=== PATIENT | female | born 1930 | race African-American/Black ===

== ENCOUNTER 2017-04-12 17:27 | Inpatient (IN) | payer OTHER ==
[~2017-04-12] VITALS: Ht 170.2 cm; Wt 48.6 kg
[~2017-04-12 17:27] MED LIST: AMIT10TA PO; FERR-26 PO; GEMF600T3 PO; LISI-334 PO; METF500T4 PO
--- NOTE | 2017-04-12 17:34 | PHYS DOC ---
Past Medical History Past Medical History: Diabetes-Type II, High Cholesterol, Hypertension Past Surgical History: Appendectomy, Tonsillectomy, Other Additional Past Surgical Histo: Hemmoroidectomy, Left hip repair, Hernia repair Alcohol Use: None Drug Use: None Adult General Chief Complaint Chief Complaint: syncope HPI HPI Patient is a 86 year old -[place] female who presents with sick all episode. According patient she just got up started to walk and a few seconds later had a syncopal episode. She denies headache, neck pain back pain, or hip pain. She denies any abdominal discomfort. She states as long she is lying flat she feels perfectly normal this time. According EMS when she was sitting her blood pressure was 120 systolic and after she stood up and went down to 78. She states she hasn't had a bowel movement for 3 days but denies any black tarry stools or blood in her stools. She states she was just seen by her primary care physician who started her back on iron pills. She states she's also taken off her blood pressure medicines at the same time. According to family she's had multiple episodes of falling recently. Review of Systems Review of Systems Constitutional: Denies fever or chills [] Eyes: Denies change in visual acuity, redness, or eye pain [] HENT: Denies nasal congestion or sore throat [] Respiratory: Denies cough or shortness of breath [] Cardiovascular: No additional information not addressed in HPI [] GI: Denies abdominal pain, nausea, vomiting, bloody stools or diarrhea [] : Denies dysuria or hematuria [] Musculoskeletal: Denies back pain or joint pain [] Integument: Denies rash or skin lesions [] Neurologic: Denies headache, focal weakness or sensory changes [] Endocrine: Denies polyuria or polydipsia [] Allergies Allergies Allergies Coded Allergies Type Severity Reaction Last Updated Verified codeine Allergy Intermediate 06/01/14 Yes Physical Exam Physical Exam Constitutional: Well developed, well nourished, no acute distress, non-toxic appearance. [] HENT: Normocephalic, atraumatic, bilateral external ears normal, oropharynx moist, no oral exudates, nose normal. [] Eyes: PERRLA, EOMI, conjunctiva normal, no discharge. [] Neck: Normal range of motion, no tenderness, supple, no stridor. [] Cardiovascular:Heart rate regular rhythm, no murmur [] Lungs & Thorax: Bilateral breath sounds clear to auscultation [] Abdomen: Bowel sounds normal, soft, no tenderness, no masses, no pulsatile masses. [] Skin: Warm, dry, no erythema, no rash. [] Back: No tenderness, no CVA tenderness. [] Extremities: No tenderness, no cyanosis, no clubbing, ROM intact, no edema. [] Neurologic: Alert and oriented X 3, normal motor function, normal sensory function, no focal deficits noted. [] Psychologic: Affect normal, judgement normal, mood normal. [] Current Patient Data Vital Signs Vital Signs Date Time Temp Pulse Resp B/P (MAP) Pulse Ox O2 Delivery O2 Flow Rate FiO2 04/12/17 18:07 98 127/75 (92) 96 Room Air 04/12/17 17:27 98.1 20 98.1 Lab Values Laboratory Tests Test 04/12/17 18:07 White Blood Count 5.0 x10^3/uL (4.0-11.0) Red Blood Count 3.13 x10^6/uL (3.50-5.40) L Hemoglobin 8.8 g/dL (12.0-15.5) L Hematocrit 27.2 % (36.0-47.0) L Mean Corpuscular Volume 87 fL (79-100) Mean Corpuscular Hemoglobin 28 pg (25-35) Mean Corpuscular Hemoglobin Concent 32 g/dL (31-37) Red Cell Distribution Width 14.7 % (11.5-14.5) H Platelet Count 288 x10^3/uL (140-400) Neutrophils (%) (Auto) 54 % (31-73) Lymphocytes (%) (Auto) 30 % (24-48) Monocytes (%) (Auto) 13 % (0-9) H Eosinophils (%) (Auto) 3 % (0-3) Basophils (%) (Auto) 1 % (0-3) Neutrophils # (Auto) 2.7 x10^3uL (1.8-7.7) Lymphocytes # (Auto) 1.5 x10^3/uL (1.0-4.8) Monocytes # (Auto) 0.6 x10^3/uL (0.0-1.1) Eosinophils # (Auto) 0.1 x10^3/uL (0.0-0.7) Basophils # (Auto) 0.0 x10^3/uL (0.0-0.2) Laboratory Tests 04/12/17 18:07 EKG EKG EKG shows sinus tachycardia with rate of [address] elevations or concerning T-wave inversions, left axis deviation, QTC 431 ms, as interpreted by me. Radiology/Procedures Radiology/Procedures One view chest x-ray did not show any focal consolidations, bony abnormality's, pneumothorax, as interpreted by me. Impressions: Syncope Diabetes Anemia Orthostatic hypotension Acute on chronic renal failure Course & Med Decision Making Course & Med Decision Making Pertinent Labs and Imaging studies reviewed. (See chart for details) EKG is sinus tach, she does show a decrease in her hemoglobin from 11 to 8.8 that was performed 2 weeks ago. She's being admitted to Dr. Hernandez in stable condition at this time. Her creatinine is elevated. I've added on 500 mL of normal saline bolus. His in stable condition at this time being transferred to the floor. Dragon Disclaimer Dragon Disclaimer This electronic medical record was generated, in whole or in part, using a voice recognition dictation system. Departure Departure Impression: Primary Impression: Syncope Disposition: ADMITTED INPATIENT Admitting Physician: Annette Hernandez Condition: STABLE Referrals: EARL ROLLINS MD (PCP) Problem Qualifiers Primary Impression: Syncope Syncope type: unspecified Qualified Codes: R55 - Syncope and collapse LUISA WHALEY MD Apr 12, 2017 17:34
[2017-04-12 18:20] LABS: BASO % 1 % (0-3); EOS % 3 % (0-3); HEMATOCRIT 27.2 % (36.0-47.0); HEMOGLOBIN 8.8 g/dL (12.0-15.5); LYMPH # 1.5 x10^3/uL (1.0-4.8); LYMPH % 30 % (24-48); MEAN CORPUSCULAR HEMOGLOBIN 28 pg (25-35); MEAN CORPUSCULAR HGB CONC 32 g/dL (31-37); MEAN CORPUSCULAR VOLUME 87 fL (79-100); MONO % 13 % (0-9); NEUT % 54 % (31-73); PLATELET COUNT 288 x10^3/uL (140-400); RED BLOOD COUNT 3.13 x10^6/uL (3.50-5.40); RED CELL DISTRIBUTION WIDTH 14.7 % (11.5-14.5)
[2017-04-12 20:00] VITALS: BP 158/83
[2017-04-12] MEDS ORDERED: ONDANSETRON PF 4 MG/2 ML VIAL. IV PRN (20:00)
[2017-04-12 20:04] LABS: CALCIUM 10.1 mg/dL (8.5-10.1); CREATININE 2.2 mg/dL (0.6-1.0); GFR 25.7; POTASSIUM 4.9 mmol/L (3.5-5.1)
[2017-04-12 20:09] LABS: ALBUMIN 3.6 g/dL (3.4-5.0); DIRECT BILIRUBIN 0.1 mg/dL (0.0-0.2); MAGNESIUM 2.3 mg/dL (1.8-2.4); TOTAL BILIRUBIN 0.2 mg/dL (0.2-1.0); TOTAL PROTEIN 6.7 g/dL (6.4-8.2)
[2017-04-12] MEDS ORDERED: IV NORMAL SALINE 1000ML BAG 500 ML IV ONE (20:15)
--- NOTE | 2017-04-12 20:24 | HP ---
ADMIT DATE: 04/12/2017 CHIEF COMPLAINT: Syncope. HISTORY OF PRESENT ILLNESS: The patient is a pleasant 86-year-old female who had a syncopal episode. Her family states she has had a couple of them recently. They think she hit her head. Her hemoglobin is a little low, she is at 9. It apparently was a little higher at 11 few weeks ago. I have discussed the case with the ER physician. It appears she is probably orthostatic as well. We are going to admit and give her some fluids and have Neurology to care. PAST MEDICAL HISTORY: Diabetes, hypertension, hyperlipidemia, anemia. ALLERGIES: None. FAMILY HISTORY: Diabetes. SOCIAL HISTORY: She does not drink, smoke or take drugs. She is a retired RN. MEDICATIONS: Reviewed. REVIEW OF SYSTEMS: GENERAL: No history of weight change, weakness or fevers. SKIN: No bruising, hair changes or rashes. EYES: No blurred, double or loss of vision. NOSE AND THROAT: No history of nosebleeds, hoarseness or sore throat. HEART: No history of palpitations, chest pain or shortness of breath on exertion. LUNGS: Denies cough, hemoptysis, wheezing or shortness of breath. GASTROINTESTINAL: Denies changes in appetite, nausea, vomiting, diarrhea or constipation. GENITOURINARY: No history of frequency, urgency, hesitancy or nocturia. NEUROLOGIC: Denies history of numbness, tingling, tremor or weakness. PSYCHIATRIC: No history of panic, anxiety or depression. ENDOCRINE: No history of heat or cold intolerance, polyuria or polydipsia. EXTREMITIES: Denies muscle weakness, joint pain, pain on walking or stiffness. PHYSICAL EXAMINATION: VITAL SIGNS: Temperature afebrile, pulse 97, respirations 18, blood pressure 100/60. GENERAL: She is alert. Her family is present. HEART: Normal S1, S2. LUNGS: Clear. ABDOMEN: Soft. EXTREMITIES: No edema. SKIN: No rashes. PSYCHIATRIC: She is a little depressed. VASCULAR: Good capillary refill. ENDOCRINE: No thyromegaly. LYMPHATICS: No cervical nodes. HEMATOPOIETIC: No bruising. ASSESSMENT AND PLAN: Syncope, suspect orthostasis, perhaps a little dehydration. The patient has been admitted. We will give her IV fluids. Consult neurology, physical therapy, occupational therapy, resume home medicines. PROGNOSIS: Guarded. SHAWNAL Leann VELÁZQUEZ DO DR: Miley JOB#: [id number] / [id number]
[2017-04-12 20:52] LABS: CKMB MASS 0.8 ng/mL (0.0-3.6)
[2017-04-12] MEDS: IV NORMAL SALINE 1000ML BAG 1,000 ML IV SCH (21:04)
[2017-04-12 22:51] VITALS: BP 127/64
[2017-04-13] VITALS (8 sets, daily range): BP systolic 81–147; BP diastolic 48–76
[2017-04-13 04:53] LABS: BASO # 0.1 x10^3/uL (0.0-0.2); BASO % 1 % (0-3); EOS % 4 % (0-3); HEMATOCRIT 25.4 % (36.0-47.0); HEMOGLOBIN 8.4 g/dL (12.0-15.5); LYMPH # 1.8 x10^3/uL (1.0-4.8); LYMPH % 39 % (24-48); MEAN CORPUSCULAR HEMOGLOBIN 28 pg (25-35); MEAN CORPUSCULAR HGB CONC 33 g/dL (31-37); MEAN CORPUSCULAR VOLUME 85 fL (79-100); MONO % 11 % (0-9); NEUT % 45 % (31-73); PLATELET COUNT 275 x10^3/uL (140-400); RED BLOOD COUNT 2.99 x10^6/uL (3.50-5.40); RED CELL DISTRIBUTION WIDTH 15.1 % (11.5-14.5); WHITE BLOOD COUNT 4.7 x10^3/uL (4.0-11.0)
[2017-04-13 05:06] LABS: CALCIUM 9.4 mg/dL (8.5-10.1); CREATININE 1.8 mg/dL (0.6-1.0); GFR 32.4; POTASSIUM 4.6 mmol/L (3.5-5.1)
--- NOTE | 2017-04-13 08:37 | RAD ---
AP chest. History: Syncope AP view was taken of the chest. Lungs are clear. Heart is normal in size without heart failure. There is no pleural effusion. Impression: 1. No acute chest disease.
--- NOTE | 2017-04-13 10:08 | EKG ---
[facility] [address] [place] [address] Test Date: 2017-04-12 Test Time: 17:43:27 Pat Name: ABBEY BONNER Department: Room: 538 1 Gender: F Supervisor Webbing: : 1930 Requested By: LUISA WHALEY Order Number: [id number] Reading MD: Hang Lilly Measurements Intervals [place] Rate: 101 P: 148 GA: 160 QRS: -30 QRSD: 94 T: 62 QT: 332 QTc: 431 Interpretive Statements SINUS TACHYCARDIA ABNORMAL LEFT AXIS DEVIATION QRS(T) CONTOUR ABNORMALITY CONSIDER ANTEROSEPTAL MYOCARDIAL DAMAGE CONSIDER INFERIOR INFARCT T ABNORMALITY IN HIGH LATERAL LEADS RI6.01 Unconfirmed report Electronically Signed On 04-30-2017 13:23:20 CDT by Hang Lilly
[2017-04-13] MEDS ORDERED: traMADol 50 MG TABLET PO PRN (12:30)
--- NOTE | 2017-04-13 12:43 | PDOC ---
PROGRESS NOTES Chief Complaint Chief Complaint Syncope Orthostatic hypotension PMH: syncope DM HTN Hyperlipidemia Anemia History of Present Illness History of Present Illness Pt was in bed and conversant. Nurse was also in the room. Nurse mentioned pt complaining of right sided flank pain. Possible broken ribs after fall suspected. Ordered right rib films. Discussed plan of care with pt and nurse. Gave pt ultram for pain and consulted Dr. Rowe with nephro fro elevated creatinine. CXR - negative EKG - negative trop <.017 Vitals Vitals Vital Signs Date Time Temp Pulse Resp B/P (MAP) Pulse Ox O2 Delivery O2 Flow Rate FiO2 04/13/17 11:10 85 81/48 (59) 97 04/13/17 11:00 97.9 17 Room Air 97.9 Physical Exam General: Alert, Oriented X3, Cooperative, No acute distress Heart: Regular rate, Normal S1, Normal S2, No murmurs Lungs: Clear Abdomen: Normal bowel sounds, No tenderness, No masses Extremities: No clubbing, No cyanosis Skin: No rashes, No breakdown, No significant lesion Labs LABS Laboratory Tests Test 04/12/17 18:07 04/12/17 19:40 04/12/17 20:43 04/12/17 21:02 White Blood Count 5.0 x10^3/uL (4.0-11.0) Red Blood Count 3.13 x10^6/uL (3.50-5.40) Hemoglobin 8.8 g/dL (12.0-15.5) Hematocrit 27.2 % (36.0-47.0) Mean Corpuscular Volume 87 fL (79-100) Mean Corpuscular Hemoglobin 28 pg (25-35) Mean Corpuscular Hemoglobin Concent 32 g/dL (31-37) Red Cell Distribution Width 14.7 % (11.5-14.5) Platelet Count 288 x10^3/uL (140-400) Neutrophils (%) (Auto) 54 % (31-73) Lymphocytes (%) (Auto) 30 % (24-48) Monocytes (%) (Auto) 13 % (0-9) Eosinophils (%) (Auto) 3 % (0-3) Basophils (%) (Auto) 1 % (0-3) Neutrophils # (Auto) 2.7 x10^3uL (1.8-7.7) Lymphocytes # (Auto) 1.5 x10^3/uL (1.0-4.8) Monocytes # (Auto) 0.6 x10^3/uL (0.0-1.1) Eosinophils # (Auto) 0.1 x10^3/uL (0.0-0.7) Basophils # (Auto) 0.0 x10^3/uL (0.0-0.2) Sodium Level 142 mmol/L (136-145) Potassium Level 4.9 mmol/L (3.5-5.1) Chloride Level 106 mmol/L (98-107) Carbon Dioxide Level 23 mmol/L (21-32) Anion Gap 13 (6-14) Blood Urea Nitrogen 34 mg/dL (7-20) Creatinine 2.2 mg/dL (0.6-1.0) Estimated GFR (Cockcroft-Gault) 25.7 Glucose Level 87 mg/dL (70-99) Calcium Level 10.1 mg/dL (8.5-10.1) Magnesium Level 2.3 mg/dL (1.8-2.4) Total Bilirubin 0.2 mg/dL (0.2-1.0) Direct Bilirubin 0.1 mg/dL (0.0-0.2) Aspartate Amino Transf (AST/SGOT) 15 U/L (15-37) Alanine Aminotransferase (ALT/SGPT) 11 U/L (14-59) Alkaline Phosphatase 38 U/L (46-116) Creatine Kinase 49 U/L (26-192) Creatine Kinase MB (Mass) 0.8 ng/mL (0.0-3.6) Creatine Kinase MB Relative Index 1.6 % (0-4) Troponin I Quantitative < 0.017 ng/mL (0.000-0.055) MR-Eld-R-Type Natriuretic Peptide 275 pg/mL (0-449) Total Protein 6.7 g/dL (6.4-8.2) Albumin 3.6 g/dL (3.4-5.0) Thyroid Stimulating Hormone (TSH) 1.737 uIU/mL (0.358-3.74) Glucose (Fingerstick) 65 mg/dL (70-99) 82 mg/dL (70-99) Test 04/13/17 02:30 04/13/17 04:00 04/13/17 08:05 04/13/17 08:46 Troponin I Quantitative < 0.017 ng/mL (0.000-0.055) < 0.017 ng/mL (0.000-0.055) White Blood Count 4.7 x10^3/uL (4.0-11.0) Red Blood Count 2.99 x10^6/uL (3.50-5.40) Hemoglobin 8.4 g/dL (12.0-15.5) Hematocrit 25.4 % (36.0-47.0) Mean Corpuscular Volume 85 fL (79-100) Mean Corpuscular Hemoglobin 28 pg (25-35) Mean Corpuscular Hemoglobin Concent 33 g/dL (31-37) Red Cell Distribution Width 15.1 % (11.5-14.5) Platelet Count 275 x10^3/uL (140-400) Neutrophils (%) (Auto) 45 % (31-73) Lymphocytes (%) (Auto) 39 % (24-48) Monocytes (%) (Auto) 11 % (0-9) Eosinophils (%) (Auto) 4 % (0-3) Basophils (%) (Auto) 1 % (0-3) Neutrophils # (Auto) 2.1 x10^3uL (1.8-7.7) Lymphocytes # (Auto) 1.8 x10^3/uL (1.0-4.8) Monocytes # (Auto) 0.5 x10^3/uL (0.0-1.1) Eosinophils # (Auto) 0.2 x10^3/uL (0.0-0.7) Basophils # (Auto) 0.1 x10^3/uL (0.0-0.2) Sodium Level 142 mmol/L (136-145) Potassium Level 4.6 mmol/L (3.5-5.1) Chloride Level 110 mmol/L (98-107) Carbon Dioxide Level 25 mmol/L (21-32) Anion Gap 7 (6-14) Blood Urea Nitrogen 28 mg/dL (7-20) Creatinine 1.8 mg/dL (0.6-1.0) Estimated GFR (Cockcroft-Gault) 32.4 Glucose Level 75 mg/dL (70-99) Calcium Level 9.4 mg/dL (8.5-10.1) Glucose (Fingerstick) 135 mg/dL (70-99) Test 04/13/17 11:24 Glucose (Fingerstick) 91 mg/dL (70-99) Review of Systems Review of Systems Pt complains of pain in right flank Pt complains of fatigue Pt complains of hunger Assessment and Plan Assessmemt and Plan Syncope Orthostatic hypotension PMH: syncope DM HTN Hyperlipidemia Anemia Plan: Consult Dr. Rowe Ordered right rib films for possible broken ribs Ordered Ultram for pt pain control Recheck labs cont. IVF Appreciate subspecialty input Cont. meds PT/OT Problems: Comment Review of Relevant I have reviewed the following items nella (where applicable) has been applied. Labs Laboratory Tests Test 04/12/17 18:07 04/12/17 19:40 04/12/17 20:43 04/12/17 21:02 White Blood Count 5.0 x10^3/uL (4.0-11.0) Red Blood Count 3.13 x10^6/uL (3.50-5.40) Hemoglobin 8.8 g/dL (12.0-15.5) Hematocrit 27.2 % (36.0-47.0) Mean Corpuscular Volume 87 fL (79-100) Mean Corpuscular Hemoglobin 28 pg (25-35) Mean Corpuscular Hemoglobin Concent 32 g/dL (31-37) Red Cell Distribution Width 14.7 % (11.5-14.5) Platelet Count 288 x10^3/uL (140-400) Neutrophils (%) (Auto) 54 % (31-73) Lymphocytes (%) (Auto) 30 % (24-48) Monocytes (%) (Auto) 13 % (0-9) Eosinophils (%) (Auto) 3 % (0-3) Basophils (%) (Auto) 1 % (0-3) Neutrophils # (Auto) 2.7 x10^3uL (1.8-7.7) Lymphocytes # (Auto) 1.5 x10^3/uL (1.0-4.8) Monocytes # (Auto) 0.6 x10^3/uL (0.0-1.1) Eosinophils # (Auto) 0.1 x10^3/uL (0.0-0.7) Basophils # (Auto) 0.0 x10^3/uL (0.0-0.2) Sodium Level 142 mmol/L (136-145) Potassium Level 4.9 mmol/L (3.5-5.1) Chloride Level 106 mmol/L (98-107) Carbon Dioxide Level 23 mmol/L (21-32) Anion Gap 13 (6-14) Blood Urea Nitrogen 34 mg/dL (7-20) Creatinine 2.2 mg/dL (0.6-1.0) Estimated GFR (Cockcroft-Gault) 25.7 Glucose Level 87 mg/dL (70-99) Calcium Level 10.1 mg/dL (8.5-10.1) Magnesium Level 2.3 mg/dL (1.8-2.4) Total Bilirubin 0.2 mg/dL (0.2-1.0) Direct Bilirubin 0.1 mg/dL (0.0-0.2) Aspartate Amino Transf (AST/SGOT) 15 U/L (15-37) Alanine Aminotransferase (ALT/SGPT) 11 U/L (14-59) Alkaline Phosphatase 38 U/L (46-116) Creatine Kinase 49 U/L (26-192) Creatine Kinase MB (Mass) 0.8 ng/mL (0.0-3.6) Creatine Kinase MB Relative Index 1.6 % (0-4) Troponin I Quantitative < 0.017 ng/mL (0.000-0.055) CH-Koe-Q-Type Natriuretic Peptide 275 pg/mL (0-449) Total Protein 6.7 g/dL (6.4-8.2) Albumin 3.6 g/dL (3.4-5.0) Thyroid Stimulating Hormone (TSH) 1.737 uIU/mL (0.358-3.74) Glucose (Fingerstick) 65 mg/dL (70-99) 82 mg/dL (70-99) Test 04/13/17 02:30 04/13/17 04:00 04/13/17 08:05 04/13/17 08:46 Troponin I Quantitative < 0.017 ng/mL (0.000-0.055) < 0.017 ng/mL (0.000-0.055) White Blood Count 4.7 x10^3/uL (4.0-11.0) Red Blood Count 2.99 x10^6/uL (3.50-5.40) Hemoglobin 8.4 g/dL (12.0-15.5) Hematocrit 25.4 % (36.0-47.0) Mean Corpuscular Volume 85 fL (79-100) Mean Corpuscular Hemoglobin 28 pg (25-35) Mean Corpuscular Hemoglobin Concent 33 g/dL (31-37) Red Cell Distribution Width 15.1 % (11.5-14.5) Platelet Count 275 x10^3/uL (140-400) Neutrophils (%) (Auto) 45 % (31-73) Lymphocytes (%) (Auto) 39 % (24-48) Monocytes (%) (Auto) 11 % (0-9) Eosinophils (%) (Auto) 4 % (0-3) Basophils (%) (Auto) 1 % (0-3) Neutrophils # (Auto) 2.1 x10^3uL (1.8-7.7) Lymphocytes # (Auto) 1.8 x10^3/uL (1.0-4.8) Monocytes # (Auto) 0.5 x10^3/uL (0.0-1.1) Eosinophils # (Auto) 0.2 x10^3/uL (0.0-0.7) Basophils # (Auto) 0.1 x10^3/uL (0.0-0.2) Sodium Level 142 mmol/L (136-145) Potassium Level 4.6 mmol/L (3.5-5.1) Chloride Level 110 mmol/L (98-107) Carbon Dioxide Level 25 mmol/L (21-32) Anion Gap 7 (6-14) Blood Urea Nitrogen 28 mg/dL (7-20) Creatinine 1.8 mg/dL (0.6-1.0) Estimated GFR (Cockcroft-Gault) 32.4 Glucose Level 75 mg/dL (70-99) Calcium Level 9.4 mg/dL (8.5-10.1) Glucose (Fingerstick) 135 mg/dL (70-99) Test 04/13/17 11:24 Glucose (Fingerstick) 91 mg/dL (70-99) Laboratory Tests Test 04/12/17 18:07 04/12/17 19:40 04/12/17 20:43 04/12/17 21:02 White Blood Count 5.0 x10^3/uL (4.0-11.0) Red Blood Count 3.13 x10^6/uL (3.50-5.40) Hemoglobin 8.8 g/dL (12.0-15.5) Hematocrit 27.2 % (36.0-47.0) Mean Corpuscular Volume 87 fL (79-100) Mean Corpuscular Hemoglobin 28 pg (25-35) Mean Corpuscular Hemoglobin Concent 32 g/dL (31-37) Red Cell Distribution Width 14.7 % (11.5-14.5) Platelet Count 288 x10^3/uL (140-400) Neutrophils (%) (Auto) 54 % (31-73) Lymphocytes (%) (Auto) 30 % (24-48) Monocytes (%) (Auto) 13 % (0-9) Eosinophils (%) (Auto) 3 % (0-3) Basophils (%) (Auto) 1 % (0-3) Neutrophils # (Auto) 2.7 x10^3uL (1.8-7.7) Lymphocytes # (Auto) 1.5 x10^3/uL (1.0-4.8) Monocytes # (Auto) 0.6 x10^3/uL (0.0-1.1) Eosinophils # (Auto) 0.1 x10^3/uL (0.0-0.7) Basophils # (Auto) 0.0 x10^3/uL (0.0-0.2) Sodium Level 142 mmol/L (136-145) Potassium Level 4.9 mmol/L (3.5-5.1) Chloride Level 106 mmol/L (98-107) Carbon Dioxide Level 23 mmol/L (21-32) Anion Gap 13 (6-14) Blood Urea Nitrogen 34 mg/dL (7-20) Creatinine 2.2 mg/dL (0.6-1.0) Estimated GFR (Cockcroft-Gault) 25.7 Glucose Level 87 mg/dL (70-99) Calcium Level 10.1 mg/dL (8.5-10.1) Magnesium Level 2.3 mg/dL (1.8-2.4) Total Bilirubin 0.2 mg/dL (0.2-1.0) Direct Bilirubin 0.1 mg/dL (0.0-0.2) Aspartate Amino Transf (AST/SGOT) 15 U/L (15-37) Alanine Aminotransferase (ALT/SGPT) 11 U/L (14-59) Alkaline Phosphatase 38 U/L (46-116) Creatine Kinase 49 U/L (26-192) Creatine Kinase MB (Mass) 0.8 ng/mL (0.0-3.6) Creatine Kinase MB Relative Index 1.6 % (0-4) Troponin I Quantitative < 0.017 ng/mL (0.000-0.055) NO-Odc-O-Type Natriuretic Peptide 275 pg/mL (0-449) Total Protein 6.7 g/dL (6.4-8.2) Albumin 3.6 g/dL (3.4-5.0) Thyroid Stimulating Hormone (TSH) 1.737 uIU/mL (0.358-3.74) Glucose (Fingerstick) 65 mg/dL (70-99) 82 mg/dL (70-99) Test 04/13/17 02:30 04/13/17 04:00 04/13/17 08:05 04/13/17 08:46 Troponin I Quantitative < 0.017 ng/mL (0.000-0.055) < 0.017 ng/mL (0.000-0.055) White Blood Count 4.7 x10^3/uL (4.0-11.0) Red Blood Count 2.99 x10^6/uL (3.50-5.40) Hemoglobin 8.4 g/dL (12.0-15.5) Hematocrit 25.4 % (36.0-47.0) Mean Corpuscular Volume 85 fL (79-100) Mean Corpuscular Hemoglobin 28 pg (25-35) Mean Corpuscular Hemoglobin Concent 33 g/dL (31-37) Red Cell Distribution Width 15.1 % (11.5-14.5) Platelet Count 275 x10^3/uL (140-400) Neutrophils (%) (Auto) 45 % (31-73) Lymphocytes (%) (Auto) 39 % (24-48) Monocytes (%) (Auto) 11 % (0-9) Eosinophils (%) (Auto) 4 % (0-3) Basophils (%) (Auto) 1 % (0-3) Neutrophils # (Auto) 2.1 x10^3uL (1.8-7.7) Lymphocytes # (Auto) 1.8 x10^3/uL (1.0-4.8) Monocytes # (Auto) 0.5 x10^3/uL (0.0-1.1) Eosinophils # (Auto) 0.2 x10^3/uL (0.0-0.7) Basophils # (Auto) 0.1 x10^3/uL (0.0-0.2) Sodium Level 142 mmol/L (136-145) Potassium Level 4.6 mmol/L (3.5-5.1) Chloride Level 110 mmol/L (98-107) Carbon Dioxide Level 25 mmol/L (21-32) Anion Gap 7 (6-14) Blood Urea Nitrogen 28 mg/dL (7-20) Creatinine 1.8 mg/dL (0.6-1.0) Estimated GFR (Cockcroft-Gault) 32.4 Glucose Level 75 mg/dL (70-99) Calcium Level 9.4 mg/dL (8.5-10.1) Glucose (Fingerstick) 135 mg/dL (70-99) Test 04/13/17 11:24 Glucose (Fingerstick) 91 mg/dL (70-99) Medications Current Medications Ondansetron HCl (Zofran) 4 mg PRN Q8HRS PRN IV NAUSEA/VOMITING; Start 04/12/17 at 20:00; Stop 04/13/17 at 19:59 Sodium Chloride 500 ml @ 1,000 mls/hr 1X ONCE IV Last administered on 20:34; Start 04/12/17 at 20:15; Stop 04/12/17 at 20:44; Status DC Sodium Chloride 1,000 ml @ 75 mls/hr [id number] IV Last administered on 21:04; Start 04/12/17 at 21:00 Active Scripts Active Reported Metformin Hcl 500 Mg Tablet 500 Mg PO BIDWMEALS Gemfibrozil 600 Mg Tablet 600 Mg PO BID Ferrous Sulfate 325 Mg Tablet 325 Mg PO DAILY Amitriptyline Hcl 10 Mg Tablet 10 Mg PO TID Vitals/I & O Vital Sign - Last 24 Hours 04/12/17 04/12/17 04/12/17 04/12/17 17:27 17:37 18:07 19:12 Temp 98.1 98.1 Pulse 102 102 98 98 Resp 20 B/P (MAP) 133/74 (93) 153/74 (100) 127/75 (92) 137/78 (97) Pulse Ox 97 99 96 99 O2 Delivery Room Air Room Air Room Air Room Air 04/12/17 04/12/17 04/12/17 04/12/17 19:50 20:00 22:15 22:51 Temp 98.2 96.6 98.2 96.6 Pulse 94 95 101 Resp 20 18 B/P (MAP) 138/84 (102) 158/83 (108) 127/64 (85) Pulse Ox 99 96 98 O2 Delivery Room Air Room Air Room Air Room Air 04/13/17 04/13/17 04/13/17 04/13/17 03:00 07:00 08:03 11:00 Temp 97.7 97.5 97.9 97.7 97.5 97.9 Pulse 84 90 78 Resp 17 B/P (MAP) 147/76 (99) 108/54 (72) 122/62 (82) Pulse Ox 96 100 97 O2 Delivery Room Air Room Air Room Air Room Air 04/13/17 04/13/17 11:05 11:10 Pulse 84 85 B/P (MAP) 126/63 (84) 81/48 (59) Pulse Ox 96 97 MARISSA VELÁZQUEZ III DO Apr 13, 2017 12:42
--- NOTE | 2017-04-13 14:28 | RAD ---
AP and oblique right ribs. History: Right-sided rib pain after a fall AP and oblique views were taken of the right ribs. A rib fracture is not identified. The lower ribs are poorly evaluated. There is no right pneumothorax or pleural effusion. Impression: 1. Somewhat limited study. 2. No definite rib fracture.
[2017-04-13] MEDS: IV NORMAL SALINE 1000ML BAG 1,000 ML IV SCH (14:39)
--- NOTE | 2017-04-13 16:04 | PDOC2 ---
CONSULT Date of Consult Date of Consult DATE: 04/13/17 TIME: 16:02 Reason for Consult Reason for Consult: Syncope. History of Present Illness Reason for Visit: This patient is a 86-year-old overweight man who presented with complaint of syncope episode. She reports she will have lightheadedness when she is trying to get out of the bed too quickly patient denies any previous history of stroke or seizures. There are no new clinicals seizures or any history suggestive of seizures. Patient has hemoglobin the low side. Information obtained from patient and patient's family at bedside. Patient denies any complaint of tingling numbness weakness she denies any complaint of headaches. Patient denies any history of focal weakness of slurring of speech or difficulty speaking. Syncope Positional dizziness Check for orthostatic blood pressures Check MRI brain to rule out any acute process Reason for Visit: This patient is a 86-year-old overweight man who presented with compla Past Medical History Cardiovascular: HTN, Hyperlipidemia Pulmonary: No pertinent hx GI: No pertinent hx Heme/Onc: Anemia NOS Hepatobiliary: No pertinent hx Psych: Anxiety, Depression Musculoskeletal: Osteoarthritis Rheumatologic: No pertinent hx Infectious disease: No pertinent hx Renal/: No pertinent hx Endocrine: Diabetes Past Surgical History Past Surgical History: Appendectomy, Tonsillectomy, Other Family History Family History: Hypertension Social History ALCOHOL: none Drugs: None Lives: with Family Current Medications Current Medications Current Medications Ondansetron HCl (Zofran) 4 mg PRN Q8HRS PRN IV NAUSEA/VOMITING; Start 04/12/17 at 20:00; Stop 04/13/17 at 19:59 Sodium Chloride 500 ml @ 1,000 mls/hr 1X ONCE IV Last administered on 20:34; Start 04/12/17 at 20:15; Stop 04/12/17 at 20:44; Status DC Sodium Chloride 1,000 ml @ 75 mls/hr [id number] IV Last administered on 14:39; Start 04/12/17 at 21:00 Tramadol HCl (Ultram) 50 mg PRN Q6HRS PRN PO PAIN Last administered on 14:38; Start 04/13/17 at 12:30 Active Scripts Active Reported Metformin Hcl 500 Mg Tablet 500 Mg PO BIDWMEALS Gemfibrozil 600 Mg Tablet 600 Mg PO BID Ferrous Sulfate 325 Mg Tablet 325 Mg PO DAILY Amitriptyline Hcl 10 Mg Tablet 10 Mg PO TID Allergies Allergies: Coded Allergies: codeine (Verified Allergy, Intermediate, 06/01/14) Physical Exam Physical Exam REVIEW OF SYSTEMS: Otherwise, not [id number] review of systems. PHYSICAL EXAMINATION: General appearance is in acute distress. HEENT: Normocephalic and nontraumatic. Eyes, nose, ears, and throat are unremarkable. Neck is supple. No lymphadenopathy. No crepitus. Cardiovascular: S1, S2, regular rate and rhythm. Pulmonary: Clear to auscultation bilaterally. Abdomen: Bowel sounds are positive. Abdomen is soft, nontender, and nondistended. NEUROLOGICAL EXAMINATION: Alert Oriented to time, place and person. PERRL. EOMI. CN: no focal findings. Muscle tone: within normal. Muscle strength: 5 DTR: 1-2 Plantar reflex: Flexor response bilaterally Gait: not examined in bed. Sensory exam: no abnormal findings. No obvious cerebellar signs elicited. Vitals VITALS Vital Signs Date Time Temp Pulse Resp B/P (MAP) Pulse Ox O2 Delivery O2 Flow Rate FiO2 04/13/17 14:38 20 93 Room Air 04/13/17 11:10 85 81/48 (59) 04/13/17 11:00 97.9 97.9 Labs Labs Laboratory Tests Test 04/12/17 18:07 04/12/17 19:40 04/12/17 20:43 04/12/17 21:02 White Blood Count 5.0 x10^3/uL (4.0-11.0) Red Blood Count 3.13 x10^6/uL (3.50-5.40) Hemoglobin 8.8 g/dL (12.0-15.5) Hematocrit 27.2 % (36.0-47.0) Mean Corpuscular Volume 87 fL (79-100) Mean Corpuscular Hemoglobin 28 pg (25-35) Mean Corpuscular Hemoglobin Concent 32 g/dL (31-37) Red Cell Distribution Width 14.7 % (11.5-14.5) Platelet Count 288 x10^3/uL (140-400) Neutrophils (%) (Auto) 54 % (31-73) Lymphocytes (%) (Auto) 30 % (24-48) Monocytes (%) (Auto) 13 % (0-9) Eosinophils (%) (Auto) 3 % (0-3) Basophils (%) (Auto) 1 % (0-3) Neutrophils # (Auto) 2.7 x10^3uL (1.8-7.7) Lymphocytes # (Auto) 1.5 x10^3/uL (1.0-4.8) Monocytes # (Auto) 0.6 x10^3/uL (0.0-1.1) Eosinophils # (Auto) 0.1 x10^3/uL (0.0-0.7) Basophils # (Auto) 0.0 x10^3/uL (0.0-0.2) Sodium Level 142 mmol/L (136-145) Potassium Level 4.9 mmol/L (3.5-5.1) Chloride Level 106 mmol/L (98-107) Carbon Dioxide Level 23 mmol/L (21-32) Anion Gap 13 (6-14) Blood Urea Nitrogen 34 mg/dL (7-20) Creatinine 2.2 mg/dL (0.6-1.0) Estimated GFR (Cockcroft-Gault) 25.7 Glucose Level 87 mg/dL (70-99) Calcium Level 10.1 mg/dL (8.5-10.1) Magnesium Level 2.3 mg/dL (1.8-2.4) Total Bilirubin 0.2 mg/dL (0.2-1.0) Direct Bilirubin 0.1 mg/dL (0.0-0.2) Aspartate Amino Transf (AST/SGOT) 15 U/L (15-37) Alanine Aminotransferase (ALT/SGPT) 11 U/L (14-59) Alkaline Phosphatase 38 U/L (46-116) Creatine Kinase 49 U/L (26-192) Creatine Kinase MB (Mass) 0.8 ng/mL (0.0-3.6) Creatine Kinase MB Relative Index 1.6 % (0-4) Troponin I Quantitative < 0.017 ng/mL (0.000-0.055) NS-Bnn-Q-Type Natriuretic Peptide 275 pg/mL (0-449) Total Protein 6.7 g/dL (6.4-8.2) Albumin 3.6 g/dL (3.4-5.0) Thyroid Stimulating Hormone (TSH) 1.737 uIU/mL (0.358-3.74) Glucose (Fingerstick) 65 mg/dL (70-99) 82 mg/dL (70-99) Test 04/13/17 02:30 04/13/17 04:00 04/13/17 08:05 04/13/17 08:46 Troponin I Quantitative < 0.017 ng/mL (0.000-0.055) < 0.017 ng/mL (0.000-0.055) White Blood Count 4.7 x10^3/uL (4.0-11.0) Red Blood Count 2.99 x10^6/uL (3.50-5.40) Hemoglobin 8.4 g/dL (12.0-15.5) Hematocrit 25.4 % (36.0-47.0) Mean Corpuscular Volume 85 fL (79-100) Mean Corpuscular Hemoglobin 28 pg (25-35) Mean Corpuscular Hemoglobin Concent 33 g/dL (31-37) Red Cell Distribution Width 15.1 % (11.5-14.5) Platelet Count 275 x10^3/uL (140-400) Neutrophils (%) (Auto) 45 % (31-73) Lymphocytes (%) (Auto) 39 % (24-48) Monocytes (%) (Auto) 11 % (0-9) Eosinophils (%) (Auto) 4 % (0-3) Basophils (%) (Auto) 1 % (0-3) Neutrophils # (Auto) 2.1 x10^3uL (1.8-7.7) Lymphocytes # (Auto) 1.8 x10^3/uL (1.0-4.8) Monocytes # (Auto) 0.5 x10^3/uL (0.0-1.1) Eosinophils # (Auto) 0.2 x10^3/uL (0.0-0.7) Basophils # (Auto) 0.1 x10^3/uL (0.0-0.2) Sodium Level 142 mmol/L (136-145) Potassium Level 4.6 mmol/L (3.5-5.1) Chloride Level 110 mmol/L (98-107) Carbon Dioxide Level 25 mmol/L (21-32) Anion Gap 7 (6-14) Blood Urea Nitrogen 28 mg/dL (7-20) Creatinine 1.8 mg/dL (0.6-1.0) Estimated GFR (Cockcroft-Gault) 32.4 Glucose Level 75 mg/dL (70-99) Calcium Level 9.4 mg/dL (8.5-10.1) Glucose (Fingerstick) 135 mg/dL (70-99) Test 04/13/17 11:24 Glucose (Fingerstick) 91 mg/dL (70-99) Laboratory Tests Test 04/12/17 18:07 04/12/17 19:40 04/12/17 20:43 04/12/17 21:02 White Blood Count 5.0 x10^3/uL (4.0-11.0) Red Blood Count 3.13 x10^6/uL (3.50-5.40) Hemoglobin 8.8 g/dL (12.0-15.5) Hematocrit 27.2 % (36.0-47.0) Mean Corpuscular Volume 87 fL (79-100) Mean Corpuscular Hemoglobin 28 pg (25-35) Mean Corpuscular Hemoglobin Concent 32 g/dL (31-37) Red Cell Distribution Width 14.7 % (11.5-14.5) Platelet Count 288 x10^3/uL (140-400) Neutrophils (%) (Auto) 54 % (31-73) Lymphocytes (%) (Auto) 30 % (24-48) Monocytes (%) (Auto) 13 % (0-9) Eosinophils (%) (Auto) 3 % (0-3) Basophils (%) (Auto) 1 % (0-3) Neutrophils # (Auto) 2.7 x10^3uL (1.8-7.7) Lymphocytes # (Auto) 1.5 x10^3/uL (1.0-4.8) Monocytes # (Auto) 0.6 x10^3/uL (0.0-1.1) Eosinophils # (Auto) 0.1 x10^3/uL (0.0-0.7) Basophils # (Auto) 0.0 x10^3/uL (0.0-0.2) Sodium Level 142 mmol/L (136-145) Potassium Level 4.9 mmol/L (3.5-5.1) Chloride Level 106 mmol/L (98-107) Carbon Dioxide Level 23 mmol/L (21-32) Anion Gap 13 (6-14) Blood Urea Nitrogen 34 mg/dL (7-20) Creatinine 2.2 mg/dL (0.6-1.0) Estimated GFR (Cockcroft-Gault) 25.7 Glucose Level 87 mg/dL (70-99) Calcium Level 10.1 mg/dL (8.5-10.1) Magnesium Level 2.3 mg/dL (1.8-2.4) Total Bilirubin 0.2 mg/dL (0.2-1.0) Direct Bilirubin 0.1 mg/dL (0.0-0.2) Aspartate Amino Transf (AST/SGOT) 15 U/L (15-37) Alanine Aminotransferase (ALT/SGPT) 11 U/L (14-59) Alkaline Phosphatase 38 U/L (46-116) Creatine Kinase 49 U/L (26-192) Creatine Kinase MB (Mass) 0.8 ng/mL (0.0-3.6) Creatine Kinase MB Relative Index 1.6 % (0-4) Troponin I Quantitative < 0.017 ng/mL (0.000-0.055) OO-Cyw-X-Type Natriuretic Peptide 275 pg/mL (0-449) Total Protein 6.7 g/dL (6.4-8.2) Albumin 3.6 g/dL (3.4-5.0) Thyroid Stimulating Hormone (TSH) 1.737 uIU/mL (0.358-3.74) Glucose (Fingerstick) 65 mg/dL (70-99) 82 mg/dL (70-99) Test 04/13/17 02:30 04/13/17 04:00 04/13/17 08:05 04/13/17 08:46 Troponin I Quantitative < 0.017 ng/mL (0.000-0.055) < 0.017 ng/mL (0.000-0.055) White Blood Count 4.7 x10^3/uL (4.0-11.0) Red Blood Count 2.99 x10^6/uL (3.50-5.40) Hemoglobin 8.4 g/dL (12.0-15.5) Hematocrit 25.4 % (36.0-47.0) Mean Corpuscular Volume 85 fL (79-100) Mean Corpuscular Hemoglobin 28 pg (25-35) Mean Corpuscular Hemoglobin Concent 33 g/dL (31-37) Red Cell Distribution Width 15.1 % (11.5-14.5) Platelet Count 275 x10^3/uL (140-400) Neutrophils (%) (Auto) 45 % (31-73) Lymphocytes (%) (Auto) 39 % (24-48) Monocytes (%) (Auto) 11 % (0-9) Eosinophils (%) (Auto) 4 % (0-3) Basophils (%) (Auto) 1 % (0-3) Neutrophils # (Auto) 2.1 x10^3uL (1.8-7.7) Lymphocytes # (Auto) 1.8 x10^3/uL (1.0-4.8) Monocytes # (Auto) 0.5 x10^3/uL (0.0-1.1) Eosinophils # (Auto) 0.2 x10^3/uL (0.0-0.7) Basophils # (Auto) 0.1 x10^3/uL (0.0-0.2) Sodium Level 142 mmol/L (136-145) Potassium Level 4.6 mmol/L (3.5-5.1) Chloride Level 110 mmol/L (98-107) Carbon Dioxide Level 25 mmol/L (21-32) Anion Gap 7 (6-14) Blood Urea Nitrogen 28 mg/dL (7-20) Creatinine 1.8 mg/dL (0.6-1.0) Estimated GFR (Cockcroft-Gault) 32.4 Glucose Level 75 mg/dL (70-99) Calcium Level 9.4 mg/dL (8.5-10.1) Glucose (Fingerstick) 135 mg/dL (70-99) Test 04/13/17 11:24 Glucose (Fingerstick) 91 mg/dL (70-99) Assessment/Plan Assessment/Plan This patient is a 86-year-old overweight man who presented with complaint of syncope episode. She reports she will have lightheadedness when she is trying to get out of the bed too quickly patient denies any previous history of stroke or seizures. There are no new clinicals seizures or any history suggestive of seizures. Patient has hemoglobin the low side. Information obtained from patient and patient's family at bedside. Patient denies any complaint of tingling numbness weakness she denies any complaint of headaches. Patient denies any history of focal weakness of slurring of speech or difficulty speaking. Syncope Positional dizziness Check for orthostatic blood pressures Check MRI brain to rule out any acute process Carotid Doppler Cardiac workup Discussed with patient and patient's family in detail. DEBORAH BRAXTON MD Apr 13, 2017 16:04
[2017-04-13] MEDS ORDERED: DEXTROSE 50% 25 GM / 50ML DISP.SYRIN. IV PRN (20:00)
[2017-04-13] MEDS: AMITRIPTYLINE HCL 10 MG TABLET. PO SCH (21:23)
[2017-04-13] MEDS: GEMFIBROZIL 600 MG TABLET. PO SCH (21:23)
[2017-04-13] MEDS: FERROUS SULFATE 325 MG TABLET. PO SCH (21:23)
[2017-04-14] VITALS (8 sets, daily range): BP systolic 84–186; BP diastolic 45–112
[2017-04-14] MEDS: IV NORMAL SALINE 1000ML BAG 1,000 ML IV SCH ×2 (04:16→20:59)
[2017-04-14 04:55] LABS: BASO # 0.1 x10^3/uL (0.0-0.2); BASO % 2 % (0-3); EOS % 8 % (0-3); HEMATOCRIT 25.3 % (36.0-47.0); HEMOGLOBIN 8.4 g/dL (12.0-15.5); LYMPH # 2.5 x10^3/uL (1.0-4.8); LYMPH % 46 % (24-48); MEAN CORPUSCULAR HEMOGLOBIN 29 pg (25-35); MEAN CORPUSCULAR HGB CONC 33 g/dL (31-37); MEAN CORPUSCULAR VOLUME 87 fL (79-100); MONO % 11 % (0-9); NEUT % 34 % (31-73); PLATELET COUNT 264 x10^3/uL (140-400); RED BLOOD COUNT 2.93 x10^6/uL (3.50-5.40); WHITE BLOOD COUNT 5.4 x10^3/uL (4.0-11.0)
[2017-04-14 05:11] LABS: CREATININE 1.2 mg/dL (0.6-1.0); GFR 51.7; POTASSIUM 4.4 mmol/L (3.5-5.1)
--- NOTE | 2017-04-14 07:36 | RAD ---
Carotid ultrasound, 04/13/2017: History: Syncope Duplex evaluation of the carotid arteries in the neck was performed including grayscale, color-flow and spectral Doppler analysis. There is mild atherosclerotic plaquing at both carotid bifurcations with partial calcification. The Doppler data obtained from the bifurcations reveals no significant focal velocity elevation to suggest a hemodynamically significant carotid stenosis. The peak systolic velocity in the left internal carotid artery is 95 cm/s with an end-diastolic velocity of 19 cm/s. The peak systolic velocity in the right internal carotid artery is 84 cm/s with an end-diastolic velocity of 17 cm/s. Antegrade flow is present in both vertebral arteries in the neck. IMPRESSION: Mild atherosclerotic plaquing at both carotid bifurcations with underlying luminal narrowing in the 0-50% diameter range bilaterally. Note: Stenosis calculations for CTA, MRA and conventional angiography are based upon determination of the distal ICA diameter in accordance with the NASCET methodology. Stenosis calculations for Doppler studies are derived from validated velocity criteria which are known to correlate with NASCET methodology of determining stenosis.
[2017-04-14] MEDS: INSULIN ASPART 300 UNITS/3 ML INSULN.PEN SQ SCH ×3 (08:00→17:00)
[2017-04-14] MEDS: GEMFIBROZIL 600 MG TABLET. PO SCH ×2 (08:19→20:58)
[2017-04-14] MEDS: FERROUS SULFATE 325 MG TABLET. PO SCH (08:19)
[2017-04-14] MEDS: AMITRIPTYLINE HCL 10 MG TABLET. PO SCH ×3 (08:19→20:58)
[2017-04-14] MEDS ORDERED: FERROUS SULFATE 325 MG TABLET. PO SCH (09:00)
--- NOTE | 2017-04-14 10:50 | RAD ---
MRI brain without contrast 04/14/2017 INDICATION: Syncope episodes COMPARISON: None available TECHNIQUE: Multiplanar, multisequence MR imaging of the brain was performed without intravenous contrast. FINDINGS: Scalp and calvaria are normal in appearance. Sella and suprasellar cistern are normal. Corpus callosum is intact. There is T2/FLAIR signal hyperintensity in the periventricular and subcortical white matter with areas of confluence suggestive of moderate chronic small vessel ischemic changes. Mild prominence of the ventricles, sulci and basal cisterns is compatible with generalized cerebral volume loss. No evidence for hydrocephalus. Vascular flow voids are maintained. Superior sagittal sinus vascular flow void is maintained. There is no diffusion signal hyperintensity to suggest acute or subacute ischemia. There is no susceptibility artifact to suggest acute or chronic hemorrhage. Posterior fossa is normal in appearance. 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 Bilateral lens replacements are noted. Otherwise, the orbits are normal in appearance. Paranasal sinuses are well aerated. Mastoid air cells are well aerated. Visualized portions of the cervical spine are normal. IMPRESSION: 1. No evidence for acute or subacute ischemia. 2. Mild generalized cerebral volume loss with moderate chronic small vessel ischemic changes. 3. 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 Electronically signed by: Mikala Hsu MD (04/14/2017 10:47 AM) [id number]
--- NOTE | 2017-04-14 11:15 | PDOC ---
PROGRESS NOTES Chief Complaint Chief Complaint Syncope Orthostatic hypotension PMH: syncope DM HTN Hyperlipidemia Anemia History of Present Illness History of Present Illness Pt was originally not in the room and was getting an MRI. Returned later and pt was sitting in a chair bedside and conversant. Plan of care was discussed with the pt. Neurology had carotid doppler which revealed bilateral narrowing of the carotids less than 50%. MRI was performed today. Right rib films showed no evidence of fracture. Discussed the pt with the nurse including orthostatic hypotension, added proamantine. Vitals Vitals Vital Signs Date Time Temp Pulse Resp B/P (MAP) Pulse Ox O2 Delivery O2 Flow Rate FiO2 04/14/17 08:00 Room Air 04/14/17 03:06 98.2 78 20 139/80 (99) 95 98.2 Physical Exam General: Alert, Oriented X3, Cooperative, No acute distress Heart: Regular rate, Normal S1, Normal S2, No murmurs Lungs: Clear Abdomen: Normal bowel sounds, No tenderness, No masses Extremities: No clubbing, No cyanosis Skin: No rashes, No breakdown, No significant lesion Labs LABS Laboratory Tests Test 04/13/17 11:24 04/13/17 17:13 04/13/17 20:28 04/14/17 04:30 Glucose (Fingerstick) 91 mg/dL (70-99) 80 mg/dL (70-99) 105 mg/dL (70-99) White Blood Count 5.4 x10^3/uL (4.0-11.0) Red Blood Count 2.93 x10^6/uL (3.50-5.40) Hemoglobin 8.4 g/dL (12.0-15.5) Hematocrit 25.3 % (36.0-47.0) Mean Corpuscular Volume 87 fL (79-100) Mean Corpuscular Hemoglobin 29 pg (25-35) Mean Corpuscular Hemoglobin Concent 33 g/dL (31-37) Red Cell Distribution Width 15.0 % (11.5-14.5) Platelet Count 264 x10^3/uL (140-400) Neutrophils (%) (Auto) 34 % (31-73) Lymphocytes (%) (Auto) 46 % (24-48) Monocytes (%) (Auto) 11 % (0-9) Eosinophils (%) (Auto) 8 % (0-3) Basophils (%) (Auto) 2 % (0-3) Neutrophils # (Auto) 1.8 x10^3uL (1.8-7.7) Lymphocytes # (Auto) 2.5 x10^3/uL (1.0-4.8) Monocytes # (Auto) 0.6 x10^3/uL (0.0-1.1) Eosinophils # (Auto) 0.4 x10^3/uL (0.0-0.7) Basophils # (Auto) 0.1 x10^3/uL (0.0-0.2) Test 04/14/17 04:35 04/14/17 07:50 Sodium Level 144 mmol/L (136-145) Potassium Level 4.4 mmol/L (3.5-5.1) Chloride Level 112 mmol/L (98-107) Carbon Dioxide Level 22 mmol/L (21-32) Anion Gap 10 (6-14) Blood Urea Nitrogen 18 mg/dL (7-20) Creatinine 1.2 mg/dL (0.6-1.0) Estimated GFR (Cockcroft-Gault) 51.7 Glucose Level 87 mg/dL (70-99) Calcium Level 9.0 mg/dL (8.5-10.1) Glucose (Fingerstick) 78 mg/dL (70-99) Review of Systems Review of Systems Pt complains of constipation Pt complains of dizziness when walking Pt complains of fatigue Assessment and Plan Assessmemt and Plan Syncope Orthostatic hypotension PMH: syncope DM HTN Hyperlipidemia Anemia Plan: Recheck labs Awaiting MRI report [facility] Consult[facility] marriage and family social worker for SNU placement PT/OT Will D/C to SNU in a.m if stable and subspecialists agree Problems: Comment Review of Relevant I have reviewed the following items nella (where applicable) has been applied. Labs Laboratory Tests Test 04/12/17 18:07 04/12/17 19:40 04/12/17 20:43 04/12/17 21:02 White Blood Count 5.0 x10^3/uL (4.0-11.0) Red Blood Count 3.13 x10^6/uL (3.50-5.40) Hemoglobin 8.8 g/dL (12.0-15.5) Hematocrit 27.2 % (36.0-47.0) Mean Corpuscular Volume 87 fL (79-100) Mean Corpuscular Hemoglobin 28 pg (25-35) Mean Corpuscular Hemoglobin Concent 32 g/dL (31-37) Red Cell Distribution Width 14.7 % (11.5-14.5) Platelet Count 288 x10^3/uL (140-400) Neutrophils (%) (Auto) 54 % (31-73) Lymphocytes (%) (Auto) 30 % (24-48) Monocytes (%) (Auto) 13 % (0-9) Eosinophils (%) (Auto) 3 % (0-3) Basophils (%) (Auto) 1 % (0-3) Neutrophils # (Auto) 2.7 x10^3uL (1.8-7.7) Lymphocytes # (Auto) 1.5 x10^3/uL (1.0-4.8) Monocytes # (Auto) 0.6 x10^3/uL (0.0-1.1) Eosinophils # (Auto) 0.1 x10^3/uL (0.0-0.7) Basophils # (Auto) 0.0 x10^3/uL (0.0-0.2) Sodium Level 142 mmol/L (136-145) Potassium Level 4.9 mmol/L (3.5-5.1) Chloride Level 106 mmol/L (98-107) Carbon Dioxide Level 23 mmol/L (21-32) Anion Gap 13 (6-14) Blood Urea Nitrogen 34 mg/dL (7-20) Creatinine 2.2 mg/dL (0.6-1.0) Estimated GFR (Cockcroft-Gault) 25.7 Glucose Level 87 mg/dL (70-99) Calcium Level 10.1 mg/dL (8.5-10.1) Magnesium Level 2.3 mg/dL (1.8-2.4) Total Bilirubin 0.2 mg/dL (0.2-1.0) Direct Bilirubin 0.1 mg/dL (0.0-0.2) Aspartate Amino Transf (AST/SGOT) 15 U/L (15-37) Alanine Aminotransferase (ALT/SGPT) 11 U/L (14-59) Alkaline Phosphatase 38 U/L (46-116) Creatine Kinase 49 U/L (26-192) Creatine Kinase MB (Mass) 0.8 ng/mL (0.0-3.6) Creatine Kinase MB Relative Index 1.6 % (0-4) Troponin I Quantitative < 0.017 ng/mL (0.000-0.055) KE-Dag-W-Type Natriuretic Peptide 275 pg/mL (0-449) Total Protein 6.7 g/dL (6.4-8.2) Albumin 3.6 g/dL (3.4-5.0) Thyroid Stimulating Hormone (TSH) 1.737 uIU/mL (0.358-3.74) Glucose (Fingerstick) 65 mg/dL (70-99) 82 mg/dL (70-99) Test 04/13/17 02:30 04/13/17 04:00 04/13/17 08:05 04/13/17 08:46 Troponin I Quantitative < 0.017 ng/mL (0.000-0.055) < 0.017 ng/mL (0.000-0.055) White Blood Count 4.7 x10^3/uL (4.0-11.0) Red Blood Count 2.99 x10^6/uL (3.50-5.40) Hemoglobin 8.4 g/dL (12.0-15.5) Hematocrit 25.4 % (36.0-47.0) Mean Corpuscular Volume 85 fL (79-100) Mean Corpuscular Hemoglobin 28 pg (25-35) Mean Corpuscular Hemoglobin Concent 33 g/dL (31-37) Red Cell Distribution Width 15.1 % (11.5-14.5) Platelet Count 275 x10^3/uL (140-400) Neutrophils (%) (Auto) 45 % (31-73) Lymphocytes (%) (Auto) 39 % (24-48) Monocytes (%) (Auto) 11 % (0-9) Eosinophils (%) (Auto) 4 % (0-3) Basophils (%) (Auto) 1 % (0-3) Neutrophils # (Auto) 2.1 x10^3uL (1.8-7.7) Lymphocytes # (Auto) 1.8 x10^3/uL (1.0-4.8) Monocytes # (Auto) 0.5 x10^3/uL (0.0-1.1) Eosinophils # (Auto) 0.2 x10^3/uL (0.0-0.7) Basophils # (Auto) 0.1 x10^3/uL (0.0-0.2) Sodium Level 142 mmol/L (136-145) Potassium Level 4.6 mmol/L (3.5-5.1) Chloride Level 110 mmol/L (98-107) Carbon Dioxide Level 25 mmol/L (21-32) Anion Gap 7 (6-14) Blood Urea Nitrogen 28 mg/dL (7-20) Creatinine 1.8 mg/dL (0.6-1.0) Estimated GFR (Cockcroft-Gault) 32.4 Glucose Level 75 mg/dL (70-99) Calcium Level 9.4 mg/dL (8.5-10.1) Glucose (Fingerstick) 135 mg/dL (70-99) Test 04/13/17 11:24 04/13/17 17:13 04/13/17 20:28 04/14/17 04:30 Glucose (Fingerstick) 91 mg/dL (70-99) 80 mg/dL (70-99) 105 mg/dL (70-99) White Blood Count 5.4 x10^3/uL (4.0-11.0) Red Blood Count 2.93 x10^6/uL (3.50-5.40) Hemoglobin 8.4 g/dL (12.0-15.5) Hematocrit 25.3 % (36.0-47.0) Mean Corpuscular Volume 87 fL (79-100) Mean Corpuscular Hemoglobin 29 pg (25-35) Mean Corpuscular Hemoglobin Concent 33 g/dL (31-37) Red Cell Distribution Width 15.0 % (11.5-14.5) Platelet Count 264 x10^3/uL (140-400) Neutrophils (%) (Auto) 34 % (31-73) Lymphocytes (%) (Auto) 46 % (24-48) Monocytes (%) (Auto) 11 % (0-9) Eosinophils (%) (Auto) 8 % (0-3) Basophils (%) (Auto) 2 % (0-3) Neutrophils # (Auto) 1.8 x10^3uL (1.8-7.7) Lymphocytes # (Auto) 2.5 x10^3/uL (1.0-4.8) Monocytes # (Auto) 0.6 x10^3/uL (0.0-1.1) Eosinophils # (Auto) 0.4 x10^3/uL (0.0-0.7) Basophils # (Auto) 0.1 x10^3/uL (0.0-0.2) Test 04/14/17 04:35 04/14/17 07:50 Sodium Level 144 mmol/L (136-145) Potassium Level 4.4 mmol/L (3.5-5.1) Chloride Level 112 mmol/L (98-107) Carbon Dioxide Level 22 mmol/L (21-32) Anion Gap 10 (6-14) Blood Urea Nitrogen 18 mg/dL (7-20) Creatinine 1.2 mg/dL (0.6-1.0) Estimated GFR (Cockcroft-Gault) 51.7 Glucose Level 87 mg/dL (70-99) Calcium Level 9.0 mg/dL (8.5-10.1) Glucose (Fingerstick) 78 mg/dL (70-99) Laboratory Tests Test 04/13/17 11:24 04/13/17 17:13 04/13/17 20:28 04/14/17 04:30 Glucose (Fingerstick) 91 mg/dL (70-99) 80 mg/dL (70-99) 105 mg/dL (70-99) White Blood Count 5.4 x10^3/uL (4.0-11.0) Red Blood Count 2.93 x10^6/uL (3.50-5.40) Hemoglobin 8.4 g/dL (12.0-15.5) Hematocrit 25.3 % (36.0-47.0) Mean Corpuscular Volume 87 fL (79-100) Mean Corpuscular Hemoglobin 29 pg (25-35) Mean Corpuscular Hemoglobin Concent 33 g/dL (31-37) Red Cell Distribution Width 15.0 % (11.5-14.5) Platelet Count 264 x10^3/uL (140-400) Neutrophils (%) (Auto) 34 % (31-73) Lymphocytes (%) (Auto) 46 % (24-48) Monocytes (%) (Auto) 11 % (0-9) Eosinophils (%) (Auto) 8 % (0-3) Basophils (%) (Auto) 2 % (0-3) Neutrophils # (Auto) 1.8 x10^3uL (1.8-7.7) Lymphocytes # (Auto) 2.5 x10^3/uL (1.0-4.8) Monocytes # (Auto) 0.6 x10^3/uL (0.0-1.1) Eosinophils # (Auto) 0.4 x10^3/uL (0.0-0.7) Basophils # (Auto) 0.1 x10^3/uL (0.0-0.2) Test 04/14/17 04:35 04/14/17 07:50 Sodium Level 144 mmol/L (136-145) Potassium Level 4.4 mmol/L (3.5-5.1) Chloride Level 112 mmol/L (98-107) Carbon Dioxide Level 22 mmol/L (21-32) Anion Gap 10 (6-14) Blood Urea Nitrogen 18 mg/dL (7-20) Creatinine 1.2 mg/dL (0.6-1.0) Estimated GFR (Cockcroft-Gault) 51.7 Glucose Level 87 mg/dL (70-99) Calcium Level 9.0 mg/dL (8.5-10.1) Glucose (Fingerstick) 78 mg/dL (70-99) Medications Current Medications Ondansetron HCl (Zofran) 4 mg PRN Q8HRS PRN IV NAUSEA/VOMITING; Start 04/12/17 at 20:00; Stop 04/13/17 at 19:59; Status DC Sodium Chloride 500 ml @ 1,000 mls/hr 1X ONCE IV Last administered on 20:34; Start 04/12/17 at 20:15; Stop 04/12/17 at 20:44; Status DC Sodium Chloride 1,000 ml @ 75 mls/hr [id number] IV Last administered on 04:16; Start 04/12/17 at 21:00 Tramadol HCl (Ultram) 50 mg PRN Q6HRS PRN PO PAIN Last administered on 14:38; Start 04/13/17 at 12:30 Amitriptyline HCl (Elavil) 10 mg TID PO Last administered on 04/14/17 08:19; Start 04/13/17 at 21:00 Ferrous Sulfate (Feosol) 325 mg DAILY PO ; Start 04/14/17 at 09:00; Stop at 09:00; Status DC Gemfibrozil (Lopid) 600 mg BID PO Last administered on 04/14/17 08:19; Start 04/13/17 at 21:00 Insulin Aspart (NovoLOG) 0-7 UNITS TIDWMEALS SQ ; Start 04/14/17 at 08:00 Dextrose (Dextrose 50%-Water Syringe) 12.5 gm PRN Q15MIN PRN IV SEE COMMENTS; Start 04/13/17 at 20:00 Ferrous Sulfate (Feosol) 325 mg DAILY08 PO Last administered on 04/14/17 08:19 ; Start 04/13/17 at 21:00 Active Scripts Active Reported Metformin Hcl 500 Mg Tablet 500 Mg PO BIDWMEALS Gemfibrozil 600 Mg Tablet 600 Mg PO BID Ferrous Sulfate 325 Mg Tablet 325 Mg PO DAILY Amitriptyline Hcl 10 Mg Tablet 10 Mg PO TID Vitals/I & O Vital Sign - Last 24 Hours 04/13/17 04/13/17 04/13/17 04/13/17 11:10 14:38 15:00 15:40 Temp 98.4 98.4 Pulse 85 86 Resp 20 18 20 B/P (MAP) 81/48 (59) 137/72 (93) Pulse Ox 97 93 100 93 O2 Delivery Room Air Room Air Room Air 04/13/17 04/13/17 04/13/17 04/14/17 19:00 23:00 23:41 03:06 Temp 98.1 97.7 98.2 98.1 97.7 98.2 Pulse 77 76 78 Resp 20 20 20 B/P (MAP) 139/66 (90) 137/66 (89) 139/80 (99) Pulse Ox 94 96 95 O2 Delivery Room Air Room Air Room Air Room Air 04/14/17 08:00 O2 Delivery Room Air MARISSA VELÁZQUEZ III DO Apr 14, 2017 11:15
--- NOTE | 2017-04-14 11:25 | PDOC2 ---
CONSULT Date of Consult Date of Consult DATE: 04/14/17 TIME: 11:21 Reason for Consult Reason for Consult: ENMANUEL Referring Physician Referring Physician: EBER Identification/Chief Complaint Chief Complaint DIZZY Problems: Source Source: Chart review, Patient History of Present Illness Reason for Visit: THIS IS AN 86 YR OLD WITH A SYNCOPAL EPISODE. FELT DIZZY AND FELL AND HIT HER HEAD. SHE IS NOTED TO HAVE ORTHOSTASIS. NO CKD NOTED. APPETITE HAS BEEN OK. HER CR IS 2.2 ON ADMIT. NO HX OF ANY KIDNEY OR BLADDER SURGERIES HEMATURIA DYSURIA OR FREQUENCY NOTED. NO NEPHROTOXINS NOTED Past Medical History Cardiovascular: HTN, Hyperlipidemia Pulmonary: No pertinent hx GI: No pertinent hx Heme/Onc: Anemia NOS Hepatobiliary: No pertinent hx Psych: Anxiety, Depression Musculoskeletal: Osteoarthritis Rheumatologic: No pertinent hx Infectious disease: No pertinent hx Renal/: No pertinent hx Endocrine: Diabetes Past Surgical History Past Surgical History: Appendectomy, Tonsillectomy, Other Family History Family History: Hypertension Social History ALCOHOL: none Drugs: None Lives: with Family Current Medications Current Medications Current Medications Ondansetron HCl (Zofran) 4 mg PRN Q8HRS PRN IV NAUSEA/VOMITING; Start 04/12/17 at 20:00; Stop 04/13/17 at 19:59; Status DC Sodium Chloride 500 ml @ 1,000 mls/hr 1X ONCE IV Last administered on 20:34; Start 04/12/17 at 20:15; Stop 04/12/17 at 20:44; Status DC Sodium Chloride 1,000 ml @ 75 mls/hr [id number] IV Last administered on 04:16; Start 04/12/17 at 21:00 Tramadol HCl (Ultram) 50 mg PRN Q6HRS PRN PO PAIN Last administered on 14:38; Start 04/13/17 at 12:30 Amitriptyline HCl (Elavil) 10 mg TID PO Last administered on 04/14/17 08:19; Start 04/13/17 at 21:00 Ferrous Sulfate (Feosol) 325 mg DAILY PO ; Start 04/14/17 at 09:00; Stop at 09:00; Status DC Gemfibrozil (Lopid) 600 mg BID PO Last administered on 04/14/17 08:19; Start 04/13/17 at 21:00 Insulin Aspart (NovoLOG) 0-7 UNITS TIDWMEALS SQ ; Start 04/14/17 at 08:00 Dextrose (Dextrose 50%-Water Syringe) 12.5 gm PRN Q15MIN PRN IV SEE COMMENTS; Start 04/13/17 at 20:00 Ferrous Sulfate (Feosol) 325 mg DAILY08 PO Last administered on 04/14/17 08:19 ; Start 04/13/17 at 21:00 Docusate Sodium (Colace) 100 mg BID PO ; Start 04/14/17 at 12:00 Midodrine (Proamatine) 10 mg [id number] PO ; Start 04/14/17 at 13:00 Active Scripts Active Reported Metformin Hcl 500 Mg Tablet 500 Mg PO BIDWMEALS Gemfibrozil 600 Mg Tablet 600 Mg PO BID Ferrous Sulfate 325 Mg Tablet 325 Mg PO DAILY Amitriptyline Hcl 10 Mg Tablet 10 Mg PO TID Allergies Allergies: Coded Allergies: codeine (Verified Allergy, Intermediate, 06/01/14) ROS Review of System UNRELIABLE, ATTEMPTED Physical Exam General: Alert, Cooperative, mild distress HEENT: Atraumatic, PERRLA Lungs: Clear to auscultation Heart: Regular rate Abdomen: Soft, No tenderness Extremities: No clubbing Skin: No rashes, No breakdown Neuro: Normal speech Psych/Mental Status: Mental status NL, Mood NL MUSCULOSKELETAL: No deformity, No swelling Vitals VITALS Vital Signs Date Time Temp Pulse Resp B/P (MAP) Pulse Ox O2 Delivery O2 Flow Rate FiO2 04/14/17 08:00 Room Air 04/14/17 03:06 98.2 78 20 139/80 (99) 95 98.2 Labs Labs Laboratory Tests Test 04/12/17 18:07 04/12/17 19:40 04/12/17 20:43 04/12/17 21:02 White Blood Count 5.0 x10^3/uL (4.0-11.0) Red Blood Count 3.13 x10^6/uL (3.50-5.40) Hemoglobin 8.8 g/dL (12.0-15.5) Hematocrit 27.2 % (36.0-47.0) Mean Corpuscular Volume 87 fL (79-100) Mean Corpuscular Hemoglobin 28 pg (25-35) Mean Corpuscular Hemoglobin Concent 32 g/dL (31-37) Red Cell Distribution Width 14.7 % (11.5-14.5) Platelet Count 288 x10^3/uL (140-400) Neutrophils (%) (Auto) 54 % (31-73) Lymphocytes (%) (Auto) 30 % (24-48) Monocytes (%) (Auto) 13 % (0-9) Eosinophils (%) (Auto) 3 % (0-3) Basophils (%) (Auto) 1 % (0-3) Neutrophils # (Auto) 2.7 x10^3uL (1.8-7.7) Lymphocytes # (Auto) 1.5 x10^3/uL (1.0-4.8) Monocytes # (Auto) 0.6 x10^3/uL (0.0-1.1) Eosinophils # (Auto) 0.1 x10^3/uL (0.0-0.7) Basophils # (Auto) 0.0 x10^3/uL (0.0-0.2) Sodium Level 142 mmol/L (136-145) Potassium Level 4.9 mmol/L (3.5-5.1) Chloride Level 106 mmol/L (98-107) Carbon Dioxide Level 23 mmol/L (21-32) Anion Gap 13 (6-14) Blood Urea Nitrogen 34 mg/dL (7-20) Creatinine 2.2 mg/dL (0.6-1.0) Estimated GFR (Cockcroft-Gault) 25.7 Glucose Level 87 mg/dL (70-99) Calcium Level 10.1 mg/dL (8.5-10.1) Magnesium Level 2.3 mg/dL (1.8-2.4) Total Bilirubin 0.2 mg/dL (0.2-1.0) Direct Bilirubin 0.1 mg/dL (0.0-0.2) Aspartate Amino Transf (AST/SGOT) 15 U/L (15-37) Alanine Aminotransferase (ALT/SGPT) 11 U/L (14-59) Alkaline Phosphatase 38 U/L (46-116) Creatine Kinase 49 U/L (26-192) Creatine Kinase MB (Mass) 0.8 ng/mL (0.0-3.6) Creatine Kinase MB Relative Index 1.6 % (0-4) Troponin I Quantitative < 0.017 ng/mL (0.000-0.055) DJ-Bqc-J-Type Natriuretic Peptide 275 pg/mL (0-449) Total Protein 6.7 g/dL (6.4-8.2) Albumin 3.6 g/dL (3.4-5.0) Thyroid Stimulating Hormone (TSH) 1.737 uIU/mL (0.358-3.74) Glucose (Fingerstick) 65 mg/dL (70-99) 82 mg/dL (70-99) Test 04/13/17 02:30 04/13/17 04:00 04/13/17 08:05 04/13/17 08:46 Troponin I Quantitative < 0.017 ng/mL (0.000-0.055) < 0.017 ng/mL (0.000-0.055) White Blood Count 4.7 x10^3/uL (4.0-11.0) Red Blood Count 2.99 x10^6/uL (3.50-5.40) Hemoglobin 8.4 g/dL (12.0-15.5) Hematocrit 25.4 % (36.0-47.0) Mean Corpuscular Volume 85 fL (79-100) Mean Corpuscular Hemoglobin 28 pg (25-35) Mean Corpuscular Hemoglobin Concent 33 g/dL (31-37) Red Cell Distribution Width 15.1 % (11.5-14.5) Platelet Count 275 x10^3/uL (140-400) Neutrophils (%) (Auto) 45 % (31-73) Lymphocytes (%) (Auto) 39 % (24-48) Monocytes (%) (Auto) 11 % (0-9) Eosinophils (%) (Auto) 4 % (0-3) Basophils (%) (Auto) 1 % (0-3) Neutrophils # (Auto) 2.1 x10^3uL (1.8-7.7) Lymphocytes # (Auto) 1.8 x10^3/uL (1.0-4.8) Monocytes # (Auto) 0.5 x10^3/uL (0.0-1.1) Eosinophils # (Auto) 0.2 x10^3/uL (0.0-0.7) Basophils # (Auto) 0.1 x10^3/uL (0.0-0.2) Sodium Level 142 mmol/L (136-145) Potassium Level 4.6 mmol/L (3.5-5.1) Chloride Level 110 mmol/L (98-107) Carbon Dioxide Level 25 mmol/L (21-32) Anion Gap 7 (6-14) Blood Urea Nitrogen 28 mg/dL (7-20) Creatinine 1.8 mg/dL (0.6-1.0) Estimated GFR (Cockcroft-Gault) 32.4 Glucose Level 75 mg/dL (70-99) Calcium Level 9.4 mg/dL (8.5-10.1) Glucose (Fingerstick) 135 mg/dL (70-99) Test 04/13/17 11:24 04/13/17 17:13 04/13/17 20:28 04/14/17 04:30 Glucose (Fingerstick) 91 mg/dL (70-99) 80 mg/dL (70-99) 105 mg/dL (70-99) White Blood Count 5.4 x10^3/uL (4.0-11.0) Red Blood Count 2.93 x10^6/uL (3.50-5.40) Hemoglobin 8.4 g/dL (12.0-15.5) Hematocrit 25.3 % (36.0-47.0) Mean Corpuscular Volume 87 fL (79-100) Mean Corpuscular Hemoglobin 29 pg (25-35) Mean Corpuscular Hemoglobin Concent 33 g/dL (31-37) Red Cell Distribution Width 15.0 % (11.5-14.5) Platelet Count 264 x10^3/uL (140-400) Neutrophils (%) (Auto) 34 % (31-73) Lymphocytes (%) (Auto) 46 % (24-48) Monocytes (%) (Auto) 11 % (0-9) Eosinophils (%) (Auto) 8 % (0-3) Basophils (%) (Auto) 2 % (0-3) Neutrophils # (Auto) 1.8 x10^3uL (1.8-7.7) Lymphocytes # (Auto) 2.5 x10^3/uL (1.0-4.8) Monocytes # (Auto) 0.6 x10^3/uL (0.0-1.1) Eosinophils # (Auto) 0.4 x10^3/uL (0.0-0.7) Basophils # (Auto) 0.1 x10^3/uL (0.0-0.2) Test 04/14/17 04:35 04/14/17 07:50 Sodium Level 144 mmol/L (136-145) Potassium Level 4.4 mmol/L (3.5-5.1) Chloride Level 112 mmol/L (98-107) Carbon Dioxide Level 22 mmol/L (21-32) Anion Gap 10 (6-14) Blood Urea Nitrogen 18 mg/dL (7-20) Creatinine 1.2 mg/dL (0.6-1.0) Estimated GFR (Cockcroft-Gault) 51.7 Glucose Level 87 mg/dL (70-99) Calcium Level 9.0 mg/dL (8.5-10.1) Glucose (Fingerstick) 78 mg/dL (70-99) Laboratory Tests Test 04/13/17 11:24 04/13/17 17:13 04/13/17 20:28 04/14/17 04:30 Glucose (Fingerstick) 91 mg/dL (70-99) 80 mg/dL (70-99) 105 mg/dL (70-99) White Blood Count 5.4 x10^3/uL (4.0-11.0) Red Blood Count 2.93 x10^6/uL (3.50-5.40) Hemoglobin 8.4 g/dL (12.0-15.5) Hematocrit 25.3 % (36.0-47.0) Mean Corpuscular Volume 87 fL (79-100) Mean Corpuscular Hemoglobin 29 pg (25-35) Mean Corpuscular Hemoglobin Concent 33 g/dL (31-37) Red Cell Distribution Width 15.0 % (11.5-14.5) Platelet Count 264 x10^3/uL (140-400) Neutrophils (%) (Auto) 34 % (31-73) Lymphocytes (%) (Auto) 46 % (24-48) Monocytes (%) (Auto) 11 % (0-9) Eosinophils (%) (Auto) 8 % (0-3) Basophils (%) (Auto) 2 % (0-3) Neutrophils # (Auto) 1.8 x10^3uL (1.8-7.7) Lymphocytes # (Auto) 2.5 x10^3/uL (1.0-4.8) Monocytes # (Auto) 0.6 x10^3/uL (0.0-1.1) Eosinophils # (Auto) 0.4 x10^3/uL (0.0-0.7) Basophils # (Auto) 0.1 x10^3/uL (0.0-0.2) Test 04/14/17 04:35 04/14/17 07:50 Sodium Level 144 mmol/L (136-145) Potassium Level 4.4 mmol/L (3.5-5.1) Chloride Level 112 mmol/L (98-107) Carbon Dioxide Level 22 mmol/L (21-32) Anion Gap 10 (6-14) Blood Urea Nitrogen 18 mg/dL (7-20) Creatinine 1.2 mg/dL (0.6-1.0) Estimated GFR (Cockcroft-Gault) 51.7 Glucose Level 87 mg/dL (70-99) Calcium Level 9.0 mg/dL (8.5-10.1) Glucose (Fingerstick) 78 mg/dL (70-99) Assessment/Plan Assessment/Plan IMP SYNCOPE ORTHOSTASIS [id number] CKD DEHYDRATION PLAN IVF'S MIDODRINE HOLD METFORMIN TILL ENMANUEL IS BETTER TO RITCHIE MD Apr 14, 2017 11:25
[2017-04-14] MEDS: DOCUSATE SODIUM 100 MG CAPSULE. PO SCH ×2 (12:06→20:58)
[2017-04-14] MEDS ORDERED: MIDODRINE 5 MG TABLET PO SCH (13:00)
--- NOTE | 2017-04-14 13:09 | PDOC ---
PROGRESS NOTES Assessment Syncope Orthostatic hypotension, patient is on midodrine Renal insufficiency No acute neurological process Plan No additional neurological studies needed Continue current medical management. She is on a very high dose of midodrine, was she on this before? Subjective No complaints Objective Vital Signs Date Time Temp Pulse Resp B/P (MAP) Pulse Ox O2 Delivery O2 Flow Rate FiO2 04/14/17 12:07 87 134/80 04/14/17 11:00 97.9 20 97 Room Air 97.9 PHYSICAL EXAM Alert. Oriented to time, place and person. PERRL. EOMI. CN: no focal findings. Muscle tone: normal. Muscle strength: 5/5 DTR: 1+ Plantar reflex: flexor Gait: not examined in bed. Sensory exam: no abnormal findings. No cerebellar signs elicited. Review of Relevant I have reviewed the following items nella (where applicable) has been applied. Labs Laboratory Tests Test 04/12/17 18:07 04/12/17 19:40 04/12/17 20:43 04/12/17 21:02 White Blood Count 5.0 x10^3/uL (4.0-11.0) Red Blood Count 3.13 x10^6/uL (3.50-5.40) Hemoglobin 8.8 g/dL (12.0-15.5) Hematocrit 27.2 % (36.0-47.0) Mean Corpuscular Volume 87 fL (79-100) Mean Corpuscular Hemoglobin 28 pg (25-35) Mean Corpuscular Hemoglobin Concent 32 g/dL (31-37) Red Cell Distribution Width 14.7 % (11.5-14.5) Platelet Count 288 x10^3/uL (140-400) Neutrophils (%) (Auto) 54 % (31-73) Lymphocytes (%) (Auto) 30 % (24-48) Monocytes (%) (Auto) 13 % (0-9) Eosinophils (%) (Auto) 3 % (0-3) Basophils (%) (Auto) 1 % (0-3) Neutrophils # (Auto) 2.7 x10^3uL (1.8-7.7) Lymphocytes # (Auto) 1.5 x10^3/uL (1.0-4.8) Monocytes # (Auto) 0.6 x10^3/uL (0.0-1.1) Eosinophils # (Auto) 0.1 x10^3/uL (0.0-0.7) Basophils # (Auto) 0.0 x10^3/uL (0.0-0.2) Sodium Level 142 mmol/L (136-145) Potassium Level 4.9 mmol/L (3.5-5.1) Chloride Level 106 mmol/L (98-107) Carbon Dioxide Level 23 mmol/L (21-32) Anion Gap 13 (6-14) Blood Urea Nitrogen 34 mg/dL (7-20) Creatinine 2.2 mg/dL (0.6-1.0) Estimated GFR (Cockcroft-Gault) 25.7 Glucose Level 87 mg/dL (70-99) Calcium Level 10.1 mg/dL (8.5-10.1) Magnesium Level 2.3 mg/dL (1.8-2.4) Total Bilirubin 0.2 mg/dL (0.2-1.0) Direct Bilirubin 0.1 mg/dL (0.0-0.2) Aspartate Amino Transf (AST/SGOT) 15 U/L (15-37) Alanine Aminotransferase (ALT/SGPT) 11 U/L (14-59) Alkaline Phosphatase 38 U/L (46-116) Creatine Kinase 49 U/L (26-192) Creatine Kinase MB (Mass) 0.8 ng/mL (0.0-3.6) Creatine Kinase MB Relative Index 1.6 % (0-4) Troponin I Quantitative < 0.017 ng/mL (0.000-0.055) GI-Hjk-D-Type Natriuretic Peptide 275 pg/mL (0-449) Total Protein 6.7 g/dL (6.4-8.2) Albumin 3.6 g/dL (3.4-5.0) Thyroid Stimulating Hormone (TSH) 1.737 uIU/mL (0.358-3.74) Glucose (Fingerstick) 65 mg/dL (70-99) 82 mg/dL (70-99) Test 04/13/17 02:30 04/13/17 04:00 04/13/17 08:05 04/13/17 08:46 Troponin I Quantitative < 0.017 ng/mL (0.000-0.055) < 0.017 ng/mL (0.000-0.055) White Blood Count 4.7 x10^3/uL (4.0-11.0) Red Blood Count 2.99 x10^6/uL (3.50-5.40) Hemoglobin 8.4 g/dL (12.0-15.5) Hematocrit 25.4 % (36.0-47.0) Mean Corpuscular Volume 85 fL (79-100) Mean Corpuscular Hemoglobin 28 pg (25-35) Mean Corpuscular Hemoglobin Concent 33 g/dL (31-37) Red Cell Distribution Width 15.1 % (11.5-14.5) Platelet Count 275 x10^3/uL (140-400) Neutrophils (%) (Auto) 45 % (31-73) Lymphocytes (%) (Auto) 39 % (24-48) Monocytes (%) (Auto) 11 % (0-9) Eosinophils (%) (Auto) 4 % (0-3) Basophils (%) (Auto) 1 % (0-3) Neutrophils # (Auto) 2.1 x10^3uL (1.8-7.7) Lymphocytes # (Auto) 1.8 x10^3/uL (1.0-4.8) Monocytes # (Auto) 0.5 x10^3/uL (0.0-1.1) Eosinophils # (Auto) 0.2 x10^3/uL (0.0-0.7) Basophils # (Auto) 0.1 x10^3/uL (0.0-0.2) Sodium Level 142 mmol/L (136-145) Potassium Level 4.6 mmol/L (3.5-5.1) Chloride Level 110 mmol/L (98-107) Carbon Dioxide Level 25 mmol/L (21-32) Anion Gap 7 (6-14) Blood Urea Nitrogen 28 mg/dL (7-20) Creatinine 1.8 mg/dL (0.6-1.0) Estimated GFR (Cockcroft-Gault) 32.4 Glucose Level 75 mg/dL (70-99) Calcium Level 9.4 mg/dL (8.5-10.1) Glucose (Fingerstick) 135 mg/dL (70-99) Test 04/13/17 11:24 04/13/17 17:13 04/13/17 20:28 04/14/17 04:30 Glucose (Fingerstick) 91 mg/dL (70-99) 80 mg/dL (70-99) 105 mg/dL (70-99) White Blood Count 5.4 x10^3/uL (4.0-11.0) Red Blood Count 2.93 x10^6/uL (3.50-5.40) Hemoglobin 8.4 g/dL (12.0-15.5) Hematocrit 25.3 % (36.0-47.0) Mean Corpuscular Volume 87 fL (79-100) Mean Corpuscular Hemoglobin 29 pg (25-35) Mean Corpuscular Hemoglobin Concent 33 g/dL (31-37) Red Cell Distribution Width 15.0 % (11.5-14.5) Platelet Count 264 x10^3/uL (140-400) Neutrophils (%) (Auto) 34 % (31-73) Lymphocytes (%) (Auto) 46 % (24-48) Monocytes (%) (Auto) 11 % (0-9) Eosinophils (%) (Auto) 8 % (0-3) Basophils (%) (Auto) 2 % (0-3) Neutrophils # (Auto) 1.8 x10^3uL (1.8-7.7) Lymphocytes # (Auto) 2.5 x10^3/uL (1.0-4.8) Monocytes # (Auto) 0.6 x10^3/uL (0.0-1.1) Eosinophils # (Auto) 0.4 x10^3/uL (0.0-0.7) Basophils # (Auto) 0.1 x10^3/uL (0.0-0.2) Test 04/14/17 04:35 04/14/17 07:50 04/14/17 11:11 Sodium Level 144 mmol/L (136-145) Potassium Level 4.4 mmol/L (3.5-5.1) Chloride Level 112 mmol/L (98-107) Carbon Dioxide Level 22 mmol/L (21-32) Anion Gap 10 (6-14) Blood Urea Nitrogen 18 mg/dL (7-20) Creatinine 1.2 mg/dL (0.6-1.0) Estimated GFR (Cockcroft-Gault) 51.7 Glucose Level 87 mg/dL (70-99) Calcium Level 9.0 mg/dL (8.5-10.1) Glucose (Fingerstick) 78 mg/dL (70-99) 101 mg/dL (70-99) Laboratory Tests Test 04/13/17 17:13 04/13/17 20:28 04/14/17 04:30 04/14/17 04:35 Glucose (Fingerstick) 80 mg/dL (70-99) 105 mg/dL (70-99) White Blood Count 5.4 x10^3/uL (4.0-11.0) Red Blood Count 2.93 x10^6/uL (3.50-5.40) Hemoglobin 8.4 g/dL (12.0-15.5) Hematocrit 25.3 % (36.0-47.0) Mean Corpuscular Volume 87 fL (79-100) Mean Corpuscular Hemoglobin 29 pg (25-35) Mean Corpuscular Hemoglobin Concent 33 g/dL (31-37) Red Cell Distribution Width 15.0 % (11.5-14.5) Platelet Count 264 x10^3/uL (140-400) Neutrophils (%) (Auto) 34 % (31-73) Lymphocytes (%) (Auto) 46 % (24-48) Monocytes (%) (Auto) 11 % (0-9) Eosinophils (%) (Auto) 8 % (0-3) Basophils (%) (Auto) 2 % (0-3) Neutrophils # (Auto) 1.8 x10^3uL (1.8-7.7) Lymphocytes # (Auto) 2.5 x10^3/uL (1.0-4.8) Monocytes # (Auto) 0.6 x10^3/uL (0.0-1.1) Eosinophils # (Auto) 0.4 x10^3/uL (0.0-0.7) Basophils # (Auto) 0.1 x10^3/uL (0.0-0.2) Sodium Level 144 mmol/L (136-145) Potassium Level 4.4 mmol/L (3.5-5.1) Chloride Level 112 mmol/L (98-107) Carbon Dioxide Level 22 mmol/L (21-32) Anion Gap 10 (6-14) Blood Urea Nitrogen 18 mg/dL (7-20) Creatinine 1.2 mg/dL (0.6-1.0) Estimated GFR (Cockcroft-Gault) 51.7 Glucose Level 87 mg/dL (70-99) Calcium Level 9.0 mg/dL (8.5-10.1) Test 04/14/17 07:50 04/14/17 11:11 Glucose (Fingerstick) 78 mg/dL (70-99) 101 mg/dL (70-99) Medications Current Medications Ondansetron HCl (Zofran) 4 mg PRN Q8HRS PRN IV NAUSEA/VOMITING; Start 04/12/17 at 20:00; Stop 04/13/17 at 19:59; Status DC Sodium Chloride 500 ml @ 1,000 mls/hr 1X ONCE IV Last administered on 20:34; Start 04/12/17 at 20:15; Stop 04/12/17 at 20:44; Status DC Sodium Chloride 1,000 ml @ 75 mls/hr [id number] IV Last administered on 04:16; Start 04/12/17 at 21:00 Tramadol HCl (Ultram) 50 mg PRN Q6HRS PRN PO PAIN Last administered on 14:38; Start 04/13/17 at 12:30 Amitriptyline HCl (Elavil) 10 mg TID PO Last administered on 04/14/17 08:19; Start 04/13/17 at 21:00 Ferrous Sulfate (Feosol) 325 mg DAILY PO ; Start 04/14/17 at 09:00; Stop at 09:00; Status DC Gemfibrozil (Lopid) 600 mg BID PO Last administered on 04/14/17 08:19; Start 04/13/17 at 21:00 Insulin Aspart (NovoLOG) 0-7 UNITS TIDWMEALS SQ ; Start 04/14/17 at 08:00 Dextrose (Dextrose 50%-Water Syringe) 12.5 gm PRN Q15MIN PRN IV SEE COMMENTS; Start 04/13/17 at 20:00 Ferrous Sulfate (Feosol) 325 mg DAILY08 PO Last administered on 04/14/17 08:19 ; Start 04/13/17 at 21:00 Docusate Sodium (Colace) 100 mg BID PO Last administered on 04/14/17 12:06; Start 04/14/17 at 12:00 Midodrine (Proamatine) 10 mg [id number] PO Last administered on 04/14/17 12:07; Start 04/14/17 at 13:00 Active Scripts Active Reported Metformin Hcl 500 Mg Tablet 500 Mg PO BIDWMEALS Gemfibrozil 600 Mg Tablet 600 Mg PO BID Ferrous Sulfate 325 Mg Tablet 325 Mg PO DAILY Amitriptyline Hcl 10 Mg Tablet 10 Mg PO TID Vitals/I & O Vital Sign - Last 24 Hours 04/13/17 04/13/17 04/13/17 04/13/17 14:38 15:00 15:40 19:00 Temp 98.4 98.1 98.4 98.1 Pulse 86 77 Resp 20 18 20 20 B/P (MAP) 137/72 (93) 139/66 (90) Pulse Ox 93 100 93 94 O2 Delivery Room Air Room Air Room Air Room Air 04/13/17 04/13/17 04/14/17 04/14/17 23:00 23:41 03:06 07:00 Temp 97.7 98.2 97.9 97.7 98.2 97.9 Pulse 76 78 87 Resp 20 20 20 B/P (MAP) 137/66 (89) 139/80 (99) 134/80 (98) Pulse Ox 96 95 97 O2 Delivery Room Air Room Air Room Air Room Air 04/14/17 04/14/17 04/14/17 04/14/17 07:01 07:02 08:00 11:00 Temp 97.9 97.9 Pulse 90 94 87 Resp 20 B/P (MAP) 159/54 (89) 84/45 (58) 134/80 (98) Pulse Ox 97 O2 Delivery Room Air Room Air 04/14/17 12:07 Pulse 87 B/P (MAP) 134/80 Images MRI brain: Scalp and calvaria are normal in appearance. Sella and suprasellar cistern are normal. Corpus callosum is intact. There is T2/FLAIR signal hyperintensity in the periventricular and subcortical white matter with areas of confluence suggestive of moderate chronic small vessel ischemic changes. Mild prominence of the ventricles, sulci and basal cisterns is compatible with generalized cerebral volume loss. No evidence for hydrocephalus. Vascular flow voids are maintained. Superior sagittal sinus vascular flow void is maintained. There is no diffusion signal hyperintensity to suggest acute or subacute ischemia. There is no susceptibility artifact to suggest acute or chronic hemorrhage. Posterior fossa is normal in appearance. 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 Bilateral lens replacements are noted. Otherwise, the orbits are normal in appearance. Paranasal sinuses are well aerated. Mastoid air cells are well aerated. Visualized portions of the cervical spine are normal. IMPRESSION: 1. No evidence for acute or subacute ischemia. 2. Mild generalized cerebral volume loss with moderate chronic small vessel ischemic changes. 3. 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 Carotids: Mild atherosclerotic plaquing at both carotid bifurcations with underlying luminal narrowing in the 0-50% diameter range bilaterally. JESSICA ABBOTT MD Apr 14, 2017 13:08
[2017-04-14] MEDS: MIDODRINE 5 MG TABLET PO SCH (17:35)
[2017-04-15] VITALS (9 sets, daily range): BP systolic 83–200; BP diastolic 46–112
[2017-04-15] MEDS: MIDODRINE 5 MG TABLET PO SCH ×3 (05:06→17:48)
[2017-04-15 06:11] LABS: BASO # 0.1 x10^3/uL (0.0-0.2); BASO % 3 % (0-3); EOS % 7 % (0-3); HEMATOCRIT 25.8 % (36.0-47.0); HEMOGLOBIN 8.7 g/dL (12.0-15.5); LYMPH # 1.2 x10^3/uL (1.0-4.8); LYMPH % 27 % (24-48); MEAN CORPUSCULAR HEMOGLOBIN 29 pg (25-35); MEAN CORPUSCULAR HGB CONC 34 g/dL (31-37); MEAN CORPUSCULAR VOLUME 86 fL (79-100); MONO % 11 % (0-9); NEUT % 52 % (31-73); PLATELET COUNT 271 x10^3/uL (140-400); RED BLOOD COUNT 3.01 x10^6/uL (3.50-5.40); RED CELL DISTRIBUTION WIDTH 15.2 % (11.5-14.5); WHITE BLOOD COUNT 4.5 x10^3/uL (4.0-11.0)
[2017-04-15 06:35] LABS: CALCIUM 8.9 mg/dL (8.5-10.1); GFR 63.8; POTASSIUM 4.1 mmol/L (3.5-5.1)
[2017-04-15] MEDS: INSULIN ASPART 300 UNITS/3 ML INSULN.PEN SQ SCH ×3 (08:00→16:27)
[2017-04-15] MEDS: DOCUSATE SODIUM 100 MG CAPSULE. PO SCH ×2 (08:26→20:49)
[2017-04-15] MEDS: GEMFIBROZIL 600 MG TABLET. PO SCH ×2 (08:26→20:49)
[2017-04-15] MEDS: AMITRIPTYLINE HCL 10 MG TABLET. PO SCH ×3 (08:27→20:49)
[2017-04-15] MEDS: FERROUS SULFATE 325 MG TABLET. PO SCH (08:27)
--- NOTE | 2017-04-15 11:03 | PDOC ---
PROGRESS NOTES Chief Complaint Chief Complaint Syncope Orthostatic hypotension PMH: syncope DM HTN Hyperlipidemia Anemia History of Present Illness History of Present Illness Pt was laying in bed and comfortable. She was conversant, in NAD, and has no new complaints at this time. She would like to know when she can leave. She has fluids running in her IV. She says she has less dizziness when attempting to sit up. RN discussed holding Proamantine except for 1 dose due to elevated BP. RN also mentioned supine SBP of 160 and standing SBP of 85. Plan of care was discussed with the pt and RN and includes possible D/C to SNU once her BP and orthostatic hypotension improve. Neurology saw her MRI and said she has no acute or subacute ischemic changes. 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 Her Proamantine dose was reduced from 10 mg TID to 2.5 mg TID per neuro. Dr. Rowe with nephrology will hold her metformin until the ENMANUEL is resolved. Vitals Vitals Vital Signs Date Time Temp Pulse Resp B/P (MAP) Pulse Ox O2 Delivery O2 Flow Rate FiO2 04/15/17 07:00 84 129/71 (90) 98 04/15/17 07:00 97.9 20 Room Air 97.9 Physical Exam General: Alert, Oriented X3, Cooperative, No acute distress Heart: Regular rate, Normal S1, Normal S2 Lungs: Clear Abdomen: Soft, No tenderness Extremities: No clubbing Skin: No rashes, No breakdown Labs LABS Laboratory Tests Test 04/14/17 11:11 04/14/17 16:11 04/14/17 21:08 04/15/17 05:55 Glucose (Fingerstick) 101 mg/dL (70-99) 124 mg/dL (70-99) 115 mg/dL (70-99) White Blood Count 4.5 x10^3/uL (4.0-11.0) Red Blood Count 3.01 x10^6/uL (3.50-5.40) Hemoglobin 8.7 g/dL (12.0-15.5) Hematocrit 25.8 % (36.0-47.0) Mean Corpuscular Volume 86 fL (79-100) Mean Corpuscular Hemoglobin 29 pg (25-35) Mean Corpuscular Hemoglobin Concent 34 g/dL (31-37) Red Cell Distribution Width 15.2 % (11.5-14.5) Platelet Count 271 x10^3/uL (140-400) Neutrophils (%) (Auto) 52 % (31-73) Lymphocytes (%) (Auto) 27 % (24-48) Monocytes (%) (Auto) 11 % (0-9) Eosinophils (%) (Auto) 7 % (0-3) Basophils (%) (Auto) 3 % (0-3) Neutrophils # (Auto) 2.4 x10^3uL (1.8-7.7) Lymphocytes # (Auto) 1.2 x10^3/uL (1.0-4.8) Monocytes # (Auto) 0.5 x10^3/uL (0.0-1.1) Eosinophils # (Auto) 0.3 x10^3/uL (0.0-0.7) Basophils # (Auto) 0.1 x10^3/uL (0.0-0.2) Sodium Level 142 mmol/L (136-145) Potassium Level 4.1 mmol/L (3.5-5.1) Chloride Level 111 mmol/L (98-107) Carbon Dioxide Level 23 mmol/L (21-32) Anion Gap 8 (6-14) Blood Urea Nitrogen 18 mg/dL (7-20) Creatinine 1.0 mg/dL (0.6-1.0) Estimated GFR (Cockcroft-Gault) 63.8 Glucose Level 94 mg/dL (70-99) Calcium Level 8.9 mg/dL (8.5-10.1) Test 04/15/17 07:16 Glucose (Fingerstick) 79 mg/dL (70-99) Review of Systems Review of Systems PT complains of mild dizziness upon standing Pt complains of fatigue Pt complains of hunger Assessment and Plan Assessmemt and Plan Syncope Orthostatic hypotension PMH: syncope DM HTN Hyperlipidemia Anemia Plan: Recheck labs cont to monitor her BP Evaluate for continued orthostatic hypotension IVF PT/OT Home meds Hold metformin Decreased Proamantine Appreciate subspecialist input Problems: Comment Review of Relevant I have reviewed the following items nella (where applicable) has been applied. Labs Laboratory Tests Test 04/13/17 11:24 04/13/17 17:13 04/13/17 20:28 04/14/17 04:30 Glucose (Fingerstick) 91 mg/dL (70-99) 80 mg/dL (70-99) 105 mg/dL (70-99) White Blood Count 5.4 x10^3/uL (4.0-11.0) Red Blood Count 2.93 x10^6/uL (3.50-5.40) Hemoglobin 8.4 g/dL (12.0-15.5) Hematocrit 25.3 % (36.0-47.0) Mean Corpuscular Volume 87 fL (79-100) Mean Corpuscular Hemoglobin 29 pg (25-35) Mean Corpuscular Hemoglobin Concent 33 g/dL (31-37) Red Cell Distribution Width 15.0 % (11.5-14.5) Platelet Count 264 x10^3/uL (140-400) Neutrophils (%) (Auto) 34 % (31-73) Lymphocytes (%) (Auto) 46 % (24-48) Monocytes (%) (Auto) 11 % (0-9) Eosinophils (%) (Auto) 8 % (0-3) Basophils (%) (Auto) 2 % (0-3) Neutrophils # (Auto) 1.8 x10^3uL (1.8-7.7) Lymphocytes # (Auto) 2.5 x10^3/uL (1.0-4.8) Monocytes # (Auto) 0.6 x10^3/uL (0.0-1.1) Eosinophils # (Auto) 0.4 x10^3/uL (0.0-0.7) Basophils # (Auto) 0.1 x10^3/uL (0.0-0.2) Test 04/14/17 04:35 04/14/17 07:50 04/14/17 11:11 04/14/17 16:11 Sodium Level 144 mmol/L (136-145) Potassium Level 4.4 mmol/L (3.5-5.1) Chloride Level 112 mmol/L (98-107) Carbon Dioxide Level 22 mmol/L (21-32) Anion Gap 10 (6-14) Blood Urea Nitrogen 18 mg/dL (7-20) Creatinine 1.2 mg/dL (0.6-1.0) Estimated GFR (Cockcroft-Gault) 51.7 Glucose Level 87 mg/dL (70-99) Calcium Level 9.0 mg/dL (8.5-10.1) Glucose (Fingerstick) 78 mg/dL (70-99) 101 mg/dL (70-99) 124 mg/dL (70-99) Test 04/14/17 21:08 04/15/17 05:55 04/15/17 07:16 Glucose (Fingerstick) 115 mg/dL (70-99) 79 mg/dL (70-99) White Blood Count 4.5 x10^3/uL (4.0-11.0) Red Blood Count 3.01 x10^6/uL (3.50-5.40) Hemoglobin 8.7 g/dL (12.0-15.5) Hematocrit 25.8 % (36.0-47.0) Mean Corpuscular Volume 86 fL (79-100) Mean Corpuscular Hemoglobin 29 pg (25-35) Mean Corpuscular Hemoglobin Concent 34 g/dL (31-37) Red Cell Distribution Width 15.2 % (11.5-14.5) Platelet Count 271 x10^3/uL (140-400) Neutrophils (%) (Auto) 52 % (31-73) Lymphocytes (%) (Auto) 27 % (24-48) Monocytes (%) (Auto) 11 % (0-9) Eosinophils (%) (Auto) 7 % (0-3) Basophils (%) (Auto) 3 % (0-3) Neutrophils # (Auto) 2.4 x10^3uL (1.8-7.7) Lymphocytes # (Auto) 1.2 x10^3/uL (1.0-4.8) Monocytes # (Auto) 0.5 x10^3/uL (0.0-1.1) Eosinophils # (Auto) 0.3 x10^3/uL (0.0-0.7) Basophils # (Auto) 0.1 x10^3/uL (0.0-0.2) Sodium Level 142 mmol/L (136-145) Potassium Level 4.1 mmol/L (3.5-5.1) Chloride Level 111 mmol/L (98-107) Carbon Dioxide Level 23 mmol/L (21-32) Anion Gap 8 (6-14) Blood Urea Nitrogen 18 mg/dL (7-20) Creatinine 1.0 mg/dL (0.6-1.0) Estimated GFR (Cockcroft-Gault) 63.8 Glucose Level 94 mg/dL (70-99) Calcium Level 8.9 mg/dL (8.5-10.1) Laboratory Tests Test 04/14/17 11:11 04/14/17 16:11 04/14/17 21:08 04/15/17 05:55 Glucose (Fingerstick) 101 mg/dL (70-99) 124 mg/dL (70-99) 115 mg/dL (70-99) White Blood Count 4.5 x10^3/uL (4.0-11.0) Red Blood Count 3.01 x10^6/uL (3.50-5.40) Hemoglobin 8.7 g/dL (12.0-15.5) Hematocrit 25.8 % (36.0-47.0) Mean Corpuscular Volume 86 fL (79-100) Mean Corpuscular Hemoglobin 29 pg (25-35) Mean Corpuscular Hemoglobin Concent 34 g/dL (31-37) Red Cell Distribution Width 15.2 % (11.5-14.5) Platelet Count 271 x10^3/uL (140-400) Neutrophils (%) (Auto) 52 % (31-73) Lymphocytes (%) (Auto) 27 % (24-48) Monocytes (%) (Auto) 11 % (0-9) Eosinophils (%) (Auto) 7 % (0-3) Basophils (%) (Auto) 3 % (0-3) Neutrophils # (Auto) 2.4 x10^3uL (1.8-7.7) Lymphocytes # (Auto) 1.2 x10^3/uL (1.0-4.8) Monocytes # (Auto) 0.5 x10^3/uL (0.0-1.1) Eosinophils # (Auto) 0.3 x10^3/uL (0.0-0.7) Basophils # (Auto) 0.1 x10^3/uL (0.0-0.2) Sodium Level 142 mmol/L (136-145) Potassium Level 4.1 mmol/L (3.5-5.1) Chloride Level 111 mmol/L (98-107) Carbon Dioxide Level 23 mmol/L (21-32) Anion Gap 8 (6-14) Blood Urea Nitrogen 18 mg/dL (7-20) Creatinine 1.0 mg/dL (0.6-1.0) Estimated GFR (Cockcroft-Gault) 63.8 Glucose Level 94 mg/dL (70-99) Calcium Level 8.9 mg/dL (8.5-10.1) Test 04/15/17 07:16 Glucose (Fingerstick) 79 mg/dL (70-99) Medications Current Medications Ondansetron HCl (Zofran) 4 mg PRN Q8HRS PRN IV NAUSEA/VOMITING; Start 04/12/17 at 20:00; Stop 04/13/17 at 19:59; Status DC Sodium Chloride 500 ml @ 1,000 mls/hr 1X ONCE IV Last administered on 20:34; Start 04/12/17 at 20:15; Stop 04/12/17 at 20:44; Status DC Sodium Chloride 1,000 ml @ 75 mls/hr [id number] IV Last administered on 20:59; Start 04/12/17 at 21:00 Tramadol HCl (Ultram) 50 mg PRN Q6HRS PRN PO PAIN Last administered on 14:38; Start 04/13/17 at 12:30 Amitriptyline HCl (Elavil) 10 mg TID PO Last administered on 04/15/17 08:27; Start 04/13/17 at 21:00 Ferrous Sulfate (Feosol) 325 mg DAILY PO ; Start 04/14/17 at 09:00; Stop at 09:00; Status DC Gemfibrozil (Lopid) 600 mg BID PO Last administered on 04/15/17 08:26; Start 04/13/17 at 21:00 Insulin Aspart (NovoLOG) 0-7 UNITS TIDWMEALS SQ ; Start 04/14/17 at 08:00 Dextrose (Dextrose 50%-Water Syringe) 12.5 gm PRN Q15MIN PRN IV SEE COMMENTS; Start 04/13/17 at 20:00 Ferrous Sulfate (Feosol) 325 mg [id number] PO Last administered on 04/15/17 08:27 ; Start 04/13/17 at 21:00 Docusate Sodium (Colace) 100 mg BID PO Last administered on 04/15/17 08:26; Start 04/14/17 at 12:00 Midodrine (Proamatine) 10 mg [id number] PO Last administered on 04/14/17 12:07; Start 04/14/17 at 13:00; Stop 04/14/17 at 17:13; Status DC Midodrine (Proamatine) 2.5 mg [id number] PO Last administered on 04/15/17 05:06; Start 04/14/17 at 18:00 Active Scripts Active Reported Metformin Hcl 500 Mg Tablet 500 Mg PO BIDWMEALS Gemfibrozil 600 Mg Tablet 600 Mg PO BID Ferrous Sulfate 325 Mg Tablet 325 Mg PO DAILY Amitriptyline Hcl 10 Mg Tablet 10 Mg PO TID Vitals/I & O Vital Sign - Last 24 Hours 04/14/17 04/14/17 04/14/17 04/14/17 11:00 11:00 12:07 15:00 Temp 97.5 97.9 97.6 97.5 97.9 97.6 Pulse 82 87 87 82 Resp 20 20 20 B/P (MAP) 164/77 (106) 134/80 (98) 134/80 186/96 (126) Pulse Ox 97 97 97 O2 Delivery Room Air Room Air Room Air 04/14/17 04/14/17 04/14/17 04/14/17 17:35 19:00 19:40 23:00 Temp 98.0 98.4 98.0 98.4 Pulse 82 79 66 Resp 20 20 B/P (MAP) 186/96 172/91 (118) 186/112 (136) Pulse Ox 100 95 O2 Delivery Room Air Room Air Room Air 04/15/17 04/15/17 04/15/17 04/15/17 03:00 05:06 07:00 07:00 Temp 97.9 97.9 97.9 97.9 Pulse 77 80 90 78 Resp 20 20 B/P (MAP) 175/92 (119) 169/89 83/50 (61) 167/86 (113) Pulse Ox 98 98 O2 Delivery Room Air Room Air 04/15/17 07:00 Pulse 84 B/P (MAP) 129/71 (90) Pulse Ox 98 Intake and Output 04/15/17 04/15/17 04/16/17 15:00 23:00 07:00 Intake Total 350 ml Output Total 500 ml Balance -150 ml Nutrition Consultation Dietary Evaluation: Recommendations by RD: Increase Calorie Intake, Protein supplementation Comments: boost glucose control tid Expected Outcomes/Goals: to meet > 75% est nutr needs Interpretation of weight loss: >5% in 1 month Malnutrition Findings: Weight Status: Underweight MARISSA VELÁZQUEZ III DO Apr 15, 2017 11:03
--- NOTE | 2017-04-15 11:22 | PDOC ---
Renal-Progress Notes Subjective Notes Notes NONE History of Present Illness Hx of present illness STABLE Vitals Vitals Vital Signs Date Time Temp Pulse Resp B/P (MAP) Pulse Ox O2 Delivery O2 Flow Rate FiO2 04/15/17 07:00 84 129/71 (90) 98 04/15/17 07:00 97.9 20 Room Air 97.9 Weight Weight [ ] I.O. Intake and Output Intake and Output 04/16/17 07:00 Intake Total 350 ml Output Total 500 ml Balance -150 ml Intake Oral 350 ml Output Urine Total 500 ml Labs Labs Laboratory Tests Test 04/14/17 16:11 04/14/17 21:08 04/15/17 05:55 04/15/17 07:16 Glucose (Fingerstick) 124 mg/dL (70-99) 115 mg/dL (70-99) 79 mg/dL (70-99) White Blood Count 4.5 x10^3/uL (4.0-11.0) Red Blood Count 3.01 x10^6/uL (3.50-5.40) Hemoglobin 8.7 g/dL (12.0-15.5) Hematocrit 25.8 % (36.0-47.0) Mean Corpuscular Volume 86 fL (79-100) Mean Corpuscular Hemoglobin 29 pg (25-35) Mean Corpuscular Hemoglobin Concent 34 g/dL (31-37) Red Cell Distribution Width 15.2 % (11.5-14.5) Platelet Count 271 x10^3/uL (140-400) Neutrophils (%) (Auto) 52 % (31-73) Lymphocytes (%) (Auto) 27 % (24-48) Monocytes (%) (Auto) 11 % (0-9) Eosinophils (%) (Auto) 7 % (0-3) Basophils (%) (Auto) 3 % (0-3) Neutrophils # (Auto) 2.4 x10^3uL (1.8-7.7) Lymphocytes # (Auto) 1.2 x10^3/uL (1.0-4.8) Monocytes # (Auto) 0.5 x10^3/uL (0.0-1.1) Eosinophils # (Auto) 0.3 x10^3/uL (0.0-0.7) Basophils # (Auto) 0.1 x10^3/uL (0.0-0.2) Sodium Level 142 mmol/L (136-145) Potassium Level 4.1 mmol/L (3.5-5.1) Chloride Level 111 mmol/L (98-107) Carbon Dioxide Level 23 mmol/L (21-32) Anion Gap 8 (6-14) Blood Urea Nitrogen 18 mg/dL (7-20) Creatinine 1.0 mg/dL (0.6-1.0) Estimated GFR (Cockcroft-Gault) 63.8 Glucose Level 94 mg/dL (70-99) Calcium Level 8.9 mg/dL (8.5-10.1) Review of Systems Constitutional: yes: weakness, alert Ears/Nose/Throat: Yes: no symptom reported Pulmonary: Yes no symptom reported Cardiovascular: Yes no symptom reported, Yes near syncope Gastrointestional: Yes: no symptom reported Genitourinary: Yes: no symptom reported Musculoskeletal: Yes: no symptom reported Physical Exam General Appearance: no apparent distress Skin: warm Respiratory: bilateral CTA Heart: S1S2, RRR Abdomen: soft, bowel sounds present Extremities: pulses present Neurology: alert Musculoskeletal: Osteoarthritis Assessment Assessment IMP ENMANUEL-RESOLVED PLAN WILL SIGN OFF PLEASE CALL IF NEEDED TO RITCHIE MD Apr 15, 2017 11:22
[2017-04-15] MEDS: IV NORMAL SALINE 1000ML BAG 1,000 ML IV SCH ×2 (11:26→15:40)
--- NOTE | 2017-04-15 12:43 | PDOC ---
PROGRESS NOTES Assessment Syncope Orthostatic hypotension, patient is on midodrine Renal insufficiency No acute neurological process, No evidence of pandysautonomia Plan No additional neurological studies needed Continue current medical management. Can increase midodrine to 5 mg TID after a week and then increase each individual dose by 2.5 mg-5 mg, e.g., 7.5 mg TID for a week, 10 mg TID for a week, etc. SNU Follow-up with neurology as needed Subjective No complaints Objective Vital Signs Date Time Temp Pulse Resp B/P (MAP) Pulse Ox O2 Delivery O2 Flow Rate FiO2 04/15/17 11:00 97.7 94 18 112/58 (76) 97 Room Air 97.7 Intake and Output 04/16/17 07:00 Intake Total 350 ml Output Total 500 ml Balance -150 ml Intake Oral 350 ml Output Urine Total 500 ml PHYSICAL EXAM Alert. Oriented to time, place and person. PERRL. EOMI. CN: no focal findings. Muscle tone: normal. Muscle strength: 5/5 DTR: 1+ Plantar reflex: flexor Gait: not examined in bed. Sensory exam: no abnormal findings. No cerebellar signs elicited. Review of Relevant I have reviewed the following items nella (where applicable) has been applied. Labs Laboratory Tests Test 04/13/17 17:13 04/13/17 20:28 04/14/17 04:30 04/14/17 04:35 Glucose (Fingerstick) 80 mg/dL (70-99) 105 mg/dL (70-99) White Blood Count 5.4 x10^3/uL (4.0-11.0) Red Blood Count 2.93 x10^6/uL (3.50-5.40) Hemoglobin 8.4 g/dL (12.0-15.5) Hematocrit 25.3 % (36.0-47.0) Mean Corpuscular Volume 87 fL (79-100) Mean Corpuscular Hemoglobin 29 pg (25-35) Mean Corpuscular Hemoglobin Concent 33 g/dL (31-37) Red Cell Distribution Width 15.0 % (11.5-14.5) Platelet Count 264 x10^3/uL (140-400) Neutrophils (%) (Auto) 34 % (31-73) Lymphocytes (%) (Auto) 46 % (24-48) Monocytes (%) (Auto) 11 % (0-9) Eosinophils (%) (Auto) 8 % (0-3) Basophils (%) (Auto) 2 % (0-3) Neutrophils # (Auto) 1.8 x10^3uL (1.8-7.7) Lymphocytes # (Auto) 2.5 x10^3/uL (1.0-4.8) Monocytes # (Auto) 0.6 x10^3/uL (0.0-1.1) Eosinophils # (Auto) 0.4 x10^3/uL (0.0-0.7) Basophils # (Auto) 0.1 x10^3/uL (0.0-0.2) Sodium Level 144 mmol/L (136-145) Potassium Level 4.4 mmol/L (3.5-5.1) Chloride Level 112 mmol/L (98-107) Carbon Dioxide Level 22 mmol/L (21-32) Anion Gap 10 (6-14) Blood Urea Nitrogen 18 mg/dL (7-20) Creatinine 1.2 mg/dL (0.6-1.0) Estimated GFR (Cockcroft-Gault) 51.7 Glucose Level 87 mg/dL (70-99) Calcium Level 9.0 mg/dL (8.5-10.1) Test 04/14/17 07:50 04/14/17 11:11 04/14/17 16:11 04/14/17 21:08 Glucose (Fingerstick) 78 mg/dL (70-99) 101 mg/dL (70-99) 124 mg/dL (70-99) 115 mg/dL (70-99) Test 04/15/17 05:55 04/15/17 07:16 White Blood Count 4.5 x10^3/uL (4.0-11.0) Red Blood Count 3.01 x10^6/uL (3.50-5.40) Hemoglobin 8.7 g/dL (12.0-15.5) Hematocrit 25.8 % (36.0-47.0) Mean Corpuscular Volume 86 fL (79-100) Mean Corpuscular Hemoglobin 29 pg (25-35) Mean Corpuscular Hemoglobin Concent 34 g/dL (31-37) Red Cell Distribution Width 15.2 % (11.5-14.5) Platelet Count 271 x10^3/uL (140-400) Neutrophils (%) (Auto) 52 % (31-73) Lymphocytes (%) (Auto) 27 % (24-48) Monocytes (%) (Auto) 11 % (0-9) Eosinophils (%) (Auto) 7 % (0-3) Basophils (%) (Auto) 3 % (0-3) Neutrophils # (Auto) 2.4 x10^3uL (1.8-7.7) Lymphocytes # (Auto) 1.2 x10^3/uL (1.0-4.8) Monocytes # (Auto) 0.5 x10^3/uL (0.0-1.1) Eosinophils # (Auto) 0.3 x10^3/uL (0.0-0.7) Basophils # (Auto) 0.1 x10^3/uL (0.0-0.2) Sodium Level 142 mmol/L (136-145) Potassium Level 4.1 mmol/L (3.5-5.1) Chloride Level 111 mmol/L (98-107) Carbon Dioxide Level 23 mmol/L (21-32) Anion Gap 8 (6-14) Blood Urea Nitrogen 18 mg/dL (7-20) Creatinine 1.0 mg/dL (0.6-1.0) Estimated GFR (Cockcroft-Gault) 63.8 Glucose Level 94 mg/dL (70-99) Calcium Level 8.9 mg/dL (8.5-10.1) Glucose (Fingerstick) 79 mg/dL (70-99) Laboratory Tests Test 04/14/17 16:11 04/14/17 21:08 04/15/17 05:55 04/15/17 07:16 Glucose (Fingerstick) 124 mg/dL (70-99) 115 mg/dL (70-99) 79 mg/dL (70-99) White Blood Count 4.5 x10^3/uL (4.0-11.0) Red Blood Count 3.01 x10^6/uL (3.50-5.40) Hemoglobin 8.7 g/dL (12.0-15.5) Hematocrit 25.8 % (36.0-47.0) Mean Corpuscular Volume 86 fL (79-100) Mean Corpuscular Hemoglobin 29 pg (25-35) Mean Corpuscular Hemoglobin Concent 34 g/dL (31-37) Red Cell Distribution Width 15.2 % (11.5-14.5) Platelet Count 271 x10^3/uL (140-400) Neutrophils (%) (Auto) 52 % (31-73) Lymphocytes (%) (Auto) 27 % (24-48) Monocytes (%) (Auto) 11 % (0-9) Eosinophils (%) (Auto) 7 % (0-3) Basophils (%) (Auto) 3 % (0-3) Neutrophils # (Auto) 2.4 x10^3uL (1.8-7.7) Lymphocytes # (Auto) 1.2 x10^3/uL (1.0-4.8) Monocytes # (Auto) 0.5 x10^3/uL (0.0-1.1) Eosinophils # (Auto) 0.3 x10^3/uL (0.0-0.7) Basophils # (Auto) 0.1 x10^3/uL (0.0-0.2) Sodium Level 142 mmol/L (136-145) Potassium Level 4.1 mmol/L (3.5-5.1) Chloride Level 111 mmol/L (98-107) Carbon Dioxide Level 23 mmol/L (21-32) Anion Gap 8 (6-14) Blood Urea Nitrogen 18 mg/dL (7-20) Creatinine 1.0 mg/dL (0.6-1.0) Estimated GFR (Cockcroft-Gault) 63.8 Glucose Level 94 mg/dL (70-99) Calcium Level 8.9 mg/dL (8.5-10.1) Medications Current Medications Ondansetron HCl (Zofran) 4 mg PRN Q8HRS PRN IV NAUSEA/VOMITING; Start 04/12/17 at 20:00; Stop 04/13/17 at 19:59; Status DC Sodium Chloride 500 ml @ 1,000 mls/hr 1X ONCE IV Last administered on 20:34; Start 04/12/17 at 20:15; Stop 04/12/17 at 20:44; Status DC Sodium Chloride 1,000 ml @ 75 mls/hr [id number] IV Last administered on 11:26; Start 04/12/17 at 21:00 Tramadol HCl (Ultram) 50 mg PRN Q6HRS PRN PO PAIN Last administered on 14:38; Start 04/13/17 at 12:30 Amitriptyline HCl (Elavil) 10 mg TID PO Last administered on 04/15/17 08:27; Start 04/13/17 at 21:00 Ferrous Sulfate (Feosol) 325 mg DAILY PO ; Start 04/14/17 at 09:00; Stop at 09:00; Status DC Gemfibrozil (Lopid) 600 mg BID PO Last administered on 04/15/17 08:26; Start 04/13/17 at 21:00 Insulin Aspart (NovoLOG) 0-7 UNITS TIDWMEALS SQ ; Start 04/14/17 at 08:00 Dextrose (Dextrose 50%-Water Syringe) 12.5 gm PRN Q15MIN PRN IV SEE COMMENTS; Start 04/13/17 at 20:00 Ferrous Sulfate (Feosol) 325 mg [id number] PO Last administered on 04/15/17 08:27 ; Start 04/13/17 at 21:00 Docusate Sodium (Colace) 100 mg BID PO Last administered on 04/15/17 08:26; Start 04/14/17 at 12:00 Midodrine (Proamatine) 10 mg [id number] PO Last administered on 04/14/17 12:07; Start 04/14/17 at 13:00; Stop 04/14/17 at 17:13; Status DC Midodrine (Proamatine) 2.5 mg [id number] PO Last administered on 04/15/17 05:06; Start 04/14/17 at 18:00 Active Scripts Active Reported Metformin Hcl 500 Mg Tablet 500 Mg PO BIDWMEALS Gemfibrozil 600 Mg Tablet 600 Mg PO BID Ferrous Sulfate 325 Mg Tablet 325 Mg PO DAILY Amitriptyline Hcl 10 Mg Tablet 10 Mg PO TID Vitals/I & O Vital Sign - Last 24 Hours 04/14/17 04/14/17 04/14/17 04/14/17 15:00 17:35 19:00 19:40 Temp 97.6 98.0 97.6 98.0 Pulse 82 82 79 Resp 20 20 B/P (MAP) 186/96 (126) 186/96 172/91 (118) Pulse Ox 97 100 O2 Delivery Room Air Room Air Room Air 04/14/17 04/15/17 04/15/17 04/15/17 23:00 03:00 05:06 07:00 Temp 98.4 97.9 98.4 97.9 Pulse 66 77 80 90 Resp 20 20 B/P (MAP) 186/112 (136) 175/92 (119) 169/89 83/50 (61) Pulse Ox 95 98 O2 Delivery Room Air Room Air 04/15/17 04/15/17 04/15/17 07:00 07:00 11:00 Temp 97.9 97.7 97.9 97.7 Pulse 78 84 94 Resp 20 18 B/P (MAP) 167/86 (113) 129/71 (90) 112/58 (76) Pulse Ox 98 98 97 O2 Delivery Room Air Room Air Intake and Output 04/15/17 04/15/17 04/16/17 15:00 23:00 07:00 Intake Total 350 ml Output Total 500 ml Balance -150 ml JESSICA ABBOTT MD Apr 15, 2017 12:43
[2017-04-16] MEDS: IV NORMAL SALINE 1000ML BAG 1,000 ML IV SCH (00:09)
[2017-04-16 03:27] VITALS: BP 163/97
[2017-04-16] MEDS: MIDODRINE 5 MG TABLET PO SCH ×2 (05:16→13:50)
[2017-04-16 05:53] LABS: BASO # 0.1 x10^3/uL (0.0-0.2); BASO % 2 % (0-3); EOS % 7 % (0-3); HEMATOCRIT 24.2 % (36.0-47.0); HEMOGLOBIN 8.3 g/dL (12.0-15.5); LYMPH # 1.6 x10^3/uL (1.0-4.8); LYMPH % 37 % (24-48); MEAN CORPUSCULAR HEMOGLOBIN 29 pg (25-35); MEAN CORPUSCULAR HGB CONC 34 g/dL (31-37); MEAN CORPUSCULAR VOLUME 85 fL (79-100); MONO % 13 % (0-9); NEUT % 42 % (31-73); PLATELET COUNT 270 x10^3/uL (140-400); RED BLOOD COUNT 2.86 x10^6/uL (3.50-5.40); RED CELL DISTRIBUTION WIDTH 15.2 % (11.5-14.5); WHITE BLOOD COUNT 4.2 x10^3/uL (4.0-11.0)
[2017-04-16 06:23] LABS: CALCIUM 8.6 mg/dL (8.5-10.1); CREATININE 0.9 mg/dL (0.6-1.0); POTASSIUM 3.7 mmol/L (3.5-5.1)
[2017-04-16 07:00] VITALS: BP_SYST 134; BP_SYST 165; BP_SYST 95; BP_DIAS 62; BP_DIAS 64; BP_DIAS 88
[2017-04-16] MEDS: INSULIN ASPART 300 UNITS/3 ML INSULN.PEN SQ SCH ×2 (07:49→12:00)
[2017-04-16] MEDS: GEMFIBROZIL 600 MG TABLET. PO SCH (08:50)
[2017-04-16] MEDS: DOCUSATE SODIUM 100 MG CAPSULE. PO SCH (08:50)
[2017-04-16] MEDS: AMITRIPTYLINE HCL 10 MG TABLET. PO SCH ×2 (08:50→13:50)
[2017-04-16] MEDS: FERROUS SULFATE 325 MG TABLET. PO SCH (08:51)
--- NOTE | 2017-04-16 10:49 | PDOC ---
PROGRESS NOTES Chief Complaint Chief Complaint Syncope Orthostatic hypotension PMH: syncope DM HTN Hyperlipidemia Anemia History of Present Illness History of Present Illness Pt was laying in bed and conversant. RN was also in the room. Discussed plan of care with them including the dosing of her Proamantine and her orthostatic hypotension. Pt has no new complaints at this time and would like to go home. Pt has a probable DC to SNU today. Dr. Rowe - resolution of her ENMANUEL Dr. Kraft - would like her dose of Proamantine to be increased by 2.5 mg per week until 10 mg TID is reached. Vitals Vitals Vital Signs Date Time Temp Pulse Resp B/P (MAP) Pulse Ox O2 Delivery O2 Flow Rate FiO2 04/16/17 08:23 Room Air 04/16/17 07:00 98.5 94 20 95/62 (73) 97 98.5 Physical Exam General: Alert, Oriented X3, Cooperative, No acute distress Heart: Regular rate, Normal S1, Normal S2 Lungs: Clear Abdomen: Soft, No tenderness Extremities: No clubbing, No cyanosis Skin: No rashes, No breakdown Labs LABS Laboratory Tests Test 04/15/17 16:13 04/15/17 20:38 04/16/17 05:30 04/16/17 07:09 Glucose (Fingerstick) 108 mg/dL (70-99) 232 mg/dL (70-99) 69 mg/dL (70-99) White Blood Count 4.2 x10^3/uL (4.0-11.0) Red Blood Count 2.86 x10^6/uL (3.50-5.40) Hemoglobin 8.3 g/dL (12.0-15.5) Hematocrit 24.2 % (36.0-47.0) Mean Corpuscular Volume 85 fL (79-100) Mean Corpuscular Hemoglobin 29 pg (25-35) Mean Corpuscular Hemoglobin Concent 34 g/dL (31-37) Red Cell Distribution Width 15.2 % (11.5-14.5) Platelet Count 270 x10^3/uL (140-400) Neutrophils (%) (Auto) 42 % (31-73) Lymphocytes (%) (Auto) 37 % (24-48) Monocytes (%) (Auto) 13 % (0-9) Eosinophils (%) (Auto) 7 % (0-3) Basophils (%) (Auto) 2 % (0-3) Neutrophils # (Auto) 1.7 x10^3uL (1.8-7.7) Lymphocytes # (Auto) 1.6 x10^3/uL (1.0-4.8) Monocytes # (Auto) 0.5 x10^3/uL (0.0-1.1) Eosinophils # (Auto) 0.3 x10^3/uL (0.0-0.7) Basophils # (Auto) 0.1 x10^3/uL (0.0-0.2) Sodium Level 144 mmol/L (136-145) Potassium Level 3.7 mmol/L (3.5-5.1) Chloride Level 112 mmol/L (98-107) Carbon Dioxide Level 23 mmol/L (21-32) Anion Gap 9 (6-14) Blood Urea Nitrogen 17 mg/dL (7-20) Creatinine 0.9 mg/dL (0.6-1.0) Estimated GFR (Cockcroft-Gault) 72.0 Glucose Level 84 mg/dL (70-99) Calcium Level 8.6 mg/dL (8.5-10.1) Test 04/16/17 08:50 Glucose (Fingerstick) 106 mg/dL (70-99) Review of Systems Review of Systems Pt fatigued Pt has mild dizziness upon standing Pt complains of hunger Assessment and Plan Assessmemt and Plan Syncope Orthostatic hypotension PMH: syncope DM HTN Hyperlipidemia Anemia Plan: Home meds Monitor BP Possible D/C to SNU today Notify subspecialists Appreciate subspecialists input Recheck labs if necessary Problems: Comment Review of Relevant I have reviewed the following items nella (where applicable) has been applied. Labs Laboratory Tests Test 04/14/17 11:11 04/14/17 16:11 04/14/17 21:08 04/15/17 05:55 Glucose (Fingerstick) 101 mg/dL (70-99) 124 mg/dL (70-99) 115 mg/dL (70-99) White Blood Count 4.5 x10^3/uL (4.0-11.0) Red Blood Count 3.01 x10^6/uL (3.50-5.40) Hemoglobin 8.7 g/dL (12.0-15.5) Hematocrit 25.8 % (36.0-47.0) Mean Corpuscular Volume 86 fL (79-100) Mean Corpuscular Hemoglobin 29 pg (25-35) Mean Corpuscular Hemoglobin Concent 34 g/dL (31-37) Red Cell Distribution Width 15.2 % (11.5-14.5) Platelet Count 271 x10^3/uL (140-400) Neutrophils (%) (Auto) 52 % (31-73) Lymphocytes (%) (Auto) 27 % (24-48) Monocytes (%) (Auto) 11 % (0-9) Eosinophils (%) (Auto) 7 % (0-3) Basophils (%) (Auto) 3 % (0-3) Neutrophils # (Auto) 2.4 x10^3uL (1.8-7.7) Lymphocytes # (Auto) 1.2 x10^3/uL (1.0-4.8) Monocytes # (Auto) 0.5 x10^3/uL (0.0-1.1) Eosinophils # (Auto) 0.3 x10^3/uL (0.0-0.7) Basophils # (Auto) 0.1 x10^3/uL (0.0-0.2) Sodium Level 142 mmol/L (136-145) Potassium Level 4.1 mmol/L (3.5-5.1) Chloride Level 111 mmol/L (98-107) Carbon Dioxide Level 23 mmol/L (21-32) Anion Gap 8 (6-14) Blood Urea Nitrogen 18 mg/dL (7-20) Creatinine 1.0 mg/dL (0.6-1.0) Estimated GFR (Cockcroft-Gault) 63.8 Glucose Level 94 mg/dL (70-99) Calcium Level 8.9 mg/dL (8.5-10.1) Test 04/15/17 07:16 04/15/17 16:13 04/15/17 20:38 04/16/17 05:30 Glucose (Fingerstick) 79 mg/dL (70-99) 108 mg/dL (70-99) 232 mg/dL (70-99) White Blood Count 4.2 x10^3/uL (4.0-11.0) Red Blood Count 2.86 x10^6/uL (3.50-5.40) Hemoglobin 8.3 g/dL (12.0-15.5) Hematocrit 24.2 % (36.0-47.0) Mean Corpuscular Volume 85 fL (79-100) Mean Corpuscular Hemoglobin 29 pg (25-35) Mean Corpuscular Hemoglobin Concent 34 g/dL (31-37) Red Cell Distribution Width 15.2 % (11.5-14.5) Platelet Count 270 x10^3/uL (140-400) Neutrophils (%) (Auto) 42 % (31-73) Lymphocytes (%) (Auto) 37 % (24-48) Monocytes (%) (Auto) 13 % (0-9) Eosinophils (%) (Auto) 7 % (0-3) Basophils (%) (Auto) 2 % (0-3) Neutrophils # (Auto) 1.7 x10^3uL (1.8-7.7) Lymphocytes # (Auto) 1.6 x10^3/uL (1.0-4.8) Monocytes # (Auto) 0.5 x10^3/uL (0.0-1.1) Eosinophils # (Auto) 0.3 x10^3/uL (0.0-0.7) Basophils # (Auto) 0.1 x10^3/uL (0.0-0.2) Sodium Level 144 mmol/L (136-145) Potassium Level 3.7 mmol/L (3.5-5.1) Chloride Level 112 mmol/L (98-107) Carbon Dioxide Level 23 mmol/L (21-32) Anion Gap 9 (6-14) Blood Urea Nitrogen 17 mg/dL (7-20) Creatinine 0.9 mg/dL (0.6-1.0) Estimated GFR (Cockcroft-Gault) 72.0 Glucose Level 84 mg/dL (70-99) Calcium Level 8.6 mg/dL (8.5-10.1) Test 04/16/17 07:09 04/16/17 08:50 Glucose (Fingerstick) 69 mg/dL (70-99) 106 mg/dL (70-99) Laboratory Tests Test 04/15/17 16:13 04/15/17 20:38 04/16/17 05:30 04/16/17 07:09 Glucose (Fingerstick) 108 mg/dL (70-99) 232 mg/dL (70-99) 69 mg/dL (70-99) White Blood Count 4.2 x10^3/uL (4.0-11.0) Red Blood Count 2.86 x10^6/uL (3.50-5.40) Hemoglobin 8.3 g/dL (12.0-15.5) Hematocrit 24.2 % (36.0-47.0) Mean Corpuscular Volume 85 fL (79-100) Mean Corpuscular Hemoglobin 29 pg (25-35) Mean Corpuscular Hemoglobin Concent 34 g/dL (31-37) Red Cell Distribution Width 15.2 % (11.5-14.5) Platelet Count 270 x10^3/uL (140-400) Neutrophils (%) (Auto) 42 % (31-73) Lymphocytes (%) (Auto) 37 % (24-48) Monocytes (%) (Auto) 13 % (0-9) Eosinophils (%) (Auto) 7 % (0-3) Basophils (%) (Auto) 2 % (0-3) Neutrophils # (Auto) 1.7 x10^3uL (1.8-7.7) Lymphocytes # (Auto) 1.6 x10^3/uL (1.0-4.8) Monocytes # (Auto) 0.5 x10^3/uL (0.0-1.1) Eosinophils # (Auto) 0.3 x10^3/uL (0.0-0.7) Basophils # (Auto) 0.1 x10^3/uL (0.0-0.2) Sodium Level 144 mmol/L (136-145) Potassium Level 3.7 mmol/L (3.5-5.1) Chloride Level 112 mmol/L (98-107) Carbon Dioxide Level 23 mmol/L (21-32) Anion Gap 9 (6-14) Blood Urea Nitrogen 17 mg/dL (7-20) Creatinine 0.9 mg/dL (0.6-1.0) Estimated GFR (Cockcroft-Gault) 72.0 Glucose Level 84 mg/dL (70-99) Calcium Level 8.6 mg/dL (8.5-10.1) Test 04/16/17 08:50 Glucose (Fingerstick) 106 mg/dL (70-99) Medications Current Medications Ondansetron HCl (Zofran) 4 mg PRN Q8HRS PRN IV NAUSEA/VOMITING; Start 04/12/17 at 20:00; Stop 04/13/17 at 19:59; Status DC Sodium Chloride 500 ml @ 1,000 mls/hr 1X ONCE IV Last administered on 20:34; Start 04/12/17 at 20:15; Stop 04/12/17 at 20:44; Status DC Sodium Chloride 1,000 ml @ 75 mls/hr [id number] IV Last administered on 00:09; Start 04/12/17 at 21:00 Tramadol HCl (Ultram) 50 mg PRN Q6HRS PRN PO PAIN Last administered on 14:38; Start 04/13/17 at 12:30 Amitriptyline HCl (Elavil) 10 mg TID PO Last administered on 04/16/17 08:50; Start 04/13/17 at 21:00 Ferrous Sulfate (Feosol) 325 mg DAILY PO ; Start 04/14/17 at 09:00; Stop at 09:00; Status DC Gemfibrozil (Lopid) 600 mg BID PO Last administered on 04/16/17 08:50; Start 04/13/17 at 21:00 Insulin Aspart (NovoLOG) 0-7 UNITS TIDWMEALS SQ ; Start 04/14/17 at 08:00 Dextrose (Dextrose 50%-Water Syringe) 12.5 gm PRN Q15MIN PRN IV SEE COMMENTS; Start 04/13/17 at 20:00 Ferrous Sulfate (Feosol) 325 mg [id number] PO Last administered on 04/16/17 08:51 ; Start 04/13/17 at 21:00 Docusate Sodium (Colace) 100 mg BID PO Last administered on 04/16/17 08:50; Start 04/14/17 at 12:00 Midodrine (Proamatine) 10 mg [id number] PO Last administered on 04/14/17 12:07; Start 04/14/17 at 13:00; Stop 04/14/17 at 17:13; Status DC Midodrine (Proamatine) 2.5 mg [id number] PO Last administered on 04/16/17t 05:16; Start 04/14/17 at 18:00 Active Scripts Active Reported Metformin Hcl 500 Mg Tablet 500 Mg PO BIDWMEALS Gemfibrozil 600 Mg Tablet 600 Mg PO BID Ferrous Sulfate 325 Mg Tablet 325 Mg PO DAILY Amitriptyline Hcl 10 Mg Tablet 10 Mg PO TID Vitals/I & O Vital Sign - Last 24 Hours 04/15/17 04/15/17 04/15/17 04/15/17 11:00 13:59 15:00 15:00 Temp 97.7 97.7 97.7 97.7 Pulse 94 94 80 84 Resp 18 20 B/P (MAP) 112/58 (76) 112/58 168/87 (114) 166/94 (118) Pulse Ox 97 98 O2 Delivery Room Air Room Air 04/15/17 04/15/17 04/15/17 04/15/17 15:05 15:10 17:48 19:00 Pulse 84 87 81 90 B/P (MAP) 132/79 (96) 106/56 (73) 140/71 89/46 (60) 04/15/17 04/15/17 04/15/17 04/15/17 19:00 19:00 20:04 23:00 Temp 97.5 96.9 97.5 96.9 Pulse 88 88 78 Resp 20 20 B/P (MAP) 99/51 (67) 139/68 (91) 200/94 (129) Pulse Ox 97 99 O2 Delivery Room Air Room Air Room Air 04/16/17 04/16/17 04/16/17 04/16/17 03:27 05:16 07:00 07:00 Temp 98.0 98.2 98.6 98.0 98.2 98.6 Pulse 81 73 77 82 Resp 20 20 20 B/P (MAP) 163/97 (119) 149/80 165/88 (113) 134/64 (87) Pulse Ox 96 100 98 O2 Delivery Room Air Room Air Room Air 04/16/17 04/16/17 07:00 08:23 Temp 98.5 98.5 Pulse 94 Resp 20 B/P (MAP) 95/62 (73) Pulse Ox 97 O2 Delivery Room Air Room Air Nutrition Consultation Dietary Evaluation: Recommendations by RD: Increase Calorie Intake, Protein supplementation Comments: boost glucose control tid Expected Outcomes/Goals: to meet > 75% est nutr needs Interpretation of weight loss: >5% in 1 month Malnutrition Findings: Weight Status: Underweight MARISSA VELÁZQUEZ III DO Apr 16, 2017 10:49
[2017-04-16 11:00] VITALS: BP 125/59
[2017-04-16 13:50] VITALS: BP 133/75
--- NOTE | 2017-05-01 12:29 | DS ---
DATE OF DISCHARGE: 04/16/2017 DATE OF ADMISSION: 04/12/2017 DATE OF DISCHARGE: 04/16/2017 ADMISSION DIAGNOSIS: Syncope. DISCHARGE DIAGNOSIS: Resolving syncope. HOSPITAL COURSE: The patient is a pleasant 86-year-old female who presented with syncope. We suspect she probably had an arrhythmia. She was admitted. We did give her fluids, monitor her heart. She did well. She will be discharged home with close outpatient followup. DISPOSITION: Home. ACTIVITY: As tolerated. DIET: Low sodium. MEDICATIONS: Please see the MRAD. TOTAL TIME ON DISCHARGE: 33 minutes. SHAWNAL Leann VELÁZQUEZ DO DR: LAURENT/marce JOB#: [id number] / [id number]
[2017-05-12] MEDS ORDERED: MIDO5TAB PO (11:01)
== END 2017-04-16 14:00 | DRG 683 ==
LOC: ER 17:27 → 5 NORTH 19:10
PROVIDERS: ADMIT Internal Medicine; ATTEND Internal Medicine
DX: N17.0 Acute kidney failure with tubular necrosis (principal); Z68.1 Body mass index [BMI] 19.9 or less, adult; E86.0 Dehydration; E11.9 Type 2 diabetes mellitus without complications; I10 Essential (primary) hypertension; F32.9 Major depressive disorder, single episode, unspecified; D63.8 Anemia in other chronic diseases classified elsewhere; W18.39XA Other fall on same level, initial encounter; I95.1 Orthostatic hypotension; E66.3 Overweight; E78.00 Pure hypercholesterolemia, unspecified; E78.5 Hyperlipidemia, unspecified; F41.9 Anxiety disorder, unspecified; M19.90 Unspecified osteoarthritis, unspecified site; R29.6 Repeated falls; R79.89 Other specified abnormal findings of blood chemistry; Z82.49 Family history of ischemic heart disease and other diseases of the circulatory system; Z83.3 Family history of diabetes mellitus; Z86.73 Personal history of transient ischemic attack (TIA), and cerebral infarction without residual deficits; Z90.49 Acquired absence of other specified parts of digestive tract; Y93.89 Activity, other specified; Y92.89 Other specified places as the place of occurrence of the external cause; Y99.8 Other external cause status; R63.6 Underweight
CPT/HCPCS: 36415; 70551; 71010; 71100; 80048; 80076; 82553; 82962; 83735; 83880; 84443; 84484; 85025; 93005; 93880; J1815; J7030; 97116; 97530; 99285-25

== ENCOUNTER 2017-06-06 15:35 | Emergency (ER) | payer OTHER ==
[~2017-06-06 15:35] MED LIST changes: +MIDO5TAB PO
[2017-06-06 16:13] LABS: BILIRUBIN,URINE NEGATIVE (NEG); GLUCOSE,URINE NEGATIVE (NEG); NITRITE,URINE NEGATIVE (NEG); PROTEIN,URINE NEGATIVE (NEG-TRACE); UROBILINOGEN,URINE 0.2 mg/dL (0.2 mg/dL)
[2017-06-06 16:23] LABS: BACTERIA,URINE FEW /HPF (0-FEW); SQUAMOUS EPITHELIAL CELL,UR OCC /LPF; WBC,URINE TNTC /HPF (0-4)
[2017-06-06 16:42] LABS: BASO # 0.1 x10^3/uL (0.0-0.2); BASO % 1 % (0-3); EOS % 2 % (0-3); HEMATOCRIT 33.2 % (36.0-47.0); HEMOGLOBIN 10.6 g/dL (12.0-15.5); LYMPH # 1.5 x10^3/uL (1.0-4.8); LYMPH % 18 % (24-48); MEAN CORPUSCULAR HEMOGLOBIN 29 pg (25-35); MEAN CORPUSCULAR HGB CONC 32 g/dL (31-37); MEAN CORPUSCULAR VOLUME 89 fL (79-100); MONO % 10 % (0-9); NEUT % 69 % (31-73); PLATELET COUNT 322 x10^3/uL (140-400); RED BLOOD COUNT 3.72 x10^6/uL (3.50-5.40); RED CELL DISTRIBUTION WIDTH 15.6 % (11.5-14.5); WHITE BLOOD COUNT 8.2 x10^3/uL (4.0-11.0)
[2017-06-06 17:06] LABS: CALCIUM 10.5 mg/dL (8.5-10.1); CREATININE 1.7 mg/dL (0.6-1.0); GFR 34.6; POTASSIUM 4.7 mmol/L (3.5-5.1)
[2017-06-06 17:09] LABS: ALBUMIN 4.2 g/dL (3.4-5.0); ALBUMIN/GLOBULIN RATIO 1.2 (1.0-1.7); TOTAL BILIRUBIN 0.3 mg/dL (0.2-1.0); TOTAL PROTEIN 7.7 g/dL (6.4-8.2)
[2017-06-06] MEDS ORDERED: CEPH-264 PO (17:26)
[2017-06-06] MEDS ORDERED: ONDA4TAB10 SL (17:26)
--- NOTE | 2017-06-06 17:26 | PHYS DOC ---
Past Medical History Past Medical History: Arrhythmia, CAD, Diabetes-Type II, High Cholesterol, Hypertension, Renal Failure Past Surgical History: Appendectomy, Tonsillectomy, Other Additional Past Surgical Histo: Hemmoroidectomy, Left hip repair, Hernia repair Alcohol Use: None Drug Use: None Adult General Chief Complaint Chief Complaint: PAIN ON URINATION HPI HPI Patient is a 86 year old female with a history for diabetes high cholesterol and hypertension presents here today secondary to dysuria frequency and urgency consistent with her prior tract infections. Patient is also complaining of some suprapubic discomfort. Patient has any fevers shakes chills. Patient has a nausea vomiting or diarrhea. Patient denies any hematuria. Patient has any flank pain. Family reports that she appears to be in her usual state of health. They report that she is alert awake oriented 3 and at her baseline mental status. Son reports that she is active and still bossing everyone around like she normally would. Review of systems: Constitutional: Denies fever or chills Eyes: Denies change in visual acuity, redness, or eye pain HENT: Denies nasal congestion or sore throat Respiratory: Denies cough or shortness of breath All other systems were reviewed and found to be within normal limits, except as documented in this note. Physical exam: Constitutional: Well developed, well nourished, no acute distress, non-toxic appearance. HENT: Normocephalic, atraumatic, bilateral external ears normal, nose normal. Eyes: PERRLA, EOMI, conjunctiva normal, no discharge. Neck: Normal range of motion, no tenderness, supple, no stridor. Cardiovascular: Heart rate regular rhythm, Lungs & Thorax: Bilateral breath sounds clear to auscultation Abdomen: No abdominal distention. Mild suprapubic tenderness to palpation. No rebound or guarding. No tenderness at McBurney's point. No Abel sign. Normal active bowel sounds. Patient does not present with any signs or symptoms that' ll be consistent with an acute surgical abdomen. Skin: Warm, dry, no erythema, no rash. Back: Normal spinal curvature Extremities: No tenderness, no cyanosis, no clubbing, ROM intact, no edema. Neurologic: Alert and oriented X 3, normal motor function, normal sensory function, no focal deficits noted. Psychologic: Affect normal, judgement normal, mood normal. Assessment and plan: 1. Urinary tract infection: Patient presents to the ER today with sinus symptoms consistent with urinary tract infection. Patient's ER workup is consistent with urinary tract infection with made wBCs per high-power field in her urine. Patient's labs were all unremarkable except for slightly elevated creatinine BUNs consistent with some mild dehydration. Patient reports that she' s been eating and drinking well without any problems. Patient reports that yesterday she spent thinks he was with her daughter and family and she ate a normal amount of food and has been drinking normal mental liquid for her. Given the patient's abnormal UA and her age I have discussed with the patient and the family the different options of admitting to the hospital for IV antibiotics versus outpatient trial. The family and the patient is extremely resistant to being admitted to the hospital without a trial of outpatient therapy first. Patient is very reluctant to be admitted to the hospital at this time and after discussing with the family and with the patient and utilizing shared decision making the decision has been made. The patient her first dose of IV antibiotics in the ED, IV fluids given her elevated BUN/creatinine, discharged home with Keflex and close outpatient follow-up with the family will reassure. The family reports that they will be able to bring her back to the ER immediately if she starts developing any fevers, but she is unable to keep down her antibiotics, if she starts developing worsening abdominal pain, where she starts acting abnormal in any way. I feel that this course of therapy isn't adequate course given the patient's vital signs being normal normal white count and her overall appearance. Patient is 86 years old and she stated multiple times that her preference would be not to be admitted to the hospital. Current Medications Current Medications Current Medications Medications (Trade) Dose Ordered Sig/Ok Start Time Stop Time Status Last Admin Dose Admin Ceftriaxone Sodium 50 ml @ 100 mls/hr 1X ONCE 06/06/17 17:00 06/06/17 17:29 06/06/17 16:41 100 MLS/HR Allergies Allergies Allergies Coded Allergies Type Severity Reaction Last Updated Verified codeine Allergy Intermediate 06/01/14 Yes Current Patient Data Vital Signs Vital Signs Date Time Temp Pulse Resp B/P (MAP) Pulse Ox O2 Delivery O2 Flow Rate FiO2 06/06/17 17:16 96 16 207/93 (131) 99 Room Air 06/06/17 15:53 97.7 97.7 Lab Values Laboratory Tests Test 06/06/17 15:44 06/06/17 15:58 Urine Color Yellow Urine Clarity Clear Urine pH 6.0 Urine Specific [place] 1.015 Urine Protein Negative mg/dL (NEG-TRACE) Urine Glucose (UA) Negative mg/dL (NEG) Urine Ketones (Stick) Negative mg/dL (NEG) Urine Blood Large (NEG) Urine Nitrite Negative (NEG) Urine Bilirubin Negative (NEG) Urine Urobilinogen Dipstick 0.2 mg/dL (0.2 mg/dL) Urine Leukocyte Esterase Large (NEG) Urine RBC 3-5 /HPF (0-2) Urine WBC Tntc /HPF (0-4) Urine Squamous Epithelial Cells Occ /LPF Urine Bacteria Few /HPF (0-FEW) White Blood Count 8.2 x10^3/uL (4.0-11.0) Red Blood Count 3.72 x10^6/uL (3.50-5.40) Hemoglobin 10.6 g/dL (12.0-15.5) L Hematocrit 33.2 % (36.0-47.0) L Mean Corpuscular Volume 89 fL (79-100) Mean Corpuscular Hemoglobin 29 pg (25-35) Mean Corpuscular Hemoglobin Concent 32 g/dL (31-37) Red Cell Distribution Width 15.6 % (11.5-14.5) H Platelet Count 322 x10^3/uL (140-400) Neutrophils (%) (Auto) 69 % (31-73) Lymphocytes (%) (Auto) 18 % (24-48) L Monocytes (%) (Auto) 10 % (0-9) H Eosinophils (%) (Auto) 2 % (0-3) Basophils (%) (Auto) 1 % (0-3) Neutrophils # (Auto) 5.7 x10^3uL (1.8-7.7) Lymphocytes # (Auto) 1.5 x10^3/uL (1.0-4.8) Monocytes # (Auto) 0.8 x10^3/uL (0.0-1.1) Eosinophils # (Auto) 0.2 x10^3/uL (0.0-0.7) Basophils # (Auto) 0.1 x10^3/uL (0.0-0.2) Sodium Level 140 mmol/L (136-145) Potassium Level 4.7 mmol/L (3.5-5.1) Chloride Level 102 mmol/L (98-107) Carbon Dioxide Level 21 mmol/L (21-32) Anion Gap 17 (6-14) H Blood Urea Nitrogen 34 mg/dL (7-20) H Creatinine 1.7 mg/dL (0.6-1.0) H Estimated GFR (Cockcroft-Gault) 34.6 BUN/Creatinine Ratio 20 (6-20) Glucose Level 96 mg/dL (70-99) Calcium Level 10.5 mg/dL (8.5-10.1) H Total Bilirubin 0.3 mg/dL (0.2-1.0) Aspartate Amino Transferase (AST) 18 U/L (15-37) Alanine Aminotransferase (ALT) 7 U/L (14-59) L Alkaline Phosphatase 51 U/L (46-116) Total Protein 7.7 g/dL (6.4-8.2) Albumin 4.2 g/dL (3.4-5.0) Albumin/Globulin Ratio 1.2 (1.0-1.7) Laboratory Tests 06/06/17 15:58 Laboratory Tests 06/06/17 15:58 EKG EKG [] Radiology/Procedures Radiology/Procedures [] Course & Med Decision Making Course & Med Decision Making Pertinent Labs and Imaging studies reviewed. (See chart for details) [] Dragon Disclaimer Dragon Disclaimer This electronic medical record was generated, in whole or in part, using a voice recognition dictation system. Departure Departure Impression: Primary Impression: Urinary tract infection Disposition: 01 HOME, SELF-CARE Condition: IMPROVED Referrals: EARL ROLLINS MD (PCP) Patient Instructions: Dehydration, Elderly, Urinary Tract Infection Scripts Ondansetron (ZOFRAN ODT) 4 Mg Tab.rapdis 1 TAB SL Q6HRS Y for NAUSEA, #12 TAB Prov: JACOBY TRISTAN MD 06/06/17 Cephalexin (KEFLEX) 500 Mg Capsule 500 MG PO QID for 10 Days, CAP Prov: JACOBY TRISTAN MD 06/06/17 JACOBY TRISTAN MD Jun 06, 2017 17:26
[2017-06-06] MEDS ORDERED: IV NORMAL SALINE 1000ML BAG 1,000 ML IV ONE (17:30)
[2017-06-06 18:37] VITALS: BP 193/86
== END 2017-06-06 18:41 | disposition home or self-care (01) ==
LOC: ER 15:35
DX: N39.0 Urinary tract infection, site not specified (principal); I12.9 Hypertensive chronic kidney disease with stage 1 through stage 4 chronic kidney disease, or unspecified chronic kidney disease; E11.22 Type 2 diabetes mellitus with diabetic chronic kidney disease; N18.9 Chronic kidney disease, unspecified; E78.00 Pure hypercholesterolemia, unspecified; I25.10 Atherosclerotic heart disease of native coronary artery without angina pectoris; Z90.49 Acquired absence of other specified parts of digestive tract; Z98.890 Other specified postprocedural states; Z88.5 Allergy status to narcotic agent
CPT/HCPCS: 36415; 80053; 81001; 85025; 87086; 87186; 96361; 96365; 99284; J0690; J7030

== ENCOUNTER 2020-03-17 18:13 | Inpatient (IN) | payer MEDICARE, MEDICAID ==
[~2020-03-17] VITALS: Ht 167.6 cm; Wt 52.1 kg
[~2020-03-17 18:13] MED LIST changes: +ACET325T9 PO; +CEPH-264 PO; +CLON0.1T12 PO; -FERR-26 PO; +FERR325T14 PO; -GEMF600T3 PO; +GEMF600T8 PO; +HYDR-2761 PO; +INSU100I11 SQ; +METF500T16 PO; -METF500T4 PO; -MIDO5TAB PO; +MIDO5TAB4 PO; +ONDA4TAB10 SL; +SENN-22 PO
--- NOTE | 2020-03-17 18:50 | PHYS DOC ---
Past Medical History Past Medical History: Arrhythmia, CAD, Diabetes-Type II, High Cholesterol, Hypertension, Renal Failure Past Surgical History: Appendectomy, Tonsillectomy, Other Additional Past Surgical Histo: Hemmoroidectomy, Left hip repair, Hernia repair Smoking Status: Former Smoker Alcohol Use: None Drug Use: None General Adult EDM: Chief Complaint: HIP PAIN HPI: HPI: Patient is a 89 year old Female who presents with here from [facility]. On Friday patient fell and ever since then she has had right hip pain and is unable to ambulate on the right hip. [facility] states that they did x-rays of the hip and found no acute findings. [facility] states that they had ordered a CT as an outpatient but family did not want to wait. Upon examination patient had right lateral hip tenderness with palpation and cannot lift leg or move at the hip joint due to pain. Patient also has e xternal rotation of the leg and slight shortening. No swelling of the extremity. Skin pink warm and dry. Pedal pulse is present. I asked the patient what her pain level was and she said it is okay as long as she does not move. Patient denies any other pain. She has a history of diabetes, high cholesterol, renal failure, CAD, hypertension, arrhythmia, appendectomy, hernia repair. Review of Systems: Review of Systems: Constitutional: Denies fever or chills. [] Eyes: Denies change in visual acuity. [] HENT: Denies nasal congestion or sore throat. [] Respiratory: Denies cough or shortness of breath. [] Cardiovascular: Denies chest pain or edema. [] GI: Denies abdominal pain, nausea, vomiting, bloody stools or diarrhea. [] : Denies dysuria. [] Musculoskeletal: Denies back pain. Right hip joint pain. [] Integument: Denies rash. [] Neurologic: Denies headache, focal weakness or sensory changes. [] Endocrine: Denies polyuria or polydipsia. [] Lymphatic: Denies swollen glands. [] Psychiatric: Denies depression or anxiety. [] Heart Score: Risk Factors: Risk Factors: DM, Current or recent (<one month) smoker, HTN, HLP, family history of CAD, obesity. Risk Scores: Score 0 - 3: 2.5% MACE over next 6 weeks - Discharge Home Score 4 - 6: 20.3% MACE over next 6 weeks - Admit for Clinical Observation Score 7 - 10: 72.7% MACE over next 6 weeks - Early Invasive Strategies Allergies: Allergies: Allergies Coded Allergies Type Severity Reaction Last Updated Verified codeine Allergy Intermediate 06/01/14 Yes Physical Exam: PE: Constitutional: Well developed, well nourished, no acute distress, non-toxic appearance. [] HENT: Normocephalic, atraumatic, bilateral external ears normal, oropharynx moist, no oral exudates, nose normal. [] Eyes: PERRLA, EOMI, conjunctiva normal, no discharge. [] Neck: Normal range of motion, no tenderness, supple, no stridor. [] Cardiovascular:Heart rate regular rhythm, no murmur [] Lungs & Thorax: Bilateral breath sounds clear to auscultation [] Abdomen: Bowel sounds normal, soft, no tenderness, no masses, no pulsatile masses. [] Skin: Warm, dry, no erythema, no rash. [] Back: No tenderness, no CVA tenderness. [] Extremities: Right lateral hip tenderness, no cyanosis, no clubbing, right hip ROM not intact, no edema. Externally rotated and slightly shortened [] Neurologic: Alert and oriented X 3, normal motor function, normal sensory function, no focal deficits noted. [] Psychologic: Affect normal, judgement normal, mood normal. [] Current Patient Data: Vital Signs: Vital Signs Date Time Temp Pulse Resp B/P (MAP) Pulse Ox O2 Delivery O2 Flow Rate FiO2 03/17/20 18:22 98.7 102 20 164/101 (122) 93 Room Air 98.7 EKG: EKG: [] Radiology/Procedures: Radiology/Procedures: [] Impression: [facility] [address] [place] [address] IMAGING REPORT Signed PATIENT: ABBEY BONNER ACCOUNT: [id number] : 1930 LOCATION: ER AGE: 89 SEX: F EXAM STATUS: REG ER ORD. PHYSICIAN: YOLANDA VIDALES CONCIERGE MANAGER REASON: FALL, PAIN PROCEDURE: HIP RIGHT 2V WITH PELVIS Exam: Pelvis with right hip 2 views. Right femur 2 views INDICATION: Fall, pain TECHNIQUE: Frontal and lateral views of the right femur. Frontal view of pelvis with frontal and frog-leg lateral views of the right hip Comparisons: None FINDINGS: Pelvis: Diffuse osteopenia. Bone mineralization is normal. Joint spaces are well-maintained. Soft tissues are unremarkable. Femur: Bone mineralization is normal. No acute or healed fractures. Soft tissues are unremarkable. Joint spaces are well-maintained. IMPRESSION: 1. No acute osseous abnormality of the pelvis. If the patient is acutely unable to bear weight recommend MRI to rule out occult hip fracture. 2. No acute osseous abnormality of the right femur. Electronically signed by: Ned Cheatham MD (03/17/2020 7:38 PM) [id number] DICTATED and SIGNED BY: NED CHEATHAM MD DATE: 03/17/201937 [facility] [address] [place] [address] IMAGING REPORT Signed PATIENT: ABBEY BONNER ACCOUNT: [id number] : 1930 LOCATION: ER AGE: 89 SEX: F EXAM STATUS: REG ER ORD. PHYSICIAN: YOLANDA VIDALES APRN REASON: PAIN PROCEDURE: CT LOWER EXTREMITY WO RIGHT STUDY: CT of the right lower extremity without contrast INDICATION: Fall. Pain. COMPARISON: Same day radiographs. TECHNIQUE: Axial CT imaging of the right lower extremity performed without contrast. Coronal and sagittal reformats were obtained. One or more of the following individualized dose reduction techniques were utilized for this examination: 1. Automated exposure control 2. Adjustment of the mA and/or kV according to patient size 3. Use of iterative reconstruction technique. FINDINGS: Subtle, acute impaction fracture involving the right femur or at the subcapital femoral neck. Associated hip joint effusion. No intertrochanteric or subtrochanteric fracture extension is identified noting diffuse osteopenia. No fracture seen throughout the visualized pelvis or more distal right femur. Scattered degenerative changes with right hip arthrosis considered moderate in severity. Vascular calcifications. Small focus of mineralization at the medial femoral epicondyle, image 191 series 2, consistent with a chronic finding. Senescent changes of the uterus. Mild constipation involving the visualized colon. IMPRESSION: Acute impaction fracture across the right femur subcapital femoral neck. Taking into consideration diffuse osteopenia, no acute fracture seen elsewhere. Electronically signed by: FRANCIA FRITZ MD (03/17/2020 8:31 PM) [id number] DICTATED and SIGNED BY: FRANCIA FRITZ MD DATE: 03/17/202030 Course & Med Decision Making: Course & Med Decision Making Pertinent Labs and Imaging studies reviewed. (See chart for details) See HPI. Alert and oriented x4. Speaks in full clear sentences. Denies any numbness or tingling or coolness of the extremity. Patient unable to bear weight on the extremity. Patient does have a history of Renal failure but the last labs I have are from 2018. Patient does currently still make urine and is not on dialysis. X-ray showed no acute findings. CT of the lower extremity showed: IMPRESSION: Acute impaction fracture across the right femur subcapital femoral neck. Taking into consideration diffuse osteopenia, no acute fracture seen elsewhere. [] I called Dr Stockton who states he will come see the patient and surgery can be done tomorrow. He states to keep her NPO. Patient admitted to Dr Diego. Mary Ann Disclaimer: Mary Ann Disclaimer: This electronic medical record was generated, in whole or in part, using a voice recognition dictation system. Departure Departure Impression: Primary Impression: Femur fracture, right Qualified Codes: S72.8X1A - Other fracture of right femur, initial encounter for closed fracture Disposition: ADMITTED INPATIENT Admitting Physician: MICKY (ramona) Condition: STABLE Referrals: EARL ROLLINS MD (PCP) Justicifation of Admission Dx: Justifications for Admission: Justification of Admission Dx: Yes Comments: FEMUR IMPACTION FRACTURE YOLANDA VIDALES CONCIERGE MANAGER Mar 17, 2020 18:50
[2020-03-17 19:21] LABS: BASO # 0.1 x10^3/uL (0.0-0.2); BASO % 1 % (0-3); EOS # 0.5 x10^3/uL (0.0-0.7); EOS % 6 % (0-3); HEMATOCRIT 36.7 % (36.0-47.0); HEMOGLOBIN 12.5 g/dL (12.0-15.5); LYMPH # 1.3 x10^3/uL (1.0-4.8); LYMPH % 16 % (24-48); MEAN CORPUSCULAR HEMOGLOBIN 29 pg (25-35); MEAN CORPUSCULAR HGB CONC 34 g/dL (31-37); MEAN CORPUSCULAR VOLUME 85 fL (79-100); MONO # 0.8 x10^3/uL (0.0-1.1); MONO % 10 % (0-9); NEUT # 5.5 x10^3/uL (1.8-7.7); NEUT % 68 % (31-73); PLATELET COUNT 184 x10^3/uL (140-400); RED BLOOD COUNT 4.34 x10^6/uL (3.50-5.40); RED CELL DISTRIBUTION WIDTH 15.2 % (11.5-14.5); WHITE BLOOD COUNT 8.1 x10^3/uL (4.0-11.0)
[2020-03-17 19:34] LABS: PROTHROMBIN TIME PATIENT 12.7 SEC (11.7-14.0)
--- NOTE | 2020-03-17 19:40 | RAD ---
Exam: Pelvis with right hip 2 views. Right femur 2 views INDICATION: Fall, pain TECHNIQUE: Frontal and lateral views of the right femur. Frontal view of pelvis with frontal and frog-leg lateral views of the right hip Comparisons: None FINDINGS: Pelvis: Diffuse osteopenia. Bone mineralization is normal. Joint spaces are well-maintained. Soft tissues are unremarkable. Femur: Bone mineralization is normal. No acute or healed fractures. Soft tissues are unremarkable. Joint spaces are well-maintained. IMPRESSION: 1. No acute osseous abnormality of the pelvis. If the patient is acutely unable to bear weight recommend MRI to rule out occult hip fracture. 2. No acute osseous abnormality of the right femur. Electronically signed by: Ned Zeng MD (03/17/2020 7:38 PM) [id number]
[2020-03-17 19:44] LABS: CALCIUM 9.5 mg/dL (8.5-10.1); CREATININE 1.6 mg/dL (0.6-1.0); GFR 36.8; POTASSIUM 3.8 mmol/L (3.5-5.1)
[2020-03-17 19:50] LABS: ALBUMIN 3.7 g/dL (3.4-5.0); ALBUMIN/GLOBULIN RATIO 0.8 (1.0-1.7); TOTAL BILIRUBIN 0.7 mg/dL (0.2-1.0); TOTAL PROTEIN 8.6 g/dL (6.4-8.2)
--- NOTE | 2020-03-17 20:34 | RAD ---
STUDY: CT of the right lower extremity without contrast INDICATION: Fall. Pain. COMPARISON: Same day radiographs. TECHNIQUE: Axial CT imaging of the right lower extremity performed without contrast. Coronal and sagittal reformats were obtained. One or more of the following individualized dose reduction techniques were utilized for this examination: 1. Automated exposure control 2. Adjustment of the mA and/or kV according to patient size 3. Use of iterative reconstruction technique. FINDINGS: Subtle, acute impaction fracture involving the right femur or at the subcapital femoral neck. Associated hip joint effusion. No intertrochanteric or subtrochanteric fracture extension is identified noting diffuse osteopenia. No fracture seen throughout the visualized pelvis or more distal right femur. Scattered degenerative changes with right hip arthrosis considered moderate in severity. Vascular calcifications. Small focus of mineralization at the medial femoral epicondyle, image 191 series 2, consistent with a chronic finding. Senescent changes of the uterus. Mild constipation involving the visualized colon. IMPRESSION: Acute impaction fracture across the right femur subcapital femoral neck. Taking into consideration diffuse osteopenia, no acute fracture seen elsewhere. Electronically signed by: FRANCIA FRITZ MD (03/17/2020 8:31 PM) [id number]
[2020-03-17] MEDS ORDERED: fentaNYL PF VIAL 100 MCG/2 ML VIAL IVP ONE (21:00)
[2020-03-17 21:04] LABS: BILIRUBIN,URINE NEGATIVE (NEG); CLARITY,URINE CLEAR; COLOR,URINE YELLOW; NITRITE,URINE NEGATIVE (NEG); PROTEIN,URINE NEGATIVE (NEG-TRACE)
[2020-03-17 21:11] LABS: SQUAMOUS EPITHELIAL CELL,UR FEW /LPF
[2020-03-17 21:12] LABS: BACTERIA,URINE 0 /HPF (0-FEW); RBC,URINE OCC /HPF (0-2)
[2020-03-17 21:13] LABS: WBC,URINE RARE /HPF (0-4)
[2020-03-17] MEDS ORDERED: DOCUSATE SODIUM 100 MG CAPSULE. PO PRN (21:15)
[2020-03-17] MEDS ORDERED: ACETAMINOPHEN 325 MG TABLET. PO PRN (21:15)
[2020-03-17] MEDS ORDERED: traMADol 50 MG TABLET PO PRN (21:15)
[2020-03-17] MEDS ORDERED: MORPHINE SULFATE 2 MG/ML VIAL. IV PRN (21:15)
[2020-03-17] MEDS ORDERED: ONDANSETRON PF 4 MG/2 ML VIAL. IV PRN (21:15)
[2020-03-17] MEDS ORDERED: guaiFENesin ORAL 200 MG/10 ML LIQUID. PO PRN (21:15)
[2020-03-17] MEDS ORDERED: ALBUTEROL SULFATE 2.5 MG/3 ML NEBU. NEB PRN (21:30)
[2020-03-17 22:30] VITALS: BP 191/116
--- NOTE | 2020-03-17 22:30 | RAD ---
Exam: Chest one view INDICATION: Fall TECHNIQUE: Frontal view of the chest Comparisons: None FINDINGS: The cardiomediastinal silhouette and pulmonary vessels are within normal limits. Mild increased interstitial opacities the lungs diffusely. No pleural effusion. IMPRESSION: Mild increased interstitial opacities may relate to mild pulmonary edema or atypical infectious process. Electronically signed by: Ned Zeng MD (03/17/2020 10:27 PM) [id number]
[2020-03-17] MEDS: IV NORMAL SALINE 1000ML BAG 1,000 ML IV SCH (22:44)
--- NOTE | 2020-03-17 23:15 | NUR ---
ADMIT NOTE The patient, ABBEY BONNER, 89 y/o, F admitted by ONOFRE THAO MD, was given written information regarding hospital policies, unit procedures and contact persons. Patient afebrile, A&O x3 and forgetful/confused at times. Patient's BP elevated and bump to right forehead noted; MD notified. Patient plan of care discussed, admit packet reviewed, and allergies verified. Patient given bed bath and Goff catheter placed per protocol for surgery prep. Patient refusing Mark, MRSA swab, and NOZIN/CHG at this time. All personal belongings checked and left with patient in room. Patient in bed, call light within reach and no other needs voiced at this time.
[2020-03-18] VITALS (14 sets, daily range): BP systolic 125–188; BP diastolic 45–93
[2020-03-18 05:11] LABS: BASO # 0.1 x10^3/uL (0.0-0.2); BASO % 1 % (0-3); EOS # 0.5 x10^3/uL (0.0-0.7); EOS % 6 % (0-3); HEMATOCRIT 33.4 % (36.0-47.0); HEMOGLOBIN 10.9 g/dL (12.0-15.5); LYMPH # 1.6 x10^3/uL (1.0-4.8); LYMPH % 20 % (24-48); MEAN CORPUSCULAR HEMOGLOBIN 28 pg (25-35); MEAN CORPUSCULAR HGB CONC 33 g/dL (31-37); MEAN CORPUSCULAR VOLUME 85 fL (79-100); MONO # 1.1 x10^3/uL (0.0-1.1); MONO % 14 % (0-9); NEUT # 4.7 x10^3/uL (1.8-7.7); NEUT % 60 % (31-73); PLATELET COUNT 170 x10^3/uL (140-400); RED BLOOD COUNT 3.91 x10^6/uL (3.50-5.40); RED CELL DISTRIBUTION WIDTH 14.7 % (11.5-14.5); WHITE BLOOD COUNT 7.9 x10^3/uL (4.0-11.0)
[2020-03-18 06:01] LABS: PROTHROMBIN TIME PATIENT 12.6 SEC (11.7-14.0)
[2020-03-18] MEDS ORDERED: DEXTROSE 50% 25 GM / 50ML DISP.SYRIN. IV PRN ×2 (06:45→11:00)
[2020-03-18 07:34] LABS: CALCIUM 8.9 mg/dL (8.5-10.1); CREATININE 1.3 mg/dL (0.6-1.0); GFR 46.8; POTASSIUM 3.6 mmol/L (3.5-5.1)
[2020-03-18] MEDS: IV NORMAL SALINE 1000ML BAG 1,000 ML IV SCH ×2 (07:42→17:19)
[2020-03-18] MEDS ORDERED: IV RINGERS,LACTATED 1000ML 1,000 ML IV SCH (07:56)
[2020-03-18] MEDS ORDERED: PROCHLORPERAZINE 10 MG/2 ML VIAL. IV PRN ×2 (08:00→10:30)
[2020-03-18] MEDS: INSULIN LISPRO 300 UNITS/3 ML VIAL. SQ SCH ×3 (08:00→17:05)
[2020-03-18] MEDS ORDERED: LIDOCAINE 1% PF 2 ML VIAL. ID PRN (08:00)
[2020-03-18] MEDS ORDERED: SEVOFLURANE 31 TO 60 MINUTES. IH ONE (09:18)
[2020-03-18] MEDS ORDERED: PHENYLEPHRINE 10 MG/ML VIAL. ONE (09:18)
[2020-03-18] MEDS ORDERED: PROPOFOL 10 MG/ML (20ML) VIAL. IV ONE (09:18)
[2020-03-18] MEDS ORDERED: LIDOCAINE 2% PF 5 ML VIAL. ONE (09:18)
[2020-03-18] MEDS ORDERED: ONDANSETRON PF 4 MG/2 ML VIAL. ONE (09:22)
[2020-03-18] MEDS ORDERED: DEXAMETHASONE SOD PHOS 4 MG/ML VIAL ONE (09:22)
[2020-03-18] MEDS ORDERED: ceFAZolin SODIUM IV Push 1 GM VIAL. IVP ONE (09:22)
[2020-03-18] MEDS ORDERED: cloNIDine HCL 0.1 MG TABLET PO PRN (09:30)
[2020-03-18] MEDS ORDERED: ACETAMINOPHEN 325 MG TABLET. PO PRN (09:30)
[2020-03-18] MEDS ORDERED: HYDROcodone/APAP 5/325MG 1 TAB TABLET PO PRN (09:30)
--- NOTE | 2020-03-18 09:40 | PDOC1 ---
History and Physical Date of Admission Date of Admission DATE: 03/18/20 TIME: 09:16 Identification/Chief Complaint Chief Complaint Right hip pain Source Source: Chart review, Patient History of Present Illness History of Present Illness Patient is 89-year-old female consult history of coronary artery disease, type 2 diabetes, hypertension, and chronic renal disease who presents from [facility] for a fall that she had 4 days prior. Since that time she has had right hip pain with inability to ambulate on right hip. She was evaluated with an x-ray at her nursing facility that did not show acute fracture, but was taken to the emergency room for further evaluation at the insistence of her family. Upon arrival in the ER, CT right hip showed acute impaction fracture right femur subcapital femoral neck. Consultation was placed orthopedic surgery, and she was taken to surgery this morning. Past Medical History Cardiovascular: AFIB, CAD, CHF, HTN, Hyperlipidemia Pulmonary: No pertinent hx GI: No pertinent hx Heme/Onc: Anemia NOS Hepatobiliary: No pertinent hx Psych: Anxiety, Depression Musculoskeletal: Osteoarthritis Rheumatologic: No pertinent hx Infectious disease: No pertinent hx Renal/: Chronic renal insuff Endocrine: Diabetes Past Surgical History Past Surgical History: Appendectomy, Tonsillectomy, Other Family History Family History: Hypertension Social History ALCOHOL: none Drugs: None Current Problem List Problem List Problems Medical Problems: (1) Femur fracture, right Status: Acute Current Medications Current Medications Current Medications Fentanyl Citrate (Fentanyl 2ml Vial) 25 mcg 1X ONCE IVP Last administered on 03/17/20at 21:17; Start 03/17/20 at 21:00; Stop 03/17/20 at 21:01; Status DC Sodium Chloride 1,000 ml @ 100 mls/hr Q10H IV Last administered on 03/18/20at 07:42; Start 03/17/20 at 21:30 Ondansetron HCl (Zofran) 4 mg PRN Q4HRS PRN IV NAUSEA/VOMITING; Start 03/17/20 at 21:15 Acetaminophen (Tylenol) 650 mg PRN Q4HRS PRN PO TEMP OVER 100.4F OR MILD PAIN; Start 03/17/20 at 21:15 Docusate Sodium (Colace) 100 mg PRN BID PRN PO HARD STOOLS; Start 03/17/20 at 21:15 Albuterol Sulfate (Ventolin Neb Soln) 2.5 mg PRN Q4HRS PRN NEB SHORTNESS OF BREATH; Start 03/17/20 at 21:30 Guaifenesin (Robitussin) 200 mg PRN Q4HRS PRN PO COUGH; Start 03/17/20 at 21:15 Morphine Sulfate (Morphine Sulfate) 2 mg PRN Q4HRS PRN IV SEVERE PAIN 7-10 Last administered on 03/17/20at 22:42; Start 03/17/20 at 21:15 Tramadol HCl (Ultram) 50 mg PRN Q6HRS PRN PO PAIN; Start 03/17/20 at 21:15 Insulin Human Lispro (HumaLOG) 0-9 UNITS TIDWMEALS SQ ; Start 03/18/20 at 08:00 Dextrose (Dextrose 50%-Water Syringe) 12.5 gm PRN Q15MIN PRN IV SEE COMMENTS; Start 03/18/20 at 06:45 Hydralazine HCl (Apresoline Inj) 10 mg PRN Q4HRS PRN IVP ELEVATED BP, SEE COMMENTS; Start 03/18/20 at 06:45 Psyllium Hydrophilic Mucilloid (Metamucil Fiber Packet) 1 pkt AFTRNOON PO ; Start 03/18/20 at 13:00 Polyethylene Glycol (miraLAX PACKET) 17 gm AFTRNOON PO ; Start 03/18/20 at 13:00 Ringer's Solution 1,000 ml @ 30 mls/hr Q24H IV ; Start 03/18/20 at 07:56; Stop 03/18/20 at 19:55 Lidocaine HCl (Xylocaine-Mpf 1% 2ml Vial) 2 ml PRN 1X PRN ID PRIOR TO IV START; Start 03/18/20 at 08:00; Stop 03/18/20 at 20:00 Prochlorperazine Edisylate (Compazine) 5 mg PACU PRN PRN IV NAUSEA, MRX1; S tart 03/18/20 at 08:00; Stop 03/18/20 at 20:00 Active Scripts Active Humalog (Insulin Lispro) 100 Unit/1 Ml Insuln.pen 0 Units SQ TIDWMEALS 30 Days BG - 151 - 200 2u BG - 201 - 250 3u BG - 251 - 300 4u BG - 301 - 350 5u Senna-Time S Tablet (Sennosides/Docusate Sodium) 1 Each Tablet 1 Tab PO BID 30 Days Hydrocodone-Apap 5-325 (Hydrocodone Bit/Acetaminophen) 1 Tab Tablet 1 Tab PO PRN Q4HRS PRN 6 Days Tylenol (Acetaminophen) 325 Mg Tablet 650 Mg PO PRN Q6HRS PRN 30 Days Catapres (Clonidine Hcl) 0.1 Mg Tablet 0.1 Mg PO PRN Q8HRS PRN 30 Days Reported Metformin Hcl 500 Mg Tablet 500 Mg PO BIDWMEALS Gemfibrozil 600 Mg Tablet 600 Mg PO BID Ferrous Sulfate 325 Mg Tablet 325 Mg PO DAILY Amitriptyline Hcl 10 Mg Tablet 10 Mg PO TID Allergies Allergies: Coded Allergies: codeine (Verified Allergy, Intermediate, 06/01/14) ROS Review of System Patient admits some pain in her right hip. Further review of systems cannot be obtained due to post operative confusion. Musculoskeletal: Yes Joint Pain, Yes Muscle Pain Physical Exam General: Alert, No acute distress HEENT: Atraumatic, EOMI Lungs: Clear to auscultation, Normal air movement Heart: RRR Cardiovascular: S1, S2 Abdomen: Soft, No tenderness Extremities: No clubbing, No cyanosis, No edema, Other (Right hip bandaged with dressings clean, dry, and intact) Skin: No rashes Neuro: Normal tone, Sensation intact Psych/Mental Status: Mood NL Vitals Vitals Vital Signs Date Time Temp Pulse Resp B/P (MAP) Pulse Ox O2 Delivery O2 Flow Rate FiO2 03/18/20 07:00 99.1 86 16 171/93 (119) 98 Room Air 99.1 Labs Labs Laboratory Tests Test 03/17/20 19:10 03/17/20 20:55 03/17/20 21:20 03/17/20 23:15 White Blood Count 8.1 x10^3/uL (4.0-11.0) Red Blood Count 4.34 x10^6/uL (3.50-5.40) Hemoglobin 12.5 g/dL (12.0-15.5) Hematocrit 36.7 % (36.0-47.0) Mean Corpuscular Volume 85 fL (79-100) Mean Corpuscular Hemoglobin 29 pg (25-35) Mean Corpuscular Hemoglobin Concent 34 g/dL (31-37) Red Cell Distribution Width 15.2 % (11.5-14.5) Platelet Count 184 x10^3/uL (140-400) Neutrophils (%) (Auto) 68 % (31-73) Lymphocytes (%) (Auto) 16 % (24-48) Monocytes (%) (Auto) 10 % (0-9) Eosinophils (%) (Auto) 6 % (0-3) Basophils (%) (Auto) 1 % (0-3) Neutrophils # (Auto) 5.5 x10^3/uL (1.8-7.7) Lymphocytes # (Auto) 1.3 x10^3/uL (1.0-4.8) Monocytes # (Auto) 0.8 x10^3/uL (0.0-1.1) Eosinophils # (Auto) 0.5 x10^3/uL (0.0-0.7) Basophils # (Auto) 0.1 x10^3/uL (0.0-0.2) Prothrombin Time 12.7 SEC (11.7-14.0) Prothromb Time International Ratio 1.0 (0.8-1.1) Sodium Level 136 mmol/L (136-145) Potassium Level 3.8 mmol/L (3.5-5.1) Chloride Level 99 mmol/L (98-107) Carbon Dioxide Level 26 mmol/L (21-32) Anion Gap 11 (6-14) Blood Urea Nitrogen 39 mg/dL (7-20) Creatinine 1.6 mg/dL (0.6-1.0) Estimated GFR (Cockcroft-Gault) 36.8 BUN/Creatinine Ratio 24 (6-20) Glucose Level 247 mg/dL (70-99) Calcium Level 9.5 mg/dL (8.5-10.1) Total Bilirubin 0.7 mg/dL (0.2-1.0) Aspartate Amino Transf (AST/SGOT) 15 U/L (15-37) Alanine Aminotransferase (ALT/SGPT) 10 U/L (14-59) Alkaline Phosphatase 79 U/L (46-116) Total Protein 8.6 g/dL (6.4-8.2) Albumin 3.7 g/dL (3.4-5.0) Albumin/Globulin Ratio 0.8 (1.0-1.7) Urine Collection Type U cath Urine Color Yellow Urine Clarity Clear Urine pH 6.0 (<5.0-8.0) Urine Specific [place] 1.015 (1.000-1.030) Urine Protein Negative mg/dL (NEG-TRACE) Urine Glucose (UA) Negative mg/dL (NEG) Urine Ketones (Stick) Negative mg/dL (NEG) Urine Blood Negative (NEG) Urine Nitrite Negative (NEG) Urine Bilirubin Negative (NEG) Urine Urobilinogen Dipstick 1.0 mg/dL (0.2 mg/dL) Urine Leukocyte Esterase Negative (NEG) Urine RBC Occ /HPF (0-2) Urine WBC Rare /HPF (0-4) Urine Squamous Epithelial Cells Few /LPF Urine Bacteria 0 /HPF (0-FEW) Urine Mucus Slight /LPF SARS-CoV-2 Antigen (Rapid) Negative (NEGATIVE) Glucose (Fingerstick) 200 mg/dL (70-99) Test 03/18/20 02:00 03/18/20 06:55 03/18/20 08:22 White Blood Count 7.9 x10^3/uL (4.0-11.0) Red Blood Count 3.91 x10^6/uL (3.50-5.40) Hemoglobin 10.9 g/dL (12.0-15.5) Hematocrit 33.4 % (36.0-47.0) Mean Corpuscular Volume 85 fL (79-100) Mean Corpuscular Hemoglobin 28 pg (25-35) Mean Corpuscular Hemoglobin Concent 33 g/dL (31-37) Red Cell Distribution Width 14.7 % (11.5-14.5) Platelet Count 170 x10^3/uL (140-400) Neutrophils (%) (Auto) 60 % (31-73) Lymphocytes (%) (Auto) 20 % (24-48) Monocytes (%) (Auto) 14 % (0-9) Eosinophils (%) (Auto) 6 % (0-3) Basophils (%) (Auto) 1 % (0-3) Neutrophils # (Auto) 4.7 x10^3/uL (1.8-7.7) Lymphocytes # (Auto) 1.6 x10^3/uL (1.0-4.8) Monocytes # (Auto) 1.1 x10^3/uL (0.0-1.1) Eosinophils # (Auto) 0.5 x10^3/uL (0.0-0.7) Basophils # (Auto) 0.1 x10^3/uL (0.0-0.2) Prothrombin Time 12.6 SEC (11.7-14.0) Prothromb Time International Ratio 1.0 (0.8-1.1) Sodium Level 138 mmol/L (136-145) Potassium Level 3.6 mmol/L (3.5-5.1) Chloride Level 103 mmol/L (98-107) Carbon Dioxide Level 27 mmol/L (21-32) Anion Gap 8 (6-14) Blood Urea Nitrogen 30 mg/dL (7-20) Creatinine 1.3 mg/dL (0.6-1.0) Estimated GFR (Cockcroft-Gault) 46.8 Glucose Level 154 mg/dL (70-99) Calcium Level 8.9 mg/dL (8.5-10.1) Glucose (Fingerstick) 139 mg/dL (70-99) Laboratory Tests Test 03/17/20 19:10 03/17/20 20:55 03/17/20 21:20 03/17/20 23:15 White Blood Count 8.1 x10^3/uL (4.0-11.0) Red Blood Count 4.34 x10^6/uL (3.50-5.40) Hemoglobin 12.5 g/dL (12.0-15.5) Hematocrit 36.7 % (36.0-47.0) Mean Corpuscular Volume 85 fL (79-100) Mean Corpuscular Hemoglobin 29 pg (25-35) Mean Corpuscular Hemoglobin Concent 34 g/dL (31-37) Red Cell Distribution Width 15.2 % (11.5-14.5) Platelet Count 184 x10^3/uL (140-400) Neutrophils (%) (Auto) 68 % (31-73) Lymphocytes (%) (Auto) 16 % (24-48) Monocytes (%) (Auto) 10 % (0-9) Eosinophils (%) (Auto) 6 % (0-3) Basophils (%) (Auto) 1 % (0-3) Neutrophils # (Auto) 5.5 x10^3/uL (1.8-7.7) Lymphocytes # (Auto) 1.3 x10^3/uL (1.0-4.8) Monocytes # (Auto) 0.8 x10^3/uL (0.0-1.1) Eosinophils # (Auto) 0.5 x10^3/uL (0.0-0.7) Basophils # (Auto) 0.1 x10^3/uL (0.0-0.2) Prothrombin Time 12.7 SEC (11.7-14.0) Prothromb Time International Ratio 1.0 (0.8-1.1) Sodium Level 136 mmol/L (136-145) Potassium Level 3.8 mmol/L (3.5-5.1) Chloride Level 99 mmol/L (98-107) Carbon Dioxide Level 26 mmol/L (21-32) Anion Gap 11 (6-14) Blood Urea Nitrogen 39 mg/dL (7-20) Creatinine 1.6 mg/dL (0.6-1.0) Estimated GFR (Cockcroft-Gault) 36.8 BUN/Creatinine Ratio 24 (6-20) Glucose Level 247 mg/dL (70-99) Calcium Level 9.5 mg/dL (8.5-10.1) Total Bilirubin 0.7 mg/dL (0.2-1.0) Aspartate Amino Transf (AST/SGOT) 15 U/L (15-37) Alanine Aminotransferase (ALT/SGPT) 10 U/L (14-59) Alkaline Phosphatase 79 U/L (46-116) Total Protein 8.6 g/dL (6.4-8.2) Albumin 3.7 g/dL (3.4-5.0) Albumin/Globulin Ratio 0.8 (1.0-1.7) Urine Collection Type U cath Urine Color Yellow Urine Clarity Clear Urine pH 6.0 (<5.0-8.0) Urine Specific [place] 1.015 (1.000-1.030) Urine Protein Negative mg/dL (NEG-TRACE) Urine Glucose (UA) Negative mg/dL (NEG) Urine Ketones (Stick) Negative mg/dL (NEG) Urine Blood Negative (NEG) Urine Nitrite Negative (NEG) Urine Bilirubin Negative (NEG) Urine Urobilinogen Dipstick 1.0 mg/dL (0.2 mg/dL) Urine Leukocyte Esterase Negative (NEG) Urine RBC Occ /HPF (0-2) Urine WBC Rare /HPF (0-4) Urine Squamous Epithelial Cells Few /LPF Urine Bacteria 0 /HPF (0-FEW) Urine Mucus Slight /LPF SARS-CoV-2 Antigen (Rapid) Negative (NEGATIVE) Glucose (Fingerstick) 200 mg/dL (70-99) Test 03/18/20 02:00 03/18/20 06:55 03/18/20 08:22 White Blood Count 7.9 x10^3/uL (4.0-11.0) Red Blood Count 3.91 x10^6/uL (3.50-5.40) Hemoglobin 10.9 g/dL (12.0-15.5) Hematocrit 33.4 % (36.0-47.0) Mean Corpuscular Volume 85 fL (79-100) Mean Corpuscular Hemoglobin 28 pg (25-35) Mean Corpuscular Hemoglobin Concent 33 g/dL (31-37) Red Cell Distribution Width 14.7 % (11.5-14.5) Platelet Count 170 x10^3/uL (140-400) Neutrophils (%) (Auto) 60 % (31-73) Lymphocytes (%) (Auto) 20 % (24-48) Monocytes (%) (Auto) 14 % (0-9) Eosinophils (%) (Auto) 6 % (0-3) Basophils (%) (Auto) 1 % (0-3) Neutrophils # (Auto) 4.7 x10^3/uL (1.8-7.7) Lymphocytes # (Auto) 1.6 x10^3/uL (1.0-4.8) Monocytes # (Auto) 1.1 x10^3/uL (0.0-1.1) Eosinophils # (Auto) 0.5 x10^3/uL (0.0-0.7) Basophils # (Auto) 0.1 x10^3/uL (0.0-0.2) Prothrombin Time 12.6 SEC (11.7-14.0) Prothromb Time International Ratio 1.0 (0.8-1.1) Sodium Level 138 mmol/L (136-145) Potassium Level 3.6 mmol/L (3.5-5.1) Chloride Level 103 mmol/L (98-107) Carbon Dioxide Level 27 mmol/L (21-32) Anion Gap 8 (6-14) Blood Urea Nitrogen 30 mg/dL (7-20) Creatinine 1.3 mg/dL (0.6-1.0) Estimated GFR (Cockcroft-Gault) 46.8 Glucose Level 154 mg/dL (70-99) Calcium Level 8.9 mg/dL (8.5-10.1) Glucose (Fingerstick) 139 mg/dL (70-99) Images Images STUDY: CT of the right lower extremity without contrast INDICATION: Fall. Pain. COMPARISON: Same day radiographs. TECHNIQUE: Axial CT imaging of the right lower extremity performed without contrast. Coronal and sagittal reformats were obtained. One or more of the following individualized dose reduction techniques were utilized for this examination: 1. Automated exposure control 2. Adjustment of the mA and/or kV according to patient size 3. Use of iterative reconstruction technique. FINDINGS: Subtle, acute impaction fracture involving the right femur or at the subcapital femoral neck. Associated hip joint effusion. No intertrochanteric or subtrochanteric fracture extension is identified noting diffuse osteopenia. No fracture seen throughout the visualized pelvis or more distal right femur. Scattered degenerative changes with right hip arthrosis considered moderate in severity. Vascular calcifications. Small focus of mineralization at the medial femoral epicondyle, image 191 series 2, consistent with a chronic finding. Senescent changes of the uterus. Mild constipation involving the visualized colon. IMPRESSION: Acute impaction fracture across the right femur subcapital femoral neck. Taking into consideration diffuse osteopenia, no acute fracture seen elsewhere. VTE Prophylaxis Ordered VTE Prophylaxis Devices: No VTE Pharmacological Prophylaxi: Yes Assessment/Plan Assessment/Plan Closed impacted fracture of right hip, Fall from standing Consult to orthopedic surgery. Patient taken to the OR this morning, s/p open reduction internal fixation right femoral neck. Pain management. VTE prophylaxis. PT OT ordered. Type 2 diabetes sliding scale insulin Hypertension resume home medication, will continue to monitor FEN - diabetic diet PPX - Warfarin FULL CODE Dispo - inpatient for 2 midnights Justifications for Admission Other Justification BUD VANEGAS MD Mar 18, 2020 09:40
[2020-03-18] MEDS: FERROUS SULFATE 325 MG TABLET. PO SCH (10:00)
[2020-03-18] MEDS: GEMFIBROZIL 600 MG TABLET. PO SCH ×2 (10:00→21:03)
[2020-03-18] MEDS: SENNOSIDES/DOCUSATE 8.6/50MG TABLET. PO SCH ×2 (10:00→21:03)
--- NOTE | 2020-03-18 10:09 | CONS ---
DATE OF CONSULTATION: 03/18/2020 ORTHOPEDIC CONSULTATION REQUESTING PHYSICIAN: Jorge Diego MD REASON FOR CONSULTATION: Right hip fracture. HISTORY OF PRESENT ILLNESS: The patient is an 89-year-old female who is a resident of [facility]. Reportedly, had a fall on Friday and has had right hip pain since that time and she unable to put weight on her right hip. Apparently, x-rays were done at that time, but no fracture was noted and due to her continuing pain, presented to the [facility] where a CT scan found an impacted right femoral neck fracture. I note in her history that she had had a left hip fracture of the same orientation that underwent cannulated screw fixation and she remembers that process somewhat. She is very painful with any range of motion or attempted to put weight on the right hip. PAST MEDICAL HISTORY: Significant for renal failure, hypertension, type 2 diabetes, coronary artery disease, arrhythmia, hypercholesterolemia. PAST SURGICAL HISTORY: Left hip repair, hernia repair, hemorrhoidectomy, appendectomy, tonsillectomy. SOCIAL HISTORY: She is a former smoker, but quit years ago. Denies alcohol or drug use and is a resident of the [facility]. Previously ambulated independently prior to the current injury. ALLERGIES: SHE LISTS AN ALLERGY TO CODEINE. MEDICINE: List is reviewed. REVIEW OF SYSTEMS: Significant for the right hip pain. She denies any loss of consciousness, any other joint pain. No focal weakness, numbness, tingling, chest pain, shortness of breath, or abdominal pain. PHYSICAL EXAMINATION: GENERAL: A pleasant, cooperative 89-year-old female, alert and oriented, no acute distress, especially if she is immobile in bed as on her examination today, no tenderness on palpation over the neck or back. EXTREMITIES: She has full range of motion, normal stability of bilateral shoulders, elbows and wrists. Right hip is very painful on any palpation or attempted motion. Left hip has well-healed incision from previous percutaneous fixation and has overall good range of motion. Normal alignment and stability in bilateral knees and ankles with overall intact motor function, distal pulses, sensation, reflexes, skin in both upper and lower extremities throughout. IMAGING STUDIES: Including x-rays show probably just a little bit of irregularity at the base of the femoral neck. CT scan confirmed an impacted femoral neck fracture on the right and she has 3 cannulated screws previously placed for fixation of a femoral neck fracture on the left that is now healed. IMPRESSION: Right impacted femoral neck fracture, status post fall. TREATMENT PLAN: I had gone over with her the risks of trying to put weight on the current fracture that it could fall out of place and if the blood supply is compromised, we would really need a half a hip replacement or hemiarthroplasty as it is. Especially since she cannot really bear weight or mobilize, there are a lot of immobility risks with keeping her down in bed while this heals, although that is a possibility and the recommended option of fixation of her hip fracture with 3 cannulated screws just like she has on the other side to hold it in place hopefully while it heals, but allow her to get up and around as much as possible, avoiding the immobility related complications. Of course, there would be possibility of complications associated with the surgery as well, medical or other anesthetic complications, possibility of infection, nonhealing, continued pain among others. She agrees to proceed with surgical evaluation and treatment, which will proceed today. CATALINA FLETCHER MD DR: NEVIN/marce JOB#: [id number] / [id number]
[2020-03-18] MEDS ORDERED: MORPHINE SULFATE 2 MG/ML VIAL. IV PRN (10:30)
[2020-03-18] MEDS ORDERED: HYDROmorphone 2 MG/ML VIAL IV PRN (10:30)
[2020-03-18] MEDS ORDERED: fentaNYL PF VIAL 100 MCG/2 ML VIAL IV PRN (10:30)
[2020-03-18] MEDS ORDERED: INSULIN LISPRO 100 UNIT/ML 3ML VIAL for OP,RR ONLY. SQ PRN (10:30)
[2020-03-18] MEDS ORDERED: BUPIVACAINE-EPI 0.5%-1:200000 MPF 30 ML VIAL. ONE (10:34)
[2020-03-18] MEDS ORDERED: HYDROcodone/APAP 7.5/325MG 1 TAB TABLET PO PRN (11:00)
[2020-03-18] MEDS ORDERED: fentaNYL PF VIAL 100 MCG/2 ML VIAL IVP PRN (11:00)
[2020-03-18] MEDS ORDERED: POLYETHYLENE GLYCOL 3350 17 GM PACKET. PO PRN (11:00)
[2020-03-18] MEDS ORDERED: ONDANSETRON PF 4 MG/2 ML VIAL. IVP PRN (11:00)
[2020-03-18] MEDS ORDERED: MORPHINE SULFATE 2 MG/ML VIAL. IVP PRN (11:00)
[2020-03-18] MEDS ORDERED: fentaNYL PF VIAL 100 MCG/2 ML VIAL ONE (11:05)
[2020-03-18] MEDS: fentaNYL PF VIAL 100 MCG/2 ML VIAL IV PRN ×2 (11:08→11:17)
[2020-03-18] MEDS ORDERED: NON FORMULARY ITEM (Insulin Lispro (Humalog) 0 UNITS) SQ SCH (12:00)
[2020-03-18] MEDS ORDERED: hydrALAZINE 20 MG/ML VIAL. IVP PRN (12:30)
[2020-03-18] MEDS: POLYETHYLENE GLYCOL 3350 17 GM PACKET. PO SCH (13:00)
[2020-03-18] MEDS: PSYLLIUM HUSK (SUGAR FREE) 1 PKT PACKET PO SCH (13:22)
[2020-03-18] MEDS ORDERED: MIRT7.5T8 PO (13:36)
[2020-03-18] MEDS ORDERED: HYDR12.58 PO (13:36)
[2020-03-18] MEDS ORDERED: LATA2.5D3 EACHEYE (13:36)
[2020-03-18] MEDS: AMITRIPTYLINE HCL 10 MG TABLET. PO SCH ×2 (14:08→21:03)
[2020-03-18] MEDS: ceFAZolin SODIUM IV Push 1 GM VIAL. IVP SCH ×2 (14:51→21:03)
--- NOTE | 2020-03-18 15:48 | PDOC4 ---
Operative Note Operative Note Date of surgery: 03/18/2020 Preoperative diagnosis: Impacted right femoral neck fracture Postoperative diagnosis: Same Operative procedure: Closed reduction and cannulated screw fixation x3 of impacted femoral neck fracture Surgeon: Mahin Anesthesia: General Estimated blood loss: 20 cc Complications: None Operative indications: Please see my dictated orthopedic consultation for detailed operative indications Operative text: Patient was identified procedure verified and after adequate amounts of general anesthesia were administered she was placed on the Essential Testing ure table right leg was placed in traction left leg placed in the well-leg holland all bony prominences were well-padded and after timeout was performed patient procedure identified and verified reduction was carried out under fluoroscopic guidance the right hip was prepped and draped in standard sterile fashion and a 3 cm incision was made over the lateral thigh fascia was incised subperiosteal dissection carried out and a single guidewire was placed low in centrally in the femoral head verified by fluoroscopic guidance. The aiming guide was then used to place parallel screws anteriorly and posteriorly superiorly to achieve good spread in the femoral head. Appropriate sized 8.0 mm partially-threaded screws were placed achieving excellent compression and al ignment. The anterior superior screw was changed out to ensure no penetration occurred excellent bite was obtained throughout and positioning the fracture reduction and hardware placement checked under multiple fluoroscopic views to ensure no joint penetration. There irrigation carried out normal saline solution closure accomplished in the fascia with #1 Vicryl subcutaneous closure with buried 2-0 Vicryl skin closure with subcuticular Monocryl Steri-Strips Mastisol and a sterile dressing. Patient was returned to recovery room in stable condition having tolerated procedure well CATALINA FLETCHER MD Mar 18, 2020 15:48
[2020-03-18] MEDS ORDERED: WARFARIN 5 MG TABLET. PO ONE (16:00)
[2020-03-18] MEDS: oxyCODONE IR 5 MG TABLET PO PRN (21:03)
[2020-03-19 03:00] VITALS: BP 191/92
[2020-03-19] MEDS: ceFAZolin SODIUM IV Push 1 GM VIAL. IVP SCH (03:28)
[2020-03-19] MEDS: IV NORMAL SALINE 1000ML BAG 1,000 ML IV SCH ×3 (03:30→23:30)
[2020-03-19 04:58] LABS: BASO % 1 % (0-3); EOS % 0 % (0-3); HEMATOCRIT 29.3 % (36.0-47.0); HEMOGLOBIN 9.5 g/dL (12.0-15.5); LYMPH # 1.3 x10^3/uL (1.0-4.8); LYMPH % 14 % (24-48); MEAN CORPUSCULAR HEMOGLOBIN 28 pg (25-35); MEAN CORPUSCULAR HGB CONC 33 g/dL (31-37); MEAN CORPUSCULAR VOLUME 85 fL (79-100); MONO # 1.3 x10^3/uL (0.0-1.1); MONO % 14 % (0-9); NEUT # 6.6 x10^3/uL (1.8-7.7); NEUT % 72 % (31-73); PLATELET COUNT 160 x10^3/uL (140-400); RED BLOOD COUNT 3.45 x10^6/uL (3.50-5.40); RED CELL DISTRIBUTION WIDTH 14.5 % (11.5-14.5); WHITE BLOOD COUNT 9.2 x10^3/uL (4.0-11.0)
[2020-03-19 05:05] LABS: CALCIUM 7.8 mg/dL (8.5-10.1); CREATININE 1.4 mg/dL (0.6-1.0); GFR 42.9; POTASSIUM 3.9 mmol/L (3.5-5.1)
[2020-03-19] MEDS ORDERED: MAGNESIUM HYDROXIDE 2,400 MG/30 ML ORAL.SUSP. PO PRN (06:00)
[2020-03-19 07:00] VITALS: BP 164/74
[2020-03-19] MEDS: INSULIN LISPRO 300 UNITS/3 ML VIAL. SQ SCH ×3 (07:42→16:53)
[2020-03-19] MEDS: AMITRIPTYLINE HCL 10 MG TABLET. PO SCH ×3 (08:42→20:28)
[2020-03-19] MEDS: FERROUS SULFATE 325 MG TABLET. PO SCH (08:42)
[2020-03-19] MEDS: SENNOSIDES/DOCUSATE 8.6/50MG TABLET. PO SCH ×2 (08:42→20:28)
[2020-03-19] MEDS ORDERED: HEPARIN for SUB-Q USE 5,000 UNIT/ML VIAL. SQ SCH (09:00)
[2020-03-19] MEDS ORDERED: SENNOSIDES/DOCUSATE 8.6/50MG TABLET. PO SCH (09:00)
[2020-03-19] MEDS: GEMFIBROZIL 600 MG TABLET. PO SCH ×2 (09:59→20:28)
[2020-03-19 11:00] VITALS: BP 158/72
[2020-03-19 11:12] LABS: HEMATOCRIT 32.6 % (36.0-47.0); HEMOGLOBIN 10.5 g/dL (12.0-15.5)
[2020-03-19] MEDS: oxyCODONE IR 5 MG TABLET PO PRN (11:43)
--- NOTE | 2020-03-19 13:03 | PDOC ---
[employer] PROGRESS NOTE Date of Service DOS: DATE: 03/19/20 TIME: 13:02 Chief Complaint Chief Complaint Right hip fracture History of Present Illness History of Present Illness Patient denies significant pain. Discussed with RN, there is been no blood to her dressings. Repeat him in hemoglobin stable. Continue PT, with plan for inpatient rehab. Vitals/I&O Vitals/I&O: Vital Signs Date Time Temp Pulse Resp B/P (MAP) Pulse Ox O2 Delivery O2 Flow Rate FiO2 03/19/20 11:43 16 Room Air 03/19/20 11:00 97.7 98 158/72 (100) 93 97.7 03/18/20 11:08 10.0 I & O 03/18/20 03/18/20 03/19/20 15:00 23:00 07:00 Intake Total 800 ml 120 ml 0 ml Output Total 460 ml 650 ml Balance 340 ml 120 ml -650 ml Physical Exam General: Alert, No acute distress Lungs: Clear Abdomen: Soft, No tenderness Extremities: No clubbing, No cyanosis, No edema, Other (Right hip bandaged with dressings clean, dry, and intact) Skin: No rashes Labs Labs: Laboratory Tests Test 03/18/20 16:55 03/18/20 21:18 03/19/20 04:30 03/19/20 07:33 Glucose (Fingerstick) 271 mg/dL (70-99) 151 mg/dL (70-99) 143 mg/dL (70-99) White Blood Count 9.2 x10^3/uL (4.0-11.0) Red Blood Count 3.45 x10^6/uL (3.50-5.40) Hemoglobin 9.5 g/dL (12.0-15.5) Hematocrit 29.3 % (36.0-47.0) Mean Corpuscular Volume 85 fL (79-100) Mean Corpuscular Hemoglobin 28 pg (25-35) Mean Corpuscular Hemoglobin Concent 33 g/dL (31-37) Red Cell Distribution Width 14.5 % (11.5-14.5) Platelet Count 160 x10^3/uL (140-400) Neutrophils (%) (Auto) 72 % (31-73) Lymphocytes (%) (Auto) 14 % (24-48) Monocytes (%) (Auto) 14 % (0-9) Eosinophils (%) (Auto) 0 % (0-3) Basophils (%) (Auto) 1 % (0-3) Neutrophils # (Auto) 6.6 x10^3/uL (1.8-7.7) Lymphocytes # (Auto) 1.3 x10^3/uL (1.0-4.8) Monocytes # (Auto) 1.3 x10^3/uL (0.0-1.1) Eosinophils # (Auto) 0.0 x10^3/uL (0.0-0.7) Basophils # (Auto) 0.0 x10^3/uL (0.0-0.2) Sodium Level 139 mmol/L (136-145) Potassium Level 3.9 mmol/L (3.5-5.1) Chloride Level 105 mmol/L (98-107) Carbon Dioxide Level 25 mmol/L (21-32) Anion Gap 9 (6-14) Blood Urea Nitrogen 26 mg/dL (7-20) Creatinine 1.4 mg/dL (0.6-1.0) Estimated GFR (Cockcroft-Gault) 42.9 Glucose Level 149 mg/dL (70-99) Calcium Level 7.8 mg/dL (8.5-10.1) Test 03/19/20 10:50 03/19/20 11:50 Hemoglobin 10.5 g/dL (12.0-15.5) Hematocrit 32.6 % (36.0-47.0) Mean Corpuscular Hemoglobin Concent 32 g/dL (31-37) Glucose (Fingerstick) 236 mg/dL (70-99) Assessment and Plan Assessmemt and Plan Problems Medical Problems: (1) Fall from standing Status: Acute Comment Review of Relevant I have reviewed the following items nella (where applicable) has been applied. Medications: Current Medications Medications (Trade) Dose Ordered Sig/Ok Route PRN Reason Start Time Stop Time Status Last Admin Dose Admin Amitriptyline HCl (Elavil) 10 mg TID PO 03/18/20 14:00 03/19/20 08:42 Warfarin Sodium (Coumadin) 5 mg 1X WARF ONCE PO 03/18/20 16:00 03/18/20 16:01 DC 03/18/20 15:57 Cefazolin Sodium (Ancef) 1 gm Q6H IVP 03/18/20 15:00 03/19/20 03:01 DC 03/19/20 03:28 Heparin Sodium (Porcine) (Heparin Sodium) 5,000 unit Q12HR SQ 03/19/20 09:00 03/19/20 12:18 DC 03/19/20 09:45 Justifications for Admission Other Justification BUD VANEGAS MD Mar 19, 2020 13:03
[2020-03-19] MEDS: POLYETHYLENE GLYCOL 3350 17 GM PACKET. PO SCH (13:08)
[2020-03-19] MEDS: PSYLLIUM HUSK (SUGAR FREE) 1 PKT PACKET PO SCH (13:08)
[2020-03-19 13:59] LABS: PROTHROMBIN TIME PATIENT 16.5 SEC (11.7-14.0)
[2020-03-19 15:00] VITALS: BP 142/68
[2020-03-19] MEDS ORDERED: WARFARIN 2 MG TABLET. PO ONE (16:00)
[2020-03-19] MEDS ORDERED: BISACODYL 10 MG SUPP.RECT. PR PRN (16:00)
[2020-03-19 19:00] VITALS: BP 179/84
[2020-03-19 23:00] VITALS: BP 172/86
[2020-03-20] VITALS (7 sets, daily range): BP systolic 131–171; BP diastolic 61–82
[2020-03-20 04:29] LABS: CALCIUM 8.8 mg/dL (8.5-10.1); CREATININE 1.2 mg/dL (0.6-1.0); GFR 51.3; POTASSIUM 3.7 mmol/L (3.5-5.1)
[2020-03-20 04:31] LABS: BASO # 0.1 x10^3/uL (0.0-0.2); BASO % 1 % (0-3); EOS # 0.2 x10^3/uL (0.0-0.7); EOS % 3 % (0-3); HEMATOCRIT 30.1 % (36.0-47.0); HEMOGLOBIN 9.8 g/dL (12.0-15.5); LYMPH # 1.4 x10^3/uL (1.0-4.8); LYMPH % 17 % (24-48); MEAN CORPUSCULAR HEMOGLOBIN 27 pg (25-35); MEAN CORPUSCULAR HGB CONC 33 g/dL (31-37); MEAN CORPUSCULAR VOLUME 84 fL (79-100); MONO # 1.2 x10^3/uL (0.0-1.1); MONO % 14 % (0-9); NEUT # 5.4 x10^3/uL (1.8-7.7); NEUT % 65 % (31-73); PLATELET COUNT 167 x10^3/uL (140-400); RED BLOOD COUNT 3.59 x10^6/uL (3.50-5.40); RED CELL DISTRIBUTION WIDTH 14.7 % (11.5-14.5); WHITE BLOOD COUNT 8.3 x10^3/uL (4.0-11.0)
[2020-03-20] MEDS: oxyCODONE IR 5 MG TABLET PO PRN ×2 (04:31→19:59)
[2020-03-20 04:54] LABS: PROTHROMBIN TIME PATIENT 19.7 SEC (11.7-14.0)
[2020-03-20] MEDS: INSULIN LISPRO 300 UNITS/3 ML VIAL. SQ SCH ×3 (08:00→17:00)
[2020-03-20] MEDS: AMITRIPTYLINE HCL 10 MG TABLET. PO SCH ×3 (08:36→19:59)
[2020-03-20] MEDS: GEMFIBROZIL 600 MG TABLET. PO SCH ×2 (08:36→19:59)
[2020-03-20] MEDS: FERROUS SULFATE 325 MG TABLET. PO SCH (08:36)
[2020-03-20] MEDS: SENNOSIDES/DOCUSATE 8.6/50MG TABLET. PO SCH ×2 (08:36→19:59)
[2020-03-20] MEDS: IV NORMAL SALINE 1000ML BAG 1,000 ML IV SCH ×2 (08:43→20:00)
[2020-03-20] MEDS: hydrALAZINE 20 MG/ML VIAL. IVP PRN (11:53)
[2020-03-20] MEDS: POLYETHYLENE GLYCOL 3350 17 GM PACKET. PO SCH (11:58)
[2020-03-20] MEDS: PSYLLIUM HUSK (SUGAR FREE) 1 PKT PACKET PO SCH (12:00)
--- NOTE | 2020-03-20 12:38 | PDOC ---
[facility] PROGRESS NOTE Date of Service DOS: DATE: 03/20/20 TIME: 12:34 Chief Complaint Chief Complaint Closed impacted fracture of right hip, Fall from standing status post ORIF 03/18/2020 Acute kidney injury due to vasomotor nephropathyimproved Type 2 diabetes sliding scale insulin Hypertension resume home medication, will continue to monitor FEN - diabetic diet PPX - Warfarin FULL CODE Dispo - inpatient for 2 midnights History of Present Illness History of Present Illness 03/20/2020 No acute events overnight. Patient seen and examined bedside. Pain is well controlled. Patient's chart, labs, images were reviewed and discussed with RN Vitals/I&O Vitals/I&O: Vital Signs Date Time Temp Pulse Resp B/P (MAP) Pulse Ox O2 Delivery O2 Flow Rate FiO2 03/20/20 11:53 91 171/82 03/20/20 11:00 98.8 16 93 Room Air 98.8 03/19/20 20:00 10.0 I & O 03/19/20 03/19/20 03/20/20 14:59 22:59 06:59 Intake Total 120 ml 570 ml 0 ml Output Total 1300 ml 950 ml Balance 120 ml -730 ml -950 ml Physical Exam Physical Exam: GEN: No apparent distress. Alert and oriented HEENT: Normal cephalic, atraumatic, external auditory canals are patent NECK: Supple, no JVD, no thyromegaly was noted LUNGS: Bilateral crackles HEART: RRR, S1, S2 present. Peripheral pulses intact, no obvious murmurs noted ABDOMEN: Soft, nontender. Positive bowel sounds, no organomegaly, normal bowel sounds EXTREMITIES: Right hip bandaged with dressings clean, dry, and intact General: Alert, No acute distress Lungs: Clear Abdomen: Soft, No tenderness Extremities: No clubbing, No cyanosis, No edema, Other (Right hip bandaged with dressings clean, dry, and intact) Skin: No rashes Labs Labs: Laboratory Tests Test 03/19/20 13:00 03/19/20 16:39 03/19/20 20:38 03/20/20 03:45 Prothrombin Time 16.5 SEC (11.7-14.0) 19.7 SEC (11.7-14.0) Prothromb Time International Ratio 1.4 (0.8-1.1) 1.7 (0.8-1.1) Glucose (Fingerstick) 85 mg/dL (70-99) 148 mg/dL (70-99) White Blood Count 8.3 x10^3/uL (4.0-11.0) Red Blood Count 3.59 x10^6/uL (3.50-5.40) Hemoglobin 9.8 g/dL (12.0-15.5) Hematocrit 30.1 % (36.0-47.0) Mean Corpuscular Volume 84 fL (79-100) Mean Corpuscular Hemoglobin 27 pg (25-35) Mean Corpuscular Hemoglobin Concent 33 g/dL (31-37) Red Cell Distribution Width 14.7 % (11.5-14.5) Platelet Count 167 x10^3/uL (140-400) Neutrophils (%) (Auto) 65 % (31-73) Lymphocytes (%) (Auto) 17 % (24-48) Monocytes (%) (Auto) 14 % (0-9) Eosinophils (%) (Auto) 3 % (0-3) Basophils (%) (Auto) 1 % (0-3) Neutrophils # (Auto) 5.4 x10^3/uL (1.8-7.7) Lymphocytes # (Auto) 1.4 x10^3/uL (1.0-4.8) Monocytes # (Auto) 1.2 x10^3/uL (0.0-1.1) Eosinophils # (Auto) 0.2 x10^3/uL (0.0-0.7) Basophils # (Auto) 0.1 x10^3/uL (0.0-0.2) Sodium Level 138 mmol/L (136-145) Potassium Level 3.7 mmol/L (3.5-5.1) Chloride Level 102 mmol/L (98-107) Carbon Dioxide Level 25 mmol/L (21-32) Anion Gap 11 (6-14) Blood Urea Nitrogen 21 mg/dL (7-20) Creatinine 1.2 mg/dL (0.6-1.0) Estimated GFR (Cockcroft-Gault) 51.3 Glucose Level 137 mg/dL (70-99) Calcium Level 8.8 mg/dL (8.5-10.1) Test 03/20/20 07:48 03/20/20 11:14 Glucose (Fingerstick) 130 mg/dL (70-99) 115 mg/dL (70-99) Assessment and Plan Assessmemt and Plan Problems Medical Problems: (1) Fall from standing Status: Acute Comment Review of Relevant I have reviewed the following items nella (where applicable) has been applied. Medications: Current Medications Medications (Trade) Dose Ordered Sig/Ok Route PRN Reason Start Time Stop Time Status Last Admin Dose Admin Warfarin Sodium (Coumadin) 2 mg 1X WARF ONCE PO 03/19/20 16:00 03/19/20 16:01 DC 03/19/20 15:35 Justifications for Admission Other Justification KAM DICKEY MD Mar 20, 2020 12:38
--- NOTE | 2020-03-20 13:20 | NUR ---
Pharmacy Warfarin Dosing Note S:Pharmacy consulted to assist with anticoagulation therapy started 03/18/20 with target INR: 1.6 - 2.5 O:ABBEY BONNER is a 89 year old F with Hip Fracture LABS: Last INR: 1.7 Last HGB: 9.8 Last HCT: 30.1 Last PLT: 167 Last dose of 2 mg given on 03/19/20 at 1535 Previous Regimen: Vitamin K given: Drug Interaction Changes: Ongoing Drug Interactions: A:INR of 1.7 is within desired range. Target range for this patient is: 1.6 - 2.5 P: Warfarin dose: 2 mg Today at 1600 Bridge Therapy: Next INR due IN AM Pharmacy anticoagulation service will continue to follow. ADI JEAN [facility], 03/20/20 [id number]
[2020-03-20] MEDS ORDERED: WARFARIN 2 MG TABLET. PO ONE (16:00)
[2020-03-21 03:00] VITALS: BP 138/73
[2020-03-21] MEDS: IV NORMAL SALINE 1000ML BAG 1,000 ML IV SCH ×3 (05:50→22:33)
[2020-03-21 07:00] VITALS: BP 165/63
[2020-03-21 07:25] LABS: PROTHROMBIN TIME PATIENT 28.1 SEC (11.7-14.0)
[2020-03-21] MEDS: INSULIN LISPRO 300 UNITS/3 ML VIAL. SQ SCH ×3 (08:00→16:04)
[2020-03-21] MEDS: AMITRIPTYLINE HCL 10 MG TABLET. PO SCH ×3 (08:26→20:09)
[2020-03-21] MEDS: GEMFIBROZIL 600 MG TABLET. PO SCH ×2 (08:26→20:09)
[2020-03-21] MEDS: SENNOSIDES/DOCUSATE 8.6/50MG TABLET. PO SCH ×2 (08:26→20:09)
[2020-03-21] MEDS: oxyCODONE IR 5 MG TABLET PO PRN ×2 (08:27→20:10)
[2020-03-21] MEDS: FERROUS SULFATE 325 MG TABLET. PO SCH (08:27)
[2020-03-21 10:00] VITALS: BP 189/84
--- NOTE | 2020-03-21 10:50 | EKG ---
[facility] [address] [place] [address] Test Date: 2020-03-17 Test Time: 21:44:27 Pat Name: ABBEY BONNER Department: Room: Gender: F Renal Technician: : 1930 Requested By: ONOFRE THAO Order Number: [id number] Reading MD: Measurements Intervals [place] Rate: 90 P: 30 SC: 154 QRS: -45 QRSD: 92 T: 55 QT: 384 QTc: 474 Interpretive Statements SINUS RHYTHM ABNORMAL LEFT AXIS DEVIATION R-S TRANSITION ZONE IN V LEADS DISPLACED TO THE LEFT LEFT ANTERIOR FASCICULAR BLOCK QRS(T) CONTOUR ABNORMALITY CONSIDER INFERIOR INFARCT T ABNORMALITY IN HIGH LATERAL LEADS ABNORMAL ECG RI6.02 No previous ECG available for comparison
[2020-03-21] MEDS: POLYETHYLENE GLYCOL 3350 17 GM PACKET. PO SCH (11:09)
[2020-03-21] MEDS: PSYLLIUM HUSK (SUGAR FREE) 1 PKT PACKET PO SCH (11:09)
[2020-03-21] MEDS: hydrALAZINE 20 MG/ML VIAL. IVP PRN ×2 (11:26→20:13)
--- NOTE | 2020-03-21 13:10 | NUR ---
Pharmacy Warfarin Dosing Note S:Pharmacy consulted to assist with anticoagulation therapy started 03/18/20 with target INR: 1.6 - 2.5 O:ABBEY BONNER is a 89 year old F with Hip Fracture LABS: Last INR: 2.6 Last HGB: 9.8 Last HCT: 30.1 Last PLT: 167 Last dose of 2 mg given on 03/20/20 at 1631 Previous Regimen: Vitamin K given: Drug Interaction Changes: Ongoing Drug Interactions: A:INR of 2.6 is above desired range. Target range for this patient is: 1.6 - 2.5 P: Warfarin dose: Hold Today at 1600 Bridge Therapy: Next INR due IN AM Pharmacy anticoagulation service will continue to follow. ADI JEAN [facility], 03/21/20 1311
--- NOTE | 2020-03-21 14:48 | PDOC ---
[facility] PROGRESS NOTE Date of Service DOS: DATE: 03/21/20 TIME: 14:47 Chief Complaint Chief Complaint Closed impacted fracture of right hip, Fall from standing status post ORIF 03/18/2020-pending Ortho postop evaluation before discharge Acute kidney injury due to vasomotor nephropathyimproved Type 2 diabetes sliding scale insulin Hypertension resume home medication, will continue to monitor FEN - diabetic diet PPX - Warfarin FULL CODE Dispo - inpatient for 2 midnights History of Present Illness History of Present Illness 03/20/2020 No acute events overnight. Patient seen and examined bedside. Pain is well controlled. Patient's chart, labs, images were reviewed and discussed with RN 03/21/2020 No acute events overnight. Patient feels fatigue after working with physical therapy. Her pain is well controlled. Patient's chart, labs, images were reviewed and discussed with RN Vitals/I&O Vitals/I&O: Vital Signs Date Time Temp Pulse Resp B/P (MAP) Pulse Ox O2 Delivery O2 Flow Rate FiO2 03/21/20 11:26 88 189/84 03/21/20 10:00 98.3 18 95 Room Air 98.3 I & O 03/20/20 03/20/20 03/21/20 15:00 23:00 07:00 Intake Total 200 ml Balance 200 ml Physical Exam Physical Exam: GEN: No apparent distress. Alert and oriented HEENT: Normal cephalic, atraumatic, external auditory canals are patent NECK: Supple, no JVD, no thyromegaly was noted LUNGS: Bilateral crackles HEART: RRR, S1, S2 present. Peripheral pulses intact, no obvious murmurs noted ABDOMEN: Soft, nontender. Positive bowel sounds, no organomegaly, normal bowel sounds EXTREMITIES: Right hip bandaged with dressings clean, dry, and intact General: Alert, No acute distress Lungs: Clear Abdomen: Soft, No tenderness Extremities: No clubbing, No cyanosis, No edema, Other (Right hip bandaged with dressings clean, dry, and intact) Skin: No rashes Labs Labs: Laboratory Tests Test 03/20/20 17:12 03/20/20 21:28 03/21/20 06:17 03/21/20 07:37 Glucose (Fingerstick) 146 mg/dL (70-99) 209 mg/dL (70-99) 137 mg/dL (70-99) Prothrombin Time 28.1 SEC (11.7-14.0) Prothromb Time International Ratio 2.6 (0.8-1.1) Test 03/21/20 11:57 Glucose (Fingerstick) 168 mg/dL (70-99) Assessment and Plan Assessmemt and Plan Problems Medical Problems: (1) Fall from standing Status: Acute Comment Review of Relevant I have reviewed the following items nella (where applicable) has been applied. Medications: Current Medications Medications (Trade) Dose Ordered Sig/Ok Route PRN Reason Start Time Stop Time Status Last Admin Dose Admin Warfarin Sodium (Coumadin) 2 mg 1X WARF ONCE PO 03/20/20 16:00 03/20/20 16:01 DC 03/20/20 16:31 Warfarin Sodium (Coumadin - No Dose Today) 1 each 1X WARF ONCE MC 03/21/20 16:00 03/21/20 16:01 03/21/20 13:22 Justifications for Admission Other Justification KAM DICKEY MD Mar 21, 2020 14:48
[2020-03-21 15:00] VITALS: BP 109/56
--- NOTE | 2020-03-21 15:39 | NUR ---
Therapy was getting ready to work with patient when patient had c/o dizziness, chest pain. Orientation And Mobility Specialist assessed patient, HR 124, SpO2 98% RA, BP 141/62, blood sugar 65. Administered dextrose to patient. Notified Dr. Benito of findings. He stated if upon reassessment patient is still complaining of chest pain then order EKG and troponin. Reassessed patient in 5 minutes, she denied any dizziness or chest pain, and new blood sugar was 188. Will continue to monitor patient.
--- NOTE | 2020-03-21 16:22 | PDOC ---
ORTHO PROGRESS NOTES DATE: 03/21/20 TIME: 16:19 Subjective Patient states that pain is tolerable today. Post-op Day: 3 Procedure Close reduction and with cannulated screws x3 related to right femoral neck fracture Vitals Vital Signs Date Time Temp Pulse Resp B/P (MAP) Pulse Ox O2 Delivery O2 Flow Rate FiO2 03/21/20 15:00 98.3 108 16 109/56 (73) 94 Room Air 98.3 Labs Laboratory Tests Test 03/19/20 16:39 03/19/20 20:38 03/20/20 03:45 03/20/20 07:48 Glucose (Fingerstick) 85 mg/dL (70-99) 148 mg/dL (70-99) 130 mg/dL (70-99) White Blood Count 8.3 x10^3/uL (4.0-11.0) Red Blood Count 3.59 x10^6/uL (3.50-5.40) Hemoglobin 9.8 g/dL (12.0-15.5) Hematocrit 30.1 % (36.0-47.0) Mean Corpuscular Volume 84 fL (79-100) Mean Corpuscular Hemoglobin 27 pg (25-35) Mean Corpuscular Hemoglobin Concent 33 g/dL (31-37) Red Cell Distribution Width 14.7 % (11.5-14.5) Platelet Count 167 x10^3/uL (140-400) Neutrophils (%) (Auto) 65 % (31-73) Lymphocytes (%) (Auto) 17 % (24-48) Monocytes (%) (Auto) 14 % (0-9) Eosinophils (%) (Auto) 3 % (0-3) Basophils (%) (Auto) 1 % (0-3) Neutrophils # (Auto) 5.4 x10^3/uL (1.8-7.7) Lymphocytes # (Auto) 1.4 x10^3/uL (1.0-4.8) Monocytes # (Auto) 1.2 x10^3/uL (0.0-1.1) Eosinophils # (Auto) 0.2 x10^3/uL (0.0-0.7) Basophils # (Auto) 0.1 x10^3/uL (0.0-0.2) Prothrombin Time 19.7 SEC (11.7-14.0) Prothromb Time International Ratio 1.7 (0.8-1.1) Sodium Level 138 mmol/L (136-145) Potassium Level 3.7 mmol/L (3.5-5.1) Chloride Level 102 mmol/L (98-107) Carbon Dioxide Level 25 mmol/L (21-32) Anion Gap 11 (6-14) Blood Urea Nitrogen 21 mg/dL (7-20) Creatinine 1.2 mg/dL (0.6-1.0) Estimated GFR (Cockcroft-Gault) 51.3 Glucose Level 137 mg/dL (70-99) Calcium Level 8.8 mg/dL (8.5-10.1) Test 03/20/20 11:14 03/20/20 17:12 03/20/20 21:28 03/21/20 06:17 Glucose (Fingerstick) 115 mg/dL (70-99) 146 mg/dL (70-99) 209 mg/dL (70-99) Prothrombin Time 28.1 SEC (11.7-14.0) Prothromb Time International Ratio 2.6 (0.8-1.1) Test 03/21/20 07:37 03/21/20 11:57 03/21/20 15:26 03/21/20 15:37 Glucose (Fingerstick) 137 mg/dL (70-99) 168 mg/dL (70-99) 65 mg/dL (70-99) 188 mg/dL (70-99) Laboratory Tests Test 03/20/20 17:12 03/20/20 21:28 03/21/20 06:17 03/21/20 07:37 Glucose (Fingerstick) 146 mg/dL (70-99) 209 mg/dL (70-99) 137 mg/dL (70-99) Prothrombin Time 28.1 SEC (11.7-14.0) Prothromb Time International Ratio 2.6 (0.8-1.1) Test 03/21/20 11:57 03/21/20 15:26 03/21/20 15:37 Glucose (Fingerstick) 168 mg/dL (70-99) 65 mg/dL (70-99) 188 mg/dL (70-99) Notes Awake and alert sitting in bedside in chair Assessment and Plan Postop day #3 status post close reduction and fixation with cannulated screws Motor and sensation intact distally at the right lower extremity. Calf is soft and nontender. Dressing dry and intact. Blood sugar was decreased today and well stay overnight and may be discharged per Ortho standpoint if medically stable tomorrow after physical therapy. DANNY MERINO APRN Mar 21, 2020 16:22
[2020-03-21 19:00] VITALS: BP 182/84
[2020-03-21 23:00] VITALS: BP 177/74
[2020-03-22 03:00] VITALS: BP 178/85
[2020-03-22] MEDS: hydrALAZINE 20 MG/ML VIAL. IVP PRN (03:26)
[2020-03-22 07:00] VITALS: BP 159/75
[2020-03-22] MEDS: INSULIN LISPRO 300 UNITS/3 ML VIAL. SQ SCH ×2 (07:45→11:56)
[2020-03-22] MEDS: SENNOSIDES/DOCUSATE 8.6/50MG TABLET. PO SCH (08:42)
[2020-03-22] MEDS: GEMFIBROZIL 600 MG TABLET. PO SCH (08:42)
[2020-03-22] MEDS: AMITRIPTYLINE HCL 10 MG TABLET. PO SCH ×2 (08:42→12:46)
[2020-03-22] MEDS: FERROUS SULFATE 325 MG TABLET. PO SCH (08:42)
[2020-03-22] MEDS: IV NORMAL SALINE 1000ML BAG 1,000 ML IV SCH (08:43)
[2020-03-22 09:49] LABS: PROTHROMBIN TIME PATIENT 25.4 SEC (11.7-14.0)
--- NOTE | 2020-03-22 10:55 | NUR ---
Pharmacy Warfarin Dosing Note S:Pharmacy consulted to assist with anticoagulation therapy started 03/18/20 with target INR: 1.6 - 2.5 O:ABBEY BONNER is a 89 year old F with Hip Fracture LABS: Last INR: 2.3 Last HGB: 9.8 Last HCT: 30.1 Last PLT: 167 Last dose was held on 03/21/20 Drug Interaction Changes: Same Interacting Drug Ongoing Drug Interactions: gemfibrozil A:INR of 2.3 is within desired range. Target range for this patient is: 1.6 - 2.5 P: Warfarin dose: 1 mg Today at 1600 Bridge Therapy: None Next INR due 03/23/20 Pharmacy anticoagulation service will continue to follow. YEMI NUÑEZ RPH, 03/22/20 [id number]
[2020-03-22 11:00] VITALS: BP 182/88
[2020-03-22] MEDS: oxyCODONE IR 5 MG TABLET PO PRN ×2 (11:16→14:10)
[2020-03-22] MEDS: PSYLLIUM HUSK (SUGAR FREE) 1 PKT PACKET PO SCH (11:56)
[2020-03-22] MEDS: POLYETHYLENE GLYCOL 3350 17 GM PACKET. PO SCH (11:56)
--- NOTE | 2020-03-22 12:01 | SNU/HH DC ---
DISCHARGE ORDERS DISCHARGE INFORMATION: DISCHARGE DATE: Mar 22, 2020 FINAL DIAGNOSIS Problems Medical Problems: (1) Fall from standing Status: Acute CONDITION ON DISCHARGE: Stable CODE STATUS: Code Status: Full NURSING HOME: SNF STAY <30 DAYS: Yes POST DISCHARGE ORDERS: ACTIVITY ORDERS: Activity as tolerated WEIGHT BEARING STATUS: Non weight bearing BATHING ORDERS: Shower-keep dressing dry DIET AFTER DISCHARGE: ADA WOUND/INCISION CARE: Ice to area for comfort FOLLOW-UP: PHYSICIAN FOLLOW-UP: Within PCP within 1 week of discharge ADDITIONAL FOLLOW-UP: Orthopedic surgery LAB ORDERS FOR FOLLOW-UP: CBC and CMP within 2 weeks TREATMENT/EQUIPMENT ORDERS: ADAPTIVE EQUIPMENT NEEDED: Brace/splint RESPIRATORY EQUIPMENT NEEDED: BiPAP Physical Therapy For: Evalulation/Treatment Occupational Therapy For: Evaluation/Treatment DISCHARGE MEDICATIONS: Home Meds Active Scripts Insulin Lispro (HUMALOG) 100 Unit/1 Ml Insuln.pen, 0 UNITS SQ TIDWMEALS for dm2 for 30 Days, #1 EACH BG - 151 - 200 2u BG - 201 - 250 3u BG - 251 - 300 4u BG - 301 - 350 5u Prov:ONOFRE THAO MD 06/26/18 Sennosides/Docusate Sodium (SENNA-TIME S TABLET) 1 Each Tablet, 1 TAB PO BID for constipation for 30 Days, #60 TAB Prov:ONOFRE THAO MD 06/26/18 Hydrocodone Bit/Acetaminophen (HYDROCODONE-APAP 5-325 ) 1 Tab Tablet, 1 TAB PO PRN Q4HRS PRN for MILD PAIN for 6 Days, #18 TAB Prov:ONOFRE THAO MD 06/26/18 Acetaminophen (TYLENOL) 325 Mg Tablet, 650 MG PO PRN Q6HRS PRN for Headaches, Temp > 101.5F for 30 Days, #60 TAB Prov:ONOFRE THAO MD 06/26/18 Clonidine Hcl (CATAPRES) 0.1 Mg Tablet, 0.1 MG PO PRN Q8HRS PRN for HYPERTENSION, SEE COMMENTS for 30 Days, #60 TAB Prov:ONOFRE THAO MD 06/26/18 Reported Medications Hydrochlorothiazide (HYDROCHLOROTHIAZIDE TABLET) 12.5 Mg Tablet, 12.5 MG PO DAILY for DIURETIC, TAB 0 Refills 03/18/20 Mirtazapine (MIRTAZAPINE) 7.5 Mg Tablet, 7.5 MG PO DAILY for n, TAB 03/18/20 Latanoprost (LATANOPROST) 2.5 Ml Drops, 1 DROP EACHEYE QHS for eye, #7.5 ML 3 Refills 03/18/20 Metformin Hcl (METFORMIN HCL) 500 Mg Tablet, 500 MG PO BIDWMEALS for ANTI- DIABETIC, TAB 0 Refills 03/27/17 Gemfibrozil (GEMFIBROZIL) 600 Mg Tablet, 600 MG PO BID, TAB 03/27/17 Ferrous Sulfate (FERROUS SULFATE) 325 Mg Tablet, 325 MG PO DAILY, TAB 03/27/17 Amitriptyline Hcl (AMITRIPTYLINE HCL) 10 Mg Tablet, 10 MG PO TID, TAB 03/27/17 KAM DICKEY MD Mar 22, 2020 12:01
[2020-03-22 15:00] VITALS: BP 162/70
--- NOTE | 2020-03-22 15:35 | NUR ---
Discharge Note: ABBEY BONNER HENDERSON Discharge instructions and discharge home medications reviewed with Other facility and a copy given. All questions have been answered and understanding verbalized. Report given to POLLY Beebe at [facility]. The following instructions and handouts were given: information about plan of care, follow up appointments, surgical incision care, labs, medications, activity, etc. Notified nurse when development writer last administered pain medication and PRN blood pressure medication. Lead Software Qa Engineer also notified nurse of current INR and that coumadin was already administered today. Discontinued lines and drains: IV in left wrist removed, catheter tip intact. Patient discharged to [facility] with furniture delivery driver, wheelchair used for mobility to discharge vehicle.
[2020-03-22] MEDS ORDERED: WARFARIN 1 MG TABLET. PO ONE (16:00)
--- NOTE | 2020-03-22 18:24 | PDOC3 ---
[facility]-Discharge Summary Date of Admission: Date of Admission: Mar 18, 2020 Date of Discharge: Date of Discharge: Mar 22, 2020 Admission Diagnosis: Admitting Diagnosis: Closed impacted fracture of right hip, Fall from standing Discharge Diagnosis: Discharge Diagnosis: Closed impacted fracture of right hip, Fall from standing status post ORIF 03/18/2020 Acute kidney injury due to vasomotor nephropathyimproved Type 2 diabetes Hypertension Consults: Consults: orthopedic surgery Procedures: Procedures: ORIF of the RIght hip 03/18/20 Hospital Course: Hospital Course: 89-year-old female consult history of coronary artery disease, type 2 diabetes, hypertension, and chronic renal disease who presents from [facility] for a fall that she had 4 days prior. Since that time she has had right hip pain with inability to ambulate on right hip. She was evaluated with an x-ray at her nursing facility that did not show acute fracture, but was taken to the emergency room for further evaluation at the insistence of her family. Upon arrival in the ER, CT right hip showed acute impaction fracture right femur subcapital femoral neck. Consultation was placed orthopedic surgery, and she was taken to surgery this morning. Admitted for further management and surgery for hip fx. Patient underwent ORIF with orthopedic surgery and tolerated proceudure well without any postoperative complications. Patient worked well with PT/OT and they recommended continued rehab at SNF. Pain was well controlled and patient was tolerating diet. The rest of the hospital course was uneventful. Physical exam at discharge: General: Alert, No acute distress Lungs: Clear Abdomen: Soft, No tenderness Extremities: No clubbing, No cyanosis, No edema, Other (Right hip bandaged with dressings clean, dry, and intact) Skin: No rashes Disposition: Disposition/Orders: D/C to Another Facility Activity: Activity: Resume previous activity Diet: Diet: Consistent Carbohydrate Medications: Home Meds Active Scripts Insulin Lispro (HUMALOG) 100 Unit/1 Ml Insuln.pen, 0 UNITS SQ TIDWMEALS for dm2 for 30 Days, #1 EACH BG - 151 - 200 2u BG - 201 - 250 3u BG - 251 - 300 4u BG - 301 - 350 5u Prov:ONOFRE THAO MD 06/26/18 Sennosides/Docusate Sodium (SENNA-TIME S TABLET) 1 Each Tablet, 1 TAB PO BID for constipation for 30 Days, #60 TAB Prov:ONOFRE THAO MD 06/26/18 Hydrocodone Bit/Acetaminophen (HYDROCODONE-APAP 5-325 ) 1 Tab Tablet, 1 TAB PO PRN Q4HRS PRN for MILD PAIN for 6 Days, #18 TAB Prov:ONOFRE THAO MD 18 Acetaminophen (TYLENOL) 325 Mg Tablet, 650 MG PO PRN Q6HRS PRN for Headaches, Temp > 101.5F for 30 Days, #60 TAB Prov:ONOFRE THAO MD 06/26/18 Clonidine Hcl (CATAPRES) 0.1 Mg Tablet, 0.1 MG PO PRN Q8HRS PRN for HYPERTENSION, SEE COMMENTS for 30 Days, #60 TAB Prov:ONOFRE THAO MD 06/26/18 Reported Medications Hydrochlorothiazide (HYDROCHLOROTHIAZIDE TABLET) 12.5 Mg Tablet, 12.5 MG PO DAILY for DIURETIC, TAB 0 Refills 03/18/20 Mirtazapine (MIRTAZAPINE) 7.5 Mg Tablet, 7.5 MG PO DAILY for n, TAB 03/18/20 Latanoprost (LATANOPROST) 2.5 Ml Drops, 1 DROP EACHEYE QHS for eye, #7.5 ML 3 Refills 03/18/20 Metformin Hcl (METFORMIN HCL) 500 Mg Tablet, 500 MG PO BIDWMEALS for ANTI- DIABETIC, TAB 0 Refills 03/27/17 Gemfibrozil (GEMFIBROZIL) 600 Mg Tablet, 600 MG PO BID, TAB 03/27/17 Ferrous Sulfate (FERROUS SULFATE) 325 Mg Tablet, 325 MG PO DAILY, TAB 03/27/17 Amitriptyline Hcl (AMITRIPTYLINE HCL) 10 Mg Tablet, 10 MG PO TID, TAB 03/27/17 Scheduled Amitriptyline Hcl (Amitriptyline Hcl), 10 MG PO TID, (Reported) Ferrous Sulfate (Ferrous Sulfate), 325 MG PO DAILY, (Reported) Gemfibrozil (Gemfibrozil), 600 MG PO BID, (Reported) Hydrochlorothiazide (Hydrochlorothiazide Tablet), 12.5 MG PO DAILY, (Reported) Insulin Lispro (Humalog), 0 UNITS SQ TIDWMEALS Latanoprost (Latanoprost), 1 DROP EACHEYE QHS, (Reported) Metformin Hcl (Metformin Hcl), 500 MG PO BIDWMEALS, (Reported) Mirtazapine (Mirtazapine), 7.5 MG PO DAILY, (Reported) Sennosides/Docusate Sodium (Senna-Time S Tablet), 1 TAB PO BID Scheduled PRN Acetaminophen (Tylenol), 650 MG PO PRN Q6HRS PRN for Headaches, Temp > 101.5F Clonidine Hcl (Catapres), 0.1 MG PO PRN Q8HRS PRN for HYPERTENSION, SEE COMMENTS Hydrocodone Bit/Acetaminophen (Hydrocodone-Apap 5-325 ), 1 TAB PO PRN Q4HRS PRN for MILD PAIN Total Time: Total Time: Total time spent was 32 minutes in preparing scripts, discharge planning with SW and RN, and preparing this discharge summary. Justicifation of Admission Dx: Justifications for Admission: Justification of Admission Dx: Yes KAM DICKEY MD Mar 22, 2020 18:24
== END 2020-03-22 15:35 | DRG 480 ==
LOC: ER 18:13 → 4 NORTH 21:30
PROVIDERS: ADMIT Internal Medicine; ATTEND Internal Medicine
PROC: 0QS804Z Reposition Right Femoral Shaft with Internal Fixation Device, Open Approach (ICD-10-PCS; principal; 2020-03-18 10:00)
DX: S72.011A Unspecified intracapsular fracture of right femur, initial encounter for closed fracture (principal); N17.0 Acute kidney failure with tubular necrosis; I13.0 Hypertensive heart and chronic kidney disease with heart failure and stage 1 through stage 4 chronic kidney disease, or unspecified chronic kidney disease; E11.22 Type 2 diabetes mellitus with diabetic chronic kidney disease; Z20.828 Contact with and (suspected) exposure to other viral communicable diseases; Z88.8 Allergy status to other drugs, medicaments and biological substances; E78.00 Pure hypercholesterolemia, unspecified; E78.5 Hyperlipidemia, unspecified; I25.10 Atherosclerotic heart disease of native coronary artery without angina pectoris; I48.91 Unspecified atrial fibrillation; I50.9 Heart failure, unspecified; M85.80 Other specified disorders of bone density and structure, unspecified site; N18.9 Chronic kidney disease, unspecified; Z82.49 Family history of ischemic heart disease and other diseases of the circulatory system; Z87.891 Personal history of nicotine dependence; Z90.49 Acquired absence of other specified parts of digestive tract; F32.9 Major depressive disorder, single episode, unspecified; F41.9 Anxiety disorder, unspecified; M19.90 Unspecified osteoarthritis, unspecified site; W18.39XA Other fall on same level, initial encounter; Y93.89 Activity, other specified; Y92.89 Other specified places as the place of occurrence of the external cause; Y99.8 Other external cause status; Z79.899 Other long term (current) drug therapy
CPT/HCPCS: 36415; 71045; 73502; 73552; 73700; 76000; 80048; 80053; 81001; 82306; 82962; 85014; 85018; 85025; 85610; 86850; 86900; 86901; 87426; 93005; 94760; 96374; 99285; A7015; C1713; C1887; J0360; J0690; J1100; J1644; J1815; J2270; J2370; J2405; J2704; J3010; J7030; 97110-GP; 97116-GP; 97530-GO; 97530-GP; 97535-GO; G0378; U0003-CS

== ENCOUNTER 2020-03-24 12:34 | Emergency (ER) | payer MEDICARE, MEDICAID ==
[~2020-03-24] VITALS: Ht 165.1 cm; Wt 54.5 kg
[~2020-03-24 12:34] MED LIST changes: +HYDR12.58 PO; +LATA2.5D3 EACHEYE; +MIRT7.5T8 PO
[2020-03-24 13:58] LABS: BILIRUBIN,URINE NEGATIVE (NEG); CLARITY,URINE CLEAR; COLOR,URINE YELLOW; NITRITE,URINE NEGATIVE (NEG); PH,URINE 5.5 (<5.0-8.0); PROTEIN,URINE 30 mg/dL (NEG-TRACE); UROBILINOGEN,URINE 0.2 mg/dL (0.2 mg/dL)
[2020-03-24 14:06] LABS: AMORPHOUS SEDIMENT,UR PRESENT /HPF; BACTERIA,URINE 0 /HPF (0-FEW); HYALINE CASTS, URINE OCCASIONAL /HPF; RBC,URINE 0 /HPF (0-2); SQUAMOUS EPITHELIAL CELL,UR FEW /LPF; WBC,URINE 0 /HPF (0-4)
[2020-03-24 14:09] LABS: BARBITURATES NEG (NEG); BENZODIAZEPINES NEG (NEG); CANNABINOIDS NEG (NEG); COCAINE NEG (NEG); METHADONE NEG (NEG); OPIATES NEG (NEG); PHENCYCLIDINE NEG (NEG)
[2020-03-24 14:10] LABS: AMPHETAMINE/METHAMPHETAMINE NEG (NEG)
[2020-03-24 15:45] LABS: BASO # 0.1 x10^3/uL (0.0-0.2); BASO % 1 % (0-3); EOS # 0.1 x10^3/uL (0.0-0.7); EOS % 1 % (0-3); HEMATOCRIT 34.4 % (36.0-47.0); HEMOGLOBIN 11.2 g/dL (12.0-15.5); LYMPH # 1.1 x10^3/uL (1.0-4.8); LYMPH % 13 % (24-48); MEAN CORPUSCULAR HEMOGLOBIN 27 pg (25-35); MEAN CORPUSCULAR HGB CONC 32 g/dL (31-37); MEAN CORPUSCULAR VOLUME 84 fL (79-100); MONO # 0.9 x10^3/uL (0.0-1.1); MONO % 12 % (0-9); NEUT # 5.9 x10^3/uL (1.8-7.7); NEUT % 73 % (31-73); PLATELET COUNT 305 x10^3/uL (140-400); RED BLOOD COUNT 4.09 x10^6/uL (3.50-5.40); RED CELL DISTRIBUTION WIDTH 15.3 % (11.5-14.5); WHITE BLOOD COUNT 8.1 x10^3/uL (4.0-11.0)
[2020-03-24 16:16] LABS: CALCIUM 10.4 mg/dL (8.5-10.1); CREATININE 1.2 mg/dL (0.6-1.0); GFR 51.3; POTASSIUM 4.5 mmol/L (3.5-5.1)
[2020-03-24 16:22] LABS: ALBUMIN 3.3 g/dL (3.4-5.0); ALBUMIN/GLOBULIN RATIO 0.8 (1.0-1.7); MAGNESIUM 2.1 mg/dL (1.8-2.4); TOTAL BILIRUBIN 0.6 mg/dL (0.2-1.0); TOTAL PROTEIN 7.3 g/dL (6.4-8.2)
--- NOTE | 2020-03-24 16:28 | RAD ---
EXAM: Head CT without contrast. HISTORY: Altered mental status. TECHNIQUE: Computed tomographic images of the head were obtained without contrast. *One or more of the following individualized dose reduction techniques were utilized for this examination: 1. Automated exposure control. 2. Adjustment of the mA and/or kV according to patient size. 3. Use of iterative reconstruction technique. COMPARISON: 06/22/2018. FINDINGS: There is no acute or subacute extra-axial or intraparenchymal hemorrhage. There is no mass effect or midline shift. There is no hydrocephalus. There are areas of decreased attenuation within the cerebral white matter, nonspecific and likely related to chronic small vessel disease. There is cerebral volume loss with compensatory enlargement of the ventricles. There is a suspected small chronic infarct within the anterior left putamen. There is evidence of lens surgery. The visualized paranasal sinuses and mastoid air cells are unremarkable. There is no calvarial lesion. There is a 1.9 cm soft tissue nodule or hematoma along the inferior lateral right frontal scalp. IMPRESSION: 1. No acute intracranial finding. Note is made that MRI is more sensitive for acute infarction. 2. Bilateral cerebral white matter changes, likely due to chronic small vessel disease in patients of this age. 3. Cerebral volume loss. 4. 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 5. 1.6 cm soft tissue nodule or hematoma along the inferior lateral right frontal scalp. Electronically signed by: Jeanette Foley MD (03/24/2020 4:25 PM) [id number]
--- NOTE | 2020-03-24 16:43 | PHYS DOC ---
Past Medical History Past Medical History: Arrhythmia, CAD, Diabetes-Type II, High Cholesterol, Hypertension, Renal Failure Past Surgical History: Appendectomy, Tonsillectomy, Other Additional Past Surgical Histo: Hemmoroidectomy, Left hip repair, Hernia repair Smoking Status: Former Smoker Alcohol Use: None Drug Use: None General Adult EDM: Chief Complaint: ALTERED MENTAL STATUS HPI: HPI: Patient is a 89 year old female who was sent here from the senior living due to altered mental status. Patient was a resident at the [facility], she fell and broke her hip 1 week ago, she had ORIF done, and she was discharged back to [facility] 2 days ago from here. Patient is on Percocet 11/13/2024 every 4 hours as needed for pain control. group home reported that patient acting more confused today so her nurse practitioner sent her here for evaluation. There is no injury at this time. Patient denies any chest pain, no trouble breathing, no headache, no neck pain. Patient denies any abdominal pain, no nausea vomiting. Review of Systems: Review of Systems: Constitutional: Denies fever or chills. [] Eyes: Denies change in visual acuity. [] HENT: Denies nasal congestion or sore throat. [] Respiratory: Denies cough or shortness of breath. [] Cardiovascular: Denies chest pain or edema. [] GI: Denies abdominal pain, nausea, vomiting, bloody stools or diarrhea. [] : Denies dysuria. [] Musculoskeletal: Denies back pain or joint pain. [] Integument: Denies rash. [] Neurologic: Denies headache, focal weakness or sensory changes. Positive for decreased responsiveness. Endocrine: Denies polyuria or polydipsia. [] Lymphatic: Denies swollen glands. [] Psychiatric: Denies depression or anxiety. [] Heart Score: Risk Factors: Risk Factors: DM, Current or recent (<one month) smoker, HTN, HLP, family history of CAD, obesity. Risk Scores: Score 0 - 3: 2.5% MACE over next 6 weeks - Discharge Home Score 4 - 6: 20.3% MACE over next 6 weeks - Admit for Clinical Observation Score 7 - 10: 72.7% MACE over next 6 weeks - Early Invasive Strategies Allergies: Allergies: Allergies Coded Allergies Type Severity Reaction Last Updated Verified codeine Allergy Intermediate 06/01/14 Yes Physical Exam: PE: Constitutional: Well developed, well nourished, no acute distress, non-toxic appearance. [] HENT: Normocephalic, atraumatic, bilateral external ears normal, oropharynx moist, no oral exudates, nose normal. [] Eyes: PERRLA, EOMI, conjunctiva normal, no discharge. [] Neck: Normal range of motion, no tenderness, supple, no stridor. [] Cardiovascular:Heart rate regular rhythm, no murmur [] Lungs & Thorax: Bilateral breath sounds clear to auscultation [] Abdomen: Bowel sounds normal, soft, no tenderness, no masses, no pulsatile masses. [] Skin: Warm, dry, no erythema, no rash. [] Back: No tenderness, no CVA tenderness. [] Extremities: No tenderness, no cyanosis, no clubbing, ROM intact, no edema. [] Neurologic: Alert and oriented X 3, normal motor function, normal sensory function, no focal deficits noted. [] Psychologic: Affect normal, judgement normal, mood normal. [] Current Patient Data: Labs: Laboratory Tests Test 03/24/20 13:50 03/24/20 15:39 03/24/20 16:00 Urine Collection Type U cath Urine Color Yellow Urine Clarity Clear Urine pH 5.5 (<5.0-8.0) Urine Specific [place] 1.010 (1.000-1.030) Urine Protein 30 mg/dL (NEG-TRACE) Urine Glucose (UA) Negative mg/dL (NEG) Urine Ketones (Stick) 40 mg/dL (NEG) Urine Blood Negative (NEG) Urine Nitrite Negative (NEG) Urine Bilirubin Negative (NEG) Urine Urobilinogen Dipstick 0.2 mg/dL (0.2 mg/dL) Urine Leukocyte Esterase Negative (NEG) Urine RBC 0 /HPF (0-2) Urine WBC 0 /HPF (0-4) Urine Squamous Epithelial Cells Few /LPF Urine Amorphous Sediment Present /HPF Urine Bacteria 0 /HPF (0-FEW) Urine Hyaline Casts Occasional /HPF Urine Mucus Slight /LPF Urine Opiates Screen Neg (NEG) Urine Methadone Screen Neg (NEG) Urine Barbiturates Neg (NEG) Urine Phencyclidine Screen Neg (NEG) Urine Amphetamine/Methamphetamine Neg (NEG) Urine Benzodiazepines Screen Neg (NEG) Urine Cocaine Screen Neg (NEG) Urine Cannabinoids Screen Neg (NEG) Urine Ethyl Alcohol Neg (NEG) White Blood Count 8.1 x10^3/uL (4.0-11.0) Red Blood Count 4.09 x10^6/uL (3.50-5.40) Hemoglobin 11.2 g/dL (12.0-15.5) L Hematocrit 34.4 % (36.0-47.0) L Mean Corpuscular Volume 84 fL (79-100) Mean Corpuscular Hemoglobin 27 pg (25-35) Mean Corpuscular Hemoglobin Concent 32 g/dL (31-37) Red Cell Distribution Width 15.3 % (11.5-14.5) H Platelet Count 305 x10^3/uL (140-400) Neutrophils (%) (Auto) 73 % (31-73) Lymphocytes (%) (Auto) 13 % (24-48) L Monocytes (%) (Auto) 12 % (0-9) H Eosinophils (%) (Auto) 1 % (0-3) Basophils (%) (Auto) 1 % (0-3) Neutrophils # (Auto) 5.9 x10^3/uL (1.8-7.7) Lymphocytes # (Auto) 1.1 x10^3/uL (1.0-4.8) Monocytes # (Auto) 0.9 x10^3/uL (0.0-1.1) Eosinophils # (Auto) 0.1 x10^3/uL (0.0-0.7) Basophils # (Auto) 0.1 x10^3/uL (0.0-0.2) Sodium Level 139 mmol/L (136-145) Potassium Level 4.5 mmol/L (3.5-5.1) Chloride Level 102 mmol/L (98-107) Carbon Dioxide Level 26 mmol/L (21-32) Anion Gap 11 (6-14) Blood Urea Nitrogen 13 mg/dL (7-20) Creatinine 1.2 mg/dL (0.6-1.0) H Estimated GFR (Cockcroft-Gault) 51.3 BUN/Creatinine Ratio 11 (6-20) Glucose Level 174 mg/dL (70-99) H Calcium Level 10.4 mg/dL (8.5-10.1) H Magnesium Level 2.1 mg/dL (1.8-2.4) Total Bilirubin 0.6 mg/dL (0.2-1.0) Aspartate Amino Transferase (AST) 19 U/L (15-37) Alanine Aminotransferase (ALT) 10 U/L (14-59) L Alkaline Phosphatase 73 U/L (46-116) Total Protein 7.3 g/dL (6.4-8.2) Albumin 3.3 g/dL (3.4-5.0) L Albumin/Globulin Ratio 0.8 (1.0-1.7) L Laboratory Tests 03/24/20 15:39 Laboratory Tests 03/24/20 16:00 Vital Signs: Vital Signs Date Time Temp Pulse Resp B/P (MAP) Pulse Ox O2 Delivery O2 Flow Rate FiO2 03/24/20 12:34 98.6 91 17 178/83 (114) 98 Room Air 98.6 EKG: EKG: [] Radiology/Procedures: Radiology/Procedures: [][facility] [address] [place] [address] IMAGING REPORT Signed PATIENT: ABBEY BONNER ACCOUNT: [id number] : 1930 LOCATION: ER AGE: 89 SEX: F EXAM STATUS: REG ER ORD. PHYSICIAN: MELY PERSTON DO REASON: AMS-ON PEROCET RECENT ORIF PROCEDURE: CT HEAD WO CONTRAST EXAM: Head CT without contrast. HISTORY: Altered mental status. TECHNIQUE: Computed tomographic images of the head were obtained without contrast. *One or more of the following individualized dose reduction techniques were utilized for this examination: 1. Automated exposure control. 2. Adjustment of the mA and/or kV according to patient size. 3. Use of iterative reconstruction technique. COMPARISON: 06/22/2018. FINDINGS: There is no acute or subacute extra-axial or intraparenchymal hemorrhage. There is no mass effect or midline shift. There is no hydrocephalus. There are areas of decreased attenuation within the cerebral white matter, nonspecific and likely related to chronic small vessel disease. There is cerebral volume loss with compensatory enlargement of the ventricles. There is a suspected small chronic infarct within the anterior left putamen. There is evidence of lens surgery. The visualized paranasal sinuses and mastoid air cells are unremarkable. There is no calvarial lesion. There is a 1.9 cm soft tissue nodule or hematoma along the inferior lateral right frontal scalp. IMPRESSION: 1. No acute intracranial finding. Note is made that MRI is more sensitive for acute infarction. 2. Bilateral cerebral white matter changes, likely due to chronic small vessel disease in patients of this age. 3. Cerebral volume loss. 4. 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 5. 1.6 cm soft tissue nodule or hematoma along the inferior lateral right frontal scalp. Electronically signed by: Jeanette Abdi MD (03/24/2020 4:25 PM) [id number] DICTATED and SIGNED BY: JEANETTE ABDI MD DATE: 03/24/201624 Course & Med Decision Making: Course & Med Decision Making Pertinent Labs and Imaging studies reviewed. (See chart for details) Patient is an 89-year-old female who was evaluated in the ER due to altered mental status, at this time patient is awake alert, responding to verbal command. Patient is here with her son, she is responsive to her son. CT scan her head did not show any acute problem. Her mental status change is most likely due to the narcotic that she is on for her hip pain. Patient will be discharged back to the senior living. Mary Ann Disclaimer: Mary Ann Disclaimer: This electronic medical record was generated, in whole or in part, using a voice recognition dictation system. Departure Departure Impression: Primary Impression: Adverse effect of narcotic Additional Impression: AMS (altered mental status) Disposition: 01 HOME, SELF-CARE Condition: IMPROVED Referrals: EARL ROLLINS MD (PCP) Patient Instructions: Altered Mental Status Additional Instructions: Thank you for visiting our Emergency Department. We appreciate you trusting us with your care. If any additional problems come up don't hesitate to return to visit us. Please follow up with your primary care provider so they can plan additional care if needed and know about the problem that you had. If symptoms worsen come back to the Emergency Department. Any concerning symptoms that start such as chest pain, shortness of air, weakness or numbness on one side of the body, running high fevers or any other concerning symptoms return to the ER. Justicifation of Admission Dx: Justifications for Admission: Justification of Admission Dx: Yes MELY PRESTON DO Mar 24, 2020 16:43
[2020-03-24 17:42] VITALS: BP 190/91
== END 2020-03-24 18:25 | disposition home or self-care (01) ==
LOC: ER 12:34
DX: R41.82 Altered mental status, unspecified (principal); T40.695A Adverse effect of other narcotics, initial encounter; E78.00 Pure hypercholesterolemia, unspecified; E11.22 Type 2 diabetes mellitus with diabetic chronic kidney disease; I12.9 Hypertensive chronic kidney disease with stage 1 through stage 4 chronic kidney disease, or unspecified chronic kidney disease; N18.9 Chronic kidney disease, unspecified; I25.10 Atherosclerotic heart disease of native coronary artery without angina pectoris; Z87.891 Personal history of nicotine dependence; Z88.5 Allergy status to narcotic agent; Y92.89 Other specified places as the place of occurrence of the external cause
CPT/HCPCS: 36415; 70450; 80053; 80307; 81001; 83735; 85025; 99285; P9612

== ENCOUNTER 2020-07-24 19:00 | Inpatient (IN) | payer MEDICARE, MEDICAID ==
[~2020-07-24] VITALS: Ht 170.2 cm; Wt 50.5 kg
[~2020-07-24 19:00] MED LIST changes: +ASPI-630 PO; +CHOL10004 PO; +ERGO500089 PO; +GEMF600T20 PO; -GEMF600T8 PO; -LISI-334 PO; +LISI20TA18 PO
[2020-07-24] MEDS ORDERED: IV NORMAL SALINE 500ML BAG 500 ML IV ONE (19:15)
--- NOTE | 2020-07-24 20:19 | ED.ADGEN ---
Past Medical History Past Medical History: Arrhythmia, CAD, Diabetes-Type II, High Cholesterol, Hypertension, Renal Failure Past Surgical History: Appendectomy, Tonsillectomy, Other Additional Past Surgical Histo: Hemmoroidectomy, Left hip repair, Hernia repair, RIGHT FEMUR REPAIR Smoking Status: Former Smoker Alcohol Use: None Drug Use: None General Adult EDM: Chief Complaint: DEHYDRATION HPI: HPI: Patient is a 89 year old female brought in from nursing facility for deh ydration. Patient was diagnosed with COVID-July 06. Over the past week she has been declining. Report per nursing facility staff is that she has had very little p.o. intake over the past 5 days. He states she has started having failure to thrive. Concern for dehydration and acute kidney injury. They state the patient's orientation has decreased that she is only alert oriented x1. Review of Systems: Review of Systems: All other systems within normal limits except for as noted in the HPI Current Medications: Current Medications Medications (Trade) Dose Ordered Sig/Ok Start Time Stop Time Status Last Admin Dose Admin Acetaminophen (Tylenol) 650 mg PRN Q4HRS PRN 07/24/20 23:15 07/25/20 23:14 UNV Ceftriaxone Sodium (Rocephin) 1 gm 1X ONCE 07/24/20 23:00 07/24/20 23:05 DC Ondansetron HCl (Zofran) 4 mg PRN Q8HRS PRN 07/24/20 23:15 07/25/20 23:14 UNV Sodium Chloride 1,000 ml @ 75 mls/hr [id number] 07/24/20 23:15 07/25/20 23:14 UNV Allergies: Allergies: Allergies Coded Allergies Type Severity Reaction Last Updated Verified codeine Allergy Intermediate 06/01/14 Yes Physical Exam: PE: Constitutional: Well developed, well nourished, no acute distress, non-toxic appearance, thin. [] HENT: Normocephalic, atraumatic, bilateral external ears normal, nose normal. [] Eyes: PERRLA, conjunctiva normal, no discharge. [] Neck: No rigidity, supple, no stridor. [] Cardiovascular: Regular rate and rhythm, brisk cap refill [] Lungs & Thorax: Non labored symmetric respirations, no tachypnea or respiratory distress, clear to auscultation [] Abdomen: Soft, nondistended no guarding or rebound. Skin: Warm, dry, no erythema, no rash, cap refill 1 second, mild skin tenting. [] Back: No tenderness, no CVA tenderness. [] Extremities: No deformities, range of motion grossly intact, no lower extremity edema [] Neurologic: Alert and oriented X 3, no focal deficits noted. [] Psychologic: Affect normal, judgement normal, mood normal. [] Current Patient Data: Labs: Laboratory Tests Test 07/24/20 21:15 07/24/20 21:33 White Blood Count 13.1 x10^3/uL (4.0-11.0) H Red Blood Count 3.71 x10^6/uL (3.50-5.40) Hemoglobin 10.3 g/dL (12.0-15.5) L Hematocrit 32.0 % (36.0-47.0) L Mean Corpuscular Volume 86 fL (79-100) Mean Corpuscular Hemoglobin 28 pg (25-35) Mean Corpuscular Hemoglobin Concent 32 g/dL (31-37) Red Cell Distribution Width 17.3 % (11.5-14.5) H Platelet Count 560 x10^3/uL (140-400) H Neutrophils (%) (Auto) 85 % (31-73) H Lymphocytes (%) (Auto) 7 % (24-48) L Monocytes (%) (Auto) 8 % (0-9) Eosinophils (%) (Auto) 0 % (0-3) Basophils (%) (Auto) 0 % (0-3) Neutrophils # (Auto) 11.1 x10^3/uL (1.8-7.7) H Lymphocytes # (Auto) 1.0 x10^3/uL (1.0-4.8) Monocytes # (Auto) 1.1 x10^3/uL (0.0-1.1) Eosinophils # (Auto) 0.0 x10^3/uL (0.0-0.7) Basophils # (Auto) 0.0 x10^3/uL (0.0-0.2) Segmented Neutrophils % 74 % (35-66) H Band Neutrophils % 4 % (0-9) Lymphocytes % 16 % (24-48) L Monocytes % 3 % (0-10) Metamyelocytes % 2 % (0-0) H Myelocytes % 1 % (0-0) H Platelet Estimate Increased (ADEQUATE) Polychromasia Slight Hypochromasia Slight Poikilocytosis Mod Anisocytosis Slight Tear Drop Cells Occ Helmet Cells Occ Crenated Cell Present Schistocytes Occ RBC Morphology Bizarre Forms Few Sodium Level 148 mmol/L (136-145) H Potassium Level 5.0 mmol/L (3.5-5.1) Chloride Level 112 mmol/L (98-107) H Carbon Dioxide Level 13 mmol/L (21-32) L Anion Gap 23 (6-14) H Blood Urea Nitrogen 67 mg/dL (7-20) H Creatinine 2.6 mg/dL (0.6-1.0) H Estimated GFR (Cockcroft-Gault) 21.0 BUN/Creatinine Ratio 26 (6-20) H Glucose Level 176 mg/dL (70-99) H Lactic Acid Level 3.2 mmol/L (0.4-2.0) H Calcium Level 9.6 mg/dL (8.5-10.1) Phosphorus Level 4.8 mg/dL (2.6-4.7) H Magnesium Level 2.8 mg/dL (1.8-2.4) H Total Bilirubin 1.1 mg/dL (0.2-1.0) H Aspartate Amino Transferase (AST) 20 U/L (15-37) Alanine Aminotransferase (ALT) 7 U/L (14-59) L Alkaline Phosphatase 84 U/L (46-116) Troponin I Quantitative 0.060 ng/mL (0.000-0.055) AP-Oyj-Q-Type Natriuretic Peptide 99455 pg/mL (0-449) H Total Protein 7.6 g/dL (6.4-8.2) Albumin 2.9 g/dL (3.4-5.0) L Albumin/Globulin Ratio 0.6 (1.0-1.7) L Urine Collection Type U cath Urine Color Yellow Urine Clarity Cloudy Urine pH 5.5 (<5.0-8.0) Urine Specific [place] 1.020 (1.000-1.030) Urine Protein 100 mg/dL (NEG-TRACE) Urine Glucose (UA) Negative mg/dL (NEG) Urine Ketones (Stick) 15 mg/dL (NEG) Urine Blood Moderate (NEG) Urine Nitrite Negative (NEG) Urine Bilirubin Small (NEG) Urine Urobilinogen Dipstick 1.0 mg/dL (0.2 mg/dL) Urine Leukocyte Esterase Moderate (NEG) Urine RBC Occ /HPF (0-2) Urine WBC 11-20 /HPF (0-4) Urine Squamous Epithelial Cells Few /LPF Urine Bacteria Many /HPF (0-FEW) Laboratory Tests 07/24/20 21:15 Laboratory Tests 07/24/20 21:15 Vital Signs: Vital Signs Date Time Temp Pulse Resp B/P (MAP) Pulse Ox O2 Delivery O2 Flow Rate FiO2 07/24/20 19:00 97.6 99 20 178/106 (130) 97 Room Air 97.6 EKG: EKG: Sinus rhythm, left axis deviation, heart rate [address] elevation or depression, T wave inversions in lateral leads. [] Heart Score: Risk Factors: Risk Factors: DM, Current or recent (<one month) smoker, HTN, HLP, family history of CAD, obesity. Risk Scores: Score 0 - 3: 2.5% MACE over next 6 weeks - Discharge Home Score 4 - 6: 20.3% MACE over next 6 weeks - Admit for Clinical Observation Score 7 - 10: 72.7% MACE over next 6 weeks - Early Invasive Strategies Radiology/Procedures: Radiology/Procedures: XR ABDOMEN 1V History: Reason: abd pain / Spl. Instructions: / History: Technique: Supine view the abdomen. Comparison: None. Findings: Minimal small bowel gas. Air scattered throughout the proximal and distal colon. Moderate stool within the mildly distended rectum. Postop changes bilateral proximal femurs. Multilevel lumbar spondylosis. Vascular calcifications. Impression: 1. Nonobstructed bowel gas pattern. 2. Moderate stool within the distended rectum. XR CHEST 1V History: Reason: abd pain / Spl. Instructions: / History: Comparison: March 17, 2020 Findings: Patchy left basilar opacity. No pleural effusion. No pneumothorax. Normal heart size. Impression: 1. Patchy left basilar opacity, likely atelectasis.[] Course & Med Decision Making: Course & Med Decision Making Pertinent Labs and Imaging studies reviewed. (See chart for details) Patient with marked dehydration, baseline creatinine 1.5, today is 2.6. Lactate 3.2. Mild elevation in troponin at 0.06 also UA consistent with urinary tract infection. [] Dragon Disclaimer: Dragon Disclaimer: This electronic medical record was generated, in whole or in part, using a voice recognition dictation system. Departure Departure Impression: Primary Impression: ENMANUEL (acute kidney injury) Additional Impressions: UTI (urinary tract infection) Dehydration Disposition: ADMITTED INPT THIS HOSP Admitting Physician: MICKY Condition: STABLE Referrals: EARL ROLLINS MD (PCP) Problem Qualifiers ALTHEA GALVAN MD Jul 24, 2020 20:19
--- NOTE | 2020-07-24 20:44 | RAD ---
XR CHEST 1V History: Reason: abd pain / Spl. Instructions: / History: Comparison: March 17, 2020 Findings: Patchy left basilar opacity. No pleural effusion. No pneumothorax. Normal heart size. Impression: 1. Patchy left basilar opacity, likely atelectasis. Electronically signed by: Lance Lemus DO (07/24/2020 8:42 PM) [facility]
--- NOTE | 2020-07-24 20:46 | RAD ---
XR ABDOMEN 1V History: Reason: abd pain / Spl. Instructions: / History: Technique: Supine view the abdomen. Comparison: None. Findings: Minimal small bowel gas. Air scattered throughout the proximal and distal colon. Moderate stool withi n the mildly distended rectum. Postop changes bilateral proximal femurs. Multilevel lumbar spondylosi s. Vascular calcifications. Impression: 1. Nonobstructed bowel gas pattern. 2. Moderate stool within the distended rectum. Electronically signed by: Lance Lemus DO (07/24/2020 8:43 PM) [facility]
[2020-07-24 21:26] LABS: BASO % 0 % (0-3); EOS % 0 % (0-3); HEMOGLOBIN 10.3 g/dL (12.0-15.5); LYMPH % 7 % (24-48); MEAN CORPUSCULAR HEMOGLOBIN 28 pg (25-35); MEAN CORPUSCULAR HGB CONC 32 g/dL (31-37); MEAN CORPUSCULAR VOLUME 86 fL (79-100); MONO # 1.1 x10^3/uL (0.0-1.1); MONO % 8 % (0-9); NEUT # 11.1 x10^3/uL (1.8-7.7); NEUT % 85 % (31-73); PLATELET COUNT 560 x10^3/uL (140-400); RED BLOOD COUNT 3.71 x10^6/uL (3.50-5.40); RED CELL DISTRIBUTION WIDTH 17.3 % (11.5-14.5); WHITE BLOOD COUNT 13.1 x10^3/uL (4.0-11.0)
[2020-07-24 21:38] LABS: CALCIUM 9.6 mg/dL (8.5-10.1); CREATININE 2.6 mg/dL (0.6-1.0)
[2020-07-24 21:43] LABS: ALBUMIN 2.9 g/dL (3.4-5.0); ALBUMIN/GLOBULIN RATIO 0.6 (1.0-1.7); MAGNESIUM 2.8 mg/dL (1.8-2.4); PHOSPHORUS 4.8 mg/dL (2.6-4.7); TOTAL BILIRUBIN 1.1 mg/dL (0.2-1.0); TOTAL PROTEIN 7.6 g/dL (6.4-8.2)
[2020-07-24 21:54] LABS: BILIRUBIN,URINE SMALL (NEG); CLARITY,URINE CLOUDY; COLOR,URINE YELLOW; NITRITE,URINE NEGATIVE (NEG); PH,URINE 5.5 (<5.0-8.0); PROTEIN,URINE 100 mg/dL (NEG-TRACE)
[2020-07-24 21:58] LABS: % BANDS 4 % (0-9); % LYMPHS 16 % (24-48); % METAS 2 % (0-0); % MONOS 3 % (0-10); % MYELOS 1 % (0-0); % SEGS 74 % (35-66); ANISOCYTOSIS SLIGHT; BIZZARE CELLS FEW; HYPOCHROMIA SLIGHT; PLT ESTIMATE INCREASED (ADEQUATE); POIKILOCYTOSIS MOD; POLYCHROMASIA SLIGHT; TEAR DROP CELLS OCC
[2020-07-24 21:59] LABS: HELMET CELLS OCC; SCHISTOCYTES OCC
[2020-07-24 22:02] LABS: BACTERIA,URINE MANY /HPF (0-FEW); RBC,URINE OCC /HPF (0-2)
[2020-07-24] MEDS ORDERED: cefTRIAXone IV Push 1 GM VIAL. IVP ONE (23:00)
[2020-07-24] MEDS ORDERED: ACETAMINOPHEN 325 MG TABLET. PO PRN (23:15)
[2020-07-24] MEDS ORDERED: ONDANSETRON PF 4 MG/2 ML VIAL. IV PRN (23:15)
[2020-07-24] MEDS: IV NORMAL SALINE 1000ML BAG 1,000 ML IV SCH (23:25)
[2020-07-25] VITALS (7 sets, daily range): BP systolic 17–202; BP diastolic 77–89
[2020-07-25] MEDS ORDERED: ONDA4TAB7 PO (01:39)
[2020-07-25] MEDS ORDERED: ACET500T68 PO (01:39)
[2020-07-25] MEDS ORDERED: MIDO5TAB4 PO (01:39)
[2020-07-25] MEDS ORDERED: MAGN24003 PO (01:39)
[2020-07-25] MEDS ORDERED: ERGO2500 PO (01:39)
[2020-07-25] MEDS ORDERED: MEGE400O4 PO (01:40)
--- NOTE | 2020-07-25 02:11 | EKG ---
[facility] [address] [place] [address] Test Date: 2020-07-24 Test Time: 19:43:44 Pat Name: ABBEY BONNER Department: Room: Gender: F Cover Operator: : 1930 Requested By: ALTHEA GALVAN Order Number: [id number] Reading MD: Measurements Intervals [place] Rate: 92 P: 42 WI: 138 QRS: -45 QRSD: 80 T: 36 QT: 408 QTc: 510 Interpretive Statements SINUS RHYTHM ABNORMAL LEFT AXIS DEVIATION LEFT ANTERIOR FASCICULAR BLOCK CONSIDER LEFT VENTRICULAR HYPERTROPHY QRS(T) CONTOUR ABNORMALITY CONSIDER ANTEROSEPTAL MYOCARDIAL DAMAGE CONSIDER INFERIOR INFARCT T ABNORMALITY IN ANTERIOR LEADS ABNORMAL ECG RI6.02 No previous ECG available for comparison
[2020-07-25] MEDS ORDERED: INFLUENZA VAX SCREEN BY RX. MC ONE (02:30)
[2020-07-25] MEDS ORDERED: FLU VACC QS 2020-21(6MOS+)/PF 0.5 ML SYRINGE. VAX IM ONE (09:00)
[2020-07-25 09:47] LABS: BASO % 0 % (0-3); EOS % 0 % (0-3); HEMATOCRIT 29.5 % (36.0-47.0); HEMOGLOBIN 9.2 g/dL (12.0-15.5); LYMPH # 0.9 x10^3/uL (1.0-4.8); LYMPH % 6 % (24-48); MEAN CORPUSCULAR HEMOGLOBIN 27 pg (25-35); MEAN CORPUSCULAR HGB CONC 31 g/dL (31-37); MEAN CORPUSCULAR VOLUME 86 fL (79-100); MONO # 1.3 x10^3/uL (0.0-1.1); MONO % 10 % (0-9); NEUT # 11.6 x10^3/uL (1.8-7.7); NEUT % 84 % (31-73); PLATELET COUNT 577 x10^3/uL (140-400); RED BLOOD COUNT 3.43 x10^6/uL (3.50-5.40); RED CELL DISTRIBUTION WIDTH 17.5 % (11.5-14.5); WHITE BLOOD COUNT 13.8 x10^3/uL (4.0-11.0)
[2020-07-25 09:57] LABS: CALCIUM 9.1 mg/dL (8.5-10.1); CREATININE 2.3 mg/dL (0.6-1.0); GFR 24.2; POTASSIUM 4.6 mmol/L (3.5-5.1)
--- NOTE | 2020-07-25 11:32 | PDOC1 ---
History and Physical Date of Admission Date of Admission DATE: 07/25/20 TIME: 11:29 Identification/Chief Complaint Chief Complaint seen in er with severe dehydration, ENMANUEL 89 year old female brought in from nursing facility for dehydration. CR 2.3 IN ER // was diagnosed with COVID-July 06. Over the past week she has been declining. POOR INTAKE NOTED per nursing facility staff is that she has had very little p.o. intake over the past 5 days. STAFF states she has started having failure to thrive. Concern for dehydration and acute kidney injury. They state the patient's orientation has decreased that she is only alert oriented x1. Past Medical History Past Medical History Past Medical History Past Medical History Past Medical History: Arrhythmia, CAD, Diabetes-Type II, High Cholesterol, Hypertension, Renal Failure Past Surgical History: Appendectomy, Tonsillectomy, Other Additional Past Surgical Histo: Hemmoroidectomy, Left hip repair, Hernia repair, RIGHT FEMUR REPAIR Smoking Status: Former Smoker Alcohol Use: None Drug Use: None fhx htn, copd Cardiovascular: AFIB, CAD, CHF, HTN, Hyperlipidemia Pulmonary: No pertinent hx GI: No pertinent hx Heme/Onc: Anemia NOS Hepatobiliary: No pertinent hx Psych: Anxiety, Depression Musculoskeletal: Osteoarthritis Rheumatologic: No pertinent hx Infectious disease: No pertinent hx Renal/: Chronic renal insuff Endocrine: Diabetes Past Surgical History Past Surgical History: Appendectomy, Tonsillectomy, Other Family History Family History: Hypertension Social History Smoke: No ALCOHOL: none Drugs: None Current Problem List Problem List Problems Medical Problems: (1) ENMANUEL (acute kidney injury) Status: Acute (2) Dehydration Status: Acute (3) UTI (urinary tract infection) Status: Acute Current Medications Current Medications Current Medications Sodium Chloride 500 ml @ 500 mls/hr 1X ONCE IV Last administered on 07/24/20at 19:15; Start 07/24/20 at 19:15; Stop 07/24/20 at 20:14; Status DC Ceftriaxone Sodium (Rocephin) 1 gm 1X ONCE IVP Last administered on 07/24/20at 23:25; Start 07/24/20 at 23:00; Stop 07/24/20 at 23:05; Status DC Ondansetron HCl (Zofran) 4 mg PRN Q8HRS PRN IV NAUSEA/VOMITING; Start 07/24/20 at 23:15; Stop 07/25/20 at 23:14 Sodium Chloride 1,000 ml @ 75 mls/hr [id number] IV Last administered on 07/24/20at 23:25; Start 07/24/20 at 23:15; Stop 07/25/20 at 23:14 Acetaminophen (Tylenol) 650 mg PRN Q4HRS PRN PO FEVER > 100.3'F; Start 07/24/20 at 23:15; Stop 07/25/20 at 23:14 Info (FLU VACCINE SCREEN per RX) 1 each 1X ONCE MC ; Start 07/25/20 at 02:30; Stop 07/25/20 at 02:31; Status UNV Influenza Virus Vaccine Quadrival (Fluzone Quad Syringe) 0.5 ml ONCE ONCE VAX IM Last administered on 07/25/20at 10:07; Start 07/25/20 at 09:00; Stop 07/25/20 at 09:01; Status DC Lactobacillus Rhamnosus (Culturelle) 1 cap BID PO ; Start 07/25/20 at 21:00 Active Scripts Active Aspirin 81 Mg Tab.chew 1 Tab PO DAILY Vitamin D3 (Cholecalciferol (Vitamin D3)) 25 Mcg Tablet 1,000 Unit PO DAILY 30 Days Hydrocodone-Apap 5-325 (Hydrocodone Bit/Acetaminophen) 1 Tab Tablet 1 Tab PO PRN Q4HRS PRN 6 Days Reported Megestrol Acetate 400 Mg/10 Ml Oral.susp 400 Mg PO DAILY Ergocal (Ergocalciferol (Vitamin D2)) 62.5 Mcg Capsule 5,000 Unit PO QWE Acetaminophen 500 Mg Tablet 500 Mg PO TID Zofran (Ondansetron Hcl) 4 Mg Tablet 4 Mg PO PRN Q6HRS PRN Milk Of Magnesia (Magnesium Hydroxide) 2,400 Mg/10 Ml Oral.susp 2,400 Mg PO PRN DAILY PRN Midodrine Hcl 5 Mg Tablet 5 Mg PO TID Mirtazapine 7.5 Mg Tablet 7.5 Mg PO QHS Latanoprost 2.5 Ml Drops 1 Drop EACHEYE QHS Gemfibrozil 600 Mg Tablet 600 Mg PO BID Allergies Allergies: Coded Allergies: codeine (Verified Allergy, Intermediate, 06/01/14) ROS Review of System 14 PT ROS OTHERWISE NEG General: YES: Fatigue, Malaise PSYCHOLOGICAL ROS: YES: Memory difficulties Eyes: No Blurry vision, No Decreased vision, No Double vision, No Dry eyes, No Excessive tearing, No Eye Pain, No Itchy Eyes, No Loss of vision, No Photophobia, No Scotomata, No Uses contacts, No Uses glasses, No Other HEENT: No: Heacaches, Visual Changes, Hearing change, Nasal congestion, Nasal discharge, Oral lesions, Sinus pain, Sore Throat, Epistaxis, Sneezing, Snoring, Tinnitus, Vertigo, Vocal changes, Other ALLERGY AND IMMUNOLOGY: No: Hives, Insect Bite Sensitivity, Itchy/Watery Eyes, Nasal Congestion, Post Nasal Drip, Seasonal Allergies, Other Hematological and Lymphatic: No: Bleeding Problems, Blood Clots, Blood Transfusions, Brusing, Night Sweats, Pallor, Swollen Lymph Nodes, Other Respiratory: YES: Cough, Shortness of breath; No: Hemoptysis, Orthopnea, Pleuritic Pain, SOB with excertion, Sputum Changes, Stridor, Tachypnea, Wheezing, Other Cardiovascular: No Chest Pain, No Palpitations, No Orthopnea, No Paroxysmal Noc. Dyspnea, No Edema, No Lt Headedness, No Other Gastrointestinal: Yes Nausea, Yes Vomiting, Yes Diarrhea Neurological: Yes Confusion Skin: Yes Dry Skin; No Eczema, No Hair Changes, No Lumps, No Mole Changes, No Mottling, No Nail Changes, No Pruritus, No Rash, No Skin Lesion Changes, No Other, No Acne Physical Exam Physical Exam E: Constitutional: Well developed, well nourished, no acute distress, non-toxic appearance, thin. [] HENT: Normocephalic, atraumatic, bilateral external ears normal, nose normal. [] Eyes: PERRLA, conjunctiva normal, no discharge. [] Neck: No rigidity, supple, no stridor. [] Cardiovascular: Regular rate and rhythm, brisk cap refill [] Lungs & Thorax: Non labored symmetric respirations, no tachypnea or respiratory distress, clear to auscultation [] Abdomen: Soft, nondistended no guarding or rebound. Skin: Warm, dry, no erythema, no rash, cap refill 1 second, mild skin tenting. [] Back: No tenderness, no CVA tenderness. [] Extremities: No deformities, range of motion grossly intact, no lower extremity edema [] Neurologic: Alert and oriented TO NAME ONLY , no focal deficits noted. [] Psychologic: Affect normal, mood normal. [] General: Cooperative, No acute distress HEENT: Mucous membr. moist/pink Breasts: Not examined Rectal Exam: not examined PELVIC: Examination not indicated Extremities: No cyanosis Neuro: Sensation intact, Other (CONFUSED TO DETAILS) Psych/Mental Status: Mood NL Vitals Vitals Vital Signs Date Time Temp Pulse Resp B/P (MAP) Pulse Ox O2 Delivery O2 Flow Rate FiO2 07/25/20 07:19 98.0 71 18 17/89 (65) 99 Room Air 98.0 Labs Labs Laboratory Tests Test 07/24/20 21:15 07/24/20 21:33 07/25/20 01:05 07/25/20 09:15 White Blood Count 13.1 x10^3/uL (4.0-11.0) 13.8 x10^3/uL (4.0-11.0) Red Blood Count 3.71 x10^6/uL (3.50-5.40) 3.43 x10^6/uL (3.50-5.40) Hemoglobin 10.3 g/dL (12.0-15.5) 9.2 g/dL (12.0-15.5) Hematocrit 32.0 % (36.0-47.0) 29.5 % (36.0-47.0) Mean Corpuscular Volume 86 fL (79-100) 86 fL (79-100) Mean Corpuscular Hemoglobin 28 pg (25-35) 27 pg (25-35) Mean Corpuscular Hemoglobin Concent 32 g/dL (31-37) 31 g/dL (31-37) Red Cell Distribution Width 17.3 % (11.5-14.5) 17.5 % (11.5-14.5) Platelet Count 560 x10^3/uL (140-400) 577 x10^3/uL (140-400) Neutrophils (%) (Auto) 85 % (31-73) 84 % (31-73) Lymphocytes (%) (Auto) 7 % (24-48) 6 % (24-48) Monocytes (%) (Auto) 8 % (0-9) 10 % (0-9) Eosinophils (%) (Auto) 0 % (0-3) 0 % (0-3) Basophils (%) (Auto) 0 % (0-3) 0 % (0-3) Neutrophils # (Auto) 11.1 x10^3/uL (1.8-7.7) 11.6 x10^3/uL (1.8-7.7) Lymphocytes # (Auto) 1.0 x10^3/uL (1.0-4.8) 0.9 x10^3/uL (1.0-4.8) Monocytes # (Auto) 1.1 x10^3/uL (0.0-1.1) 1.3 x10^3/uL (0.0-1.1) Eosinophils # (Auto) 0.0 x10^3/uL (0.0-0.7) 0.0 x10^3/uL (0.0-0.7) Basophils # (Auto) 0.0 x10^3/uL (0.0-0.2) 0.0 x10^3/uL (0.0-0.2) Segmented Neutrophils % 74 % (35-66) Band Neutrophils % 4 % (0-9) Lymphocytes % 16 % (24-48) Monocytes % 3 % (0-10) Metamyelocytes % 2 % (0-0) Myelocytes % 1 % (0-0) Platelet Estimate Increased (ADEQUATE) Polychromasia Slight Hypochromasia Slight Poikilocytosis Mod Anisocytosis Slight Tear Drop Cells Occ Helmet Cells Occ Crenated Cell Present Schistocytes Occ RBC Morphology Bizarre Forms Few Sodium Level 148 mmol/L (136-145) 154 mmol/L (136-145) Potassium Level 5.0 mmol/L (3.5-5.1) 4.6 mmol/L (3.5-5.1) Chloride Level 112 mmol/L (98-107) 118 mmol/L (98-107) Carbon Dioxide Level 13 mmol/L (21-32) 15 mmol/L (21-32) Anion Gap 23 (6-14) 21 (6-14) Blood Urea Nitrogen 67 mg/dL (7-20) 63 mg/dL (7-20) Creatinine 2.6 mg/dL (0.6-1.0) 2.3 mg/dL (0.6-1.0) Estimated GFR (Cockcroft-Gault) 21.0 24.2 BUN/Creatinine Ratio 26 (6-20) Glucose Level 176 mg/dL (70-99) 145 mg/dL (70-99) Lactic Acid Level 3.2 mmol/L (0.4-2.0) 2.5 mmol/L (0.4-2.0) Calcium Level 9.6 mg/dL (8.5-10.1) 9.1 mg/dL (8.5-10.1) Phosphorus Level 4.8 mg/dL (2.6-4.7) Magnesium Level 2.8 mg/dL (1.8-2.4) Total Bilirubin 1.1 mg/dL (0.2-1.0) Aspartate Amino Transf (AST/SGOT) 20 U/L (15-37) Alanine Aminotransferase (ALT/SGPT) 7 U/L (14-59) Alkaline Phosphatase 84 U/L (46-116) Troponin I Quantitative 0.060 ng/mL (0.000-0.055) 0.069 ng/mL (0.000-0.055) SZ-Dwg-L-Type Natriuretic Peptide 82328 pg/mL (0-449) Total Protein 7.6 g/dL (6.4-8.2) Albumin 2.9 g/dL (3.4-5.0) Albumin/Globulin Ratio 0.6 (1.0-1.7) Urine Collection Type U cath Urine Color Yellow Urine Clarity Cloudy Urine pH 5.5 (<5.0-8.0) Urine Specific Carlton 1.020 (1.000-1.030) Urine Protein 100 mg/dL (NEG-TRACE) Urine Glucose (UA) Negative mg/dL (NEG) Urine Ketones (Stick) 15 mg/dL (NEG) Urine Blood Moderate (NEG) Urine Nitrite Negative (NEG) Urine Bilirubin Small (NEG) Urine Urobilinogen Dipstick 1.0 mg/dL (0.2 mg/dL) Urine Leukocyte Esterase Moderate (NEG) Urine RBC Occ /HPF (0-2) Urine WBC 11-20 /HPF (0-4) Urine Squamous Epithelial Cells Few /LPF Urine Bacteria Many /HPF (0-FEW) Laboratory Tests Test 07/24/20 21:15 07/24/20 21:33 07/25/20 01:05 07/25/20 09:15 White Blood Count 13.1 x10^3/uL (4.0-11.0) 13.8 x10^3/uL (4.0-11.0) Red Blood Count 3.71 x10^6/uL (3.50-5.40) 3.43 x10^6/uL (3.50-5.40) Hemoglobin 10.3 g/dL (12.0-15.5) 9.2 g/dL (12.0-15.5) Hematocrit 32.0 % (36.0-47.0) 29.5 % (36.0-47.0) Mean Corpuscular Volume 86 fL (79-100) 86 fL (79-100) Mean Corpuscular Hemoglobin 28 pg (25-35) 27 pg (25-35) Mean Corpuscular Hemoglobin Concent 32 g/dL (31-37) 31 g/dL (31-37) Red Cell Distribution Width 17.3 % (11.5-14.5) 17.5 % (11.5-14.5) Platelet Count 560 x10^3/uL (140-400) 577 x10^3/uL (140-400) Neutrophils (%) (Auto) 85 % (31-73) 84 % (31-73) Lymphocytes (%) (Auto) 7 % (24-48) 6 % (24-48) Monocytes (%) (Auto) 8 % (0-9) 10 % (0-9) Eosinophils (%) (Auto) 0 % (0-3) 0 % (0-3) Basophils (%) (Auto) 0 % (0-3) 0 % (0-3) Neutrophils # (Auto) 11.1 x10^3/uL (1.8-7.7) 11.6 x10^3/uL (1.8-7.7) Lymphocytes # (Auto) 1.0 x10^3/uL (1.0-4.8) 0.9 x10^3/uL (1.0-4.8) Monocytes # (Auto) 1.1 x10^3/uL (0.0-1.1) 1.3 x10^3/uL (0.0-1.1) Eosinophils # (Auto) 0.0 x10^3/uL (0.0-0.7) 0.0 x10^3/uL (0.0-0.7) Basophils # (Auto) 0.0 x10^3/uL (0.0-0.2) 0.0 x10^3/uL (0.0-0.2) Segmented Neutrophils % 74 % (35-66) Band Neutrophils % 4 % (0-9) Lymphocytes % 16 % (24-48) Monocytes % 3 % (0-10) Metamyelocytes % 2 % (0-0) Myelocytes % 1 % (0-0) Platelet Estimate Increased (ADEQUATE) Polychromasia Slight Hypochromasia Slight Poikilocytosis Mod Anisocytosis Slight Tear Drop Cells Occ Helmet Cells Occ Crenated Cell Present Schistocytes Occ RBC Morphology Bizarre Forms Few Sodium Level 148 mmol/L (136-145) 154 mmol/L (136-145) Potassium Level 5.0 mmol/L (3.5-5.1) 4.6 mmol/L (3.5-5.1) Chloride Level 112 mmol/L (98-107) 118 mmol/L (98-107) Carbon Dioxide Level 13 mmol/L (21-32) 15 mmol/L (21-32) Anion Gap 23 (6-14) 21 (6-14) Blood Urea Nitrogen 67 mg/dL (7-20) 63 mg/dL (7-20) Creatinine 2.6 mg/dL (0.6-1.0) 2.3 mg/dL (0.6-1.0) Estimated GFR (Cockcroft-Gault) 21.0 24.2 BUN/Creatinine Ratio 26 (6-20) Glucose Level 176 mg/dL (70-99) 145 mg/dL (70-99) Lactic Acid Level 3.2 mmol/L (0.4-2.0) 2.5 mmol/L (0.4-2.0) Calcium Level 9.6 mg/dL (8.5-10.1) 9.1 mg/dL (8.5-10.1) Phosphorus Level 4.8 mg/dL (2.6-4.7) Magnesium Level 2.8 mg/dL (1.8-2.4) Total Bilirubin 1.1 mg/dL (0.2-1.0) Aspartate Amino Transf (AST/SGOT) 20 U/L (15-37) Alanine Aminotransferase (ALT/SGPT) 7 U/L (14-59) Alkaline Phosphatase 84 U/L (46-116) Troponin I Quantitative 0.060 ng/mL (0.000-0.055) 0.069 ng/mL (0.000-0.055) LL-Uyg-V-Type Natriuretic Peptide 98677 pg/mL (0-449) Total Protein 7.6 g/dL (6.4-8.2) Albumin 2.9 g/dL (3.4-5.0) Albumin/Globulin Ratio 0.6 (1.0-1.7) Urine Collection Type U cath Urine Color Yellow Urine Clarity Cloudy Urine pH 5.5 (<5.0-8.0) Urine Specific Carlton 1.020 (1.000-1.030) Urine Protein 100 mg/dL (NEG-TRACE) Urine Glucose (UA) Negative mg/dL (NEG) Urine Ketones (Stick) 15 mg/dL (NEG) Urine Blood Moderate (NEG) Urine Nitrite Negative (NEG) Urine Bilirubin Small (NEG) Urine Urobilinogen Dipstick 1.0 mg/dL (0.2 mg/dL) Urine Leukocyte Esterase Moderate (NEG) Urine RBC Occ /HPF (0-2) Urine WBC 11-20 /HPF (0-4) Urine Squamous Epithelial Cells Few /LPF Urine Bacteria Many /HPF (0-FEW) Images Images PATIENT: ABBEY BONNER ACCOUNT: [id number] : 1930 LOCATION: ER AGE: 89 SEX: F EXAM STATUS: REG ER ORD. PHYSICIAN: ALTHEA GALVAN MD REASON: abd pain PROCEDURE: KUB XR ABDOMEN 1V History: Reason: abd pain / Spl. Instructions: / History: Technique: Supine view the abdomen. Comparison: None. Findings: Minimal small bowel gas. Air scattered throughout the proximal and distal colon. Moderate stool within the mildly distended rectum. Postop changes bilateral proximal femurs. Multilevel lumbar spondylosis. Vascular calcifications. Impression: 1. Nonobstructed bowel gas pattern. 2. Moderate stool within the distended rectum. Electronically signed by: Lance Aiken DO (07/24/2020 8:43 PM) [facility] DICTATED and SIGNED BY: LANCE AIKEN DO DATE: 07/24/200 0 PATIENT: ABBEY BONNER ACCOUNT: [id number] : 1930 LOCATION: ER AGE: 89 SEX: F EXAM STATUS: REG ER ORD. PHYSICIAN: ALTHEA GALVAN MD REASON: abd pain PROCEDURE: CHEST AP ONLY XR CHEST 1V History: Reason: abd pain / Spl. Instructions: / History: Comparison: March 17, 2020 Findings: Patchy left basilar opacity. No pleural effusion. No pneumothorax. Normal heart size. Impression: 1. Patchy left basilar opacity, likely atelectasis. Electronically signed by: Lance Aiken DO (07/24/2020 8:42 PM) [facility] DICTATED and SIGNED BY: LANCE AIKEN DO DATE: 07/24/200 0 VTE Prophylaxis Ordered VTE Prophylaxis Devices: No VTE Pharmacological Prophylaxi: Yes Assessment/Plan Assessment/Plan Impression: ACUTE RESPIRATORY FAILURE due to covid 19 pneumonia Patchy left basilar opacity, likely atelectasis. Nonobstructed bowel gas pattern. Moderate stool within the distended rectum. Progressively healing right subcapital femoral neck fracture FROM 04/02 ACUTE RENAL INJURY Malnutrition, severe sepsis METABOLIC ACIDOSIS PLAN ADMIT IV FLUID SUPPORT, HYPOTONIC EMPERIC IV ROCEPHIN BOWEL REGIMEN NEPHROLOGY CONSULT blood cultures NEPHROLOGY CONSULT DAILY LABS Justifications for Admission Other Justification JOHN GILMORE MD Jul 25, 2020 11:32
[2020-07-25] MEDS: IV NORMAL SALINE 1000ML BAG 1,000 ML IV SCH (12:35)
[2020-07-25] MEDS ORDERED: ONDANSETRON ODT 4 MG TAB.RAPDIS. PO PRN (15:15)
--- NOTE | 2020-07-25 15:35 | NUR ---
SW following for discharge planning. Spoke with RN and reviewed chart. Pt currently on room air, IV Rocephin. Pt tested COVID positive at [facility] last week per daughter. SW spoke with daughter/POA Ida ([phone]). PINEDA discussed hospice with Ida. Ida would like pt to be a DNR. Pt stated she will talk further with her family about hospice care and get back to on 07/26. SW following.
--- NOTE | 2020-07-25 16:05 | PDOC2 ---
CONSULT Date of Consult Date of Consult DATE: 07/25/20 TIME: 15:57 Reason for Consult Reason for Consult: ENMANUEL Referring Physician Referring Physician: MANDO Identification/Chief Complaint Chief Complaint CONFUSION Source Source: Chart review History of Present Illness Reason for Visit: THIS IS AN 89 YR OLD FROM [place]. FAILURE TO THRIVE AND NOT EATING. DEHYDRATED AND NOW HAS ENMANUEL WITH HYPERNATREMIA, HYPERKALEMIA, MET ACIDOSIS. CR OF 2.6. HAS HAS ENMANUEL IN THE PAST BUT RECOVERED WITH HYDRATION. HAS CKD STAGE 3 WITH BASELINE CR OF 1.0 TO 1.3. NO OTHER HX REPORTED. NO HEMODYNAMIC INSTABILITY OR NEPHROTOXINS NOTED. Past Medical History Cardiovascular: AFIB, CAD, CHF, HTN, Hyperlipidemia Pulmonary: No pertinent hx GI: No pertinent hx Heme/Onc: Anemia NOS Hepatobiliary: No pertinent hx Psych: Anxiety, Depression Musculoskeletal: Osteoarthritis Rheumatologic: No pertinent hx Infectious disease: No pertinent hx Renal/: Chronic renal insuff Endocrine: Diabetes Past Surgical History Past Surgical History: Appendectomy, Tonsillectomy, Other Family History Family History: Hypertension Social History No ALCOHOL: none Drugs: None Lives: with Family Current Problem List Problem List Problems Medical Problems: (1) ENMANUEL (acute kidney injury) Status: Acute (2) Dehydration Status: Acute (3) UTI (urinary tract infection) Status: Acute Current Medications Current Medications Current Medications Sodium Chloride 500 ml @ 500 mls/hr 1X ONCE IV Last administered on 07/24/20at 19:15; Start 07/24/20 at 19:15; Stop 07/24/20 at 20:14; Status DC Ceftriaxone Sodium (Rocephin) 1 gm 1X ONCE IVP Last administered on 07/24/20at 23:25; Start 07/24/20 at 23:00; Stop 07/24/20 at 23:05; Status DC Ondansetron HCl (Zofran) 4 mg PRN Q8HRS PRN IV NAUSEA/VOMITING; Start 07/24/20 at 23:15; Stop 07/25/20 at 23:14 Sodium Chloride 1,000 ml @ 75 mls/hr [id number] IV Last administered on 07/25/20at 12:35; Start 07/24/20 at 23:15; Stop 07/25/20 at 23:14 Acetaminophen (Tylenol) 650 mg PRN Q4HRS PRN PO FEVER > 100.3'F; Start 07/24/20 at 23:15; Stop 07/25/20 at 23:14 Info (FLU VACCINE SCREEN per RX) 1 each 1X ONCE MC ; Start 07/25/20 at 02:30; Stop 07/25/20 at 02:31; Status UNV Influenza Virus Vaccine Quadrival (Fluzone Quad Syringe) 0.5 ml ONCE ONCE VAX IM Last administered on 07/25/20at 10:07; Start 07/25/20 at 09:00; Stop 07/25/20 at 09:01; Status DC Lactobacillus Rhamnosus (Culturelle) 1 cap BID PO ; Start 07/25/20 at 21:00 Ceftriaxone Sodium (Rocephin) 1 gm Q24H IVP ; Start 07/25/20 at 21:00 Dextrose/Sodium Chloride 1,000 ml @ 75 mls/hr [id number] IV ; Start 07/25/20 at 15:15 Aspirin (Aspirin Chewable) 81 mg DAILY PO ; Start 07/26/20 at 09:00 Vitamin D (Vitamin D3) 1,000 unit DAILY PO ; Start 07/26/20 at 09:00 Gemfibrozil (Lopid) 600 mg BID PO ; Start 07/25/20 at 21:00 Latanoprost (Xalatan) 1 drop QHS OU ; Start 07/25/20 at 21:00 Megestrol Acetate (Megace) 400 mg DAILY PO ; Start 07/26/20 at 09:00 Ergocalciferol (Vitamin D2) 50,000 unit We PO ; Start 07/26/20 at 09:00 Ondansetron HCl (Zofran Odt) 4 mg PRN Q6HRS PRN PO NAUSEA/VOMITING; Start 07/25/20 at 15:15 Labetalol HCl (Normodyne Iv Push) 20 mg PRN Q3HRS PRN IVP HYPERTENSION; Start 07/25/20 at 16:00 Active Scripts Active Aspirin 81 Mg Tab.chew 1 Tab PO DAILY Vitamin D3 (Cholecalciferol (Vitamin D3)) 25 Mcg Tablet 1,000 Unit PO DAILY 30 Days Hydrocodone-Apap 5-325 (Hydrocodone Bit/Acetaminophen) 1 Tab Tablet 1 Tab PO PRN Q4HRS PRN 6 Days Reported Megestrol Acetate 400 Mg/10 Ml Oral.susp 400 Mg PO DAILY Ergocal (Ergocalciferol (Vitamin D2)) 62.5 Mcg Capsule 5,000 Unit PO QWE Acetaminophen 500 Mg Tablet 500 Mg PO TID Zofran (Ondansetron Hcl) 4 Mg Tablet 4 Mg PO PRN Q6HRS PRN Milk Of Magnesia (Magnesium Hydroxide) 2,400 Mg/10 Ml Oral.susp 2,400 Mg PO PRN DAILY PRN Midodrine Hcl 5 Mg Tablet 5 Mg PO TID Mirtazapine 7.5 Mg Tablet 7.5 Mg PO QHS Latanoprost 2.5 Ml Drops 1 Drop EACHEYE QHS Gemfibrozil 600 Mg Tablet 600 Mg PO BID Allergies Allergies: Coded Allergies: codeine (Verified Allergy, Intermediate, 06/01/14) ROS Review of System UNABLE TO OBTAIN Physical Exam General: Cooperative, No acute distress HEENT: Atraumatic, Other (DRY MUCOSA) Lungs: Clear to auscultation Heart: Regular rate Abdomen: Normal bowel sounds, Soft, No hepatosplenomegaly Extremities: No clubbing Skin: No breakdown Neuro: Other (CONFUSED, NO ASYMMETRY) Psych/Mental Status: Other (NO ASYMMETERY) MUSCULOSKELETAL: No joint tenderness, Other (DIFFUSE ATROPHY) Vitals VITALS Vital Signs Date Time Temp Pulse Resp B/P (MAP) Pulse Ox O2 Delivery O2 Flow Rate FiO2 07/25/20 15:14 98.7 89 18 202/89 (126) 99 Room Air 98.7 Labs Labs Laboratory Tests Test 07/24/20 21:15 07/24/20 21:33 07/25/20 01:05 07/25/20 09:15 White Blood Count 13.1 x10^3/uL (4.0-11.0) 13.8 x10^3/uL (4.0-11.0) Red Blood Count 3.71 x10^6/uL (3.50-5.40) 3.43 x10^6/uL (3.50-5.40) Hemoglobin 10.3 g/dL (12.0-15.5) 9.2 g/dL (12.0-15.5) Hematocrit 32.0 % (36.0-47.0) 29.5 % (36.0-47.0) Mean Corpuscular Volume 86 fL (79-100) 86 fL (79-100) Mean Corpuscular Hemoglobin 28 pg (25-35) 27 pg (25-35) Mean Corpuscular Hemoglobin Concent 32 g/dL (31-37) 31 g/dL (31-37) Red Cell Distribution Width 17.3 % (11.5-14.5) 17.5 % (11.5-14.5) Platelet Count 560 x10^3/uL (140-400) 577 x10^3/uL (140-400) Neutrophils (%) (Auto) 85 % (31-73) 84 % (31-73) Lymphocytes (%) (Auto) 7 % (24-48) 6 % (24-48) Monocytes (%) (Auto) 8 % (0-9) 10 % (0-9) Eosinophils (%) (Auto) 0 % (0-3) 0 % (0-3) Basophils (%) (Auto) 0 % (0-3) 0 % (0-3) Neutrophils # (Auto) 11.1 x10^3/uL (1.8-7.7) 11.6 x10^3/uL (1.8-7.7) Lymphocytes # (Auto) 1.0 x10^3/uL (1.0-4.8) 0.9 x10^3/uL (1.0-4.8) Monocytes # (Auto) 1.1 x10^3/uL (0.0-1.1) 1.3 x10^3/uL (0.0-1.1) Eosinophils # (Auto) 0.0 x10^3/uL (0.0-0.7) 0.0 x10^3/uL (0.0-0.7) Basophils # (Auto) 0.0 x10^3/uL (0.0-0.2) 0.0 x10^3/uL (0.0-0.2) Segmented Neutrophils % 74 % (35-66) Band Neutrophils % 4 % (0-9) Lymphocytes % 16 % (24-48) Monocytes % 3 % (0-10) Metamyelocytes % 2 % (0-0) Myelocytes % 1 % (0-0) Platelet Estimate Increased (ADEQUATE) Polychromasia Slight Hypochromasia Slight Poikilocytosis Mod Anisocytosis Slight Tear Drop Cells Occ Helmet Cells Occ Crenated Cell Present Schistocytes Occ RBC Morphology Bizarre Forms Few Sodium Level 148 mmol/L (136-145) 154 mmol/L (136-145) Potassium Level 5.0 mmol/L (3.5-5.1) 4.6 mmol/L (3.5-5.1) Chloride Level 112 mmol/L (98-107) 118 mmol/L (98-107) Carbon Dioxide Level 13 mmol/L (21-32) 15 mmol/L (21-32) Anion Gap 23 (6-14) 21 (6-14) Blood Urea Nitrogen 67 mg/dL (7-20) 63 mg/dL (7-20) Creatinine 2.6 mg/dL (0.6-1.0) 2.3 mg/dL (0.6-1.0) Estimated GFR (Cockcroft-Gault) 21.0 24.2 BUN/Creatinine Ratio 26 (6-20) Glucose Level 176 mg/dL (70-99) 145 mg/dL (70-99) Lactic Acid Level 3.2 mmol/L (0.4-2.0) 2.5 mmol/L (0.4-2.0) Calcium Level 9.6 mg/dL (8.5-10.1) 9.1 mg/dL (8.5-10.1) Phosphorus Level 4.8 mg/dL (2.6-4.7) Magnesium Level 2.8 mg/dL (1.8-2.4) Total Bilirubin 1.1 mg/dL (0.2-1.0) Aspartate Amino Transf (AST/SGOT) 20 U/L (15-37) Alanine Aminotransferase (ALT/SGPT) 7 U/L (14-59) Alkaline Phosphatase 84 U/L (46-116) Troponin I Quantitative 0.060 ng/mL (0.000-0.055) 0.069 ng/mL (0.000-0.055) BW-Odd-V-Type Natriuretic Peptide 25181 pg/mL (0-449) Total Protein 7.6 g/dL (6.4-8.2) Albumin 2.9 g/dL (3.4-5.0) Albumin/Globulin Ratio 0.6 (1.0-1.7) Urine Collection Type U cath Urine Color Yellow Urine Clarity Cloudy Urine pH 5.5 (<5.0-8.0) Urine Specific [place] 1.020 (1.000-1.030) Urine Protein 100 mg/dL (NEG-TRACE) Urine Glucose (UA) Negative mg/dL (NEG) Urine Ketones (Stick) 15 mg/dL (NEG) Urine Blood Moderate (NEG) Urine Nitrite Negative (NEG) Urine Bilirubin Small (NEG) Urine Urobilinogen Dipstick 1.0 mg/dL (0.2 mg/dL) Urine Leukocyte Esterase Moderate (NEG) Urine RBC Occ /HPF (0-2) Urine WBC 11-20 /HPF (0-4) Urine Squamous Epithelial Cells Few /LPF Urine Bacteria Many /HPF (0-FEW) Laboratory Tests Test 07/24/20 21:15 07/24/20 21:33 07/25/20 01:05 07/25/20 09:15 White Blood Count 13.1 x10^3/uL (4.0-11.0) 13.8 x10^3/uL (4.0-11.0) Red Blood Count 3.71 x10^6/uL (3.50-5.40) 3.43 x10^6/uL (3.50-5.40) Hemoglobin 10.3 g/dL (12.0-15.5) 9.2 g/dL (12.0-15.5) Hematocrit 32.0 % (36.0-47.0) 29.5 % (36.0-47.0) Mean Corpuscular Volume 86 fL (79-100) 86 fL (79-100) Mean Corpuscular Hemoglobin 28 pg (25-35) 27 pg (25-35) Mean Corpuscular Hemoglobin Concent 32 g/dL (31-37) 31 g/dL (31-37) Red Cell Distribution Width 17.3 % (11.5-14.5) 17.5 % (11.5-14.5) Platelet Count 560 x10^3/uL (140-400) 577 x10^3/uL (140-400) Neutrophils (%) (Auto) 85 % (31-73) 84 % (31-73) Lymphocytes (%) (Auto) 7 % (24-48) 6 % (24-48) Monocytes (%) (Auto) 8 % (0-9) 10 % (0-9) Eosinophils (%) (Auto) 0 % (0-3) 0 % (0-3) Basophils (%) (Auto) 0 % (0-3) 0 % (0-3) Neutrophils # (Auto) 11.1 x10^3/uL (1.8-7.7) 11.6 x10^3/uL (1.8-7.7) Lymphocytes # (Auto) 1.0 x10^3/uL (1.0-4.8) 0.9 x10^3/uL (1.0-4.8) Monocytes # (Auto) 1.1 x10^3/uL (0.0-1.1) 1.3 x10^3/uL (0.0-1.1) Eosinophils # (Auto) 0.0 x10^3/uL (0.0-0.7) 0.0 x10^3/uL (0.0-0.7) Basophils # (Auto) 0.0 x10^3/uL (0.0-0.2) 0.0 x10^3/uL (0.0-0.2) Segmented Neutrophils % 74 % (35-66) Band Neutrophils % 4 % (0-9) Lymphocytes % 16 % (24-48) Monocytes % 3 % (0-10) Metamyelocytes % 2 % (0-0) Myelocytes % 1 % (0-0) Platelet Estimate Increased (ADEQUATE) Polychromasia Slight Hypochromasia Slight Poikilocytosis Mod Anisocytosis Slight Tear Drop Cells Occ Helmet Cells Occ Crenated Cell Present Schistocytes Occ RBC Morphology Bizarre Forms Few Sodium Level 148 mmol/L (136-145) 154 mmol/L (136-145) Potassium Level 5.0 mmol/L (3.5-5.1) 4.6 mmol/L (3.5-5.1) Chloride Level 112 mmol/L (98-107) 118 mmol/L (98-107) Carbon Dioxide Level 13 mmol/L (21-32) 15 mmol/L (21-32) Anion Gap 23 (6-14) 21 (6-14) Blood Urea Nitrogen 67 mg/dL (7-20) 63 mg/dL (7-20) Creatinine 2.6 mg/dL (0.6-1.0) 2.3 mg/dL (0.6-1.0) Estimated GFR (Cockcroft-Gault) 21.0 24.2 BUN/Creatinine Ratio 26 (6-20) Glucose Level 176 mg/dL (70-99) 145 mg/dL (70-99) Lactic Acid Level 3.2 mmol/L (0.4-2.0) 2.5 mmol/L (0.4-2.0) Calcium Level 9.6 mg/dL (8.5-10.1) 9.1 mg/dL (8.5-10.1) Phosphorus Level 4.8 mg/dL (2.6-4.7) Magnesium Level 2.8 mg/dL (1.8-2.4) Total Bilirubin 1.1 mg/dL (0.2-1.0) Aspartate Amino Transf (AST/SGOT) 20 U/L (15-37) Alanine Aminotransferase (ALT/SGPT) 7 U/L (14-59) Alkaline Phosphatase 84 U/L (46-116) Troponin I Quantitative 0.060 ng/mL (0.000-0.055) 0.069 ng/mL (0.000-0.055) BQ-Gsd-A-Type Natriuretic Peptide 64587 pg/mL (0-449) Total Protein 7.6 g/dL (6.4-8.2) Albumin 2.9 g/dL (3.4-5.0) Albumin/Globulin Ratio 0.6 (1.0-1.7) Urine Collection Type U cath Urine Color Yellow Urine Clarity Cloudy Urine pH 5.5 (<5.0-8.0) Urine Specific [place] 1.020 (1.000-1.030) Urine Protein 100 mg/dL (NEG-TRACE) Urine Glucose (UA) Negative mg/dL (NEG) Urine Ketones (Stick) 15 mg/dL (NEG) Urine Blood Moderate (NEG) Urine Nitrite Negative (NEG) Urine Bilirubin Small (NEG) Urine Urobilinogen Dipstick 1.0 mg/dL (0.2 mg/dL) Urine Leukocyte Esterase Moderate (NEG) Urine RBC Occ /HPF (0-2) Urine WBC 11-20 /HPF (0-4) Urine Squamous Epithelial Cells Few /LPF Urine Bacteria Many /HPF (0-FEW) Assessment/Plan Assessment/Plan IMP ENMANUEL-ATN-CR OF 2.6 CKD STAGE 3-CR 1.0 TO 1.3 HYPERNATREMIA HYPERKALEMIA DEHYDRATION COVID 19 POS 12-24 PROB UTI LEUCOCYTOSIS AG MET ACIDOSIS PLAN HYDRATION ANTIBIOTICS LABS IN AM SUPPORTIVE CARE MAY NEED NUTRITIONAL SUPPORT WILL FOLLOW TO RITCHIE MD Jul 25, 2020 16:05
[2020-07-25] MEDS: IV DEXTROSE 5 %-0.2 % NACL 1,000 ML IV SCH (16:28)
[2020-07-25] MEDS: LABETALOL 20 MG/4 ML DISP.SYRIN. IVP PRN ×2 (16:53→20:32)
[2020-07-25] MEDS: LATANOPROST 0.005% OPHTH SOLUTION 2.5ML BOTTLE. OU SCH (20:27)
[2020-07-25] MEDS: cefTRIAXone IV Push 1 GM VIAL. IVP SCH (20:28)
[2020-07-25] MEDS: GEMFIBROZIL 600 MG TABLET. PO SCH (20:32)
[2020-07-25] MEDS: LACTOBACILLUS RHAMNOSUS GG 1 CAPSULE. PO SCH (20:32)
[2020-07-26 02:00] VITALS: BP 156/72
[2020-07-26] MEDS: IV DEXTROSE 5 %-0.2 % NACL 1,000 ML IV SCH ×2 (06:06→17:45)
[2020-07-26 07:00] VITALS: BP 161/82
[2020-07-26] MEDS: GEMFIBROZIL 600 MG TABLET. PO SCH ×2 (08:38→21:00)
[2020-07-26] MEDS: MEGESTROL 400 MG/10 ML ORAL.SUSP. PO SCH (08:38)
[2020-07-26] MEDS: ASPIRIN CHEWABLE 81 MG TABLET. PO SCH (08:38)
[2020-07-26] MEDS: CHOLECALCIFEROL (VITAMIN D3) 1,000 UNIT TABLET PO SCH (08:38)
[2020-07-26] MEDS: LACTOBACILLUS RHAMNOSUS GG 1 CAPSULE. PO SCH ×2 (08:38→21:00)
[2020-07-26 08:46] LABS: BASO % 0 % (0-3); EOS % 0 % (0-3); HEMATOCRIT 26.9 % (36.0-47.0); HEMOGLOBIN 8.9 g/dL (12.0-15.5); LYMPH # 0.5 x10^3/uL (1.0-4.8); LYMPH % 5 % (24-48); MEAN CORPUSCULAR HEMOGLOBIN 28 pg (25-35); MEAN CORPUSCULAR HGB CONC 33 g/dL (31-37); MEAN CORPUSCULAR VOLUME 85 fL (79-100); MONO % 10 % (0-9); NEUT % 85 % (31-73); PLATELET COUNT 557 x10^3/uL (140-400); RED BLOOD COUNT 3.17 x10^6/uL (3.50-5.40); RED CELL DISTRIBUTION WIDTH 17.4 % (11.5-14.5); WHITE BLOOD COUNT 10.6 x10^3/uL (4.0-11.0)
[2020-07-26] MEDS ORDERED: ERGOCALCIFEROL (VITAMIN D2) 50,000 UNIT CAPSULE. PO SCH (09:00)
[2020-07-26 09:19] LABS: ALBUMIN 2.8 g/dL (3.4-5.0); ALBUMIN/GLOBULIN RATIO 0.7 (1.0-1.7); CALCIUM 9.3 mg/dL (8.5-10.1); CREATININE 1.8 mg/dL (0.6-1.0); GFR 32.1; POTASSIUM 3.6 mmol/L (3.5-5.1); TOTAL BILIRUBIN 0.8 mg/dL (0.2-1.0); TOTAL PROTEIN 6.8 g/dL (6.4-8.2)
[2020-07-26 10:56] VITALS: BP 149/78
--- NOTE | 2020-07-26 12:46 | PDOC ---
PROGRESS NOTES Date of Service: DATE: 07/26/20 TIME: 12:46 Vitals Vitals Vital Signs Date Time Temp Pulse Resp B/P (MAP) Pulse Ox O2 Delivery O2 Flow Rate FiO2 07/26/20 10:56 98.2 88 18 149/78 (101) 97 Room Air 98.2 Physical Exam General: Cooperative, No acute distress Heart: Regular rate Lungs: Clear Abdomen: Normal bowel sounds, Soft, No hepatosplenomegaly Extremities: No clubbing Skin: No breakdown Labs LABS Laboratory Tests Test 07/26/20 08:00 White Blood Count 10.6 x10^3/uL (4.0-11.0) Red Blood Count 3.17 x10^6/uL (3.50-5.40) Hemoglobin 8.9 g/dL (12.0-15.5) Hematocrit 26.9 % (36.0-47.0) Mean Corpuscular Volume 85 fL (79-100) Mean Corpuscular Hemoglobin 28 pg (25-35) Mean Corpuscular Hemoglobin Concent 33 g/dL (31-37) Red Cell Distribution Width 17.4 % (11.5-14.5) Platelet Count 557 x10^3/uL (140-400) Neutrophils (%) (Auto) 85 % (31-73) Lymphocytes (%) (Auto) 5 % (24-48) Monocytes (%) (Auto) 10 % (0-9) Eosinophils (%) (Auto) 0 % (0-3) Basophils (%) (Auto) 0 % (0-3) Neutrophils # (Auto) 9.0 x10^3/uL (1.8-7.7) Lymphocytes # (Auto) 0.5 x10^3/uL (1.0-4.8) Monocytes # (Auto) 1.0 x10^3/uL (0.0-1.1) Eosinophils # (Auto) 0.0 x10^3/uL (0.0-0.7) Basophils # (Auto) 0.0 x10^3/uL (0.0-0.2) Sodium Level 151 mmol/L (136-145) Potassium Level 3.6 mmol/L (3.5-5.1) Chloride Level 116 mmol/L (98-107) Carbon Dioxide Level 16 mmol/L (21-32) Anion Gap 19 (6-14) Blood Urea Nitrogen 50 mg/dL (7-20) Creatinine 1.8 mg/dL (0.6-1.0) Estimated GFR (Cockcroft-Gault) 32.1 BUN/Creatinine Ratio 28 (6-20) Glucose Level 269 mg/dL (70-99) Calcium Level 9.3 mg/dL (8.5-10.1) Total Bilirubin 0.8 mg/dL (0.2-1.0) Aspartate Amino Transf (AST/SGOT) 16 U/L (15-37) Alanine Aminotransferase (ALT/SGPT) 9 U/L (14-59) Alkaline Phosphatase 74 U/L (46-116) Total Protein 6.8 g/dL (6.4-8.2) Albumin 2.8 g/dL (3.4-5.0) Albumin/Globulin Ratio 0.7 (1.0-1.7) Assessment and Plan Assessmemt and Plan Problems Medical Problems: (1) ENMANUEL (acute kidney injury) Status: Acute (2) Dehydration Status: Acute (3) UTI (urinary tract infection) Status: Acute Comment Review of Relevant I have reviewed the following items nella (where applicable) has been applied. Labs Laboratory Tests Test 07/24/20 21:15 07/24/20 21:33 07/25/20 01:05 07/25/20 09:15 White Blood Count 13.1 x10^3/uL (4.0-11.0) 13.8 x10^3/uL (4.0-11.0) Red Blood Count 3.71 x10^6/uL (3.50-5.40) 3.43 x10^6/uL (3.50-5.40) Hemoglobin 10.3 g/dL (12.0-15.5) 9.2 g/dL (12.0-15.5) Hematocrit 32.0 % (36.0-47.0) 29.5 % (36.0-47.0) Mean Corpuscular Volume 86 fL (79-100) 86 fL (79-100) Mean Corpuscular Hemoglobin 28 pg (25-35) 27 pg (25-35) Mean Corpuscular Hemoglobin Concent 32 g/dL (31-37) 31 g/dL (31-37) Red Cell Distribution Width 17.3 % (11.5-14.5) 17.5 % (11.5-14.5) Platelet Count 560 x10^3/uL (140-400) 577 x10^3/uL (140-400) Neutrophils (%) (Auto) 85 % (31-73) 84 % (31-73) Lymphocytes (%) (Auto) 7 % (24-48) 6 % (24-48) Monocytes (%) (Auto) 8 % (0-9) 10 % (0-9) Eosinophils (%) (Auto) 0 % (0-3) 0 % (0-3) Basophils (%) (Auto) 0 % (0-3) 0 % (0-3) Neutrophils # (Auto) 11.1 x10^3/uL (1.8-7.7) 11.6 x10^3/uL (1.8-7.7) Lymphocytes # (Auto) 1.0 x10^3/uL (1.0-4.8) 0.9 x10^3/uL (1.0-4.8) Monocytes # (Auto) 1.1 x10^3/uL (0.0-1.1) 1.3 x10^3/uL (0.0-1.1) Eosinophils # (Auto) 0.0 x10^3/uL (0.0-0.7) 0.0 x10^3/uL (0.0-0.7) Basophils # (Auto) 0.0 x10^3/uL (0.0-0.2) 0.0 x10^3/uL (0.0-0.2) Segmented Neutrophils % 74 % (35-66) Band Neutrophils % 4 % (0-9) Lymphocytes % 16 % (24-48) Monocytes % 3 % (0-10) Metamyelocytes % 2 % (0-0) Myelocytes % 1 % (0-0) Platelet Estimate Increased (ADEQUATE) Polychromasia Slight Hypochromasia Slight Poikilocytosis Mod Anisocytosis Slight Tear Drop Cells Occ Helmet Cells Occ Crenated Cell Present Schistocytes Occ RBC Morphology Bizarre Forms Few Sodium Level 148 mmol/L (136-145) 154 mmol/L (136-145) Potassium Level 5.0 mmol/L (3.5-5.1) 4.6 mmol/L (3.5-5.1) Chloride Level 112 mmol/L (98-107) 118 mmol/L (98-107) Carbon Dioxide Level 13 mmol/L (21-32) 15 mmol/L (21-32) Anion Gap 23 (6-14) 21 (6-14) Blood Urea Nitrogen 67 mg/dL (7-20) 63 mg/dL (7-20) Creatinine 2.6 mg/dL (0.6-1.0) 2.3 mg/dL (0.6-1.0) Estimated GFR (Cockcroft-Gault) 21.0 24.2 BUN/Creatinine Ratio 26 (6-20) Glucose Level 176 mg/dL (70-99) 145 mg/dL (70-99) Lactic Acid Level 3.2 mmol/L (0.4-2.0) 2.5 mmol/L (0.4-2.0) Calcium Level 9.6 mg/dL (8.5-10.1) 9.1 mg/dL (8.5-10.1) Phosphorus Level 4.8 mg/dL (2.6-4.7) Magnesium Level 2.8 mg/dL (1.8-2.4) Total Bilirubin 1.1 mg/dL (0.2-1.0) Aspartate Amino Transf (AST/SGOT) 20 U/L (15-37) Alanine Aminotransferase (ALT/SGPT) 7 U/L (14-59) Alkaline Phosphatase 84 U/L (46-116) Troponin I Quantitative 0.060 ng/mL (0.000-0.055) 0.069 ng/mL (0.000-0.055) BO-Ekr-Q-Type Natriuretic Peptide 89812 pg/mL (0-449) Total Protein 7.6 g/dL (6.4-8.2) Albumin 2.9 g/dL (3.4-5.0) Albumin/Globulin Ratio 0.6 (1.0-1.7) Urine Collection Type U cath Urine Color Yellow Urine Clarity Cloudy Urine pH 5.5 (<5.0-8.0) Urine Specific [place] 1.020 (1.000-1.030) Urine Protein 100 mg/dL (NEG-TRACE) Urine Glucose (UA) Negative mg/dL (NEG) Urine Ketones (Stick) 15 mg/dL (NEG) Urine Blood Moderate (NEG) Urine Nitrite Negative (NEG) Urine Bilirubin Small (NEG) Urine Urobilinogen Dipstick 1.0 mg/dL (0.2 mg/dL) Urine Leukocyte Esterase Moderate (NEG) Urine RBC Occ /HPF (0-2) Urine WBC 11-20 /HPF (0-4) Urine Squamous Epithelial Cells Few /LPF Urine Bacteria Many /HPF (0-FEW) Test 07/26/20 08:00 White Blood Count 10.6 x10^3/uL (4.0-11.0) Red Blood Count 3.17 x10^6/uL (3.50-5.40) Hemoglobin 8.9 g/dL (12.0-15.5) Hematocrit 26.9 % (36.0-47.0) Mean Corpuscular Volume 85 fL (79-100) Mean Corpuscular Hemoglobin 28 pg (25-35) Mean Corpuscular Hemoglobin Concent 33 g/dL (31-37) Red Cell Distribution Width 17.4 % (11.5-14.5) Platelet Count 557 x10^3/uL (140-400) Neutrophils (%) (Auto) 85 % (31-73) Lymphocytes (%) (Auto) 5 % (24-48) Monocytes (%) (Auto) 10 % (0-9) Eosinophils (%) (Auto) 0 % (0-3) Basophils (%) (Auto) 0 % (0-3) Neutrophils # (Auto) 9.0 x10^3/uL (1.8-7.7) Lymphocytes # (Auto) 0.5 x10^3/uL (1.0-4.8) Monocytes # (Auto) 1.0 x10^3/uL (0.0-1.1) Eosinophils # (Auto) 0.0 x10^3/uL (0.0-0.7) Basophils # (Auto) 0.0 x10^3/uL (0.0-0.2) Sodium Level 151 mmol/L (136-145) Potassium Level 3.6 mmol/L (3.5-5.1) Chloride Level 116 mmol/L (98-107) Carbon Dioxide Level 16 mmol/L (21-32) Anion Gap 19 (6-14) Blood Urea Nitrogen 50 mg/dL (7-20) Creatinine 1.8 mg/dL (0.6-1.0) Estimated GFR (Cockcroft-Gault) 32.1 BUN/Creatinine Ratio 28 (6-20) Glucose Level 269 mg/dL (70-99) Calcium Level 9.3 mg/dL (8.5-10.1) Total Bilirubin 0.8 mg/dL (0.2-1.0) Aspartate Amino Transf (AST/SGOT) 16 U/L (15-37) Alanine Aminotransferase (ALT/SGPT) 9 U/L (14-59) Alkaline Phosphatase 74 U/L (46-116) Total Protein 6.8 g/dL (6.4-8.2) Albumin 2.8 g/dL (3.4-5.0) Albumin/Globulin Ratio 0.7 (1.0-1.7) Laboratory Tests Test 07/26/20 08:00 White Blood Count 10.6 x10^3/uL (4.0-11.0) Red Blood Count 3.17 x10^6/uL (3.50-5.40) Hemoglobin 8.9 g/dL (12.0-15.5) Hematocrit 26.9 % (36.0-47.0) Mean Corpuscular Volume 85 fL (79-100) Mean Corpuscular Hemoglobin 28 pg (25-35) Mean Corpuscular Hemoglobin Concent 33 g/dL (31-37) Red Cell Distribution Width 17.4 % (11.5-14.5) Platelet Count 557 x10^3/uL (140-400) Neutrophils (%) (Auto) 85 % (31-73) Lymphocytes (%) (Auto) 5 % (24-48) Monocytes (%) (Auto) 10 % (0-9) Eosinophils (%) (Auto) 0 % (0-3) Basophils (%) (Auto) 0 % (0-3) Neutrophils # (Auto) 9.0 x10^3/uL (1.8-7.7) Lymphocytes # (Auto) 0.5 x10^3/uL (1.0-4.8) Monocytes # (Auto) 1.0 x10^3/uL (0.0-1.1) Eosinophils # (Auto) 0.0 x10^3/uL (0.0-0.7) Basophils # (Auto) 0.0 x10^3/uL (0.0-0.2) Sodium Level 151 mmol/L (136-145) Potassium Level 3.6 mmol/L (3.5-5.1) Chloride Level 116 mmol/L (98-107) Carbon Dioxide Level 16 mmol/L (21-32) Anion Gap 19 (6-14) Blood Urea Nitrogen 50 mg/dL (7-20) Creatinine 1.8 mg/dL (0.6-1.0) Estimated GFR (Cockcroft-Gault) 32.1 BUN/Creatinine Ratio 28 (6-20) Glucose Level 269 mg/dL (70-99) Calcium Level 9.3 mg/dL (8.5-10.1) Total Bilirubin 0.8 mg/dL (0.2-1.0) Aspartate Amino Transf (AST/SGOT) 16 U/L (15-37) Alanine Aminotransferase (ALT/SGPT) 9 U/L (14-59) Alkaline Phosphatase 74 U/L (46-116) Total Protein 6.8 g/dL (6.4-8.2) Albumin 2.8 g/dL (3.4-5.0) Albumin/Globulin Ratio 0.7 (1.0-1.7) Microbiology 07/24/20 Urine Culture - Preliminary, Resulted Medications Current Medications Sodium Chloride 500 ml @ 500 mls/hr 1X ONCE IV Last administered on 07/24/20at 19:15; Start 07/24/20 at 19:15; Stop 07/24/20 at 20:14; Status DC Ceftriaxone Sodium (Rocephin) 1 gm 1X ONCE IVP Last administered on 07/24/20at 23:25; Start 07/24/20 at 23:00; Stop 07/24/20 at 23:05; Status DC Ondansetron HCl (Zofran) 4 mg PRN Q8HRS PRN IV NAUSEA/VOMITING; Start 07/24/20 at 23:15; Stop 07/25/20 at 23:14; Status DC Sodium Chloride 1,000 ml @ 75 mls/hr [id number] IV Last administered on 07/25/20at 12:35; Start 07/24/20 at 23:15; Stop 07/25/20 at 23:14; Status DC Acetaminophen (Tylenol) 650 mg PRN Q4HRS PRN PO FEVER > 100.3'F Last administered on 07/25/20at 22:57; Start 07/24/20 at 23:15; Stop 07/25/20 at 23:14; Status DC Info (FLU VACCINE SCREEN per RX) 1 each 1X ONCE MC ; Start 07/25/20 at 02:30; Stop 07/25/20 at 02:31; Status UNV Influenza Virus Vaccine Quadrival (Fluzone Quad Syringe) 0.5 ml ONCE ONCE VAX IM Last administered on 07/25/20at 10:07; Start 07/25/20 at 09:00; Stop 07/25/20 at 09:01; Status DC Lactobacillus Rhamnosus (Culturelle) 1 cap BID PO Last administered on 08:38; Start 07/25/20 at 21:00 Ceftriaxone Sodium (Rocephin) 1 gm Q24H IVP Last administered on 07/25/20 20:28; Start 07/25/20 at 21:00 Dextrose/Sodium Chloride 1,000 ml @ 75 mls/hr [id number] IV Last administered on 07/26/20 06:06; Start 07/25/20 at 15:15 Aspirin (Aspirin Chewable) 81 mg DAILY PO Last administered on 07/26/20 08:38; Start 07/26/20 at 09:00 Vitamin D (Vitamin D3) 1,000 unit DAILY PO Last administered on 07/26/20 08:38; Start 07/26/20 at 09:00 Gemfibrozil (Lopid) 600 mg BID PO Last administered on 07/26/20 08:38; Start 07/25/20 at 21:00 Latanoprost (Xalatan) 1 drop QHS OU Last administered on 07/25/20 20:27; Start 07/25/20 at 21:00 Megestrol Acetate (Megace) 400 mg DAILY PO Last administered on 07/26/20 08:38; Start 07/26/20 at 09:00 Ergocalciferol (Vitamin D2) 50,000 unit We PO Last administered on 07/26/20 08:38; Start 07/26/20 at 09:00 Ondansetron HCl (Zofran Odt) 4 mg PRN Q6HRS PRN PO NAUSEA/VOMITING; Start 07/25/20 at 15:15 Labetalol HCl (Normodyne Iv Push) 20 mg PRN Q3HRS PRN IVP HYPERTENSION Last administered on 07/25/20at 20:32; Start 07/25/20 at 16:00 Active Scripts Active Aspirin 81 Mg Tab.chew 1 Tab PO DAILY Vitamin D3 (Cholecalciferol (Vitamin D3)) 25 Mcg Tablet 1,000 Unit PO DAILY 30 Days Hydrocodone-Apap 5-325 (Hydrocodone Bit/Acetaminophen) 1 Tab Tablet 1 Tab PO PRN Q4HRS PRN 6 Days Reported Megestrol Acetate 400 Mg/10 Ml Oral.susp 400 Mg PO DAILY Ergocal (Ergocalciferol (Vitamin D2)) 62.5 Mcg Capsule 5,000 Unit PO QWE Acetaminophen 500 Mg Tablet 500 Mg PO TID Zofran (Ondansetron Hcl) 4 Mg Tablet 4 Mg PO PRN Q6HRS PRN Milk Of Magnesia (Magnesium Hydroxide) 2,400 Mg/10 Ml Oral.susp 2,400 Mg PO PRN DAILY PRN Midodrine Hcl 5 Mg Tablet 5 Mg PO TID Mirtazapine 7.5 Mg Tablet 7.5 Mg PO QHS Latanoprost 2.5 Ml Drops 1 Drop EACHEYE QHS Gemfibrozil 600 Mg Tablet 600 Mg PO BID Vitals/I & O Vital Sign - Last 24 Hours 07/25/20 07/25/20 07/25/20 07/25/20 15:14 16:53 19:00 20:00 Temp 98.7 99.6 98.7 99.6 Pulse 89 89 80 Resp 18 20 B/P (MAP) 202/89 (126) 202/89 181/88 (119) Pulse Ox 99 99 O2 Delivery Room Air Room Air Room Air 07/25/20 07/25/20 07/26/20 07/26/20 20:32 23:00 02:00 07:00 Temp 99.0 99.6 98.6 99.0 99.6 98.6 Pulse 80 79 80 90 Resp 20 18 18 B/P (MAP) 181/88 148/79 (102) 156/72 (100) 161/82 (108) Pulse Ox 99 99 98 O2 Delivery Room Air Room Air Room Air 07/26/20 07/26/20 08:00 10:56 Temp 98.2 98.2 Pulse 88 Resp 18 B/P (MAP) 149/78 (101) Pulse Ox 97 O2 Delivery Room Air Room Air Nutrition Consultation Dietary Evaluation: Recommendations by RD: Dietary education by RD, Increase Calorie Intake, Protein supplementation Comments: diet change to renal,sending Nepro supplement tid Expected Outcomes/Goals: to meet >50% est nutr needs via po intake Malnutrition Findings: Food and Nutrition Intake (Sev: <50% est energy req 5days Body Fat Depletion (Non Severe: Mild Depletion Weight Status: Underweight Justicifation of Admission Dx: Justifications for Admission: Justification of Admission Dx: Yes JOHN GILMORE MD Jul 26, 2020 12:46
[2020-07-26 15:00] VITALS: BP 153/74
--- NOTE | 2020-07-26 15:22 | NUR ---
This RN called Ida, pt daughter and DPOA to get permission to speak to family members. Ida stated to this RN that the "family is huge" and if "everyone had the code, you all would be on the phone all day." Ida wants all calls directed back to her or her brother Roni. She stated that only certain adult siblings will have the code. Will continue to monitor.
--- NOTE | 2020-07-26 16:57 | NUR ---
PINEDA following for discharge planning. Spoke with RN and reviewed chart. Pt's daughter Ida called and she stated she spoke with her brother and they want pt evaluated for GIP hospice. Referral and orders to evaluate phoned and faxed to [facility] per approval from Ida. Patient choice of vendor form completed. Coordinated care with textile engraver who met with pt and stated pt meets criteria for hospice but not at the GIP level. Spoke with Neida at [facility] and they don't have LTC beds for this patient. Spoke with daughter Ida and they are not able to care for pt in their home per COVID. Spoke with Kira from [facility] and they can accept patients 10 days out from a positive COVID test. Pt tested positive on 07/17. PINEDA obtained COVID result from [facility] and faxed this and referral for LTC with hospice to [facility]. Pt's daughter Ida has signed hospice consents for hospice care. Rik reviewing referral for LTC with hospice. PINEDA following.
--- NOTE | 2020-07-26 18:19 | PDOC ---
Renal-Progress Notes Subjective Notes Notes NO NEW COMPLAINTS History of Present Illness Hx of present illness STABLE Vitals Vitals Vital Signs Date Time Temp Pulse Resp B/P (MAP) Pulse Ox O2 Delivery O2 Flow Rate FiO2 07/26/20 15:00 97.5 88 18 153/74 (100) 97 Room Air 97.5 Weight Weight [ ] I.O. Intake and Output Intake and Output 07/26/20 07:00 # Voids 3 # Bowel Movements 2 Labs Labs Laboratory Tests Test 07/26/20 08:00 White Blood Count 10.6 x10^3/uL (4.0-11.0) Red Blood Count 3.17 x10^6/uL (3.50-5.40) Hemoglobin 8.9 g/dL (12.0-15.5) Hematocrit 26.9 % (36.0-47.0) Mean Corpuscular Volume 85 fL (79-100) Mean Corpuscular Hemoglobin 28 pg (25-35) Mean Corpuscular Hemoglobin Concent 33 g/dL (31-37) Red Cell Distribution Width 17.4 % (11.5-14.5) Platelet Count 557 x10^3/uL (140-400) Neutrophils (%) (Auto) 85 % (31-73) Lymphocytes (%) (Auto) 5 % (24-48) Monocytes (%) (Auto) 10 % (0-9) Eosinophils (%) (Auto) 0 % (0-3) Basophils (%) (Auto) 0 % (0-3) Neutrophils # (Auto) 9.0 x10^3/uL (1.8-7.7) Lymphocytes # (Auto) 0.5 x10^3/uL (1.0-4.8) Monocytes # (Auto) 1.0 x10^3/uL (0.0-1.1) Eosinophils # (Auto) 0.0 x10^3/uL (0.0-0.7) Basophils # (Auto) 0.0 x10^3/uL (0.0-0.2) Sodium Level 151 mmol/L (136-145) Potassium Level 3.6 mmol/L (3.5-5.1) Chloride Level 116 mmol/L (98-107) Carbon Dioxide Level 16 mmol/L (21-32) Anion Gap 19 (6-14) Blood Urea Nitrogen 50 mg/dL (7-20) Creatinine 1.8 mg/dL (0.6-1.0) Estimated GFR (Cockcroft-Gault) 32.1 BUN/Creatinine Ratio 28 (6-20) Glucose Level 269 mg/dL (70-99) Calcium Level 9.3 mg/dL (8.5-10.1) Total Bilirubin 0.8 mg/dL (0.2-1.0) Aspartate Amino Transf (AST/SGOT) 16 U/L (15-37) Alanine Aminotransferase (ALT/SGPT) 9 U/L (14-59) Alkaline Phosphatase 74 U/L (46-116) Total Protein 6.8 g/dL (6.4-8.2) Albumin 2.8 g/dL (3.4-5.0) Albumin/Globulin Ratio 0.7 (1.0-1.7) Micro Micro Microbiology 07/24/20 Urine Culture - Preliminary, Resulted Review of Systems Constitutional: yes: other (CONFUSED) Physical Exam General Appearance: no apparent distress, afebrile Skin: warm Respiratory: bilateral CTA Heart: S1S2 Abdomen: soft, bowel sounds present Genitourinary: bladder flat Extremities: pulses present, atrophy Neurology: alert Musculoskeletal: Osteoarthritis Assessment Assessment IMP ENMANUEL-ATN-CR OF 2.6 ON ADMIT - NOW 1.8 CKD STAGE 3-CR 1.0 TO 1.3 HYPERNATREMIA-IMPROVED HYPERKALEMIA-RESOLVED DEHYDRATION COVID 19 POS 12-24 PROB UTI LEUCOCYTOSIS AG MET ACIDOSIS PLAN HYDRATION TO CONTINUE ANTIBIOTICS LABS IN AM SUPPORTIVE CARE MAY NEED NUTRITIONAL SUPPORT WILL FOLLOW TO RITCHIE MD Jul 26, 2020 18:19
[2020-07-26 19:00] VITALS: BP 141/74
[2020-07-26] MEDS: LATANOPROST 0.005% OPHTH SOLUTION 2.5ML BOTTLE. OU SCH (21:04)
[2020-07-26] MEDS: cefTRIAXone IV Push 1 GM VIAL. IVP SCH (21:05)
[2020-07-26 22:51] VITALS: BP 151/78
[2020-07-27 03:00] VITALS: BP 92/69
[2020-07-27 07:00] VITALS: BP 150/85
[2020-07-27] MEDS: IV DEXTROSE 5 %-0.2 % NACL 1,000 ML IV SCH ×2 (07:15→19:41)
[2020-07-27] MEDS: GEMFIBROZIL 600 MG TABLET. PO SCH ×2 (08:20→20:23)
[2020-07-27] MEDS: LACTOBACILLUS RHAMNOSUS GG 1 CAPSULE. PO SCH ×2 (08:21→20:23)
[2020-07-27] MEDS: MEGESTROL 400 MG/10 ML ORAL.SUSP. PO SCH (08:21)
[2020-07-27] MEDS: ASPIRIN CHEWABLE 81 MG TABLET. PO SCH (08:21)
[2020-07-27] MEDS: CHOLECALCIFEROL (VITAMIN D3) 1,000 UNIT TABLET PO SCH (08:21)
--- NOTE | 2020-07-27 10:05 | PDOC ---
PROGRESS NOTES Date of Service: DATE: 07/27/20 TIME: 10:05 Chief Complaint Chief Complaint VTE Prophylaxis Ordered VTE Prophylaxis Devices: No VTE Pharmacological Prophylaxi: Yes Assessment/Plan Assessment/Plan Impression: ACUTE RESPIRATORY FAILURE due to covid 19 pneumonia Patchy left basilar opacity, likely atelectasis. Nonobstructed bowel gas pattern. Moderate stool within the distended rectum. Progressively healing right subcapital femoral neck fracture FROM 04/02 ACUTE RENAL INJURY, acute vasomotor nephropathy Malnutrition, severe sepsis METABOLIC ACIDOSIS PLAN ADMIT IV FLUID SUPPORT, HYPOTONIC EMPERIC IV ROCEPHIN BOWEL REGIMEN NEPHROLOGY CONSULT blood cultures NEPHROLOGY CONSULT DAILY LABS screen for hospice intake, poor intake po History of Present Illness History of Present Illness Identification/Chief Complaint Chief Complaint seen in er with severe dehydration, ENMANUEL 89 year old female brought in from nursing facility for dehydration. CR 2.3 IN ER // was diagnosed with COVID-July 06. Over the past week she has been declining. POOR INTAKE NOTED per nursing facility staff is that she has had very little p.o. intake over the past 5 days. STAFF states she has started having failure to thrive. Concern for dehydration and acute kidney injury. They state the patient's orientation has decreased that she is only alert oriented x1. Past Medical History Past Medical History Past Medical History Past Medical History Past Medical History: Arrhythmia, CAD, Diabetes-Type II, High Cholesterol, Hypertension, Renal Failure Past Surgical History: Appendectomy, Tonsillectomy, Other Additional Past Surgical Histo: Hemmoroidectomy, Left hip repair, Hernia repair, RIGHT FEMUR REPAIR Smoking Status: Former Smoker Alcohol Use: None Drug Use: None fhx htn, copd Cardiovascular: AFIB, CAD, CHF, HTN, Hyperlipidemia Pulmonary: No pertinent hx GI: No pertinent hx Heme/Onc: Anemia NOS Hepatobiliary: No pertinent hx Psych: Anxiety, Depression Musculoskeletal: Osteoarthritis Rheumatologic: No pertinent hx Infectious disease: No pertinent hx Renal/: Chronic renal insuff Endocrine: Diabetes Past Surgical History Past Surgical History: Appendectomy, Tonsillectomy, Other Family History Family History: Hypertension Social History Smoke: No ALCOHOL: none Drugs: None Current Problem List Problem List Problems Medical Problems: (1) ENMANUEL (acute kidney injury) Status: Acute (2) Dehydration Vitals Vitals Vital Signs Date Time Temp Pulse Resp B/P (MAP) Pulse Ox O2 Delivery O2 Flow Rate FiO2 07/27/20 08:00 Room Air 07/27/20 07:00 98.5 91 19 150/85 (106) 99 98.5 Physical Exam Physical Exam Physical Exam Physical Exam E: Constitutional: Well developed, well nourished, no acute distress, non-toxic ap pearance, thin. [] HENT: Normocephalic, atraumatic, bilateral external ears normal, nose normal. [] Eyes: PERRLA, conjunctiva normal, no discharge. [] Neck: No rigidity, supple, no stridor. [] Cardiovascular: Regular rate and rhythm, brisk cap refill [] Lungs & Thorax: Non labored symmetric respirations, no tachypnea or respiratory distress, clear to auscultation [] Abdomen: Soft, nondistended no guarding or rebound. Skin: Warm, dry, no erythema, no rash, cap refill 1 second, mild skin tenting. [] Back: No tenderness, no CVA tenderness. [] Extremities: No deformities, range of motion grossly intact, no lower extremity edema [] Neurologic: Alert and oriented TO NAME ONLY , no focal deficits noted. [] Psychologic: Affect normal, mood normal. [] General: Cooperative, No acute distress HEENT: Mucous membr. moist/pink Breasts: Not examined Rectal Exam: not examined PELVIC: Examination not indicated Extremities: No cyanosis Neuro: Sensation intact, Other (CONFUSED TO DETAILS) Psych/Mental Status: Mood NL General: Cooperative, No acute distress Heart: Regular rate Lungs: Clear Abdomen: Normal bowel sounds, Soft, No hepatosplenomegaly Extremities: No clubbing Skin: No breakdown Labs LABS Laboratory Tests Test 07/26/20 11:31 07/26/20 17:05 07/26/20 19:44 07/27/20 07:34 Glucose (Fingerstick) 297 mg/dL (70-99) 279 mg/dL (70-99) 296 mg/dL (70-99) 129 mg/dL (70-99) Assessment and Plan Assessmemt and Plan Problems Medical Problems: (1) ENMANUEL (acute kidney injury) Status: Acute (2) Dehydration Status: Acute (3) UTI (urinary tract infection) Status: Acute Comment Review of Relevant I have reviewed the following items nella (where applicable) has been applied. Labs Laboratory Tests Test 07/26/20 08:00 07/26/20 08:40 07/26/20 11:31 07/26/20 17:05 White Blood Count 10.6 x10^3/uL (4.0-11.0) Red Blood Count 3.17 x10^6/uL (3.50-5.40) Hemoglobin 8.9 g/dL (12.0-15.5) Hematocrit 26.9 % (36.0-47.0) Mean Corpuscular Volume 85 fL (79-100) Mean Corpuscular Hemoglobin 28 pg (25-35) Mean Corpuscular Hemoglobin Concent 33 g/dL (31-37) Red Cell Distribution Width 17.4 % (11.5-14.5) Platelet Count 557 x10^3/uL (140-400) Neutrophils (%) (Auto) 85 % (31-73) Lymphocytes (%) (Auto) 5 % (24-48) Monocytes (%) (Auto) 10 % (0-9) Eosinophils (%) (Auto) 0 % (0-3) Basophils (%) (Auto) 0 % (0-3) Neutrophils # (Auto) 9.0 x10^3/uL (1.8-7.7) Lymphocytes # (Auto) 0.5 x10^3/uL (1.0-4.8) Monocytes # (Auto) 1.0 x10^3/uL (0.0-1.1) Eosinophils # (Auto) 0.0 x10^3/uL (0.0-0.7) Basophils # (Auto) 0.0 x10^3/uL (0.0-0.2) Sodium Level 151 mmol/L (136-145) Potassium Level 3.6 mmol/L (3.5-5.1) Chloride Level 116 mmol/L (98-107) Carbon Dioxide Level 16 mmol/L (21-32) Anion Gap 19 (6-14) Blood Urea Nitrogen 50 mg/dL (7-20) Creatinine 1.8 mg/dL (0.6-1.0) Estimated GFR (Cockcroft-Gault) 32.1 BUN/Creatinine Ratio 28 (6-20) Glucose Level 269 mg/dL (70-99) Calcium Level 9.3 mg/dL (8.5-10.1) Total Bilirubin 0.8 mg/dL (0.2-1.0) Aspartate Amino Transf (AST/SGOT) 16 U/L (15-37) Alanine Aminotransferase (ALT/SGPT) 9 U/L (14-59) Alkaline Phosphatase 74 U/L (46-116) Total Protein 6.8 g/dL (6.4-8.2) Albumin 2.8 g/dL (3.4-5.0) Albumin/Globulin Ratio 0.7 (1.0-1.7) Glucose (Fingerstick) 258 mg/dL (70-99) 297 mg/dL (70-99) 279 mg/dL (70-99) Test 07/26/20 19:44 07/27/20 07:34 Glucose (Fingerstick) 296 mg/dL (70-99) 129 mg/dL (70-99) Laboratory Tests Test 07/26/20 11:31 07/26/20 17:05 07/26/20 19:44 07/27/20 07:34 Glucose (Fingerstick) 297 mg/dL (70-99) 279 mg/dL (70-99) 296 mg/dL (70-99) 129 mg/dL (70-99) Microbiology 07/24/20 Urine Culture - Final, Complete 07/24/20 Antimicrobic Susceptibility - Final, Complete Medications Current Medications Sodium Chloride 500 ml @ 500 mls/hr 1X ONCE IV Last administered on 07/24/20at 19:15; Start 07/24/20 at 19:15; Stop 07/24/20 at 20:14; Status DC Ceftriaxone Sodium (Rocephin) 1 gm 1X ONCE IVP Last administered on 07/24/20at 23:25; Start 07/24/20 at 23:00; Stop 07/24/20 at 23:05; Status DC Ondansetron HCl (Zofran) 4 mg PRN Q8HRS PRN IV NAUSEA/VOMITING; Start 07/24/20 at 23:15; Stop 07/25/20 at 23:14; Status DC Sodium Chloride 1,000 ml @ 75 mls/hr [id number] IV Last administered on 07/25/20at 12:35; Start 07/24/20 at 23:15; Stop 07/25/20 at 23:14; Status DC Acetaminophen (Tylenol) 650 mg PRN Q4HRS PRN PO FEVER > 100.3'F Last administered on 07/25/20at 22:57; Start 07/24/20 at 23:15; Stop 07/25/20 at 23:14; Status DC Info (FLU VACCINE SCREEN per RX) 1 each 1X ONCE MC ; Start 07/25/20 at 02:30; Stop 07/25/20 at 02:31; Status UNV Influenza Virus Vaccine Quadrival (Fluzone Quad Syringe) 0.5 ml ONCE ONCE VAX IM Last administered on 07/25/20at 10:07; Start 07/25/20 at 09:00; Stop 07/25/20 at 09:01; Status DC Lactobacillus Rhamnosus (Culturelle) 1 cap BID PO Last administered on 07/27/20at 08:21; Start 07/25/20 at 21:00 Ceftriaxone Sodium (Rocephin) 1 gm Q24H IVP Last administered on 07/26/20at 21:05; Start 07/25/20 at 21:00 Dextrose/Sodium Chloride 1,000 ml @ 75 mls/hr [id number] IV Last administered on 07/26/20at 17:45; Start 07/25/20 at 15:15 Aspirin (Aspirin Chewable) 81 mg DAILY PO Last administered on 07/27/20at 08:21; Start 07/26/20 at 09:00 Vitamin D (Vitamin D3) 1,000 unit DAILY PO Last administered on 07/27/20 08:21; Start 07/26/20 at 09:00 Gemfibrozil (Lopid) 600 mg BID PO Last administered on 07/27/20 08:20; Start 07/25/20 at 21:00 Latanoprost (Xalatan) 1 drop QHS OU Last administered on 07/26/20at 21:04; Start 07/25/20 at 21:00 Megestrol Acetate (Megace) 400 mg DAILY PO Last administered on 07/27/20 08:21; Start 07/26/20 at 09:00 Ergocalciferol (Vitamin D2) 50,000 unit We PO Last administered on 07/26/20at 08:38; Start 07/26/20 at 09:00 Ondansetron HCl (Zofran Odt) 4 mg PRN Q6HRS PRN PO NAUSEA/VOMITING; Start 07/25/20 at 15:15 Labetalol HCl (Normodyne Iv Push) 20 mg PRN Q3HRS PRN IVP HYPERTENSION Last administered on 07/25/20at 20:32; Start 07/25/20 at 16:00 Active Scripts Active Aspirin 81 Mg Tab.chew 1 Tab PO DAILY Vitamin D3 (Cholecalciferol (Vitamin D3)) 25 Mcg Tablet 1,000 Unit PO DAILY 30 Days Hydrocodone-Apap 5-325 (Hydrocodone Bit/Acetaminophen) 1 Tab Tablet 1 Tab PO PRN Q4HRS PRN 6 Days Reported Megestrol Acetate 400 Mg/10 Ml Oral.susp 400 Mg PO DAILY Ergocal (Ergocalciferol (Vitamin D2)) 62.5 Mcg Capsule 5,000 Unit PO QWE Acetaminophen 500 Mg Tablet 500 Mg PO TID Zofran (Ondansetron Hcl) 4 Mg Tablet 4 Mg PO PRN Q6HRS PRN Milk Of Magnesia (Magnesium Hydroxide) 2,400 Mg/10 Ml Oral.susp 2,400 Mg PO PRN DAILY PRN Midodrine Hcl 5 Mg Tablet 5 Mg PO TID Mirtazapine 7.5 Mg Tablet 7.5 Mg PO QHS Latanoprost 2.5 Ml Drops 1 Drop EACHEYE QHS Gemfibrozil 600 Mg Tablet 600 Mg PO BID Vitals/I & O Vital Sign - Last 24 Hours 07/26/20 07/26/20 07/26/20 07/26/20 10:56 15:00 19:00 20:10 Temp 98.2 97.5 99.8 98.2 97.5 99.8 Pulse 88 88 90 Resp 18 18 18 B/P (MAP) 149/78 (101) 153/74 (100) 141/74 (96) Pulse Ox 97 97 96 O2 Delivery Room Air Room Air Room Air Room Air 07/26/20 07/27/20 07/27/20 07/27/20 22:51 03:00 07:00 08:00 Temp 98.9 98.6 98.5 98.9 98.6 98.5 Pulse 91 80 91 Resp 18 17 19 B/P (MAP) 151/78 (102) 92/69 (77) 150/85 (106) Pulse Ox 98 96 99 O2 Delivery Room Air Room Air Room Air Intake and Output 07/26/20 07/26/20 07/27/20 15:00 23:00 07:00 Intake Total 50 ml 800 ml 0 ml Balance 50 ml 800 ml 0 ml Nutrition Consultation Dietary Evaluation: Recommendations by RD: Dietary education by RD, Increase Calorie Intake, Protein supplementation Comments: diet change to renal,sending Nepro supplement tid Expected Outcomes/Goals: to meet >50% est nutr needs via po intake Malnutrition Findings: Food and Nutrition Intake (Sev: <50% est energy req 5days Body Fat Depletion (Non Severe: Mild Depletion Weight Status: Underweight Justicifation of Admission Dx: Justifications for Admission: Justification of Admission Dx: Yes JOHN GILMORE MD Jul 27, 2020 10:05
[2020-07-27 11:00] VITALS: BP 130/73
[2020-07-27 11:26] LABS: BASO # 0.1 x10^3/uL (0.0-0.2); BASO % 0 % (0-3); EOS # 0.2 x10^3/uL (0.0-0.7); EOS % 1 % (0-3); HEMATOCRIT 28.2 % (36.0-47.0); HEMOGLOBIN 8.9 g/dL (12.0-15.5); LYMPH # 1.1 x10^3/uL (1.0-4.8); LYMPH % 9 % (24-48); MEAN CORPUSCULAR HEMOGLOBIN 27 pg (25-35); MEAN CORPUSCULAR HGB CONC 32 g/dL (31-37); MEAN CORPUSCULAR VOLUME 85 fL (79-100); MONO # 1.6 x10^3/uL (0.0-1.1); MONO % 12 % (0-9); NEUT # 10.5 x10^3/uL (1.8-7.7); NEUT % 78 % (31-73); PLATELET COUNT 561 x10^3/uL (140-400); RED BLOOD COUNT 3.31 x10^6/uL (3.50-5.40); RED CELL DISTRIBUTION WIDTH 17.5 % (11.5-14.5); WHITE BLOOD COUNT 13.5 x10^3/uL (4.0-11.0)
[2020-07-27 11:40] LABS: ALBUMIN 2.5 g/dL (3.4-5.0); ALBUMIN/GLOBULIN RATIO 0.7 (1.0-1.7); CALCIUM 9.5 mg/dL (8.5-10.1); CREATININE 1.5 mg/dL (0.6-1.0); GFR 39.7; POTASSIUM 3.2 mmol/L (3.5-5.1); TOTAL BILIRUBIN 0.7 mg/dL (0.2-1.0); TOTAL PROTEIN 6.3 g/dL (6.4-8.2)
--- NOTE | 2020-07-27 11:54 | PDOC ---
Renal-Progress Notes Subjective Notes Notes NO NEW COMPLAINTS History of Present Illness Hx of present illness STABLE Vitals Vitals Vital Signs Date Time Temp Pulse Resp B/P (MAP) Pulse Ox O2 Delivery O2 Flow Rate FiO2 07/27/20 11:00 98.0 92 17 130/73 (92) 100 Room Air 98.0 Weight Weight [ ] I.O. Intake and Output Intake and Output 07/27/20 07:00 Intake Total 850 ml Balance 850 ml Intake Oral 150 ml IV Total 700 ml # Voids 2 # Bowel Movements 1 Labs Labs Laboratory Tests Test 07/26/20 17:05 07/26/20 19:44 07/27/20 07:34 07/27/20 11:06 Glucose (Fingerstick) 279 mg/dL (70-99) 296 mg/dL (70-99) 129 mg/dL (70-99) White Blood Count 13.5 x10^3/uL (4.0-11.0) Red Blood Count 3.31 x10^6/uL (3.50-5.40) Hemoglobin 8.9 g/dL (12.0-15.5) Hematocrit 28.2 % (36.0-47.0) Mean Corpuscular Volume 85 fL (79-100) Mean Corpuscular Hemoglobin 27 pg (25-35) Mean Corpuscular Hemoglobin Concent 32 g/dL (31-37) Red Cell Distribution Width 17.5 % (11.5-14.5) Platelet Count 561 x10^3/uL (140-400) Neutrophils (%) (Auto) 78 % (31-73) Lymphocytes (%) (Auto) 9 % (24-48) Monocytes (%) (Auto) 12 % (0-9) Eosinophils (%) (Auto) 1 % (0-3) Basophils (%) (Auto) 0 % (0-3) Neutrophils # (Auto) 10.5 x10^3/uL (1.8-7.7) Lymphocytes # (Auto) 1.1 x10^3/uL (1.0-4.8) Monocytes # (Auto) 1.6 x10^3/uL (0.0-1.1) Eosinophils # (Auto) 0.2 x10^3/uL (0.0-0.7) Basophils # (Auto) 0.1 x10^3/uL (0.0-0.2) Sodium Level 150 mmol/L (136-145) Potassium Level 3.2 mmol/L (3.5-5.1) Chloride Level 117 mmol/L (98-107) Carbon Dioxide Level 17 mmol/L (21-32) Anion Gap 16 (6-14) Blood Urea Nitrogen 35 mg/dL (7-20) Creatinine 1.5 mg/dL (0.6-1.0) Estimated GFR (Cockcroft-Gault) 39.7 BUN/Creatinine Ratio 23 (6-20) Glucose Level 188 mg/dL (70-99) Calcium Level 9.5 mg/dL (8.5-10.1) Total Bilirubin 0.7 mg/dL (0.2-1.0) Aspartate Amino Transf (AST/SGOT) 12 U/L (15-37) Alanine Aminotransferase (ALT/SGPT) 6 U/L (14-59) Alkaline Phosphatase 69 U/L (46-116) Total Protein 6.3 g/dL (6.4-8.2) Albumin 2.5 g/dL (3.4-5.0) Albumin/Globulin Ratio 0.7 (1.0-1.7) Micro Micro Microbiology 07/24/20 Urine Culture - Final, Complete 07/24/20 Antimicrobic Susceptibility - Final, Complete Review of Systems Constitutional: yes: other (CONFUSED) Physical Exam General Appearance: no apparent distress, afebrile Skin: warm Respiratory: bilateral CTA Heart: S1S2 Abdomen: soft, bowel sounds present Genitourinary: bladder flat Extremities: pulses present, atrophy Neurology: alert Musculoskeletal: Osteoarthritis Assessment Assessment IMP ENMANUEL-ATN-CR OF 2.6 ON ADMIT - NOW 1.5 CKD STAGE 3-CR 1.0 TO 1.3 HYPERNATREMIA-IMPROVED HYPOKALEMIA DEHYDRATION COVID 19 POS 12-24 PROB UTI LEUCOCYTOSIS AG MET ACIDOSIS PLAN REPLACE K HYDRATION TO CONTINUE ANTIBIOTICS LABS IN AM SUPPORTIVE CARE MAY NEED NUTRITIONAL SUPPORT WILL FOLLOW TO RITCHIE MD Jul 27, 2020 11:54
[2020-07-27] MEDS ORDERED: POTASSIUM CHLORIDE 10MEQ 100 ML IV SCH (12:00)
[2020-07-27 15:00] VITALS: BP 129/72
--- NOTE | 2020-07-27 15:52 | NUR ---
SW following for discharge planning. Spoke with RN and reviewed chart. Pt's 10th day from testing positive for COVID (07/17) is tomorrow, 07/28. Pt to discharge to [facility] with [facility] at 11am on 07/28. Spoke with daughter Ida and returned call/LVM for pt's son Roni ([phone]). Pt identified as BPCI. SW spoke with discharge planners. This SW to continue following.
[2020-07-27 19:00] VITALS: BP 174/75
[2020-07-27] MEDS: cefTRIAXone IV Push 1 GM VIAL. IVP SCH (19:41)
[2020-07-27] MEDS: LATANOPROST 0.005% OPHTH SOLUTION 2.5ML BOTTLE. OU SCH (20:23)
[2020-07-27 23:00] VITALS: BP 159/88
[2020-07-28 03:00] VITALS: BP 156/80
[2020-07-28 07:00] VITALS: BP 135/72
[2020-07-28] MEDS: IV DEXTROSE 5 %-0.2 % NACL 1,000 ML IV SCH (08:38)
--- NOTE | 2020-07-28 08:57 | PDOC ---
PROGRESS NOTES Date of Service: DATE: 07/28/20 TIME: 08:57 Chief Complaint Chief Complaint VTE Prophylaxis Ordered VTE Prophylaxis Devices: No VTE Pharmacological Prophylaxi: Yes DISCHARGE DX === Assessment/Plan Impression: ACUTE RESPIRATORY FAILURE due to covid 19 pneumonia Patchy left basilar opacity, likely atelectasis. Nonobstructed bowel gas pattern. Moderate stool within the distended rectum. Progressively healing right subcapital femoral neck fracture FROM 04/02 ACUTE RENAL INJURY, acute vasomotor nephropathy Malnutrition, severe sepsis METABOLIC ACIDOSIS PLAN ADMIT IV FLUID SUPPORT, HYPOTONIC EMPERIC IV ROCEPHIN BOWEL REGIMEN NEPHROLOGY CONSULT blood cultures NEPHROLOGY CONSULT DAILY LABS screen for hospice intake, poor intake po, FAMILY DESIRES HOME WITH [facility] D/C PLANNING 35 MIN History of Present Illness History of Present Illness Identification/Chief Complaint Chief Complaint seen in er with severe dehydration, ENMANUEL 89 year old female brought in from nursing facility for dehydration. CR 2.3 IN ER // was diagnosed with COVID-July 06. Over the past week she has been declining. POOR INTAKE NOTED per nursing facility staff is that she has had very little p.o. intake over the past 5 days. STAFF states she has started having failure to thrive. Concern for dehydration and acute kidney injury. They state the patient's orientation has decreased that she is only alert oriented x1. Past Medical History Past Medical History Past Medical History Past Medical History Past Medical History: Arrhythmia, CAD, Diabetes-Type II, High Cholesterol, Hypertension, Renal Failure Past Surgical History: Appendectomy, Tonsillectomy, Other Additional Past Surgical Histo: Hemmoroidectomy, Left hip repair, Hernia repair, RIGHT FEMUR REPAIR Smoking Status: Former Smoker Alcohol Use: None Drug Use: None fhx htn, copd Cardiovascular: AFIB, CAD, CHF, HTN, Hyperlipidemia Pulmonary: No pertinent hx GI: No pertinent hx Heme/Onc: Anemia NOS Hepatobiliary: No pertinent hx Psych: Anxiety, Depression Musculoskeletal: Osteoarthritis Rheumatologic: No pertinent hx Infectious disease: No pertinent hx Renal/: Chronic renal insuff Endocrine: Diabetes Past Surgical History Past Surgical History: Appendectomy, Tonsillectomy, Other Family History Family History: Hypertension Social History Smoke: No ALCOHOL: none Drugs: None Current Problem List Problem List Problems Medical Problems: (1) ENMANUEL (acute kidney injury) Status: Acute (2) Dehydration Vitals Vitals Vital Signs Date Time Temp Pulse Resp B/P (MAP) Pulse Ox O2 Delivery O2 Flow Rate FiO2 07/28/20 03:00 98.3 94 18 156/80 (105) 100 Room Air 98.3 Physical Exam Physical Exam Physical Exam Physical Exam E: Constitutional: Well developed, well nourished, no acute distress, non-toxic appearance, thin. [] HENT: Normocephalic, atraumatic, bilateral external ears normal, nose normal. [] Eyes: PERRLA, conjunctiva normal, no discharge. [] Neck: No rigidity, supple, no stridor. [] Cardiovascular: Regular rate and rhythm, brisk cap refill [] Lungs & Thorax: Non labored symmetric respirations, no tachypnea or respiratory distress, clear to auscultation [] Abdomen: Soft, nondistended no guarding or rebound. Skin: Warm, dry, no erythema, no rash, cap refill 1 second, mild skin tenting. [] Back: No tenderness, no CVA tenderness. [] Extremities: No deformities, range of motion grossly intact, no lower extremity edema [] Neurologic: Alert and oriented TO NAME ONLY , no focal deficits noted. [] Psychologic: Affect normal, mood normal. [] General: Cooperative, No acute distress HEENT: Mucous membr. moist/pink Breasts: Not examined Rectal Exam: not examined PELVIC: Examination not indicated Extremities: No cyanosis Neuro: Sensation intact, Other (CONFUSED TO DETAILS) Psych/Mental Status: Mood NL General: Alert, Cooperative, No acute distress, Other (THIN, FRAIL) Heart: Regular rate Lungs: Clear Abdomen: Normal bowel sounds, Soft, No hepatosplenomegaly Extremities: No clubbing, No cyanosis Skin: No breakdown Labs LABS Laboratory Tests Test 07/27/20 11:06 07/27/20 12:07 White Blood Count 13.5 x10^3/uL (4.0-11.0) Red Blood Count 3.31 x10^6/uL (3.50-5.40) Hemoglobin 8.9 g/dL (12.0-15.5) Hematocrit 28.2 % (36.0-47.0) Mean Corpuscular Volume 85 fL (79-100) Mean Corpuscular Hemoglobin 27 pg (25-35) Mean Corpuscular Hemoglobin Concent 32 g/dL (31-37) Red Cell Distribution Width 17.5 % (11.5-14.5) Platelet Count 561 x10^3/uL (140-400) Neutrophils (%) (Auto) 78 % (31-73) Lymphocytes (%) (Auto) 9 % (24-48) Monocytes (%) (Auto) 12 % (0-9) Eosinophils (%) (Auto) 1 % (0-3) Basophils (%) (Auto) 0 % (0-3) Neutrophils # (Auto) 10.5 x10^3/uL (1.8-7.7) Lymphocytes # (Auto) 1.1 x10^3/uL (1.0-4.8) Monocytes # (Auto) 1.6 x10^3/uL (0.0-1.1) Eosinophils # (Auto) 0.2 x10^3/uL (0.0-0.7) Basophils # (Auto) 0.1 x10^3/uL (0.0-0.2) Sodium Level 150 mmol/L (136-145) Potassium Level 3.2 mmol/L (3.5-5.1) Chloride Level 117 mmol/L (98-107) Carbon Dioxide Level 17 mmol/L (21-32) Anion Gap 16 (6-14) Blood Urea Nitrogen 35 mg/dL (7-20) Creatinine 1.5 mg/dL (0.6-1.0) Estimated GFR (Cockcroft-Gault) 39.7 BUN/Creatinine Ratio 23 (6-20) Glucose Level 188 mg/dL (70-99) Calcium Level 9.5 mg/dL (8.5-10.1) Total Bilirubin 0.7 mg/dL (0.2-1.0) Aspartate Amino Transf (AST/SGOT) 12 U/L (15-37) Alanine Aminotransferase (ALT/SGPT) 6 U/L (14-59) Alkaline Phosphatase 69 U/L (46-116) Total Protein 6.3 g/dL (6.4-8.2) Albumin 2.5 g/dL (3.4-5.0) Albumin/Globulin Ratio 0.7 (1.0-1.7) Glucose (Fingerstick) 160 mg/dL (70-99) Assessment and Plan Assessmemt and Plan Problems Medical Problems: (1) ENMANUEL (acute kidney injury) Status: Acute (2) Dehydration Status: Acute (3) UTI (urinary tract infection) Status: Acute Comment Review of Relevant I have reviewed the following items nella (where applicable) has been applied. Labs Laboratory Tests Test 07/26/20 11:31 07/26/20 17:05 07/26/20 19:44 07/27/20 07:34 Glucose (Fingerstick) 297 mg/dL (70-99) 279 mg/dL (70-99) 296 mg/dL (70-99) 129 mg/dL (70-99) Test 07/27/20 11:06 07/27/20 12:07 White Blood Count 13.5 x10^3/uL (4.0-11.0) Red Blood Count 3.31 x10^6/uL (3.50-5.40) Hemoglobin 8.9 g/dL (12.0-15.5) Hematocrit 28.2 % (36.0-47.0) Mean Corpuscular Volume 85 fL (79-100) Mean Corpuscular Hemoglobin 27 pg (25-35) Mean Corpuscular Hemoglobin Concent 32 g/dL (31-37) Red Cell Distribution Width 17.5 % (11.5-14.5) Platelet Count 561 x10^3/uL (140-400) Neutrophils (%) (Auto) 78 % (31-73) Lymphocytes (%) (Auto) 9 % (24-48) Monocytes (%) (Auto) 12 % (0-9) Eosinophils (%) (Auto) 1 % (0-3) Basophils (%) (Auto) 0 % (0-3) Neutrophils # (Auto) 10.5 x10^3/uL (1.8-7.7) Lymphocytes # (Auto) 1.1 x10^3/uL (1.0-4.8) Monocytes # (Auto) 1.6 x10^3/uL (0.0-1.1) Eosinophils # (Auto) 0.2 x10^3/uL (0.0-0.7) Basophils # (Auto) 0.1 x10^3/uL (0.0-0.2) Sodium Level 150 mmol/L (136-145) Potassium Level 3.2 mmol/L (3.5-5.1) Chloride Level 117 mmol/L (98-107) Carbon Dioxide Level 17 mmol/L (21-32) Anion Gap 16 (6-14) Blood Urea Nitrogen 35 mg/dL (7-20) Creatinine 1.5 mg/dL (0.6-1.0) Estimated GFR (Cockcroft-Gault) 39.7 BUN/Creatinine Ratio 23 (6-20) Glucose Level 188 mg/dL (70-99) Calcium Level 9.5 mg/dL (8.5-10.1) Total Bilirubin 0.7 mg/dL (0.2-1.0) Aspartate Amino Transf (AST/SGOT) 12 U/L (15-37) Alanine Aminotransferase (ALT/SGPT) 6 U/L (14-59) Alkaline Phosphatase 69 U/L (46-116) Total Protein 6.3 g/dL (6.4-8.2) Albumin 2.5 g/dL (3.4-5.0) Albumin/Globulin Ratio 0.7 (1.0-1.7) Glucose (Fingerstick) 160 mg/dL (70-99) Laboratory Tests Test 07/27/20 11:06 07/27/20 12:07 White Blood Count 13.5 x10^3/uL (4.0-11.0) Red Blood Count 3.31 x10^6/uL (3.50-5.40) Hemoglobin 8.9 g/dL (12.0-15.5) Hematocrit 28.2 % (36.0-47.0) Mean Corpuscular Volume 85 fL (79-100) Mean Corpuscular Hemoglobin 27 pg (25-35) Mean Corpuscular Hemoglobin Concent 32 g/dL (31-37) Red Cell Distribution Width 17.5 % (11.5-14.5) Platelet Count 561 x10^3/uL (140-400) Neutrophils (%) (Auto) 78 % (31-73) Lymphocytes (%) (Auto) 9 % (24-48) Monocytes (%) (Auto) 12 % (0-9) Eosinophils (%) (Auto) 1 % (0-3) Basophils (%) (Auto) 0 % (0-3) Neutrophils # (Auto) 10.5 x10^3/uL (1.8-7.7) Lymphocytes # (Auto) 1.1 x10^3/uL (1.0-4.8) Monocytes # (Auto) 1.6 x10^3/uL (0.0-1.1) Eosinophils # (Auto) 0.2 x10^3/uL (0.0-0.7) Basophils # (Auto) 0.1 x10^3/uL (0.0-0.2) Sodium Level 150 mmol/L (136-145) Potassium Level 3.2 mmol/L (3.5-5.1) Chloride Level 117 mmol/L (98-107) Carbon Dioxide Level 17 mmol/L (21-32) Anion Gap 16 (6-14) Blood Urea Nitrogen 35 mg/dL (7-20) Creatinine 1.5 mg/dL (0.6-1.0) Estimated GFR (Cockcroft-Gault) 39.7 BUN/Creatinine Ratio 23 (6-20) Glucose Level 188 mg/dL (70-99) Calcium Level 9.5 mg/dL (8.5-10.1) Total Bilirubin 0.7 mg/dL (0.2-1.0) Aspartate Amino Transf (AST/SGOT) 12 U/L (15-37) Alanine Aminotransferase (ALT/SGPT) 6 U/L (14-59) Alkaline Phosphatase 69 U/L (46-116) Total Protein 6.3 g/dL (6.4-8.2) Albumin 2.5 g/dL (3.4-5.0) Albumin/Globulin Ratio 0.7 (1.0-1.7) Glucose (Fingerstick) 160 mg/dL (70-99) Microbiology 07/24/20 Urine Culture - Final, Complete 07/24/20 Antimicrobic Susceptibility - Final, Complete Medications Current Medications Sodium Chloride 500 ml @ 500 mls/hr 1X ONCE IV Last administered on 07/24/20at 19:15; Start 07/24/20 at 19:15; Stop 07/24/20 at 20:14; Status DC Ceftriaxone Sodium (Rocephin) 1 gm 1X ONCE IVP Last administered on 07/24/20at 23:25; Start 07/24/20 at 23:00; Stop 07/24/20 at 23:05; Status DC Ondansetron HCl (Zofran) 4 mg PRN Q8HRS PRN IV NAUSEA/VOMITING; Start 07/24/20 at 23:15; Stop 07/25/20 at 23:14; Status DC Sodium Chloride 1,000 ml @ 75 mls/hr [id number] IV Last administered on 07/25/20at 12:35; Start 07/24/20 at 23:15; Stop 07/25/20 at 23:14; Status DC Acetaminophen (Tylenol) 650 mg PRN Q4HRS PRN PO FEVER > 100.3'F Last administered on 07/25/20at 22:57; Start 07/24/20 at 23:15; Stop 07/25/20 at 23:14; Status DC Info (FLU VACCINE SCREEN per RX) 1 each 1X ONCE MC ; Start 07/25/20 at 02:30; Stop 07/25/20 at 02:31; Status UNV Influenza Virus Vaccine Quadrival (Fluzone Quad Syringe) 0.5 ml ONCE ONCE VAX IM Last administered on 07/25/20at 10:07; Start 07/25/20 at 09:00; Stop 07/25/20 at 09:01; Status DC Lactobacillus Rhamnosus (Culturelle) 1 cap BID PO Last administered on 07/27/20at 20:23; Start 07/25/20 at 21:00 Ceftriaxone Sodium (Rocephin) 1 gm Q24H IVP Last administered on 07/26/20at 21:05; Start 07/25/20 at 21:00 Dextrose/Sodium Chloride 1,000 ml @ 75 mls/hr [id number] IV Last administered on 07/26/20at 17:45; Start 07/25/20 at 15:15 Aspirin (Aspirin Chewable) 81 mg DAILY PO Last administered on 07/27/20at 08:21; Start 07/26/20 at 09:00 Vitamin D (Vitamin D3) 1,000 unit DAILY PO Last administered on 07/27/20at 08:21; Start 07/26/20 at 09:00 Gemfibrozil (Lopid) 600 mg BID PO Last administered on 07/27/20at 20:23; Start 07/25/20 at 21:00 Latanoprost (Xalatan) 1 drop QHS OU Last administered on 07/27/20at 20:23; Start 07/25/20 at 21:00 Megestrol Acetate (Megace) 400 mg DAILY PO Last administered on 07/27/20at 08:21; Start 07/26/20 at 09:00 Ergocalciferol (Vitamin D2) 50,000 unit We PO Last administered on 07/26/20at 08:38; Start 07/26/20 at 09:00 Ondansetron HCl (Zofran Odt) 4 mg PRN Q6HRS PRN PO NAUSEA/VOMITING; Start 07/25/20 at 15:15 Labetalol HCl (Normodyne Iv Push) 20 mg PRN Q3HRS PRN IVP HYPERTENSION Last administered on 07/25/20at 20:32; Start 07/25/20 at 16:00 Potassium Chloride/Water 100 ml @ 100 mls/hr Q1H IV ; Start 07/27/20 at 12:00; Stop 07/27/20 at 12:07; Status DC Active Scripts Active Aspirin 81 Mg Tab.chew 1 Tab PO DAILY Vitamin D3 (Cholecalciferol (Vitamin D3)) 25 Mcg Tablet 1,000 Unit PO DAILY 30 Days Hydrocodone-Apap 5-325 (Hydrocodone Bit/Acetaminophen) 1 Tab Tablet 1 Tab PO PRN Q4HRS PRN 6 Days Reported Megestrol Acetate 400 Mg/10 Ml Oral.susp 400 Mg PO DAILY Ergocal (Ergocalciferol (Vitamin D2)) 62.5 Mcg Capsule 5,000 Unit PO QWE Acetaminophen 500 Mg Tablet 500 Mg PO TID Zofran (Ondansetron Hcl) 4 Mg Tablet 4 Mg PO PRN Q6HRS PRN Milk Of Magnesia (Magnesium Hydroxide) 2,400 Mg/10 Ml Oral.susp 2,400 Mg PO PRN DAILY PRN Midodrine Hcl 5 Mg Tablet 5 Mg PO TID Mirtazapine 7.5 Mg Tablet 7.5 Mg PO QHS Latanoprost 2.5 Ml Drops 1 Drop EACHEYE QHS Gemfibrozil 600 Mg Tablet 600 Mg PO BID Vitals/I & O Vital Sign - Last 24 Hours 07/27/20 07/27/20 07/27/20 07/27/20 11:00 15:00 19:00 20:10 Temp 98.0 98.6 98.8 98.0 98.6 98.8 Pulse 92 90 93 Resp 17 18 20 B/P (MAP) 130/73 (92) 129/72 (91) 174/75 (108) Pulse Ox 100 97 94 O2 Delivery Room Air Room Air Room Air Room Air 07/27/20 07/28/20 23:00 03:00 Temp 97.4 98.3 97.4 98.3 Pulse 92 94 Resp 18 18 B/P (MAP) 159/88 (111) 156/80 (105) Pulse Ox 99 100 O2 Delivery Room Air Room Air Intake and Output 07/27/20 07/27/20 07/28/20 15:00 23:00 07:00 Intake Total 100 ml 25 ml 0 ml Balance 100 ml 25 ml 0 ml Nutrition Consultation Dietary Evaluation: Recommendations by RD: Dietary education by RD, Increase Calorie Intake, Protein supplementation Comments: diet change to renal,sending Nepro supplement tid Expected Outcomes/Goals: to meet >50% est nutr needs via po intake Malnutrition Findings: Food and Nutrition Intake (Sev: <50% est energy req 5days Body Fat Depletion (Non Severe: Mild Depletion Weight Status: Underweight Justicifation of Admission Dx: Justifications for Admission: Justification of Admission Dx: Yes JOHN GILMORE MD Jul 28, 2020 08:57
[2020-07-28] MEDS: LACTOBACILLUS RHAMNOSUS GG 1 CAPSULE. PO SCH (09:10)
[2020-07-28] MEDS: GEMFIBROZIL 600 MG TABLET. PO SCH (09:10)
[2020-07-28] MEDS: ASPIRIN CHEWABLE 81 MG TABLET. PO SCH (09:10)
[2020-07-28] MEDS: CHOLECALCIFEROL (VITAMIN D3) 1,000 UNIT TABLET PO SCH (09:10)
[2020-07-28] MEDS: MEGESTROL 400 MG/10 ML ORAL.SUSP. PO SCH (09:10)
--- NOTE | 2020-07-28 09:43 | PDOC3 ---
Discharge Summary Date of Admission: Jul 25, 2020 Date of Discharge: Jul 28, 2020 Follow-Up: 1-2 days Admitting Diagnosis comment: DISCHARGE DX Assessment/Plan Impression: ACUTE RESPIRATORY FAILURE due to covid 19 pneumonia Patchy left basilar opacity, likely atelectasis. Nonobstructed bowel gas pattern. Moderate stool within the distended rectum. Progressively healing right subcapital femoral neck fracture FROM 04/02 ACUTE RENAL INJURY, acute vasomotor nephropathy Malnutrition, severe sepsis METABOLIC ACIDOSIS PLAN ADMIT IV FLUID SUPPORT, HYPOTONIC EMPERIC IV ROCEPHIN BOWEL REGIMEN NEPHROLOGY CONSULT blood cultures NEPHROLOGY CONSULT DAILY LABS screen for hospice intake, poor intake po, FAMILY DESIRES HOME WITH [facility] D/C PLANNING 35 MIN History of Present Illness History of Present Illness Identification/Chief Complaint Chief Complaint seen in er with severe dehydration, ENMANUEL 89 year old female brought in from nursing facility for dehydration. CR 2.3 IN ER // was diagnosed with COVID-July 06. Over the past week she has been declining. POOR INTAKE NOTED per nursing facility staff is that she has had very little p.o. intake over the past 5 days. STAFF states she has started having failure to thrive. Concern for dehydration and acute kidney injury. They state the patient's orientation has decreased that she is only alert oriented x1. Past Medical History Past Medical History Past Medical History Past Medical History Past Medical History: Arrhythmia, CAD, Diabetes-Type II, High Cholesterol, Hypertension, Renal Failure Past Surgical History: Appendectomy, Tonsillectomy, Other Additional Past Surgical Histo: Hemmoroidectomy, Left hip repair, Hernia repair, RIGHT FEMUR REPAIR Smoking Status: Former Smoker Alcohol Use: None Drug Use: None fhx htn, copd Cardiovascular: AFIB, CAD, CHF, HTN, Hyperlipidemia Pulmonary: No pertinent hx GI: No pertinent hx Heme/Onc: Anemia NOS Hepatobiliary: No pertinent hx Psych: Anxiety, Depression Musculoskeletal: Osteoarthritis Rheumatologic: No pertinent hx Infectious disease: No pertinent hx Renal/: Chronic renal insuff Endocrine: Diabetes Past Surgical History Past Surgical History: Appendectomy, Tonsillectomy, Other Family History Family History: Hypertension Social History Smoke: No ALCOHOL: none Drugs: None Current Problem List Problem List Problems Medical Problems: (1) ENMANUEL (acute kidney injury) Status: Acute (2) Dehydration Vitals Vitals Vital Signs Date Time Temp Pulse Resp B/P (MAP) Pulse Ox O2 Delivery O2 Flow Rate FiO2 07/28/20 03:00 98.3 94 18 156/80 (105) 100 Room Air 98.3 Physical Exam Physical Exam Physical Exam Physical Exam E: Constitutional: Well developed, well nourished, no acute distress, non-toxic appearance, thin. [] HENT: Normocephalic, atraumatic, bilateral external ears normal, nose normal. [] Eyes: PERRLA, conjunctiva normal, no discharge. [] Neck: No rigidity, supple, no stridor. [] Cardiovascular: Regular rate and rhythm, brisk cap refill [] Lungs & Thorax: Non labored symmetric respirations, no tachypnea or respiratory distress, clear to auscultation [] Abdomen: Soft, nondistended no guarding or rebound. Skin: Warm, dry, no erythema, no rash, cap refill 1 second, mild skin tenting. [] Back: No tenderness, no CVA tenderness. [] Extremities: No deformities, range of motion grossly intact, no lower extremity edema [] Neurologic: Alert and oriented TO NAME ONLY , no focal deficits noted. [] Psychologic: Affect normal, mood normal. [] General: Cooperative, No acute distress HEENT: Mucous membr. moist/pink Breasts: Not examined Rectal Exam: not examined PELVIC: Examination not indicated Extremities: No cyanosis Neuro: Sensation intact, Other (CONFUSED TO DETAILS) Psych/Mental Status: Mood NL General: Alert, Cooperative, No acute distress, Other (THIN, FRAIL) Heart: Regular rate Lungs: Clear Abdomen: Normal bowel sounds, Soft, No hepatosplenomegaly Extremities: No clubbing, No cyanosis FINAL DIAGNOSIS Problems Medical Problems: (1) ENMANUEL (acute kidney injury) Status: Acute (2) Dehydration Status: Acute (3) UTI (urinary tract infection) Status: Acute Brief Hospital Course Ms. Pichardo is a 89 old [sex] who presented with [ COVID PNEUMONIA, UTI] CONDITION AT DISCHARGE: Comment (POOR PROGNOSIS DUE TO MALNUTRITION) Discharge Medications Current Medications Sodium Chloride 500 ml @ 500 mls/hr 1X ONCE IV Last administered on 07/24/20at 19:15; Start 07/24/20 at 19:15; Stop 07/24/20 at 20:14; Status DC Ceftriaxone Sodium (Rocephin) 1 gm 1X ONCE IVP Last administered on 07/24/20at 23:25; Start 07/24/20 at 23:00; Stop 07/24/20 at 23:05; Status DC Ondansetron HCl (Zofran) 4 mg PRN Q8HRS PRN IV NAUSEA/VOMITING; Start 07/24/20 at 23:15; Stop 07/25/20 at 23:14; Status DC Sodium Chloride 1,000 ml @ 75 mls/hr [id number] IV Last administered on 07/25/20at 12:35; Start 07/24/20 at 23:15; Stop 07/25/20 at 23:14; Status DC Acetaminophen (Tylenol) 650 mg PRN Q4HRS PRN PO FEVER > 100.3'F Last administered on 07/25/20at 22:57; Start 07/24/20 at 23:15; Stop 07/25/20 at 23:14; Status DC Info (FLU VACCINE SCREEN per RX) 1 each 1X ONCE MC ; Start 07/25/20 at 02:30; Stop 07/25/20 at 02:31; Status UNV Influenza Virus Vaccine Quadrival (Fluzone Quad Syringe) 0.5 ml ONCE ONCE VAX IM Last administered on 07/25/20at 10:07; Start 07/25/20 at 09:00; Sto p 07/25/20 at 09:01; Status DC Lactobacillus Rhamnosus (Culturelle) 1 cap BID PO Last administered on 07/28/20at 09:10; Start 07/25/20 at 21:00 Ceftriaxone Sodium (Rocephin) 1 gm Q24H IVP Last administered on 07/26/20at 21:05; Start 07/25/20 at 21:00 Dextrose/Sodium Chloride 1,000 ml @ 75 mls/hr [id number] IV Last administered on 07/26/20at 17:45; Start 07/25/20 at 15:15 Aspirin (Aspirin Chewable) 81 mg DAILY PO Last administered on 07/28/20at 09:10; Start 07/26/20 at 09:00 Vitamin D (Vitamin D3) 1,000 unit DAILY PO Last administered on 07/28/20at 09:10; Start 07/26/20 at 09:00 Gemfibrozil (Lopid) 600 mg BID PO Last administered on 07/28/20at 09:10; Start 07/25/20 at 21:00 Latanoprost (Xalatan) 1 drop QHS OU Last administered on 07/27/20at 20:23; Start 07/25/20 at 21:00 Megestrol Acetate (Megace) 400 mg DAILY PO Last administered on 07/28/20at 09:10; Start 07/26/20 at 09:00 Ergocalciferol (Vitamin D2) 50,000 unit We PO Last administered on 07/26/20at 08:38; Start 07/26/20 at 09:00 Ondansetron HCl (Zofran Odt) 4 mg PRN Q6HRS PRN PO NAUSEA/VOMITING; Start 07/25/20 at 15:15 Labetalol HCl (Normodyne Iv Push) 20 mg PRN Q3HRS PRN IVP HYPERTENSION Last administered on 07/25/20at 20:32; Start 07/25/20 at 16:00 Potassium Chloride/Water 100 ml @ 100 mls/hr Q1H IV ; Start 07/27/20 at 12:00; Stop 07/27/20 at 12:07; Status DC Active Scripts Active Aspirin 81 Mg Tab.chew 1 Tab PO DAILY Vitamin D3 (Cholecalciferol (Vitamin D3)) 25 Mcg Tablet 1,000 Unit PO DAILY 30 Days Hydrocodone-Apap 5-325 (Hydrocodone Bit/Acetaminophen) 1 Tab Tablet 1 Tab PO PRN Q4HRS PRN 6 Days Reported Megestrol Acetate 400 Mg/10 Ml Oral.susp 400 Mg PO DAILY Ergocal (Ergocalciferol (Vitamin D2)) 62.5 Mcg Capsule 5,000 Unit PO QWE Acetaminophen 500 Mg Tablet 500 Mg PO TID Zofran (Ondansetron Hcl) 4 Mg Tablet 4 Mg PO PRN Q6HRS PRN Milk Of Magnesia (Magnesium Hydroxide) 2,400 Mg/10 Ml Oral.susp 2,400 Mg PO PRN DAILY PRN Midodrine Hcl 5 Mg Tablet 5 Mg PO TID Mirtazapine 7.5 Mg Tablet 7.5 Mg PO QHS Latanoprost 2.5 Ml Drops 1 Drop EACHEYE QHS Gemfibrozil 600 Mg Tablet 600 Mg PO BID Vital Signs Vital Signs Date Time Temp Pulse Resp B/P (MAP) Pulse Ox O2 Delivery O2 Flow Rate FiO2 07/28/20 07:00 98.6 81 16 135/72 (93) 99 Room Air 98.6 Labs Laboratory Tests Test 07/26/20 11:31 07/26/20 17:05 07/26/20 19:44 07/27/20 07:34 Glucose (Fingerstick) 297 mg/dL (70-99) 279 mg/dL (70-99) 296 mg/dL (70-99) 129 mg/dL (70-99) Test 07/27/20 11:06 07/27/20 12:07 White Blood Count 13.5 x10^3/uL (4.0-11.0) Red Blood Count 3.31 x10^6/uL (3.50-5.40) Hemoglobin 8.9 g/dL (12.0-15.5) Hematocrit 28.2 % (36.0-47.0) Mean Corpuscular Volume 85 fL (79-100) Mean Corpuscular Hemoglobin 27 pg (25-35) Mean Corpuscular Hemoglobin Concent 32 g/dL (31-37) Red Cell Distribution Width 17.5 % (11.5-14.5) Platelet Count 561 x10^3/uL (140-400) Neutrophils (%) (Auto) 78 % (31-73) Lymphocytes (%) (Auto) 9 % (24-48) Monocytes (%) (Auto) 12 % (0-9) Eosinophils (%) (Auto) 1 % (0-3) Basophils (%) (Auto) 0 % (0-3) Neutrophils # (Auto) 10.5 x10^3/uL (1.8-7.7) Lymphocytes # (Auto) 1.1 x10^3/uL (1.0-4.8) Monocytes # (Auto) 1.6 x10^3/uL (0.0-1.1) Eosinophils # (Auto) 0.2 x10^3/uL (0.0-0.7) Basophils # (Auto) 0.1 x10^3/uL (0.0-0.2) Sodium Level 150 mmol/L (136-145) Potassium Level 3.2 mmol/L (3.5-5.1) Chloride Level 117 mmol/L (98-107) Carbon Dioxide Level 17 mmol/L (21-32) Anion Gap 16 (6-14) Blood Urea Nitrogen 35 mg/dL (7-20) Creatinine 1.5 mg/dL (0.6-1.0) Estimated GFR (Cockcroft-Gault) 39.7 BUN/Creatinine Ratio 23 (6-20) Glucose Level 188 mg/dL (70-99) Calcium Level 9.5 mg/dL (8.5-10.1) Total Bilirubin 0.7 mg/dL (0.2-1.0) Aspartate Amino Transf (AST/SGOT) 12 U/L (15-37) Alanine Aminotransferase (ALT/SGPT) 6 U/L (14-59) Alkaline Phosphatase 69 U/L (46-116) Total Protein 6.3 g/dL (6.4-8.2) Albumin 2.5 g/dL (3.4-5.0) Albumin/Globulin Ratio 0.7 (1.0-1.7) Glucose (Fingerstick) 160 mg/dL (70-99) Laboratory Tests Test 07/27/20 11:06 07/27/20 12:07 White Blood Count 13.5 x10^3/uL (4.0-11.0) Red Blood Count 3.31 x10^6/uL (3.50-5.40) Hemoglobin 8.9 g/dL (12.0-15.5) Hematocrit 28.2 % (36.0-47.0) Mean Corpuscular Volume 85 fL (79-100) Mean Corpuscular Hemoglobin 27 pg (25-35) Mean Corpuscular Hemoglobin Concent 32 g/dL (31-37) Red Cell Distribution Width 17.5 % (11.5-14.5) Platelet Count 561 x10^3/uL (140-400) Neutrophils (%) (Auto) 78 % (31-73) Lymphocytes (%) (Auto) 9 % (24-48) Monocytes (%) (Auto) 12 % (0-9) Eosinophils (%) (Auto) 1 % (0-3) Basophils (%) (Auto) 0 % (0-3) Neutrophils # (Auto) 10.5 x10^3/uL (1.8-7.7) Lymphocytes # (Auto) 1.1 x10^3/uL (1.0-4.8) Monocytes # (Auto) 1.6 x10^3/uL (0.0-1.1) Eosinophils # (Auto) 0.2 x10^3/uL (0.0-0.7) Basophils # (Auto) 0.1 x10^3/uL (0.0-0.2) Sodium Level 150 mmol/L (136-145) Potassium Level 3.2 mmol/L (3.5-5.1) Chloride Level 117 mmol/L (98-107) Carbon Dioxide Level 17 mmol/L (21-32) Anion Gap 16 (6-14) Blood Urea Nitrogen 35 mg/dL (7-20) Creatinine 1.5 mg/dL (0.6-1.0) Estimated GFR (Cockcroft-Gault) 39.7 BUN/Creatinine Ratio 23 (6-20) Glucose Level 188 mg/dL (70-99) Calcium Level 9.5 mg/dL (8.5-10.1) Total Bilirubin 0.7 mg/dL (0.2-1.0) Aspartate Amino Transf (AST/SGOT) 12 U/L (15-37) Alanine Aminotransferase (ALT/SGPT) 6 U/L (14-59) Alkaline Phosphatase 69 U/L (46-116) Total Protein 6.3 g/dL (6.4-8.2) Albumin 2.5 g/dL (3.4-5.0) Albumin/Globulin Ratio 0.7 (1.0-1.7) Glucose (Fingerstick) 160 mg/dL (70-99) Allergies Allergies Coded Allergies Type Severity Reaction Last Updated Verified codeine Allergy Intermediate 06/01/14 Yes Disposition/Orders: D/C to Home w/ Hospice Justicifation of Admission Dx: Justifications for Admission: Justification of Admission Dx: Yes JOHN GILMORE MD Jul 28, 2020 09:43
[2020-07-28] MEDS ORDERED: CEFD300C PO (09:45)
[2020-07-28] MEDS ORDERED: LACT1CAP19 PO (09:45)
--- NOTE | 2020-07-28 09:47 | SNU/HH DC ---
DISCHARGE ORDERS DISCHARGE INFORMATION: FINAL DIAGNOSIS Problems Medical Problems: (1) ENMANUEL (acute kidney injury) Status: Acute (2) Dehydration Status: Acute (3) UTI (urinary tract infection) Status: Acute CONDITION ON DISCHARGE: Guarded CODE STATUS: Code Status: DNR/DNI SNF: SNF STAY <30 DAYS: No HOSPICE: HOSPICE: Yes HOSPICE EVAL & TREAT: Yes LTAC: ADMIT TO LTAC: No POST DISCHARGE ORDERS: ACTIVITY ORDERS: Activity as tolerated WEIGHT BEARING STATUS: As tolerated BATHING ORDERS: Shower-keep dressing dry DIET AFTER DISCHARGE: ADA WOUND/INCISION CARE: Ice to area for comfort CHECKS AFTER DISCHARGE: CHECKS AFTER DISCHARGE: Check blood press - daily, Check blood sugar, ac/hs, Check your Temp as needed FOLLOW-UP: LAB ORDERS FOR FOLLOW-UP: CBC and CMP within 2 weeks TREATMENT/EQUIPMENT ORDERS: ADAPTIVE EQUIPMENT NEEDED: None, Commode, Front wheeled walker RESPIRATORY EQUIPMENT NEEDED: BiPAP Physical Therapy For: Evalulation/Treatment Occupational Therapy For: Evaluation/Treatment DISCHARGE MEDICATIONS: Home Meds Active Scripts Cefdinir (CEFDINIR) 300 Mg Capsule, 1 CAP PO BID for UTI for 10 Days, #20 CAP Prov:JOHN GILMORE MD 07/28/20 Lactobacillus Rhamnosus Gg (CULTURELLE) 1 Each Cap.sprink, 1 CAP PO BID for SUPPLEMENT for 30 Days, #60 CAP Prov:JOHN GILMORE MD 07/28/20 Aspirin (ASPIRIN) 81 Mg Tab.chew, 1 TAB PO DAILY for dvt prophylaxis, #30 TAB 3 Refills Prov:KAM DICKEY MD 06/13/20 Cholecalciferol (Vitamin D3) (Vitamin D3) 25 Mcg Tablet, 1000 UNIT PO DAILY for bone health for 30 Days, #30 TAB Prov:KAM DICKEY MD 06/13/20 Hydrocodone Bit/Acetaminophen (HYDROCODONE-APAP 5-325 ) 1 Tab Tablet, 1 TAB PO PRN Q4HRS PRN for MILD PAIN for 6 Days, #18 TAB Prov:ONOFRE THAO MD 06/26/18 Reported Medications Megestrol Acetate (MEGESTROL ACETATE) 400 Mg/10 Ml Oral.susp, 400 MG PO DAILY for APPETITE STIMULANT, MISC 07/25/20 Ergocalciferol (Vitamin D2) (Ergocal) 62.5 Mcg Capsule, 5000 UNIT PO QWE for SUPPLEMENT, CAP 07/25/20 Acetaminophen (ACETAMINOPHEN) 500 Mg Tablet, 500 MG PO TID for PAIN, TAB 07/25/20 Ondansetron Hcl (ZOFRAN) 4 Mg Tablet, 4 MG PO PRN Q6HRS PRN for NAUSEA, TAB 07/25/20 Magnesium Hydroxide (MILK OF MAGNESIA) 2,400 Mg/10 Ml Oral.susp, 2400 MG PO PRN DAILY PRN for CONSTIPATION, MISC 07/25/20 Mirtazapine (MIRTAZAPINE) 7.5 Mg Tablet, 7.5 MG PO QHS for DEPRESSION, TAB 03/18/20 Latanoprost (LATANOPROST) 2.5 Ml Drops, 1 DROP EACHEYE QHS for eye, #7.5 ML 3 Refills 03/18/20 Gemfibrozil (GEMFIBROZIL) 600 Mg Tablet, 600 MG PO BID, TAB 03/27/17 Discontinued Reported Medications Midodrine Hcl (MIDODRINE HCL) 5 Mg Tablet, 5 MG PO TID for HYPOTENSION SBP <90, TAB 07/25/20 JOHN GILMORE MD Jul 28, 2020 09:47
[2020-07-28 10:49] VITALS: BP 122/60
--- NOTE | 2020-07-28 11:17 | NUR ---
This RN gave report to Fany MATIAS at [facility] , patient at facility on hospice care under [facility]. No IV, no telemonitor on patient. Belongings and information packet with patient, picked up by [facility] via stretcher. DNR signed and with packet.
--- NOTE | 2020-07-28 11:40 | NUR ---
SW following for discharge planning. Spoke with RN and reviewed chart. SW spoke with both pt's daughter Ida and son Roni today. Coordinated care with Kira from [facility] and Stephanie from [facility]. Pt discharged today, 07/28 at 11am via stretcher to [facility] with orders to admit to [facility] hospice. RN called report and clinicals sent with pt. Discharge orders faxed. No further SW needs at this time.
== END 2020-07-28 10:46 | disposition hospice, inpatient (51) | DRG 871 ==
LOC: ER 19:00 → 6 SOUTH 22:56
PROVIDERS: ADMIT Family Medicine; ATTEND Family Medicine
DX: A41.89 Other specified sepsis (principal); U07.1 COVID-19; E43 Unspecified severe protein-calorie malnutrition; J96.00 Acute respiratory failure, unspecified whether with hypoxia or hypercapnia; N17.0 Acute kidney failure with tubular necrosis; J12.82 Pneumonia due to coronavirus disease 2019; E87.0 Hyperosmolality and hypernatremia; I13.0 Hypertensive heart and chronic kidney disease with heart failure and stage 1 through stage 4 chronic kidney disease, or unspecified chronic kidney disease; N39.0 Urinary tract infection, site not specified; J98.11 Atelectasis; Z68.1 Body mass index [BMI] 19.9 or less, adult; R62.7 Adult failure to thrive; E11.22 Type 2 diabetes mellitus with diabetic chronic kidney disease; E78.00 Pure hypercholesterolemia, unspecified; E78.5 Hyperlipidemia, unspecified; E86.0 Dehydration; E87.5 Hyperkalemia; E87.6 Hypokalemia; I25.10 Atherosclerotic heart disease of native coronary artery without angina pectoris; I48.91 Unspecified atrial fibrillation; I50.9 Heart failure, unspecified; M47.816 Spondylosis without myelopathy or radiculopathy, lumbar region; N18.30 Chronic kidney disease, stage 3 unspecified; Z82.49 Family history of ischemic heart disease and other diseases of the circulatory system; Z82.5 Family history of asthma and other chronic lower respiratory diseases; Z87.891 Personal history of nicotine dependence; Z90.49 Acquired absence of other specified parts of digestive tract; F32.9 Major depressive disorder, single episode, unspecified; F41.9 Anxiety disorder, unspecified; M19.90 Unspecified osteoarthritis, unspecified site; Z88.8 Allergy status to other drugs, medicaments and biological substances; Z66 Do not resuscitate
CPT/HCPCS: 36415; 71045; 74018; 80048; 80053; 81001; 82962; 83605; 83735; 83880; 84100; 84484; 85007; 85025; 87077; 87086; 87186; 90471; 90686; 93005; 96361; 96374; J0696; J3490; J7030; J7040; J7042; 99285-25; G0378